=== PATIENT | female | born 1935 | race Caucasian/White ===

== ENCOUNTER → 2018-03-02 14:23 | Outpatient (CLI) | payer OTHER, MEDICARE, SELFPAY ==
--- NOTE | 2018-03-02 | DI.RAD.S_ITS ---
PROCEDURE: XR HIP W PEL IF DONE LT 2V INDICATIONS: LEFT HIP PAIBN TECHNIQUE: AP pelvis with lateral view(s) of the left hip(s). COMPARISON: None. FINDINGS: Bones: No fractures or dislocations. Pelvic ring appears intact. No suspicious bony lesions. There is mild, symmetrical hip joint space narrowing. Minimal marginal osteophyte formation on the left. Soft tissues: The visualized bowel gas pattern is normal. A 2.7 cm popcorn calcification is present in the mid pelvis, probable degenerative uterine fibroid. IMPRESSION: 1. No acute bony abnormality. 2. 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 3. Probable degenerative uterine fibroid. Dictated by: Efrain Ibarra M.D. on 03/02/2018 at 14:53 Approved by: Efrain Ibarra M.D. on 03/02/2018 at 14:55
== END ==
PROVIDERS: PCP Internal Medicine; Visit Provider Internal Medicine
DX: M16.0 Bilateral primary osteoarthritis of hip (principal)
CPT/HCPCS: 73502

== ENCOUNTER → 2018-08-13 11:22 | Outpatient (CLI) | payer MEDICARE, SELFPAY ==
[2018-08-13 12:12] LABS: Add Manual Diff / Slide Review NO; Basophils Percent Auto 1.2 % (0-2); Eosinophils Percent Auto 1.9 % (2-4); Hematocrit 39.2 % (36-46); Hemoglobin 13.4 g/dL (12.0-16.0); Lymphocytes Percent Auto 28.9 % (25-40); Mean Corpuscular HGB Conc 34.2 % (30-36); Mean Corpuscular Hemoglobin 30.3 PG (26-34); Mean Corpuscular Volume 88.7 fL (80-100); Monocytes Percent Auto 7.6 % (3-14); Neutrophils Absolute Auto 4300 /uL (3000-5900); Neutrophils Percent Auto 60.4 % (50-75); Platelet Count 256 X10^3/uL (150-400); Red Blood Cell Count 4.42 X10^6/uL (4.0-5.2); Red Cell Distribution Width 13.5 % (11.6-14.8); White Blood Cell Count 7.1 X10^3/uL (4.5-11.0)
[2018-08-13 13:40] LABS: Alanine Aminotransferase 23 IU/L (9-52); Albumin 4.6 g/dL (3.5-5.0); Albumin Globulin Ratio 1.6 (1.0-2.8); Alkaline Phosphatase 59 U/L (38-126); Aspartate Aminotransferase 21 IU/L (14-36); BUN Creatinine Ratio 18.6 (6-22); Bilirubin Total 0.5 mg/dL (0.2-1.3); Blood Urea Nitrogen 13 mg/dL (7-17); Calcium 9.8 mg/dL (8.4-10.2); Carbon Dioxide 26 mmol/L (22-32); Chloride 102 mmol/L (98-107); Estimated Glomerular Filt Rate > 60.0 mL/min (>60); Globulin 2.8 g/dL (1.7-4.1); Glucose 91 mg/dL (80-110); HEMOLYSIS < 15 (0-50); Potassium 4.5 mmol/L (3.4-5.1); Sodium 141 mmol/L (137-145); Total Protein 7.4 g/dL (6.3-8.2)
[2018-08-13 14:05] LABS: Thyroid Stimulating Hormone 5.14 uIU/mL (0.47-4.68)
== END ==
PROVIDERS: Family Provider Internal Medicine; PCP Internal Medicine; Visit Provider Psychiatry & Neurology Psychiatry
DX: F41.9 Anxiety disorder, unspecified (principal); Z51.81 Encounter for therapeutic drug level monitoring
CPT/HCPCS: 36415; 80053; 84443; 85025

== ENCOUNTER 2018-10-17 17:58 | Emergency (ER) | payer MEDICARE, SELFPAY ==
[2018-10-17] VITALS (9 sets, daily range): BP systolic 180–200; BP diastolic 60–124; PULSE 69–87; RESP 12–17; TEMP 36.4; O2SAT 100; BMI 26.9
--- NOTE | 2018-10-17 18:36 | DI.CT.S_ITS ---
PROCEDURE: CT HEAD/BRAIN WO CON INDICATIONS: headache very high BP TECHNIQUE: Noncontrast 4.5 mm thick angled axial sections acquired from the foramen magnum to the vertex, with coronal and sagittal reformats. For radiation dose reduction, the following was used: automated exposure control, adjustment of mA and/or kV according to patient size. COMPARISON: [facility], CT, HEAD WITHOUT CONTRAST, 05/26/2017, 16:21. FINDINGS: Image quality: Excellent. CSF spaces: Basal cisterns are patent. No extra-axial fluid collections. The ventricles are symmetric in size and shape. Brain: No intracranial bleeds or masses. There is cerebral volume loss for age, with resultant ventricular and sulcal prominence. There are periventricular and deep white matter chronic small vessel ischemic changes. There is intracranial internal carotid artery atherosclerosis. Skull and face: Calvarium and visualized facial bones appear intact, without suspicious lesions. Sinuses: Visualized sinuses and mastoids are clear. IMPRESSION: Normal for age. Source of headache is not seen. Dictated by: Bill Loya M.D. on 10/17/2018 at 19:24 Approved by: Bill Loya M.D. on 10/17/2018 at 19:25
--- NOTE | 2018-10-17 18:37 | DI.RAD.S_ITS ---
PROCEDURE: XR CHEST 1V INDICATIONS: chest pain TECHNIQUE: One view of the chest was acquired. COMPARISON: [facility], , CHEST 1 VIEW, 12/16/2017, 21:43. FINDINGS: Surgical changes and devices: None. Lungs and pleura: No pleural effusions or pneumothorax. Lungs are clear. Mediastinum: Mediastinal contours appear normal. Heart size is normal. Bones and chest wall: No suspicious bony lesions. Overlying soft tissues appear unremarkable. IMPRESSION: Mild interstitial prominence, mildly reduced inspiratory volume. No plant changer time, a source of chest pain is not found. Dictated by: Bill Loya M.D. on 10/17/2018 at 19:22 Approved by: Bill Loya M.D. on 10/17/2018 at 19:23
[2018-10-17 18:57] LABS: Add Manual Diff / Slide Review NO; Basophils Percent Auto 0.6 % (0-2); Hematocrit 39.7 % (36-46); Hemoglobin 13.3 g/dL (12.0-16.0); Lymphocytes Percent Auto 19.6 % (25-40); Mean Corpuscular HGB Conc 33.5 % (30-36); Mean Corpuscular Hemoglobin 30.3 PG (26-34); Mean Corpuscular Volume 90.5 fL (80-100); Monocytes Percent Auto 5.2 % (3-14); Neutrophils Absolute Auto 6300 /uL (1500-7000); Neutrophils Percent Auto 73.6 % (50-75); Platelet Count 251 X10^3/uL (150-400); Red Blood Cell Count 4.39 X10^6/uL (4.0-5.2); Red Cell Distribution Width 13.6 % (11.6-14.8); White Blood Cell Count 8.6 X10^3/uL (4.5-11.0)
[2018-10-17 18:58] LABS: Prothrombin Time 11.4 SECONDS (10.1-12.7)
[2018-10-17 19:01] LABS: PTT Partial Thromboplastin Tim 33 SECONDS (26.4-36.2)
[2018-10-17 19:03] LABS: Alanine Aminotransferase 25 IU/L (9-52); Albumin 4.5 g/dL (3.5-5.0); Albumin Globulin Ratio 1.3 (1.0-2.8); Alkaline Phosphatase 66 U/L (38-126); Aspartate Aminotransferase 25 IU/L (14-36); BUN Creatinine Ratio 22.9 (6-22); Bilirubin Total 0.4 mg/dL (0.2-1.3); Blood Urea Nitrogen 16 mg/dL (7-17); Calcium 9.6 mg/dL (8.4-10.2); Carbon Dioxide 28 mmol/L (22-32); Chloride 102 mmol/L (98-107); Creatine Kinase 39 U/L (30-135); Estimated Glomerular Filt Rate > 60.0 mL/min (>60); Globulin 3.4 g/dL (1.7-4.1); Glucose 130 mg/dL (80-110); Lipase 97 U/L (23-300); Sodium 138 mmol/L (137-145); Total Protein 7.9 g/dL (6.3-8.2)
--- NOTE | 2018-10-17 19:10 | ED.GENADULT ---
HPI - General Adult General Chief complaint: Hypertension Stated complaint: HIGH BLOOD PRESSURE, HEADACHE, JAW PAIN Time Seen by Provider: 10/17/18 18:26 Source: patient Mode of arrival: ambulatory Limitations: no limitations History of Present Illness HPI narrative: Patient is a 83-year-old female presents with left-sided jaw pain. She says it started at 3:15 a.m.. She does feel like her brain hurts as well she has no vision changes no numbness no tingling no chest pain a she does feel like her shoulder hurts. However she does say she has arthritis if she can't tell. She has no dental pain. She took her blood pressure at home and it was 240/132. She took it again was 202/100. Is remains elevated here in the ED. 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 She has no numbness or tingling in her extremities. Related Data Home Medications Medication Instructions Recorded Confirmed diltiazem HCl [Cartia XT] 360 mg PO #0 12/16/17 10/02/18 propranolol [Inderal LA] 60 mg PO QDAY #0 01/12/18 10/02/18 hydralazine 25 mg tablet 25 mg PO TID 07/17/18 10/02/18 Previous Rx's Medication Instructions Recorded Cane: Single Point ea #1 05/10/17 lisinopril 20 mg PO BID #60 tab 05/10/17 valacyclovir 500 mg PO BID #30 tab 05/10/17 hydroxyzine pamoate 25 mg PO TIDP PRN #90 cap 12/22/17 clonazepam 0.5 mg tablet 0.25 mg PO BID #30 tab 10/02/18 Allergies Allergy/AdvReac Type Severity Reaction Status Date / Time Anesthetics - Colleen Type- Allergy Unknown patient Verified 08/28/18 09:02 Parabens can't [Anesthetics - Colleen Type] remember procaine Allergy Unknown patient Verified 08/28/18 09:02 can't remember epinephrine [EPINEPHRINE] AdvReac Severe shakes Verified 08/28/18 09:02 hydrocodone AdvReac Severe patient Verified 08/28/18 09:02 can't remeber codeine AdvReac Intermediate vomiting Verified 08/28/18 09:02 aspirin AdvReac Mild GI UPSET Verified 08/28/18 09:02 Review of Systems Review of Systems All systems reviewed & are unremarkable except as noted in HPI and below Constitutional Denies chills, Denies fever(s), Reports headache(s), Denies lethargy and Denies weakness ENT Ears, Nose, Mouth, and Throat: Denies vertigo, Denies dizziness and Reports headache(s) Cardiovascular Denies lightheadedness, Denies palpitations, Denies dyspnea and Denies dyspnea on exertion Respiratory Denies dyspnea and Denies dyspnea on exertion Gastrointestinal Gastrointestinal: Denies abdominal pain, Denies change in bowel habits, Denies diarrhea, Denies nausea and Denies vomiting Genitourinary Denies hematuria, Denies flank pain, Denies urinary incontinence and Denies urinary urgency Musculoskeletal Denies back pain, Denies muscle weakness, Denies numbness and Denies tingling Integumentary/Breasts Denies pruritus, Denies erythema, Denies rash and Denies wounds Neurologic Denies vertigo, Denies dizziness, Reports headache(s), Denies focal weakness, Denies numbness, Denies tingling and Denies weakness Endocrine Denies palpitations PFSH Medical History Anxiety (Chronic) Hypertension (Chronic) Surgical History Status post delivery Status post cholecystectomy Social History Smoking Status: Never smoker Exam Initial Vital Signs Initial Vital Signs: Vital Signs Temperature 97.6 F 10/17/18 18:10 Pulse Rate 87 10/17/18 18:10 Respiratory Rate 16 10/17/18 18:10 Blood Pressure 181/124 H 10/17/18 18:10 Pulse Oximetry 100 10/17/18 18:10 GENERAL: Alert pleasant elderly female alert and oriented times 4 HEENT: Head atraumatic,EOMI, pupils reactive, face symmetric, neck is supple CARDIOVASCULAR: Regular rate and rhythm without murmurs, rubs or gallops. RESPIRATORY: Breath sounds equal bilaterally, no wheezes rales or rhonchi. ABDOMEN: Soft, nontender. Normoactive bowel sounds all 4 quadrants. No guarding or rebound. EXTREMITIES: Normal range of motion, no clubbing or edema. Neurovascularly intact NEUROLOGICAL: Alert and oriented x4.Normal gait and speech. Cranial nerves II through XII grossly intact. Hospital Plan Administrator strength equal bilaterally good [id number] good heel to lundy sensation intact to soft touch bilaterally SKIN: Warm, dry, no laceration, no petechiae, no rashes or lesions. Scores NIH Stroke Scale Level of Conciousness: Alert, keenly responsive Ask month/age: Answers both questions correctly. Open/close eyes, close hand: Performs both tasks correctly Best gaze horizontal: Normal Visual cai: No visual loss Facial palsy: Normal symetrical movement Left arm drift: No drift for full 10 sec Right arm drift: No drift for full 10 sec Left leg drift: No drift for full 10 sec Right leg drift: No drift for full 10 sec Limb ataxia: Absent Sensory on face/arms/legs: Normal, no sensory loss Best language: No aphasia, normal Dysarthria: Normal Extinction or inattention: No abnormality Total NIH Stroke scale score: 0 Course Orders Ordered: ED Orders 10/17/18 18:15 EKG-12 Lead Routine 10/17/18 18:32 Complete Blood Count AUTO DIFF Stat Comprehensive Metabolic Panel Stat Lipase Stat Partial Thromboplastin Time Stat Prothrombin Time INR Stat Troponin & CK Cardiac Panel Stat 10/17/18 18:36 CT head/brain wo con Stat 10/17/18 18:37 XR chest 1V Stat 10/17/18 20:31 Troponin I Stat Discontinued Medications Aspirin (Aspirin Chew) 324 mg PO NOW ONE Stop: 10/17/18 18:37 Last Admin: 10/17/18 19:15 Dose: 324 mg Clonazepam (Klonopin) 0.5 mg PO NOW ONE Stop: 10/17/18 19:38 Last Admin: 10/17/18 19:50 Dose: 0.5 mg Ketorolac Tromethamine (Toradol) 15 mg IV NOW ONE Stop: 10/17/18 19:41 Last Admin: 10/17/18 19:46 Dose: 15 mg Lisinopril (Zestril) 20 mg PO NOW ONE Stop: 10/17/18 19:38 Last Admin: 10/17/18 19:45 Dose: 20 mg Vital Signs - 8 hr 10/17/18 18:10 10/17/18 18:34 10/17/18 19:00 Temperature 97.6 F Pulse Rate 87 87 74 Respiratory Rate 16 16 15 Blood Pressure 181/124 H Blood Pressure [Left Arm] 200/71 H 187/68 H Pulse Oximetry 100 100 100 10/17/18 19:45 10/17/18 19:46 10/17/18 20:00 Temperature Pulse Rate 72 76 69 Respiratory Rate 14 12 Blood Pressure 190/69 H Blood Pressure [Left Arm] 190/69 H 188/76 H Pulse Oximetry 100 100 10/17/18 20:30 10/17/18 21:00 10/17/18 21:30 Temperature Pulse Rate 71 73 79 Respiratory Rate 13 17 16 Blood Pressure Blood Pressure [Left Arm] 180/60 H 181/75 H 187/72 H Pulse Oximetry 100 100 100 Medical Decision Making Differential Diagnosis Coronary artery disease, CVA, TIA, angina, atypical chest pain Lab Data Lab results reviewed: Yes I reviewed the patient's lab results. Result diagrams: 10/17/18 18:32 10/17/18 18:32 Lab Results 10/17/18 10/17/18 10/17/18 Range/Units 18:32 18:32 18:32 WBC 8.6 (4.5-11.0) X10^3/uL RBC 4.39 (4.0-5.2) X10^6/uL Hgb 13.3 (12.0-16.0) g/dL Hct 39.7 (36-46) % MCV 90.5 (80-100) fL MCH 30.3 (26-34) PG MCHC 33.5 (30-36) % RDW 13.6 (11.6-14.8) % Plt Count 251 (150-400) X10^3/uL Neut % (Auto) 73.6 (50-75) % Lymph % (Auto) 19.6 L (25-40) % [place] % (Auto) 5.2 (3-14) % Eos % (Auto) 1.0 L (2-4) % Baso % (Auto) 0.6 (0-2) % Neut # (Auto) 6300 (1580-5108) /uL PT 11.4 (10.1-12.7) SECONDS INR 1.0 (0.9-1.3) APTT 33 (26.4-36.2) SECONDS Sodium 138 (137-145) mmol/L Potassium 4.0 (3.4-5.1) mmol/L Chloride 102 (98-107) mmol/L Carbon Dioxide 28 (22-32) mmol/L BUN 16 (7-17) mg/dL Creatinine 0.70 (0.52-1.04) mg/dL Estimated GFR > 60.0 (>60) mL/min BUN/Creatinine Ratio 22.9 H (6-22) Glucose 130 H (80-110) mg/dL Calcium 9.6 (8.4-10.2) mg/dL Total Bilirubin 0.4 (0.2-1.3) mg/dL AST 25 (14-36) IU/L ALT 25 (9-52) IU/L Alkaline Phosphatase 66 (38-126) U/L Total Creatine Kinase 39 (30-135) U/L CK-MB (CK-2) TNP CK-MB (CK-2) Rel Index TNP Troponin I < 0.012 (0.01-0.034) ng/mL Total Protein 7.9 (6.3-8.2) g/dL Albumin 4.5 (3.5-5.0) g/dL Globulin 3.4 (1.7-4.1) g/dL Albumin/Globulin Ratio 1.3 (1.0-2.8) Lipase 97 (23-300) U/L 10/17/18 Range/Units 20:31 WBC (4.5-11.0) X10^3/uL RBC (4.0-5.2) X10^6/uL Hgb (12.0-16.0) g/dL Hct (36-46) % MCV (80-100) fL MCH (26-34) PG MCHC (30-36) % RDW (11.6-14.8) % Plt Count (150-400) X10^3/uL Neut % (Auto) (50-75) % Lymph % (Auto) (25-40) % [place] % (Auto) (3-14) % Eos % (Auto) (2-4) % Baso % (Auto) (0-2) % Neut # (Auto) (4508-2418) /uL PT (10.1-12.7) SECONDS INR (0.9-1.3) APTT (26.4-36.2) SECONDS Sodium (137-145) mmol/L Potassium (3.4-5.1) mmol/L Chloride (98-107) mmol/L Carbon Dioxide (22-32) mmol/L BUN (7-17) mg/dL Creatinine (0.52-1.04) mg/dL Estimated GFR (>60) mL/min BUN/Creatinine Ratio (6-22) Glucose (80-110) mg/dL Calcium (8.4-10.2) mg/dL Total Bilirubin (0.2-1.3) mg/dL AST (14-36) IU/L ALT (9-52) IU/L Alkaline Phosphatase (38-126) U/L Total Creatine Kinase (30-135) U/L CK-MB (CK-2) CK-MB (CK-2) Rel Index Troponin I < 0.012 (0.01-0.034) ng/mL Total Protein (6.3-8.2) g/dL Albumin (3.5-5.0) g/dL Globulin (1.7-4.1) g/dL Albumin/Globulin Ratio (1.0-2.8) Lipase (23-300) U/L Imaging Data Chest x-ray: Radiologist's impression: PROCEDURE: XR CHEST 1V INDICATIONS: chest pain TECHNIQUE: One view of the chest was acquired. COMPARISON: [facility], , CHEST 1 VIEW, 12/16/2017, 21:43. FINDINGS: Surgical changes and devices: None. Lungs and pleura: No pleural effusions or pneumothorax. Lungs are clear. Mediastinum: Mediastinal contours appear normal. Heart size is normal. Bones and chest wall: No suspicious bony lesions. Overlying soft tissues appear unremarkable. IMPRESSION: Mild interstitial prominence, mildly reduced inspiratory volume. No change consultant time, a source of chest pain is not found. Dictated by: Bill Loya M.D. on 10/17/2018 at 19:22 ECG Data Attestation: I personally reviewed and interpreted this ECG as follows: Prior ECG tracings: available for review Interpretation: Normal sinus rhythm rate [address] elevations persistent T-wave inversion in lead [address] depressions similar to previous EKGs MDM Narrative Medical decision making narrative: Patient's blood pressure has come down with her own blood pressure medication. His she seems to have jaw and neck pain that is reproducible with movement. His he has no chest pain she actually started complaining of some mild headache as well. Head CT was negative. No focal deficits. Recommend that she speak with her PCP in regards to pressure control. Son is at bedside I discussed test results with both patient and son. Of patient's pain has improved after Toradol but is not completely gone. At this time I think pain is on likely related to coronary artery disease and CVA. More likely musculoskeletal. She has 2-troponins no changes in her EKG. Discharge Plan Departure Patient Disposition: Home Clinical Impression: Hypertension Discharge Date/Time: 10/17/18 22:01 Interventions: ED Discharge Assessment Last Done: 10/17/18 22:01 Instructions: DI for High Blood Pressure Activity Restrictions/Additional Instructions: *You have been diagnosed with hypertension *What to do: Blood work chest x-ray and CT scan of had a reassuring. Please discuss blood pressure control with her primary care provider. *Continue to take medications as directed *Follow up with your primary care provider in 2-3 days *Return to ER if you should have worsening headache, shoulder pain, chest pain, shortness of breath or any new, worsening or concerning symptoms Prescriptions: No Action hydralazine 25 mg tablet 25 mg PO TID RF: 0 clonazepam 0.5 mg tablet 0.25 mg PO BID Qty: 30 RF: 5 valacyclovir 500 MG tablet 500 mg PO BID Qty: 30 RF: 1 lisinopril 20 MG tablet 20 mg PO BID Qty: 60 RF: 3 Cane: Single Point Qty: 1 RF: 0 diltiazem HCl [Cartia XT] 240 MG capsule,extended release 24hr 360 mg PO Qty: 0 RF: 0 hydroxyzine pamoate 25 MG capsule 25 mg PO TIDP PRNQty: 90 RF: 1 propranolol [Inderal LA] 60 MG capsule,extended release 24 hr 60 mg PO QDAY Qty: 0 RF: 0 Referrals: Mil Lopez MD [Primary Care Provider] -
[2018-10-17] MEDS: ASPIRIN 81 MG TAB 324 MG PO (19:15)
[2018-10-17 19:17] LABS: HEMOLYSIS < 15 (0-50)
[2018-10-17 19:32] LABS: Troponin I < 0.012 ng/mL (0.01-0.034)
[2018-10-17] MEDS: LISINOPRIL 20 MG TABLET PO (19:45)
[2018-10-17] MEDS: KETOROLAC 60 MG/2 ML VIAL 15 MG IV (19:46)
[2018-10-17] MEDS: clonazePAM 0.5 MG TABLET PO (19:50)
[2018-10-17 21:07] LABS: Troponin I < 0.012 ng/mL (0.01-0.034)
== END 2018-10-17 22:01 | disposition home or self-care (01) ==
PROVIDERS: Emergency Provider Emergency Medicine; Family Provider Internal Medicine; PCP Internal Medicine
DX: I10 Essential (primary) hypertension (principal)
CPT/HCPCS: 36415; 36591; 70450; 71045; 80053; 82550; 83690; 84484; 85025; 85610; 85730; 93005; 96374; 99283; 99285; J1885

== ENCOUNTER → 2019-02-06 13:26 | Outpatient (CLI) | payer MEDICARE, SELFPAY ==
--- NOTE | 2019-02-06 | DI.CT.S_ITS ---
PROCEDURE: CT HEAD/BRAIN WO CON INDICATIONS: Other cerebrovascular disease TECHNIQUE: Noncontrast 4.5 mm thick angled axial sections acquired from the foramen magnum to the vertex, with coronal and sagittal reformats. For radiation dose reduction, the following was used: automated exposure control, adjustment of mA and/or kV according to patient size. COMPARISON: [facility], CT, CT HEAD/BRAIN WO CON, 10/17/2018, 18:45. [facility], CT, HEAD WITHOUT CONTRAST, 05/26/2017, 16:21. FINDINGS: Image quality: Excellent. CSF spaces: Basal cisterns are patent. No extra-axial fluid collections. The ventricles are symmetric in size and shape. Brain: No intracranial bleeds or masses. There is cerebral volume loss for age, with resultant ventricular and sulcal prominence. There are periventricular and deep white matter chronic small vessel ischemic changes. There is intracranial internal carotid artery atherosclerosis. Skull and face: Calvarium and visualized facial bones appear intact, without suspicious lesions. Sinuses: Visualized sinuses and mastoids are clear. IMPRESSION: Mild microvascular atherosclerotic change in the deep white matter of each hemisphere, no acute disease. Dictated by: Bill Loya M.D. on 02/06/2019 at 14:51 Approved by: Bill Loya M.D. on 02/06/2019 at 14:51
== END ==
PROVIDERS: Family Provider Internal Medicine; PCP Internal Medicine; Visit Provider Internal Medicine
DX: I67.89 Other cerebrovascular disease (principal)
CPT/HCPCS: 70450

== ENCOUNTER → 2019-03-29 12:44 | Outpatient (CLI) | payer MEDICARE, SELFPAY ==
[2019-03-29 13:47] LABS: Erythrocyte Sedimentation Rate 29 MM/HR (0-20)
[2019-03-29 14:15] LABS: C-Reactive Protein Quant < 0.5 mg/dL (<1.0)
== END ==
PROVIDERS: PCP Internal Medicine; Visit Provider Internal Medicine
DX: M13.0 Polyarthritis, unspecified (principal)
CPT/HCPCS: 36415; 85651; 86140

== ENCOUNTER 2019-06-18 12:00 | Outpatient (RCR) | payer MEDICARE, SELFPAY ==
--- NOTE | 2019-04-16 15:34 | PT.OIE ---
Current Diagnoses Cervicalgia (04/16/19) Dorsalgia, unspecified (04/16/19) Past Medical History (Last Updated 10/17/18 @ 19:13 by Dayanara Rea DO) Anxiety (Chronic) Hypertension (Chronic) Past Surgical History Status post delivery Status post cholecystectomy Provider Visit Care Team Role Provider Type Mil Lopez MD Attending Provider Physician Primary Care Provider Specialty: Internal Medicine Address: [address] [place] [address], [facility] Email: Physical Therapy Initial Evaluation PT-OP-A Visit Information Start: 04/16/19 10:40 Freq: Status: Active Protocol: Document 04/16/19 10:41 EA (Rec: 04/16/19 10:52 EA [id number]) Out-Patient Physical Therapy Visit Information Visit Information Visit Type Initial Evaluation Visit Start Time 09:45 Visit Stop Time 10:30 Total Visit Minutes 40 Visit Number 1 Number of MANAGER CRITICAL CARE UNIT Visits 0 Evaluation Information Evaluation Date 04/16/19 Precautions Precautions Fall risk with head movements PT-OP-B Current Condition Start: 04/16/19 10:40 Freq: Status: Active Protocol: Document 04/16/19 10:41 EA (Rec: 04/16/19 10:52 EA [id number]) Current Condition History of Current Condition Onset Date Neck 2 years ago; midback 5 years ago Current Complaints Posterior neck and mid back pain History of Current Condition Patient reports neck and mid back pain started gradually after she was told not to do much to her neck and trunk mobility due to calcium deposits on her body 5 years ago. She reports able to maintain upright posture but very stiff body. She feels all of her back and neck are achy more in the morning and loosen up once started doing home typical activities. She reports living by herself on a no stairs house and uses cane only when walking outside. She reports no fall in the past six months but very careful about her balance. Prior Treatments and Tests None identified Future Testing and Treatments Planned None identified. Treatment Goals Patient/Caregiver Goals 1. I want to decrease my neck and back pain' 2. I want to strengthen my both legs 3. I want to walk on my treadmill machine safely > 10 mins Prior Functional Status Baseline Function- ADL's Independent Baseline Function- Mobility Independent Baseline Function- Gait Indep with AD with outdoor mobility Baseline Function- Work/School Retired Baseline Function- Recreation/Hobbies Patient denies any outdoor hobbies but cleaning the house is what she likes to do. Current Functional Impairments (Reported) Functional Limitations- ADL's Independent in all ADL; difficulty with activities that requires head turning and moving. Functional Limitations- Mobility/Gait Indep: Straight cane for outside amb. Able to walk but with difficulty with walking that requires head turning. Functional Limitations- Work/School Retired Functional Limitations- Recreation/ None Hobbies Personal Factors Other Personal Factors That May Effect Chronicity of the condition Therapy/Recovery PT-OP-C Subjective Start: 04/16/19 10:40 Freq: Status: Active Protocol: Document 04/16/19 10:53 EA (Rec: 04/16/19 11:15 EA [id number]) OP-PT Subjective Patient Comments Patient Comments I feel my ribs is pulled when I stretch my chest and I feel headache when I turn my head to each sides. Patient Reported Progress Same Patient Questionnaires Oswestry Low Back Index Oswestry Score 20 Oswestry Impairment 20 to 39% Impaired (Score 20- 39) PT-OP-D Balance Start: 04/16/19 10:40 Freq: Status: Active Protocol: Document 04/16/19 10:53 EA (Rec: 04/16/19 11:15 EA [id number]) OP-PT Balance Assessment Sitting Balance Static Sitting Balance Ability Good Dynamic Sitting Balance Ability Good Standing Balance Static Standing Balance Ability Good Dynamic Standing Balance Ability Fair Balance Tests Single Limb Standing Single Limb- Right < 2 Single Limb- Left < 1 Tandem Tandem Standing < 2 secs each leg Tinetti Balance Assessment Sitting Balance Sitting Balance Steady, safe Arising from Chair Ability to Arise Able, w/o using arms Attempts to Arise Arises on 1st attempt Standing Balance Immediate Standing Balance Steady w/o support Standing Balance Steady, wide stance Nudged Response Steady Standing with Eyes Closed Unsteady Turning Step Pattern Turning 360 Degrees Continuous steps Stability Turning 360 Degrees Steady Sitting Down Sitting Down Safe, steady Gait and Step Initiation of Gait No hesitancy Right Foot Step Length Does pass stance foot Right Foot Step Height Completely clears floor Left Foot Step Length Does pass stance foot Left Foot Step Height Completely clears floor Step Description Step Symmetry Step length appears equal Gait Description Path Description Straight Trunk Description No sway Walking Stance Heels together Scoring and Interpretation Tinetti Composite Score (points) 25 Interpretation of Scores Low risk for falls (>24) Tinetti Impairment Rating from Composite 1 to <20% Impaired (Score 23- Score 27) Simmons Fall Scale Copyright Permission PT-OP-F Manual Assessment Start: 04/16/19 10:40 Freq: Status: Active Protocol: Document 04/16/19 10:53 EA (Rec: 04/16/19 11:15 EA [id number]) Manual Assessments Soft Tissue Assessment Soft Tissue Mobility Assessment Tightness to bothPectorals, traps, scalenes, LS, paralumbars, parathoracis Other Manual Assessments Other Manual Assessments Trigger points to both parascapulars, right mid thoracis, upper traps, LS, PT-OP-J Posture/Palpation/Skin Start: 04/16/19 10:40 Freq: Status: Active Protocol: Document 04/16/19 10:53 EA (Rec: 04/16/19 11:15 EA [id number]) Posture Evaluation Comments Posture Comments Near to normal head to toe posture except with slight round shoulders, kyphotic postures. Palpation Assessment Location One Palpation Location Parathoracis. paracervicals, LS, both traps, rhomboids, scalenes. Palpation Findings Soft Tissue Tightness Tenderness Trigger Point PT-OP-K Range of Motion Start: 04/16/19 10:40 Freq: Status: Active Protocol: Document 04/16/19 10:53 EA (Rec: 04/16/19 11:15 EA [id number]) Cervical Spine Range of Motion Cervical Spine Active Percentage Testing Position Sitting Flexion 85 Extension 60 Rotation Left 60 Rotation Right 60 Lateral Flexion Left 55 Lateral Flexion Right 55 ROM Limitations Soft Tissue Tightness Pain Lumbar Spine Range of Motion Lumbar Spine Active Percentage Testing Position Standing Flexion 75 Extension 65 Rotation Left 60 Rotation Right 60 Lateral Flexion Left 50 Lateral Flexion Right 50 ROM Limitations Soft Tissue Tightness Pain PT-OP-L Special Tests Start: 04/16/19 10:40 Freq: Status: Active Protocol: Document 04/16/19 10:53 EA (Rec: 04/16/19 11:15 EA [id number]) Special Tests Cervical Spine Special Tests Foraminal Compression Test Results -juan Vertebral Artery Test Results -juan Lumbar Spine Special Tests Straight Leg Raise Test Results -ve PT-OP-M Strength Start: 04/16/19 10:40 Freq: Status: Active Protocol: Document 04/16/19 10:53 EA (Rec: 04/16/19 11:15 EA [id number]) Cervical Spine Strength Cervical Spine Manual Muscle Testing Testing Position Sitting Reason Not Measured WFL Trunk Strength Trunk Manual Muscle Testing Testing Position Sitting Reason Not Measured WFL Hip Strength Hip Manual Muscle Testing Right Flexion (L2) 4- Good- Extension (S1) 4- Good- Abduction 4- Good- Adduction 4- Good- External Rotation 4- Good- Internal Rotation 4- Good- Left Flexion (L2) 4- Good- Extension (S1) 4- Good- Abduction 4- Good- Adduction 4- Good- External Rotation 4- Good- Internal Rotation 4- Good- Knee Strength Knee Manual Muscle Testing Right Reason Not Measured WFL Left Reason Not Measured WFL PT-OP-Q Treatments Start: 04/16/19 10:40 Freq: Status: Active Protocol: Document 04/16/19 10:53 EA (Rec: 04/16/19 11:15 EA [id number]) Manual Therapy Treatment Soft Tissue Mobilization 1 Body Location Parathoracis, traps, LS, paracervicals Mobilization Type Myofascial Release Rolling Sustained Pressure Trigger Point Release Intensity/Depth Superficial Body Position Sitting Self-Care/Home Management Treatment Education Patient Education Home Exercise Program Joint Protection Pain Management Posture PT-OP-T Assessment and Plan Start: 04/16/19 10:40 Freq: Status: Active Protocol: Document 04/16/19 10:53 EA (Rec: 04/16/19 11:15 EA [id number]) Physical Therapy Assessment Rehab Potential Rehabilitation Potential Good Evaluation Complexity Number of Personal Factors/Comorbidities 1-2 Number of Body Systems Impaired 3 Clinical Presentation at Evaluation Evolving Impairments Impairments Activity Tolerance Balance Pain Posture ROM Soft Tissue Mobility Strength Goals Four Impairment Impaired neck ROM Inside Account Representative Goal (LTG) Patient will perform functional neck ROM with no discomfort to enhance functional activities without limitation from neck. LTG Duration 6 wks Three Impairment Oswetry 20/50 Inside Account Representative Goal (LTG) Oswetry functional scale results of < 15/50 LTG Duration 5 wks Two Impairment decrease ambulation tolerance Inside Account Representative Goal (LTG) Patient will amb on her TM machine > 10 mins safely. LTG Duration 5 wks One Impairment No HEP in place [facility] Goal (LTG) Patient will exhibit indep HEP LTG Duration 3 wks Assessment Summary Assessment Pleasant 83 y/o F patient with a referring diagnosis of neck and back pain. Today patient presents with decreased neck mobility and functional gait due to neck ROM limitation, pain, with impaired balance and minimal abnormal posture. Assessment reveals multiple mid back trigger points with soft tissues tightness to paracervical, parathoracis, parascapulars, traps, scalenes , and levator scapulae. Postural assessment reveals fair to good posture with slight fwd head and rounded posture. Standing dynamic balance shows fair grade with poor balance noted during with neck mobility. Patient would greatly benefit with skilled PT focusing of increase neck and mid back flexibility and improving dynamic balance. Patient shows good rehab potential and likely reach personal goals. Physical Therapy Plan Frequency and Duration Frequency of Treatment 2x/Week Duration of Treatment 8 wks Plan of Care Start Date 04/16/19 Plan of Care End Date 06/11/19 Therapeutic Interventions Therapeutic Interventions Balance Training Home Exercise Program Manual Therapy Patient/Caregiver Education Self-Care/Home Management Soft Tissue Mobilization Taping Therapeutic Exercises Modalities Cold Pack/Ice Massage Electric Stimulation Hot Packs Ultrasound Next Visit Focus/Plan Next Note Type Treatment Note Next Visit Plan STM and modalities to mid back and neck. Gentle ROM/ flexibility exercises to neck and lumba/thoracis, balance exercises with neck rotation/ EC/EO. Provide/Review HEP with images
--- NOTE | 2019-04-16 15:35 | PT.OPPOC ---
Current Diagnoses Cervicalgia (04/16/19) Dorsalgia, unspecified (04/16/19) Provider Visit Care Team Role Provider Type Mil Lopez MD Attending Provider Physician Primary Care Provider Specialty: Internal Medicine Address: [address] [place] [address], [id number] Email: Plan Of Care PT-OP-T Assessment and Plan Start: 04/16/19 10:40 Freq: Status: Active Protocol: Document 04/16/19 10:53 EA (Rec: 04/16/19 11:15 EA [id number]) Physical Therapy Assessment Rehab Potential Rehabilitation Potential Good Evaluation Complexity Number of Personal Factors/Comorbidities 1-2 Number of Body Systems Impaired 3 Clinical Presentation at Evaluation Evolving Impairments Impairments Activity Tolerance Balance Pain Posture ROM Soft Tissue Mobility Strength Goals Four Impairment Impaired neck ROM Mailroom Coordinator Goal (LTG) Patient will perform functional neck ROM with no discomfort to enhance functional activities without limitation from neck. LTG Duration 6 wks Three Impairment Oswetry 20/50 Group Home Goal (LTG) Oswetry functional scale results of < 15/50 LTG Duration 5 wks Two Impairment decrease ambulation tolerance Group Home Goal (LTG) Patient will amb on her TM machine > 10 mins safely. LTG Duration 5 wks One Impairment No HEP in place Group Home Goal (LTG) Patient will exhibit indep HEP LTG Duration 3 wks Assessment Summary Assessment Pleasant 83 y/o F patient with a referring diagnosis of neck and back pain. Today patient presents with decreased neck mobility and functional gait due to neck ROM limitation, pain, with impaired balance and minimal abnormal posture. Assessment reveals multiple mid back trigger points with soft tissues tightness to paracervical, parathoracis, parascapulars, traps, scalenes , and levator scapulae. Postural assessment reveals fair to good posture with slight fwd head and rounded posture. Standing dynamic balance shows fair grade with poor balance noted during with neck mobility. Patient would greatly benefit with skilled PT focusing of increase neck and mid back flexibility and improving dynamic balance. Patient shows good rehab potential and likely reach personal goals. Physical Therapy Plan Frequency and Duration Frequency of Treatment 2x/Week Duration of Treatment 8 wks Plan of Care Start Date 04/16/19 Plan of Care End Date 06/11/19 Therapeutic Interventions Therapeutic Interventions Balance Training Home Exercise Program Manual Therapy Patient/Caregiver Education Self-Care/Home Management Soft Tissue Mobilization Taping Therapeutic Exercises Modalities Cold Pack/Ice Massage Electric Stimulation Hot Packs Ultrasound Next Visit Focus/Plan Next Note Type Treatment Note Next Visit Plan STM and modalities to mid back and neck. Gentle ROM/ flexibility exercises to neck and lumba/thoracis, balance exercises with neck rotation/ EC/EO. Provide/Review HEP with images Plan of Care Dates Plan of Care Start Date 04/16/19 Plan of Care End Date 06/11/19 Please Sign and Return: I have reviewed this Plan of Care and certify that the skilled therapy services above are required to meet the patient?s needs. Physician Signature Date Printed Name and Credentials Clinical Instructor Signature Printed Name and Credentials
--- NOTE | 2019-04-19 15:25 | PT.OTN ---
Current Diagnoses Cervicalgia (04/19/19) Dorsalgia, unspecified (04/19/19) Physical Therapy Treatment Note PT-OP-A Visit Information Start: 04/16/19 10:40 Freq: Status: Active Protocol: Document 04/19/19 15:14 SA (Rec: 04/19/19 15:25 SA [email or web address]) Out-Patient Physical Therapy Visit Information Visit Information Visit Type Treatment Note Visit Start Time 12:15 Visit Stop Time 13:00 Total Visit Minutes 45 Visit Number 2 Number of ENTOMOLOGY TEACHER Visits 1 PT-OP-B Current Condition Start: 04/16/19 10:40 Freq: Status: Active Protocol: Document 04/16/19 10:41 EA (Rec: 04/16/19 10:52 EA [id number]) Current Condition History of Current Condition Onset Date Neck 2 years ago; midback 5 years ago Current Complaints Posterior neck and mid back pain History of Current Condition Patient reports neck and mid back pain started gradually after she was told not to do much to her neck and trunk mobility due to calcium deposits on her body 5 years ago. She reports able to maintain upright posture but very stiff body. She feels all of her back and neck are achy more in the morning and loosen up once started doing home typical activities. She reports living by herself on a no stairs house and uses cane only when walking outside. She reports no fall in the past six months but very careful about her balance. Prior Treatments and Tests None identified Future Testing and Treatments Planned None identified. Treatment Goals Patient/Caregiver Goals 1. I want to decrease my neck and back pain' 2. I want to strengthen my both legs 3. I want to walk on my treadmill machine safely > 10 mins Prior Functional Status Baseline Function- ADL's Independent Baseline Function- Mobility Independent Baseline Function- Gait Indep with AD with outdoor mobility Baseline Function- Work/School Retired Baseline Function- Recreation/Hobbies Patient denies any outdoor hobbies but cleaning the house is what she likes to do. Current Functional Impairments (Reported) Functional Limitations- ADL's Independent in all ADL; difficulty with activities that requires head turning and moving. Functional Limitations- Mobility/Gait Indep: Straight cane for outside amb. Able to walk but with difficulty with walking that requires head turning. Functional Limitations- Work/School Retired Functional Limitations- Recreation/ None Hobbies Personal Factors Other Personal Factors That May Effect Chronicity of the condition Therapy/Recovery PT-OP-C Subjective Start: 04/16/19 10:40 Freq: Status: Active Protocol: Document 04/19/19 15:14 SA (Rec: 04/19/19 15:25 SA [id number]) OP-PT Subjective Patient Comments Patient Comments Pt reports feeling sore after initial visit but understands she needs to work on her neck and mid-back. PT-OP-D Balance Start: 04/16/19 10:40 Freq: Status: Active Protocol: Document 04/16/19 10:53 EA (Rec: 04/16/19 11:15 EA [id number]) OP-PT Balance Assessment Sitting Balance Static Sitting Balance Ability Good Dynamic Sitting Balance Ability Good Standing Balance Static Standing Balance Ability Good Dynamic Standing Balance Ability Fair Balance Tests Single Limb Standing Single Limb- Right < 2 Single Limb- Left < 1 Tandem Tandem Standing < 2 secs each leg Tinetti Balance Assessment Sitting Balance Sitting Balance Steady, safe Arising from Chair Ability to Arise Able, w/o using arms Attempts to Arise Arises on 1st attempt Standing Balance Immediate Standing Balance Steady w/o support Standing Balance Steady, wide stance Nudged Response Steady Standing with Eyes Closed Unsteady Turning Step Pattern Turning 360 Degrees Continuous steps Stability Turning 360 Degrees Steady Sitting Down Sitting Down Safe, steady Gait and Step Initiation of Gait No hesitancy Right Foot Step Length Does pass stance foot Right Foot Step Height Completely clears floor Left Foot Step Length Does pass stance foot Left Foot Step Height Completely clears floor Step Description Step Symmetry Step length appears equal Gait Description Path Description Straight Trunk Description No sway Walking Stance Heels together Scoring and Interpretation Tinetti Composite Score (points) 25 Interpretation of Scores Low risk for falls (>24) Tinetti Impairment Rating from Composite 1 to <20% Impaired (Score 23- Score 27) Simmons Fall Scale Copyright Permission PT-OP-F Manual Assessment Start: 04/16/19 10:40 Freq: Status: Active Protocol: Document 04/16/19 10:53 EA (Rec: 04/16/19 11:15 EA [id number]) Manual Assessments Soft Tissue Assessment Soft Tissue Mobility Assessment Tightness to bothPectorals, traps, scalenes, LS, paralumbars, parathoracis Other Manual Assessments Other Manual Assessments Trigger points to both parascapulars, right mid thoracis, upper traps, LS, PT-OP-J Posture/Palpation/Skin Start: 04/16/19 10:40 Freq: Status: Active Protocol: Document 04/16/19 10:53 EA (Rec: 04/16/19 11:15 EA [id number]) Posture Evaluation Comments Posture Comments Near to normal head to toe posture except with slight round shoulders, kyphotic postures. Palpation Assessment Location One Palpation Location Parathoracis. paracervicals, LS, both traps, rhomboids, scalenes. Palpation Findings Soft Tissue Tightness Tenderness Trigger Point PT-OP-K Range of Motion Start: 04/16/19 10:40 Freq: Status: Active Protocol: Document 04/16/19 10:53 EA (Rec: 04/16/19 11:15 EA [id number]) Cervical Spine Range of Motion Cervical Spine Active Percentage Testing Position Sitting Flexion 85 Extension 60 Rotation Left 60 Rotation Right 60 Lateral Flexion Left 55 Lateral Flexion Right 55 ROM Limitations Soft Tissue Tightness Pain Lumbar Spine Range of Motion Lumbar Spine Active Percentage Testing Position Standing Flexion 75 Extension 65 Rotation Left 60 Rotation Right 60 Lateral Flexion Left 50 Lateral Flexion Right 50 ROM Limitations Soft Tissue Tightness Pain PT-OP-L Special Tests Start: 04/16/19 10:40 Freq: Status: Active Protocol: Document 04/16/19 10:53 EA (Rec: 04/16/19 11:15 EA [id number]) Special Tests Cervical Spine Special Tests Foraminal Compression Test Results -juan Vertebral Artery Test Results -ujan Lumbar Spine Special Tests Straight Leg Raise Test Results -ve PT-OP-M Strength Start: 04/16/19 10:40 Freq: Status: Active Protocol: Document 04/16/19 10:53 EA (Rec: 04/16/19 11:15 EA [id number]) Cervical Spine Strength Cervical Spine Manual Muscle Testing Testing Position Sitting Reason Not Measured WFL Trunk Strength Trunk Manual Muscle Testing Testing Position Sitting Reason Not Measured WFL Hip Strength Hip Manual Muscle Testing Right Flexion (L2) 4- Good- Extension (S1) 4- Good- Abduction 4- Good- Adduction 4- Good- External Rotation 4- Good- Internal Rotation 4- Good- Left Flexion (L2) 4- Good- Extension (S1) 4- Good- Abduction 4- Good- Adduction 4- Good- External Rotation 4- Good- Internal Rotation 4- Good- Knee Strength Knee Manual Muscle Testing Right Reason Not Measured WFL Left Reason Not Measured WFL PT-OP-Q Treatments Start: 04/16/19 10:40 Freq: Status: Active Protocol: Document 04/19/19 15:14 SA (Rec: 04/19/19 15:25 SA [email or web address]) Cardio Equipment Recumbent Elliptical (Biodex) Duration (Minutes) 5 Resistance 2 Therapeutic Exercises Sitting Exercises Cervical rotation Side bilateral Reps/Minutes 15 x each UT/Levator stretching Side bilateral Reps/Minutes 30 x 2 each Chin tucks Reps/Minutes 15x Comments cues for form Manual Therapy Treatment Soft Tissue Mobilization 1 Body Location Parathoracis, traps, LS, paracervicals Mobilization Type Myofascial Release Rolling Sustained Pressure Trigger Point Release Intensity/Depth Superficial Body Position Sitting PT-OP-R Modalities Start: 04/16/19 10:40 Freq: Status: Active Protocol: Document 04/19/19 15:14 SA (Rec: 04/19/19 15:25 SA [email or web address]) Electric Stimulation Electric Stimulation IFC Body Location B UTs/Interscap Duration (Minutes) 15 Intensity 10 Patient Position Sitting Combined With Heat/Cold Hot Pack PT-OP-T Assessment and Plan Start: 04/16/19 10:40 Freq: Status: Active Protocol: Document 04/19/19 15:14 SA (Rec: 04/19/19 15:25 SA [email or web address]) Physical Therapy Assessment Assessment Summary Assessment Pt tolerated exercise and manual therapy well, given chin tucks, UT stretch for HEP , Education for posture. Physical Therapy Plan Next Visit Focus/Plan Next Note Type Treatment Note Next Visit Plan STM and modalities to mid back and neck. Gentle ROM/ flexibility exercises to neck and lumba/thoracis, balance exercises with neck rotation/ EC/EO. Provide/Review HEP with images
--- NOTE | 2019-04-24 12:23 | PT.OTN ---
Current Diagnoses Cervicalgia (04/24/19) Dorsalgia, unspecified (04/24/19) Physical Therapy Treatment Note PT-OP-A Visit Information Start: 04/16/19 10:40 Freq: Status: Active Protocol: Document 04/24/19 12:17 SA (Rec: 04/24/19 12:23 SA [email or web address]) Out-Patient Physical Therapy Visit Information Visit Information Visit Type Treatment Note Visit Start Time 10:30 Visit Stop Time 11:15 Total Visit Minutes 45 Visit Number 3 Number of [employer] Visits 2 PT-OP-B Current Condition Start: 04/16/19 10:40 Freq: Status: Active Protocol: Document 04/16/19 10:41 EA (Rec: 04/16/19 10:52 EA [id number]) Current Condition History of Current Condition Onset Date Neck 2 years ago; midback 5 years ago Current Complaints Posterior neck and mid back pain History of Current Condition Patient reports neck and mid back pain started gradually after she was told not to do much to her neck and trunk mobility due to calcium deposits on her body 5 years ago. She reports able to maintain upright posture but very stiff body. She feels all of her back and neck are achy more in the morning and loosen up once started doing home typical activities. She reports living by herself on a no stairs house and uses cane only when walking outside. She reports no fall in the past six months but very careful about her balance. Prior Treatments and Tests None identified Future Testing and Treatments Planned None identified. Treatment Goals Patient/Caregiver Goals 1. I want to decrease my neck and back pain' 2. I want to strengthen my both legs 3. I want to walk on my treadmill machine safely > 10 mins Prior Functional Status Baseline Function- ADL's Independent Baseline Function- Mobility Independent Baseline Function- Gait Indep with AD with outdoor mobility Baseline Function- Work/School Retired Baseline Function- Recreation/Hobbies Patient denies any outdoor hobbies but cleaning the house is what she likes to do. Current Functional Impairments (Reported) Functional Limitations- ADL's Independent in all ADL; difficulty with activities that requires head turning and moving. Functional Limitations- Mobility/Gait Indep: Straight cane for outside amb. Able to walk but with difficulty with walking that requires head turning. Functional Limitations- Work/School Retired Functional Limitations- Recreation/ None Hobbies Personal Factors Other Personal Factors That May Effect Chronicity of the condition Therapy/Recovery PT-OP-C Subjective Start: 04/16/19 10:40 Freq: Status: Active Protocol: Document 04/24/19 12:17 SA (Rec: 04/24/19 12:23 SA [email or web address]) OP-PT Subjective Patient Comments Patient Comments Pt reports feeling some relief after last visit, doing stretches at home and believes they are helping. PT-OP-D Balance Start: 04/16/19 10:40 Freq: Status: Active Protocol: Document 04/16/19 10:53 EA (Rec: 04/16/19 11:15 EA [id number]) OP-PT Balance Assessment Sitting Balance Static Sitting Balance Ability Good Dynamic Sitting Balance Ability Good Standing Balance Static Standing Balance Ability Good Dynamic Standing Balance Ability Fair Balance Tests Single Limb Standing Single Limb- Right < 2 Single Limb- Left < 1 Tandem Tandem Standing < 2 secs each leg Tinetti Balance Assessment Sitting Balance Sitting Balance Steady, safe Arising from Chair Ability to Arise Able, w/o using arms Attempts to Arise Arises on 1st attempt Standing Balance Immediate Standing Balance Steady w/o support Standing Balance Steady, wide stance Nudged Response Steady Standing with Eyes Closed Unsteady Turning Step Pattern Turning 360 Degrees Continuous steps Stability Turning 360 Degrees Steady Sitting Down Sitting Down Safe, steady Gait and Step Initiation of Gait No hesitancy Right Foot Step Length Does pass stance foot Right Foot Step Height Completely clears floor Left Foot Step Length Does pass stance foot Left Foot Step Height Completely clears floor Step Description Step Symmetry Step length appears equal Gait Description Path Description Straight Trunk Description No sway Walking Stance Heels together Scoring and Interpretation Tinetti Composite Score (points) 25 Interpretation of Scores Low risk for falls (>24) Tinetti Impairment Rating from Composite 1 to <20% Impaired (Score 23- Score 27) Simmons Fall Scale Copyright Permission PT-OP-F Manual Assessment Start: 04/16/19 10:40 Freq: Status: Active Protocol: Document 04/16/19 10:53 EA (Rec: 04/16/19 11:15 EA [id number]) Manual Assessments Soft Tissue Assessment Soft Tissue Mobility Assessment Tightness to bothPectorals, traps, scalenes, LS, paralumbars, parathoracis Other Manual Assessments Other Manual Assessments Trigger points to both parascapulars, right mid thoracis, upper traps, LS, PT-OP-J Posture/Palpation/Skin Start: 04/16/19 10:40 Freq: Status: Active Protocol: Document 04/16/19 10:53 EA (Rec: 04/16/19 11:15 EA [id number]) Posture Evaluation Comments Posture Comments Near to normal head to toe posture except with slight round shoulders, kyphotic postures. Palpation Assessment Location One Palpation Location Parathoracis. paracervicals, LS, both traps, rhomboids, scalenes. Palpation Findings Soft Tissue Tightness Tenderness Trigger Point PT-OP-K Range of Motion Start: 04/16/19 10:40 Freq: Status: Active Protocol: Document 04/16/19 10:53 EA (Rec: 04/16/19 11:15 EA [id number]) Cervical Spine Range of Motion Cervical Spine Active Percentage Testing Position Sitting Flexion 85 Extension 60 Rotation Left 60 Rotation Right 60 Lateral Flexion Left 55 Lateral Flexion Right 55 ROM Limitations Soft Tissue Tightness Pain Lumbar Spine Range of Motion Lumbar Spine Active Percentage Testing Position Standing Flexion 75 Extension 65 Rotation Left 60 Rotation Right 60 Lateral Flexion Left 50 Lateral Flexion Right 50 ROM Limitations Soft Tissue Tightness Pain PT-OP-L Special Tests Start: 04/16/19 10:40 Freq: Status: Active Protocol: Document 04/16/19 10:53 EA (Rec: 04/16/19 11:15 EA [id number]) Special Tests Cervical Spine Special Tests Foraminal Compression Test Results -juan Vertebral Artery Test Results -juan Lumbar Spine Special Tests Straight Leg Raise Test Results -ve PT-OP-M Strength Start: 04/16/19 10:40 Freq: Status: Active Protocol: Document 04/16/19 10:53 EA (Rec: 04/16/19 11:15 EA [id number]) Cervical Spine Strength Cervical Spine Manual Muscle Testing Testing Position Sitting Reason Not Measured WFL Trunk Strength Trunk Manual Muscle Testing Testing Position Sitting Reason Not Measured WFL Hip Strength Hip Manual Muscle Testing Right Flexion (L2) 4- Good- Extension (S1) 4- Good- Abduction 4- Good- Adduction 4- Good- External Rotation 4- Good- Internal Rotation 4- Good- Left Flexion (L2) 4- Good- Extension (S1) 4- Good- Abduction 4- Good- Adduction 4- Good- External Rotation 4- Good- Internal Rotation 4- Good- Knee Strength Knee Manual Muscle Testing Right Reason Not Measured WFL Left Reason Not Measured WFL PT-OP-Q Treatments Start: 04/16/19 10:40 Freq: Status: Active Protocol: Document 04/24/19 12:17 SA (Rec: 04/24/19 12:23 SA [email or web address]) Cardio Equipment Recumbent Elliptical (Biodex) Duration (Minutes) 6 Resistance 2 Therapeutic Exercises Sitting Exercises Postural correction w/scap squeeze Side bilateral Reps/Minutes 2 min Shoulder rolls Side bilateral Resistance posterior only Reps/Minutes 20x Cervical rotation Side bilateral Reps/Minutes 15 x each UT/Levator stretching Side bilateral Reps/Minutes 30 x 2 each Chin tucks Reps/Minutes 15x Comments cues for form Standing Exercises Scapular rows Side bilateral Resistance #2 TB Reps/Minutes 15x Manual Therapy Treatment Soft Tissue Mobilization Sub-Occipital release Body Location Sub-occipitals Intensity/Depth Superficial Body Position Hooklying 1 Body Location Parathoracis, traps, LS, paracervicals Mobilization Type Myofascial Release Rolling Sustained Pressure Trigger Point Release Intensity/Depth Superficial Body Position Sitting Manual Traction Cervical traction Body Position Hooklying Reps/Duration 5 min PT-OP-R Modalities Start: 04/16/19 10:40 Freq: Status: Active Protocol: Document 04/19/19 15:14 SA (Rec: 04/19/19 15:25 SA [email or web address]) Electric Stimulation Electric Stimulation IFC Body Location B UTs/Interscap Duration (Minutes) 15 Intensity 10 Patient Position Sitting Combined With Heat/Cold Hot Pack PT-OP-T Assessment and Plan Start: 04/16/19 10:40 Freq: Status: Active Protocol: Document 04/24/19 12:17 (Rec: 04/24/19 12:23 [email or web address]) Physical Therapy Assessment Assessment Summary Assessment Pt tolerating manual therapy and exercise well, education for postural correction and pt to work on when outside of clinic. Physical Therapy Plan Next Visit Focus/Plan Next Note Type Treatment Note Next Visit Plan STM and modalities to mid back and neck. Gentle ROM/ flexibility exercises to neck and lumba/thoracis, balance exercises with neck rotation/ EC/EO. Provide/Review HEP with images
--- NOTE | 2019-05-08 12:30 | PT.OTN ---
Current Diagnoses Cervicalgia (05/08/19) Dorsalgia, unspecified (05/08/19) Physical Therapy Treatment Note PT-OP-A Visit Information Start: 04/16/19 10:40 Freq: Status: Active Protocol: Document 05/08/19 12:22 SA (Rec: 05/08/19 12:30 SA [email or web address]) Out-Patient Physical Therapy Visit Information Visit Information Visit Type Treatment Note Visit Start Time 09:45 Visit Stop Time 10:30 Total Visit Minutes 45 Visit Number 4 Number of [employer] Visits 3 PT-OP-B Current Condition Start: 04/16/19 10:40 Freq: Status: Active Protocol: Document 04/16/19 10:41 EA (Rec: 04/16/19 10:52 EA [id number]) Current Condition History of Current Condition Onset Date Neck 2 years ago; midback 5 years ago Current Complaints Posterior neck and mid back pain History of Current Condition Patient reports neck and mid back pain started gradually after she was told not to do much to her neck and trunk mobility due to calcium deposits on her body 5 years ago. She reports able to maintain upright posture but very stiff body. She feels all of her back and neck are achy more in the morning and loosen up once started doing home typical activities. She reports living by herself on a no stairs house and uses cane only when walking outside. She reports no fall in the past six months but very careful about her balance. Prior Treatments and Tests None identified Future Testing and Treatments Planned None identified. Treatment Goals Patient/Caregiver Goals 1. I want to decrease my neck and back pain' 2. I want to strengthen my both legs 3. I want to walk on my treadmill machine safely > 10 mins Prior Functional Status Baseline Function- ADL's Independent Baseline Function- Mobility Independent Baseline Function- Gait Indep with AD with outdoor mobility Baseline Function- Work/School Retired Baseline Function- Recreation/Hobbies Patient denies any outdoor hobbies but cleaning the house is what she likes to do. Current Functional Impairments (Reported) Functional Limitations- ADL's Independent in all ADL; difficulty with activities that requires head turning and moving. Functional Limitations- Mobility/Gait Indep: Straight cane for outside amb. Able to walk but with difficulty with walking that requires head turning. Functional Limitations- Work/School Retired Functional Limitations- Recreation/ None Hobbies Personal Factors Other Personal Factors That May Effect Chronicity of the condition Therapy/Recovery PT-OP-C Subjective Start: 04/16/19 10:40 Freq: Status: Active Protocol: Document 05/08/19 12:22 SA (Rec: 05/08/19 12:30 SA [email or web address]) OP-PT Subjective Patient Comments Patient Comments Pt thinks exercise is helping and would like to do more. PT-OP-D Balance Start: 04/16/19 10:40 Freq: Status: Active Protocol: Document 04/16/19 10:53 EA (Rec: 04/16/19 11:15 EA [id number]) OP-PT Balance Assessment Sitting Balance Static Sitting Balance Ability Good Dynamic Sitting Balance Ability Good Standing Balance Static Standing Balance Ability Good Dynamic Standing Balance Ability Fair Balance Tests Single Limb Standing Single Limb- Right < 2 Single Limb- Left < 1 Tandem Tandem Standing < 2 secs each leg Tinetti Balance Assessment Sitting Balance Sitting Balance Steady, safe Arising from Chair Ability to Arise Able, w/o using arms Attempts to Arise Arises on 1st attempt Standing Balance Immediate Standing Balance Steady w/o support Standing Balance Steady, wide stance Nudged Response Steady Standing with Eyes Closed Unsteady Turning Step Pattern Turning 360 Degrees Continuous steps Stability Turning 360 Degrees Steady Sitting Down Sitting Down Safe, steady Gait and Step Initiation of Gait No hesitancy Right Foot Step Length Does pass stance foot Right Foot Step Height Completely clears floor Left Foot Step Length Does pass stance foot Left Foot Step Height Completely clears floor Step Description Step Symmetry Step length appears equal Gait Description Path Description Straight Trunk Description No sway Walking Stance Heels together Scoring and Interpretation Tinetti Composite Score (points) 25 Interpretation of Scores Low risk for falls (>24) Tinetti Impairment Rating from Composite 1 to <20% Impaired (Score 23- Score 27) Simmons Fall Scale Copyright Permission PT-OP-F Manual Assessment Start: 04/16/19 10:40 Freq: Status: Active Protocol: Document 04/16/19 10:53 EA (Rec: 04/16/19 11:15 EA [id number]) Manual Assessments Soft Tissue Assessment Soft Tissue Mobility Assessment Tightness to bothPectorals, traps, scalenes, LS, paralumbars, parathoracis Other Manual Assessments Other Manual Assessments Trigger points to both parascapulars, right mid thoracis, upper traps, LS, PT-OP-J Posture/Palpation/Skin Start: 04/16/19 10:40 Freq: Status: Active Protocol: Document 04/16/19 10:53 EA (Rec: 04/16/19 11:15 EA [id number]) Posture Evaluation Comments Posture Comments Near to normal head to toe posture except with slight round shoulders, kyphotic postures. Palpation Assessment Location One Palpation Location Parathoracis. paracervicals, LS, both traps, rhomboids, scalenes. Palpation Findings Soft Tissue Tightness Tenderness Trigger Point PT-OP-K Range of Motion Start: 04/16/19 10:40 Freq: Status: Active Protocol: Document 04/16/19 10:53 EA (Rec: 04/16/19 11:15 EA [id number]) Cervical Spine Range of Motion Cervical Spine Active Percentage Testing Position Sitting Flexion 85 Extension 60 Rotation Left 60 Rotation Right 60 Lateral Flexion Left 55 Lateral Flexion Right 55 ROM Limitations Soft Tissue Tightness Pain Lumbar Spine Range of Motion Lumbar Spine Active Percentage Testing Position Standing Flexion 75 Extension 65 Rotation Left 60 Rotation Right 60 Lateral Flexion Left 50 Lateral Flexion Right 50 ROM Limitations Soft Tissue Tightness Pain PT-OP-L Special Tests Start: 04/16/19 10:40 Freq: Status: Active Protocol: Document 04/16/19 10:53 EA (Rec: 04/16/19 11:15 EA [id number]) Special Tests Cervical Spine Special Tests Foraminal Compression Test Results -juan Vertebral Artery Test Results -juan Lumbar Spine Special Tests Straight Leg Raise Test Results -ve PT-OP-M Strength Start: 04/16/19 10:40 Freq: Status: Active Protocol: Document 04/16/19 10:53 EA (Rec: 04/16/19 11:15 EA [id number]) Cervical Spine Strength Cervical Spine Manual Muscle Testing Testing Position Sitting Reason Not Measured WFL Trunk Strength Trunk Manual Muscle Testing Testing Position Sitting Reason Not Measured WFL Hip Strength Hip Manual Muscle Testing Right Flexion (L2) 4- Good- Extension (S1) 4- Good- Abduction 4- Good- Adduction 4- Good- External Rotation 4- Good- Internal Rotation 4- Good- Left Flexion (L2) 4- Good- Extension (S1) 4- Good- Abduction 4- Good- Adduction 4- Good- External Rotation 4- Good- Internal Rotation 4- Good- Knee Strength Knee Manual Muscle Testing Right Reason Not Measured WFL Left Reason Not Measured WFL PT-OP-Q Treatments Start: 04/16/19 10:40 Freq: Status: Active Protocol: Document 05/08/19 12:22 SA (Rec: 05/08/19 12:30 SA [email or web address]) Cardio Equipment Recumbent Elliptical (Biodex) Duration (Minutes) 7 Resistance 4 Therapeutic Exercises Sitting Exercises Postural correction w/scap squeeze Side bilateral Reps/Minutes 2 min Shoulder rolls Side bilateral Resistance posterior only Reps/Minutes 20x Cervical rotation Side bilateral Reps/Minutes 15 x each UT/Levator stretching Side bilateral Reps/Minutes 30 x 2 each Chin tucks Reps/Minutes 20x Comments cues for form Standing Exercises Shldr EXT w/dowel Side bilateral Reps/Minutes 20x Shldr Flexion w/dowel Side bilateral Resistance at wall Reps/Minutes 20x Comments postural cues. Scapular rows Side bilateral Resistance #2 TB Reps/Minutes 20x Neuro Re-Education Treatment Balance Activities PT ball seated exercise Details at TM rail for support Equipment 55cm ball Reps/Duration 8 min Comments PPT, pelvic clocks, postural correction PT-OP-R Modalities Start: 04/16/19 10:40 Freq: Status: Active Protocol: Document 04/19/19 15:14 SA (Rec: 04/19/19 15:25 SA [email or web address]) Electric Stimulation Electric Stimulation IFC Body Location B UTs/Interscap Duration (Minutes) 15 Intensity 10 Patient Position Sitting Combined With Heat/Cold Hot Pack PT-OP-T Assessment and Plan Start: 04/16/19 10:40 Freq: Status: Active Protocol: Document 05/08/19 12:22 SA (Rec: 05/08/19 12:30 SA [email or web address]) Physical Therapy Assessment Assessment Summary Assessment Pt progressing well with improved exercise tolerance and decreasing cervical and mid-back pain. Declined manual treatment or E-stim today and focused on strengthening and postural correction. Physical Therapy Plan Next Visit Focus/Plan Next Note Type Treatment Note Next Visit Plan Assess response to new exercise, progress ROM and strengthening as tolerated.
--- NOTE | 2019-05-10 11:30 | PT.OTN ---
Current Diagnoses Cervicalgia (05/10/19) Dorsalgia, unspecified (05/10/19) Physical Therapy Treatment Note PT-OP-A Visit Information Start: 04/16/19 10:40 Freq: Status: Active Protocol: Document 05/10/19 11:25 SA (Rec: 05/10/19 11:30 SA [email or web address]) Out-Patient Physical Therapy Visit Information Visit Information Visit Type Treatment Note Visit Start Time 09:00 Visit Stop Time 09:45 Total Visit Minutes 45 Visit Number 5 Number of HEART SPECIALIST Visits 4 PT-OP-B Current Condition Start: 04/16/19 10:40 Freq: Status: Active Protocol: Document 04/16/19 10:41 EA (Rec: 04/16/19 10:52 EA [id number]) Current Condition History of Current Condition Onset Date Neck 2 years ago; midback 5 years ago Current Complaints Posterior neck and mid back pain History of Current Condition Patient reports neck and mid back pain started gradually after she was told not to do much to her neck and trunk mobility due to calcium deposits on her body 5 years ago. She reports able to maintain upright posture but very stiff body. She feels all of her back and neck are achy more in the morning and loosen up once started doing home typical activities. She reports living by herself on a no stairs house and uses cane only when walking outside. She reports no fall in the past six months but very careful about her balance. Prior Treatments and Tests None identified Future Testing and Treatments Planned None identified. Treatment Goals Patient/Caregiver Goals 1. I want to decrease my neck and back pain' 2. I want to strengthen my both legs 3. I want to walk on my treadmill machine safely > 10 mins Prior Functional Status Baseline Function- ADL's Independent Baseline Function- Mobility Independent Baseline Function- Gait Indep with AD with outdoor mobility Baseline Function- Work/School Retired Baseline Function- Recreation/Hobbies Patient denies any outdoor hobbies but cleaning the house is what she likes to do. Current Functional Impairments (Reported) Functional Limitations- ADL's Independent in all ADL; difficulty with activities that requires head turning and moving. Functional Limitations- Mobility/Gait Indep: Straight cane for outside amb. Able to walk but with difficulty with walking that requires head turning. Functional Limitations- Work/School Retired Functional Limitations- Recreation/ None Hobbies Personal Factors Other Personal Factors That May Effect Chronicity of the condition Therapy/Recovery PT-OP-C Subjective Start: 04/16/19 10:40 Freq: Status: Active Protocol: Document 05/10/19 11:25 SA (Rec: 05/10/19 11:30 SA [email or web address]) OP-PT Subjective Patient Comments Patient Comments Pt reports slight soreness after last visit but did not last long, feels strengthening exercises are helping. PT-OP-D Balance Start: 04/16/19 10:40 Freq: Status: Active Protocol: Document 04/16/19 10:53 EA (Rec: 04/16/19 11:15 EA [id number]) OP-PT Balance Assessment Sitting Balance Static Sitting Balance Ability Good Dynamic Sitting Balance Ability Good Standing Balance Static Standing Balance Ability Good Dynamic Standing Balance Ability Fair Balance Tests Single Limb Standing Single Limb- Right < 2 Single Limb- Left < 1 Tandem Tandem Standing < 2 secs each leg Tinetti Balance Assessment Sitting Balance Sitting Balance Steady, safe Arising from Chair Ability to Arise Able, w/o using arms Attempts to Arise Arises on 1st attempt Standing Balance Immediate Standing Balance Steady w/o support Standing Balance Steady, wide stance Nudged Response Steady Standing with Eyes Closed Unsteady Turning Step Pattern Turning 360 Degrees Continuous steps Stability Turning 360 Degrees Steady Sitting Down Sitting Down Safe, steady Gait and Step Initiation of Gait No hesitancy Right Foot Step Length Does pass stance foot Right Foot Step Height Completely clears floor Left Foot Step Length Does pass stance foot Left Foot Step Height Completely clears floor Step Description Step Symmetry Step length appears equal Gait Description Path Description Straight Trunk Description No sway Walking Stance Heels together Scoring and Interpretation Tinetti Composite Score (points) 25 Interpretation of Scores Low risk for falls (>24) Tinetti Impairment Rating from Composite 1 to <20% Impaired (Score 23- Score 27) Simmons Fall Scale Copyright Permission PT-OP-F Manual Assessment Start: 04/16/19 10:40 Freq: Status: Active Protocol: Document 04/16/19 10:53 EA (Rec: 04/16/19 11:15 EA [id number]) Manual Assessments Soft Tissue Assessment Soft Tissue Mobility Assessment Tightness to bothPectorals, traps, scalenes, LS, paralumbars, parathoracis Other Manual Assessments Other Manual Assessments Trigger points to both parascapulars, right mid thoracis, upper traps, LS, PT-OP-J Posture/Palpation/Skin Start: 04/16/19 10:40 Freq: Status: Active Protocol: Document 04/16/19 10:53 EA (Rec: 04/16/19 11:15 EA [id number]) Posture Evaluation Comments Posture Comments Near to normal head to toe posture except with slight round shoulders, kyphotic postures. Palpation Assessment Location One Palpation Location Parathoracis. paracervicals, LS, both traps, rhomboids, scalenes. Palpation Findings Soft Tissue Tightness Tenderness Trigger Point PT-OP-K Range of Motion Start: 04/16/19 10:40 Freq: Status: Active Protocol: Document 04/16/19 10:53 EA (Rec: 04/16/19 11:15 EA [id number]) Cervical Spine Range of Motion Cervical Spine Active Percentage Testing Position Sitting Flexion 85 Extension 60 Rotation Left 60 Rotation Right 60 Lateral Flexion Left 55 Lateral Flexion Right 55 ROM Limitations Soft Tissue Tightness Pain Lumbar Spine Range of Motion Lumbar Spine Active Percentage Testing Position Standing Flexion 75 Extension 65 Rotation Left 60 Rotation Right 60 Lateral Flexion Left 50 Lateral Flexion Right 50 ROM Limitations Soft Tissue Tightness Pain PT-OP-L Special Tests Start: 04/16/19 10:40 Freq: Status: Active Protocol: Document 04/16/19 10:53 EA (Rec: 04/16/19 11:15 EA [id number]) Special Tests Cervical Spine Special Tests Foraminal Compression Test Results -juan Vertebral Artery Test Results -juan Lumbar Spine Special Tests Straight Leg Raise Test Results -ve PT-OP-M Strength Start: 04/16/19 10:40 Freq: Status: Active Protocol: Document 04/16/19 10:53 EA (Rec: 04/16/19 11:15 EA [id number]) Cervical Spine Strength Cervical Spine Manual Muscle Testing Testing Position Sitting Reason Not Measured WFL Trunk Strength Trunk Manual Muscle Testing Testing Position Sitting Reason Not Measured WFL Hip Strength Hip Manual Muscle Testing Right Flexion (L2) 4- Good- Extension (S1) 4- Good- Abduction 4- Good- Adduction 4- Good- External Rotation 4- Good- Internal Rotation 4- Good- Left Flexion (L2) 4- Good- Extension (S1) 4- Good- Abduction 4- Good- Adduction 4- Good- External Rotation 4- Good- Internal Rotation 4- Good- Knee Strength Knee Manual Muscle Testing Right Reason Not Measured WFL Left Reason Not Measured WFL PT-OP-Q Treatments Start: 04/16/19 10:40 Freq: Status: Active Protocol: Document 05/10/19 11:25 SA (Rec: 05/10/19 11:30 SA [email or web address]) Cardio Equipment Recumbent Stepper (Sci-Fit) Duration (Minutes) 7 Resistance 3 Therapeutic Exercises Sitting Exercises Postural correction w/scap squeeze Side bilateral Equipment Used #2TB w/B shldr ER Reps/Minutes 2 min Shoulder rolls Side bilateral Resistance posterior only Reps/Minutes 20x Cervical rotation Side bilateral Reps/Minutes 15 x each UT/Levator stretching Side bilateral Reps/Minutes 30 x 2 each Chin tucks Reps/Minutes 20x Comments cues for form Standing Exercises Shldr EXT w/dowel Side bilateral Reps/Minutes 20x Shldr Flexion w/dowel Side bilateral Resistance at wall Reps/Minutes 20x Comments postural cues. Scapular rows Side bilateral Resistance #3 TB Reps/Minutes 20x Neuro Re-Education Treatment Balance Activities PT ball marching Equipment 55cm ball Reps/Duration 15 each Comments focus on core engagement PT ball seated exercise Details at TM rail for support Equipment 55cm ball Reps/Duration 8 min Comments PPT, pelvic clocks, postural correction PT-OP-R Modalities Start: 04/16/19 10:40 Freq: Status: Active Protocol: Document 04/19/19 15:14 SA (Rec: 04/19/19 15:25 SA [email or web address]) Electric Stimulation Electric Stimulation IFC Body Location B UTs/Interscap Duration (Minutes) 15 Intensity 10 Patient Position Sitting Combined With Heat/Cold Hot Pack PT-OP-T Assessment and Plan Start: 04/16/19 10:40 Freq: Status: Active Protocol: Document 05/10/19 11:25 SA (Rec: 05/10/19 11:30 SA [email or web address]) Physical Therapy Assessment Assessment Summary Assessment Pt doing well with exercise progressions, focused on posture/form with ther ex and fine tuning HEP Physical Therapy Plan Next Visit Focus/Plan Next Note Type Treatment Note Next Visit Plan Assess response to new exercise, progress ROM and strengthening as tolerated.
--- NOTE | 2019-05-14 12:18 | PT.OTN ---
Current Diagnoses Cervicalgia (05/14/19) Dorsalgia, unspecified (05/14/19) Physical Therapy Treatment Note PT-OP-A Visit Information Start: 04/16/19 10:40 Freq: Status: Active Protocol: Document 05/14/19 11:22 LRN (Rec: 05/14/19 12:18 LRN [id number]) Out-Patient Physical Therapy Visit Information Visit Information Visit Type Treatment Note Visit Start Time 11:23 Visit Stop Time 12:08 Total Visit Minutes 45 Visit Number 6 Evaluation Information Evaluation Date 04/16/19 Precautions Precautions Fall risk with head movements PT-OP-B Current Condition Start: 04/16/19 10:40 Freq: Status: Active Protocol: Document 04/16/19 10:41 EA (Rec: 04/16/19 10:52 EA [id number]) Current Condition History of Current Condition Onset Date Neck 2 years ago; midback 5 years ago Current Complaints Posterior neck and mid back pain History of Current Condition Patient reports neck and mid back pain started gradually after she was told not to do much to her neck and trunk mobility due to calcium deposits on her body 5 years ago. She reports able to maintain upright posture but very stiff body. She feels all of her back and neck are achy more in the morning and loosen up once started doing home typical activities. She reports living by herself on a no stairs house and uses cane only when walking outside. She reports no fall in the past six months but very careful about her balance. Prior Treatments and Tests None identified Future Testing and Treatments Planned None identified. Treatment Goals Patient/Caregiver Goals 1. I want to decrease my neck and back pain' 2. I want to strengthen my both legs 3. I want to walk on my treadmill machine safely > 10 mins Prior Functional Status Baseline Function- ADL's Independent Baseline Function- Mobility Independent Baseline Function- Gait Indep with AD with outdoor mobility Baseline Function- Work/School Retired Baseline Function- Recreation/Hobbies Patient denies any outdoor hobbies but cleaning the house is what she likes to do. Current Functional Impairments (Reported) Functional Limitations- ADL's Independent in all ADL; difficulty with activities that requires head turning and moving. Functional Limitations- Mobility/Gait Indep: Straight cane for outside amb. Able to walk but with difficulty with walking that requires head turning. Functional Limitations- Work/School Retired Functional Limitations- Recreation/ None Hobbies Personal Factors Other Personal Factors That May Effect Chronicity of the condition Therapy/Recovery PT-OP-C Subjective Start: 04/16/19 10:40 Freq: Status: Active Protocol: Document 05/14/19 11:22 LRN (Rec: 05/14/19 12:18 LRN [id number]) OP-PT Subjective Patient Comments Patient Comments L arm and neck has been hurting for the past 3 days because of no cushion in neck and because of arthritis. States at end of therapy she is more relaxed. PT-OP-D Balance Start: 04/16/19 10:40 Freq: Status: Active Protocol: Document 04/16/19 10:53 EA (Rec: 04/16/19 11:15 EA [id number]) OP-PT Balance Assessment Sitting Balance Static Sitting Balance Ability Good Dynamic Sitting Balance Ability Good Standing Balance Static Standing Balance Ability Good Dynamic Standing Balance Ability Fair Balance Tests Single Limb Standing Single Limb- Right < 2 Single Limb- Left < 1 Tandem Tandem Standing < 2 secs each leg Tinetti Balance Assessment Sitting Balance Sitting Balance Steady, safe Arising from Chair Ability to Arise Able, w/o using arms Attempts to Arise Arises on 1st attempt Standing Balance Immediate Standing Balance Steady w/o support Standing Balance Steady, wide stance Nudged Response Steady Standing with Eyes Closed Unsteady Turning Step Pattern Turning 360 Degrees Continuous steps Stability Turning 360 Degrees Steady Sitting Down Sitting Down Safe, steady Gait and Step Initiation of Gait No hesitancy Right Foot Step Length Does pass stance foot Right Foot Step Height Completely clears floor Left Foot Step Length Does pass stance foot Left Foot Step Height Completely clears floor Step Description Step Symmetry Step length appears equal Gait Description Path Description Straight Trunk Description No sway Walking Stance Heels together Scoring and Interpretation Tinetti Composite Score (points) 25 Interpretation of Scores Low risk for falls (>24) Tinetti Impairment Rating from Composite 1 to <20% Impaired (Score 23- Score 27) Simmons Fall Scale Copyright Permission PT-OP-F Manual Assessment Start: 04/16/19 10:40 Freq: Status: Active Protocol: Document 04/16/19 10:53 EA (Rec: 04/16/19 11:15 EA [id number]) Manual Assessments Soft Tissue Assessment Soft Tissue Mobility Assessment Tightness to bothPectorals, traps, scalenes, LS, paralumbars, parathoracis Other Manual Assessments Other Manual Assessments Trigger points to both parascapulars, right mid thoracis, upper traps, LS, PT-OP-J Posture/Palpation/Skin Start: 04/16/19 10:40 Freq: Status: Active Protocol: Document 04/16/19 10:53 EA (Rec: 04/16/19 11:15 EA [id number]) Posture Evaluation Comments Posture Comments Near to normal head to toe posture except with slight round shoulders, kyphotic postures. Palpation Assessment Location One Palpation Location Parathoracis. paracervicals, LS, both traps, rhomboids, scalenes. Palpation Findings Soft Tissue Tightness Tenderness Trigger Point PT-OP-K Range of Motion Start: 04/16/19 10:40 Freq: Status: Active Protocol: Document 04/16/19 10:53 EA (Rec: 04/16/19 11:15 EA [id number]) Cervical Spine Range of Motion Cervical Spine Active Percentage Testing Position Sitting Flexion 85 Extension 60 Rotation Left 60 Rotation Right 60 Lateral Flexion Left 55 Lateral Flexion Right 55 ROM Limitations Soft Tissue Tightness Pain Lumbar Spine Range of Motion Lumbar Spine Active Percentage Testing Position Standing Flexion 75 Extension 65 Rotation Left 60 Rotation Right 60 Lateral Flexion Left 50 Lateral Flexion Right 50 ROM Limitations Soft Tissue Tightness Pain PT-OP-L Special Tests Start: 04/16/19 10:40 Freq: Status: Active Protocol: Document 04/16/19 10:53 EA (Rec: 04/16/19 11:15 EA [id number]) Special Tests Cervical Spine Special Tests Foraminal Compression Test Results -juan Vertebral Artery Test Results -juan Lumbar Spine Special Tests Straight Leg Raise Test Results -ve PT-OP-M Strength Start: 04/16/19 10:40 Freq: Status: Active Protocol: Document 04/16/19 10:53 EA (Rec: 04/16/19 11:15 EA [id number]) Cervical Spine Strength Cervical Spine Manual Muscle Testing Testing Position Sitting Reason Not Measured WFL Trunk Strength Trunk Manual Muscle Testing Testing Position Sitting Reason Not Measured WFL Hip Strength Hip Manual Muscle Testing Right Flexion (L2) 4- Good- Extension (S1) 4- Good- Abduction 4- Good- Adduction 4- Good- External Rotation 4- Good- Internal Rotation 4- Good- Left Flexion (L2) 4- Good- Extension (S1) 4- Good- Abduction 4- Good- Adduction 4- Good- External Rotation 4- Good- Internal Rotation 4- Good- Knee Strength Knee Manual Muscle Testing Right Reason Not Measured WFL Left Reason Not Measured WFL PT-OP-Q Treatments Start: 04/16/19 10:40 Freq: Status: Active Protocol: Document 05/14/19 11:22 LRN (Rec: 05/14/19 12:18 LRN [id number]) Gym Equipment Cable Column (Body Solid) Triceps Details 4 holes showing Resistance 20# Reps/Time 10 x Hip Abduction Details 4 holes showing Resistance 10# Reps/Time 10x Leg Extension Details Seat 5 holes showing Resistance 10# Reps/Time 10x Leg Curl Details Seat 5 holes showing Resistance 20# Reps/Time 10 x Therapeutic Exercises Sitting Exercises Ankle IV Sitting Exercise Name Ankle IV Side bilateral Resistance Lev 2 TBand Reps/Minutes 10x2 Comments Extra time for training Standing Exercises Scapular rows Side bilateral Resistance #3 TB Reps/Minutes 20x Manual Therapy Treatment Soft Tissue Mobilization 1 Body Location Parathoracis, traps, LS, paracervicals Mobilization Type Rolling Sustained Pressure Trigger Point Release Intensity/Depth Moderate Body Position Sitting Comments Used Trigger point tool Manual Traction Cervical traction Details Gentle at Occiput Body Position Sitting Reps/Duration 2 min Self-Care/Home Management Treatment Education Patient Education Home Exercise Program Activities Self-Care/Home Management Activities Issued HEP for ankle IV/EV, reviewed only IV due to fear of pt confusion with 2 ex's. Issued Lev 2 T-Band. PT-OP-R Modalities Start: 04/16/19 10:40 Freq: Status: Active Protocol: Document 04/19/19 15:14 SA (Rec: 04/19/19 15:25 SA [email or web address]) Electric Stimulation Electric Stimulation IFC Body Location B UTs/Interscap Duration (Minutes) 15 Intensity 10 Patient Position Sitting Combined With Heat/Cold Hot Pack PT-OP-T Assessment and Plan Start: 04/16/19 10:40 Freq: Status: Active Protocol: Document 05/14/19 11:22 LRN (Rec: 05/14/19 12:18 LRN [id number]) Physical Therapy Assessment Assessment Summary Assessment Poor tolerance to UE strengthening with T-Band, Fair understanding of ankle HEP (IV). Pt needs to be taught ankle EV ex for HEP. Pt tolerated LE strengthening very well, needs assessment of response to ex before progressiong. Dec L UT ms tone after STM. Physical Therapy Plan Frequency and Duration Frequency of Treatment 2x/Week Duration of Treatment 8 wks Plan of Care Start Date 04/16/19 Plan of Care End Date 06/11/19 Next Visit Focus/Plan Next Note Type Treatment Note Next Visit Plan T-Band strengthening due to onset of L UT pain and tingling in hands with ex. Hold UE Assess response to new exercise, progress ROM and strengthening as tolerated. Caution with manual cervical traction due to varing response during traction.
--- NOTE | 2019-05-16 17:09 | PT.OTN ---
Current Diagnoses Cervicalgia (05/16/19) Dorsalgia, unspecified (05/16/19) Physical Therapy Treatment Note PT-OP-A Visit Information Start: 04/16/19 10:40 Freq: Status: Active Protocol: Document 05/16/19 15:30 AR (Rec: 05/16/19 15:56 AR [email or web address]) Out-Patient Physical Therapy Visit Information Visit Information Visit Type Treatment Note Visit Start Time 13:00 Visit Stop Time 13:45 Total Visit Minutes 45 Visit Number 7 Number of CLINICAL RN MANAGER Visits 0 PT-OP-B Current Condition Start: 04/16/19 10:40 Freq: Status: Active Protocol: Document 04/16/19 10:41 EA (Rec: 04/16/19 10:52 EA [id number]) Current Condition History of Current Condition Onset Date Neck 2 years ago; midback 5 years ago Current Complaints Posterior neck and mid back pain History of Current Condition Patient reports neck and mid back pain started gradually after she was told not to do much to her neck and trunk mobility due to calcium deposits on her body 5 years ago. She reports able to maintain upright posture but very stiff body. She feels all of her back and neck are achy more in the morning and loosen up once started doing home typical activities. She reports living by herself on a no stairs house and uses cane only when walking outside. She reports no fall in the past six months but very careful about her balance. Prior Treatments and Tests None identified Future Testing and Treatments Planned None identified. Treatment Goals Patient/Caregiver Goals 1. I want to decrease my neck and back pain' 2. I want to strengthen my both legs 3. I want to walk on my treadmill machine safely > 10 mins Prior Functional Status Baseline Function- ADL's Independent Baseline Function- Mobility Independent Baseline Function- Gait Indep with AD with outdoor mobility Baseline Function- Work/School Retired Baseline Function- Recreation/Hobbies Patient denies any outdoor hobbies but cleaning the house is what she likes to do. Current Functional Impairments (Reported) Functional Limitations- ADL's Independent in all ADL; difficulty with activities that requires head turning and moving. Functional Limitations- Mobility/Gait Indep: Straight cane for outside amb. Able to walk but with difficulty with walking that requires head turning. Functional Limitations- Work/School Retired Functional Limitations- Recreation/ None Hobbies Personal Factors Other Personal Factors That May Effect Chronicity of the condition Therapy/Recovery PT-OP-C Subjective Start: 04/16/19 10:40 Freq: Status: Active Protocol: Document 05/16/19 15:30 AR (Rec: 05/16/19 15:56 AR [email or web address]) OP-PT Subjective Patient Comments Patient Comments Pt reports she was very sore after last therapy session. She had asked the therapist last visit to work more deeply during manual therapy and she thinks she was very sore from the use of a tool. She stated that she has a migraine today and is seeing prisms. She only took one of her BP medications prior to therapy today and her BP normally runs in the 200s. She was also concerned about her new blood thinner medication and the fatigue it is causing. PT-OP-D Balance Start: 04/16/19 10:40 Freq: Status: Active Protocol: Document 04/16/19 10:53 EA (Rec: 04/16/19 11:15 EA [id number]) OP-PT Balance Assessment Sitting Balance Static Sitting Balance Ability Good Dynamic Sitting Balance Ability Good Standing Balance Static Standing Balance Ability Good Dynamic Standing Balance Ability Fair Balance Tests Single Limb Standing Single Limb- Right < 2 Single Limb- Left < 1 Tandem Tandem Standing < 2 secs each leg Tinetti Balance Assessment Sitting Balance Sitting Balance Steady, safe Arising from Chair Ability to Arise Able, w/o using arms Attempts to Arise Arises on 1st attempt Standing Balance Immediate Standing Balance Steady w/o support Standing Balance Steady, wide stance Nudged Response Steady Standing with Eyes Closed Unsteady Turning Step Pattern Turning 360 Degrees Continuous steps Stability Turning 360 Degrees Steady Sitting Down Sitting Down Safe, steady Gait and Step Initiation of Gait No hesitancy Right Foot Step Length Does pass stance foot Right Foot Step Height Completely clears floor Left Foot Step Length Does pass stance foot Left Foot Step Height Completely clears floor Step Description Step Symmetry Step length appears equal Gait Description Path Description Straight Trunk Description No sway Walking Stance Heels together Scoring and Interpretation Tinetti Composite Score (points) 25 Interpretation of Scores Low risk for falls (>24) Tinetti Impairment Rating from Composite 1 to <20% Impaired (Score 23- Score 27) Simmons Fall Scale Copyright Permission PT-OP-F Manual Assessment Start: 04/16/19 10:40 Freq: Status: Active Protocol: Document 04/16/19 10:53 EA (Rec: 04/16/19 11:15 EA [id number]) Manual Assessments Soft Tissue Assessment Soft Tissue Mobility Assessment Tightness to bothPectorals, traps, scalenes, LS, paralumbars, parathoracis Other Manual Assessments Other Manual Assessments Trigger points to both parascapulars, right mid thoracis, upper traps, LS, PT-OP-J Posture/Palpation/Skin Start: 04/16/19 10:40 Freq: Status: Active Protocol: Document 04/16/19 10:53 EA (Rec: 04/16/19 11:15 EA [id number]) Posture Evaluation Comments Posture Comments Near to normal head to toe posture except with slight round shoulders, kyphotic postures. Palpation Assessment Location One Palpation Location Parathoracis. paracervicals, LS, both traps, rhomboids, scalenes. Palpation Findings Soft Tissue Tightness Tenderness Trigger Point PT-OP-K Range of Motion Start: 04/16/19 10:40 Freq: Status: Active Protocol: Document 04/16/19 10:53 EA (Rec: 04/16/19 11:15 EA [id number]) Cervical Spine Range of Motion Cervical Spine Active Percentage Testing Position Sitting Flexion 85 Extension 60 Rotation Left 60 Rotation Right 60 Lateral Flexion Left 55 Lateral Flexion Right 55 ROM Limitations Soft Tissue Tightness Pain Lumbar Spine Range of Motion Lumbar Spine Active Percentage Testing Position Standing Flexion 75 Extension 65 Rotation Left 60 Rotation Right 60 Lateral Flexion Left 50 Lateral Flexion Right 50 ROM Limitations Soft Tissue Tightness Pain PT-OP-L Special Tests Start: 04/16/19 10:40 Freq: Status: Active Protocol: Document 04/16/19 10:53 EA (Rec: 04/16/19 11:15 EA [id number]) Special Tests Cervical Spine Special Tests Foraminal Compression Test Results -juan Vertebral Artery Test Results -juan Lumbar Spine Special Tests Straight Leg Raise Test Results -ve PT-OP-M Strength Start: 04/16/19 10:40 Freq: Status: Active Protocol: Document 04/16/19 10:53 EA (Rec: 04/16/19 11:15 EA [id number]) Cervical Spine Strength Cervical Spine Manual Muscle Testing Testing Position Sitting Reason Not Measured WFL Trunk Strength Trunk Manual Muscle Testing Testing Position Sitting Reason Not Measured WFL Hip Strength Hip Manual Muscle Testing Right Flexion (L2) 4- Good- Extension (S1) 4- Good- Abduction 4- Good- Adduction 4- Good- External Rotation 4- Good- Internal Rotation 4- Good- Left Flexion (L2) 4- Good- Extension (S1) 4- Good- Abduction 4- Good- Adduction 4- Good- External Rotation 4- Good- Internal Rotation 4- Good- Knee Strength Knee Manual Muscle Testing Right Reason Not Measured WFL Left Reason Not Measured WFL PT-OP-Q Treatments Start: 04/16/19 10:40 Freq: Status: Active Protocol: Document 05/16/19 15:30 AR (Rec: 05/16/19 15:56 AR [email or web address]) Therapeutic Exercises Sitting Exercises Ankle EV Sitting Exercise Name ankle EV Side bilateral Resistance level 2 Reps/Minutes 2x10 reps Comments extra time taken for training Ankle IV Sitting Exercise Name Ankle IV Side bilateral Resistance Lev 2 TBand Reps/Minutes 10x2 Comments Extra time for training Manual Therapy Treatment Soft Tissue Mobilization 1 Body Location Upper Traps Mobilization Type Myofascial Release Strumming Sustained Pressure Intensity/Depth Superficial Body Position Sitting Comments superficial-moderate. Self-Care/Home Management Treatment Education Patient Education Safety Other Education pt educated on BP and other medications. She was encouraged to speak with MD and pharmasist regarding side effects and timing of medication use. PT-OP-R Modalities Start: 04/16/19 10:40 Freq: Status: Active Protocol: Document 04/19/19 15:14 SA (Rec: 04/19/19 15:25 SA [email or web address]) Electric Stimulation Electric Stimulation IFC Body Location B UTs/Interscap Duration (Minutes) 15 Intensity 10 Patient Position Sitting Combined With Heat/Cold Hot Pack PT-OP-T Assessment and Plan Start: 04/16/19 10:40 Freq: Status: Active Protocol: Document 05/16/19 15:30 AR (Rec: 05/16/19 15:56 AR [email or web address]) Physical Therapy Assessment Assessment Summary Assessment Pt presented today with a migraine and BP was 196/78. After deep breathing, BP dec to 180/76. Exercise that would inc BP was avoided and HEP was reviewed. Pt was educated heavily on discussing medications with MD and pharmasist. Pt noted she will contact her doctor's office to get in sooner than her scheduled appt in August. Pt responded well to manual therapy and telecommunications facility examiner pressure was used to avoid inc soreness . Physical Therapy Plan Frequency and Duration Frequency of Treatment 2x/Week Duration of Treatment 8 wks Plan of Care Start Date 04/16/19 Plan of Care End Date 06/11/19 Next Visit Focus/Plan Next Note Type Treatment Note Next Visit Plan monitor BP throughout session. Inc tband strengthening and LE exercise as appriopriate
--- NOTE | 2019-05-23 16:41 | PT.OTN ---
Current Diagnoses Cervicalgia (05/23/19) Dorsalgia, unspecified (05/23/19) Physical Therapy Treatment Note PT-OP-A Visit Information Start: 04/16/19 10:40 Freq: Status: Active Protocol: Document 05/23/19 10:34 LRN (Rec: 05/23/19 11:13 LRN [id number]) Out-Patient Physical Therapy Visit Information Visit Information Visit Type Treatment Note Visit Start Time 10:34 Visit Stop Time 11:13 Total Visit Minutes 39 Visit Number 8 Number of RIVETING MACHINE OPERATOR TAPE CONTROL Visits 0 Evaluation Information Evaluation Date 04/16/19 Precautions Precautions Fall risk with head movements PT-OP-B Current Condition Start: 04/16/19 10:40 Freq: Status: Active Protocol: Document 04/16/19 10:41 EA (Rec: 04/16/19 10:52 EA [id number]) Current Condition History of Current Condition Onset Date Neck 2 years ago; midback 5 years ago Current Complaints Posterior neck and mid back pain History of Current Condition Patient reports neck and mid back pain started gradually after she was told not to do much to her neck and trunk mobility due to calcium deposits on her body 5 years ago. She reports able to maintain upright posture but very stiff body. She feels all of her back and neck are achy more in the morning and loosen up once started doing home typical activities. She reports living by herself on a no stairs house and uses cane only when walking outside. She reports no fall in the past six months but very careful about her balance. Prior Treatments and Tests None identified Future Testing and Treatments Planned None identified. Treatment Goals Patient/Caregiver Goals 1. I want to decrease my neck and back pain' 2. I want to strengthen my both legs 3. I want to walk on my treadmill machine safely > 10 mins Prior Functional Status Baseline Function- ADL's Independent Baseline Function- Mobility Independent Baseline Function- Gait Indep with AD with outdoor mobility Baseline Function- Work/School Retired Baseline Function- Recreation/Hobbies Patient denies any outdoor hobbies but cleaning the house is what she likes to do. Current Functional Impairments (Reported) Functional Limitations- ADL's Independent in all ADL; difficulty with activities that requires head turning and moving. Functional Limitations- Mobility/Gait Indep: Straight cane for outside amb. Able to walk but with difficulty with walking that requires head turning. Functional Limitations- Work/School Retired Functional Limitations- Recreation/ None Hobbies Personal Factors Other Personal Factors That May Effect Chronicity of the condition Therapy/Recovery PT-OP-C Subjective Start: 04/16/19 10:40 Freq: Status: Active Protocol: Document 05/23/19 10:34 LRN (Rec: 05/23/19 11:13 LRN [id number]) OP-PT Subjective Patient Comments Patient Comments Requests no work on neck because the neck was very sore after last session she had trouble sleeping. Requests no shoulder strengthening. States her blood pressure was high last session. PT-OP-D Balance Start: 04/16/19 10:40 Freq: Status: Active Protocol: Document 04/16/19 10:53 EA (Rec: 04/16/19 11:15 EA [id number]) OP-PT Balance Assessment Sitting Balance Static Sitting Balance Ability Good Dynamic Sitting Balance Ability Good Standing Balance Static Standing Balance Ability Good Dynamic Standing Balance Ability Fair Balance Tests Single Limb Standing Single Limb- Right < 2 Single Limb- Left < 1 Tandem Tandem Standing < 2 secs each leg Tinetti Balance Assessment Sitting Balance Sitting Balance Steady, safe Arising from Chair Ability to Arise Able, w/o using arms Attempts to Arise Arises on 1st attempt Standing Balance Immediate Standing Balance Steady w/o support Standing Balance Steady, wide stance Nudged Response Steady Standing with Eyes Closed Unsteady Turning Step Pattern Turning 360 Degrees Continuous steps Stability Turning 360 Degrees Steady Sitting Down Sitting Down Safe, steady Gait and Step Initiation of Gait No hesitancy Right Foot Step Length Does pass stance foot Right Foot Step Height Completely clears floor Left Foot Step Length Does pass stance foot Left Foot Step Height Completely clears floor Step Description Step Symmetry Step length appears equal Gait Description Path Description Straight Trunk Description No sway Walking Stance Heels together Scoring and Interpretation Tinetti Composite Score (points) 25 Interpretation of Scores Low risk for falls (>24) Tinetti Impairment Rating from Composite 1 to <20% Impaired (Score 23- Score 27) Simmons Fall Scale Copyright Permission PT-OP-F Manual Assessment Start: 04/16/19 10:40 Freq: Status: Active Protocol: Document 04/16/19 10:53 EA (Rec: 04/16/19 11:15 EA [id number]) Manual Assessments Soft Tissue Assessment Soft Tissue Mobility Assessment Tightness to bothPectorals, traps, scalenes, LS, paralumbars, parathoracis Other Manual Assessments Other Manual Assessments Trigger points to both parascapulars, right mid thoracis, upper traps, LS, PT-OP-J Posture/Palpation/Skin Start: 04/16/19 10:40 Freq: Status: Active Protocol: Document 04/16/19 10:53 EA (Rec: 04/16/19 11:15 EA [id number]) Posture Evaluation Comments Posture Comments Near to normal head to toe posture except with slight round shoulders, kyphotic postures. Palpation Assessment Location One Palpation Location Parathoracis. paracervicals, LS, both traps, rhomboids, scalenes. Palpation Findings Soft Tissue Tightness Tenderness Trigger Point PT-OP-K Range of Motion Start: 04/16/19 10:40 Freq: Status: Active Protocol: Document 04/16/19 10:53 EA (Rec: 04/16/19 11:15 EA [id number]) Cervical Spine Range of Motion Cervical Spine Active Percentage Testing Position Sitting Flexion 85 Extension 60 Rotation Left 60 Rotation Right 60 Lateral Flexion Left 55 Lateral Flexion Right 55 ROM Limitations Soft Tissue Tightness Pain Lumbar Spine Range of Motion Lumbar Spine Active Percentage Testing Position Standing Flexion 75 Extension 65 Rotation Left 60 Rotation Right 60 Lateral Flexion Left 50 Lateral Flexion Right 50 ROM Limitations Soft Tissue Tightness Pain PT-OP-L Special Tests Start: 04/16/19 10:40 Freq: Status: Active Protocol: Document 04/16/19 10:53 EA (Rec: 04/16/19 11:15 EA [id number]) Special Tests Cervical Spine Special Tests Foraminal Compression Test Results -juan Vertebral Artery Test Results -juan Lumbar Spine Special Tests Straight Leg Raise Test Results -ve PT-OP-M Strength Start: 04/16/19 10:40 Freq: Status: Active Protocol: Document 04/16/19 10:53 EA (Rec: 04/16/19 11:15 EA [id number]) Cervical Spine Strength Cervical Spine Manual Muscle Testing Testing Position Sitting Reason Not Measured WFL Trunk Strength Trunk Manual Muscle Testing Testing Position Sitting Reason Not Measured WFL Hip Strength Hip Manual Muscle Testing Right Flexion (L2) 4- Good- Extension (S1) 4- Good- Abduction 4- Good- Adduction 4- Good- External Rotation 4- Good- Internal Rotation 4- Good- Left Flexion (L2) 4- Good- Extension (S1) 4- Good- Abduction 4- Good- Adduction 4- Good- External Rotation 4- Good- Internal Rotation 4- Good- Knee Strength Knee Manual Muscle Testing Right Reason Not Measured WFL Left Reason Not Measured WFL PT-OP-Q Treatments Start: 04/16/19 10:40 Freq: Status: Active Protocol: Document 05/23/19 10:34 LRN (Rec: 05/23/19 11:13 LRN [id number]) Cardio Equipment Recumbent Elliptical (Biodex) Duration (Minutes) 7 Resistance 3 Seat Position 4 Gym Equipment Cable Column (Body Solid) Hip Abduction Details 4 holes showing Resistance 10# Reps/Time 10x 2 Leg Extension Details Seat 5 holes showing Resistance 10# Reps/Time 10x 2 Leg Curl Details Seat 5 holes showing Resistance 20# Reps/Time 10 x 2 Therapeutic Exercises Sitting Exercises Deep Breathing Sitting Exercise Name Deep breathing throughout therapy and btn ex's. Ankle EV Sitting Exercise Name ankle EV Side bilateral Resistance level 2 Reps/Minutes 2x10 reps Ankle IV Sitting Exercise Name Ankle IV Side bilateral Resistance Lev 2 TBand Reps/Minutes 10x1 Self-Care/Home Management Treatment Education Patient Education Safety Other Education pt educated on BP and other medications. She was encouraged to speak with MD and pharmasist regarding side effects and timing of medication use. PT-OP-R Modalities Start: 04/16/19 10:40 Freq: Status: Active Protocol: Document 04/19/19 15:14 SA (Rec: 04/19/19 15:25 SA [email or web address]) Electric Stimulation Electric Stimulation IFC Body Location B UTs/Interscap Duration (Minutes) 15 Intensity 10 Patient Position Sitting Combined With Heat/Cold Hot Pack PT-OP-T Assessment and Plan Start: 04/16/19 10:40 Freq: Status: Active Protocol: Document 05/23/19 10:34 LRN (Rec: 05/23/19 11:13 LRN [id number]) Physical Therapy Assessment Assessment Summary Assessment BP after Biodex and a 3' rest: 162/70, and after Dual Chris ex: 162/80. Deep breathing btn sets and btn exs may have helped to keep BP down. Physical Therapy Plan Frequency and Duration Frequency of Treatment 2x/Week Duration of Treatment 8 wks Plan of Care Start Date 04/16/19 Plan of Care End Date 06/11/19 Next Visit Focus/Plan Next Note Type Treatment Note Next Visit Plan Check BP to start & monitor BP throughout session. Inc tband strengthening and LE exercise as appriopriate. Follow up with pt/doctor regarding blood pressure exercise range.
--- NOTE | 2019-05-29 16:58 | PT.OTN ---
Current Diagnoses Cervicalgia (05/29/19) Dorsalgia, unspecified (05/29/19) Physical Therapy Treatment Note PT-OP-A Visit Information Start: 04/16/19 10:40 Freq: Status: Active Protocol: Document 05/29/19 15:04 EA (Rec: 05/29/19 15:13 EA [id number]) Out-Patient Physical Therapy Visit Information Visit Information Visit Type Treatment Note Visit Start Time 13:00 Visit Stop Time 13:45 Total Visit Minutes 45 Visit Number 9 Number of DINING ROOM BUSSER Visits 0 PT-OP-B Current Condition Start: 04/16/19 10:40 Freq: Status: Active Protocol: Document 04/16/19 10:41 EA (Rec: 04/16/19 10:52 EA [id number]) Current Condition History of Current Condition Onset Date Neck 2 years ago; midback 5 years ago Current Complaints Posterior neck and mid back pain History of Current Condition Patient reports neck and mid back pain started gradually after she was told not to do much to her neck and trunk mobility due to calcium deposits on her body 5 years ago. She reports able to maintain upright posture but very stiff body. She feels all of her back and neck are achy more in the morning and loosen up once started doing home typical activities. She reports living by herself on a no stairs house and uses cane only when walking outside. She reports no fall in the past six months but very careful about her balance. Prior Treatments and Tests None identified Future Testing and Treatments Planned None identified. Treatment Goals Patient/Caregiver Goals 1. I want to decrease my neck and back pain' 2. I want to strengthen my both legs 3. I want to walk on my treadmill machine safely > 10 mins Prior Functional Status Baseline Function- ADL's Independent Baseline Function- Mobility Independent Baseline Function- Gait Indep with AD with outdoor mobility Baseline Function- Work/School Retired Baseline Function- Recreation/Hobbies Patient denies any outdoor hobbies but cleaning the house is what she likes to do. Current Functional Impairments (Reported) Functional Limitations- ADL's Independent in all ADL; difficulty with activities that requires head turning and moving. Functional Limitations- Mobility/Gait Indep: Straight cane for outside amb. Able to walk but with difficulty with walking that requires head turning. Functional Limitations- Work/School Retired Functional Limitations- Recreation/ None Hobbies Personal Factors Other Personal Factors That May Effect Chronicity of the condition Therapy/Recovery PT-OP-C Subjective Start: 04/16/19 10:40 Freq: Status: Active Protocol: Document 05/29/19 15:04 EA (Rec: 05/29/19 15:13 EA [id number]) OP-PT Subjective Patient Comments Patient Comments Pt reports balance and leg strength is the main issue at this time; reports neck and back is getting much better. She mentioned that she is busy at home standing activities for more than an hour most of the days,. She reports will be seeing her doctor to request for leg strengthening referral . PT-OP-D Balance Start: 04/16/19 10:40 Freq: Status: Active Protocol: Document 04/16/19 10:53 EA (Rec: 04/16/19 11:15 EA [id number]) OP-PT Balance Assessment Sitting Balance Static Sitting Balance Ability Good Dynamic Sitting Balance Ability Good Standing Balance Static Standing Balance Ability Good Dynamic Standing Balance Ability Fair Balance Tests Single Limb Standing Single Limb- Right < 2 Single Limb- Left < 1 Tandem Tandem Standing < 2 secs each leg Tinetti Balance Assessment Sitting Balance Sitting Balance Steady, safe Arising from Chair Ability to Arise Able, w/o using arms Attempts to Arise Arises on 1st attempt Standing Balance Immediate Standing Balance Steady w/o support Standing Balance Steady, wide stance Nudged Response Steady Standing with Eyes Closed Unsteady Turning Step Pattern Turning 360 Degrees Continuous steps Stability Turning 360 Degrees Steady Sitting Down Sitting Down Safe, steady Gait and Step Initiation of Gait No hesitancy Right Foot Step Length Does pass stance foot Right Foot Step Height Completely clears floor Left Foot Step Length Does pass stance foot Left Foot Step Height Completely clears floor Step Description Step Symmetry Step length appears equal Gait Description Path Description Straight Trunk Description No sway Walking Stance Heels together Scoring and Interpretation Tinetti Composite Score (points) 25 Interpretation of Scores Low risk for falls (>24) Tinetti Impairment Rating from Composite 1 to <20% Impaired (Score 23- Score 27) Simmons Fall Scale Copyright Permission PT-OP-F Manual Assessment Start: 04/16/19 10:40 Freq: Status: Active Protocol: Document 04/16/19 10:53 EA (Rec: 04/16/19 11:15 EA [id number]) Manual Assessments Soft Tissue Assessment Soft Tissue Mobility Assessment Tightness to bothPectorals, traps, scalenes, LS, paralumbars, parathoracis Other Manual Assessments Other Manual Assessments Trigger points to both parascapulars, right mid thoracis, upper traps, LS, PT-OP-J Posture/Palpation/Skin Start: 04/16/19 10:40 Freq: Status: Active Protocol: Document 04/16/19 10:53 EA (Rec: 04/16/19 11:15 EA [id number]) Posture Evaluation Comments Posture Comments Near to normal head to toe posture except with slight round shoulders, kyphotic postures. Palpation Assessment Location One Palpation Location Parathoracis. paracervicals, LS, both traps, rhomboids, scalenes. Palpation Findings Soft Tissue Tightness Tenderness Trigger Point PT-OP-K Range of Motion Start: 04/16/19 10:40 Freq: Status: Active Protocol: Document 04/16/19 10:53 EA (Rec: 04/16/19 11:15 EA [id number]) Cervical Spine Range of Motion Cervical Spine Active Percentage Testing Position Sitting Flexion 85 Extension 60 Rotation Left 60 Rotation Right 60 Lateral Flexion Left 55 Lateral Flexion Right 55 ROM Limitations Soft Tissue Tightness Pain Lumbar Spine Range of Motion Lumbar Spine Active Percentage Testing Position Standing Flexion 75 Extension 65 Rotation Left 60 Rotation Right 60 Lateral Flexion Left 50 Lateral Flexion Right 50 ROM Limitations Soft Tissue Tightness Pain PT-OP-L Special Tests Start: 04/16/19 10:40 Freq: Status: Active Protocol: Document 04/16/19 10:53 EA (Rec: 04/16/19 11:15 EA [id number]) Special Tests Cervical Spine Special Tests Foraminal Compression Test Results -juan Vertebral Artery Test Results -juan Lumbar Spine Special Tests Straight Leg Raise Test Results -ve PT-OP-M Strength Start: 04/16/19 10:40 Freq: Status: Active Protocol: Document 04/16/19 10:53 EA (Rec: 04/16/19 11:15 EA [id number]) Cervical Spine Strength Cervical Spine Manual Muscle Testing Testing Position Sitting Reason Not Measured WFL Trunk Strength Trunk Manual Muscle Testing Testing Position Sitting Reason Not Measured WFL Hip Strength Hip Manual Muscle Testing Right Flexion (L2) 4- Good- Extension (S1) 4- Good- Abduction 4- Good- Adduction 4- Good- External Rotation 4- Good- Internal Rotation 4- Good- Left Flexion (L2) 4- Good- Extension (S1) 4- Good- Abduction 4- Good- Adduction 4- Good- External Rotation 4- Good- Internal Rotation 4- Good- Knee Strength Knee Manual Muscle Testing Right Reason Not Measured WFL Left Reason Not Measured WFL PT-OP-Q Treatments Start: 04/16/19 10:40 Freq: Status: Active Protocol: Document 05/29/19 15:04 EA (Rec: 05/29/19 15:13 EA [id number]) Cardio Equipment Recumbent Elliptical (Biodex) Duration (Minutes) 7 Resistance 3 Seat Position 4 Gym Equipment Shuttle Rebound 1 Exercise Details NBOS/tandem stance Reps/Duration x 10 mins Comments blue clips: arm raises, trunkrotation, Neck ROM rotation, flexion extension Sport Cord 1 Exercise Details FWD/BWD Reps/Duration x 5 laps each Therapeutic Exercises Sitting Exercises Postural correction w/scap squeeze Side bilateral Equipment Used #2TB w/B shldr ER Reps/Minutes 2 min Shoulder rolls Side bilateral Resistance posterior only Reps/Minutes 20x Cervical rotation Side bilateral Reps/Minutes 15 x each UT/Levator stretching Side bilateral Reps/Minutes 30 x 2 each Chin tucks Reps/Minutes 20x Comments cues for form Standing Exercises Shldr EXT w/dowel Side bilateral Reps/Minutes 20x Other Exercises 1 Other Exercise Name side steps squats Reps/Minutes x 2 laps at 12 ft with rails support Neuro Re-Education Treatment Balance Activities PT ball marching Equipment 55cm ball Reps/Duration 15 each Comments focus on core engagement PT-OP-R Modalities Start: 04/16/19 10:40 Freq: Status: Active Protocol: Document 04/19/19 15:14 SA (Rec: 04/19/19 15:25 SA [id number]) Electric Stimulation Electric Stimulation IFC Body Location B UTs/Interscap Duration (Minutes) 15 Intensity 10 Patient Position Sitting Combined With Heat/Cold Hot Pack PT-OP-T Assessment and Plan Start: 04/16/19 10:40 Freq: Status: Active Protocol: Document 05/29/19 15:04 EA (Rec: 05/29/19 15:13 EA [id number]) Physical Therapy Assessment Assessment Summary Assessment Stable BP at 165/80 before and after. Tolerated therex well. Physical Therapy Plan Next Visit Focus/Plan Next Note Type Treatment Note Next Visit Plan Check BP to start & monitor BP throughout session. Inc tband strengthening and LE exercise as appriopriate. Follow up with pt/doctor regarding blood pressure exercise range.
--- NOTE | 2019-05-31 14:56 | PT-OP ANOTE ---
cancelled due to ill
--- NOTE | 2019-06-04 12:27 | PT-OP ANOTE ---
Cancelled appointment due to high BP, 180/86
--- NOTE | 2019-06-06 16:32 | PT.OTN ---
Current Diagnoses Cervicalgia (06/06/19) Dorsalgia, unspecified (06/06/19) Physical Therapy Treatment Note PT-OP-A Visit Information Start: 04/16/19 10:40 Freq: Status: Active Protocol: Document 06/06/19 08:15 AMB (Rec: 06/06/19 16:31 AMB [email or web address]) Out-Patient Physical Therapy Visit Information Visit Information Visit Type Progress Note Visit Start Time 08:15 Visit Stop Time 09:00 Total Visit Minutes 45 Visit Number 10 PT-OP-B Current Condition Start: 04/16/19 10:40 Freq: Status: Active Protocol: Document 04/16/19 10:41 EA (Rec: 04/16/19 10:52 EA [id number]) Current Condition History of Current Condition Onset Date Neck 2 years ago; midback 5 years ago Current Complaints Posterior neck and mid back pain History of Current Condition Patient reports neck and mid back pain started gradually after she was told not to do much to her neck and trunk mobility due to calcium deposits on her body 5 years ago. She reports able to maintain upright posture but very stiff body. She feels all of her back and neck are achy more in the morning and loosen up once started doing home typical activities. She reports living by herself on a no stairs house and uses cane only when walking outside. She reports no fall in the past six months but very careful about her balance. Prior Treatments and Tests None identified Future Testing and Treatments Planned None identified. Treatment Goals Patient/Caregiver Goals 1. I want to decrease my neck and back pain' 2. I want to strengthen my both legs 3. I want to walk on my treadmill machine safely > 10 mins Prior Functional Status Baseline Function- ADL's Independent Baseline Function- Mobility Independent Baseline Function- Gait Indep with AD with outdoor mobility Baseline Function- Work/School Retired Baseline Function- Recreation/Hobbies Patient denies any outdoor hobbies but cleaning the house is what she likes to do. Current Functional Impairments (Reported) Functional Limitations- ADL's Independent in all ADL; difficulty with activities that requires head turning and moving. Functional Limitations- Mobility/Gait Indep: Straight cane for outside amb. Able to walk but with difficulty with walking that requires head turning. Functional Limitations- Work/School Retired Functional Limitations- Recreation/ None Hobbies Personal Factors Other Personal Factors That May Effect Chronicity of the condition Therapy/Recovery PT-OP-C Subjective Start: 04/16/19 10:40 Freq: Status: Active Protocol: Document 06/06/19 08:15 AMB (Rec: 06/06/19 16:31 AMB [email or web address]) OP-PT Subjective Patient Comments Patient Comments Pt feels she is having internal tremors this morning . PT-OP-D Balance Start: 04/16/19 10:40 Freq: Status: Active Protocol: Document 04/16/19 10:53 EA (Rec: 04/16/19 11:15 EA [id number]) OP-PT Balance Assessment Sitting Balance Static Sitting Balance Ability Good Dynamic Sitting Balance Ability Good Standing Balance Static Standing Balance Ability Good Dynamic Standing Balance Ability Fair Balance Tests Single Limb Standing Single Limb- Right < 2 Single Limb- Left < 1 Tandem Tandem Standing < 2 secs each leg Tinetti Balance Assessment Sitting Balance Sitting Balance Steady, safe Arising from Chair Ability to Arise Able, w/o using arms Attempts to Arise Arises on 1st attempt Standing Balance Immediate Standing Balance Steady w/o support Standing Balance Steady, wide stance Nudged Response Steady Standing with Eyes Closed Unsteady Turning Step Pattern Turning 360 Degrees Continuous steps Stability Turning 360 Degrees Steady Sitting Down Sitting Down Safe, steady Gait and Step Initiation of Gait No hesitancy Right Foot Step Length Does pass stance foot Right Foot Step Height Completely clears floor Left Foot Step Length Does pass stance foot Left Foot Step Height Completely clears floor Step Description Step Symmetry Step length appears equal Gait Description Path Description Straight Trunk Description No sway Walking Stance Heels together Scoring and Interpretation Tinetti Composite Score (points) 25 Interpretation of Scores Low risk for falls (>24) Tinetti Impairment Rating from Composite 1 to <20% Impaired (Score 23- Score 27) Simmons Fall Scale Copyright Permission PT-OP-F Manual Assessment Start: 04/16/19 10:40 Freq: Status: Active Protocol: Document 04/16/19 10:53 EA (Rec: 04/16/19 11:15 EA [id number]) Manual Assessments Soft Tissue Assessment Soft Tissue Mobility Assessment Tightness to bothPectorals, traps, scalenes, LS, paralumbars, parathoracis Other Manual Assessments Other Manual Assessments Trigger points to both parascapulars, right mid thoracis, upper traps, LS, PT-OP-J Posture/Palpation/Skin Start: 04/16/19 10:40 Freq: Status: Active Protocol: Document 04/16/19 10:53 EA (Rec: 04/16/19 11:15 EA [id number]) Posture Evaluation Comments Posture Comments Near to normal head to toe posture except with slight round shoulders, kyphotic postures. Palpation Assessment Location One Palpation Location Parathoracis. paracervicals, LS, both traps, rhomboids, scalenes. Palpation Findings Soft Tissue Tightness Tenderness Trigger Point PT-OP-K Range of Motion Start: 04/16/19 10:40 Freq: Status: Active Protocol: Document 04/16/19 10:53 EA (Rec: 04/16/19 11:15 EA [id number]) Cervical Spine Range of Motion Cervical Spine Active Percentage Testing Position Sitting Flexion 85 Extension 60 Rotation Left 60 Rotation Right 60 Lateral Flexion Left 55 Lateral Flexion Right 55 ROM Limitations Soft Tissue Tightness Pain Lumbar Spine Range of Motion Lumbar Spine Active Percentage Testing Position Standing Flexion 75 Extension 65 Rotation Left 60 Rotation Right 60 Lateral Flexion Left 50 Lateral Flexion Right 50 ROM Limitations Soft Tissue Tightness Pain PT-OP-L Special Tests Start: 04/16/19 10:40 Freq: Status: Active Protocol: Document 04/16/19 10:53 EA (Rec: 04/16/19 11:15 EA [id number]) Special Tests Cervical Spine Special Tests Foraminal Compression Test Results -juan Vertebral Artery Test Results -juan Lumbar Spine Special Tests Straight Leg Raise Test Results -ve PT-OP-M Strength Start: 04/16/19 10:40 Freq: Status: Active Protocol: Document 04/16/19 10:53 EA (Rec: 04/16/19 11:15 EA [id number]) Cervical Spine Strength Cervical Spine Manual Muscle Testing Testing Position Sitting Reason Not Measured WFL Trunk Strength Trunk Manual Muscle Testing Testing Position Sitting Reason Not Measured WFL Hip Strength Hip Manual Muscle Testing Right Flexion (L2) 4- Good- Extension (S1) 4- Good- Abduction 4- Good- Adduction 4- Good- External Rotation 4- Good- Internal Rotation 4- Good- Left Flexion (L2) 4- Good- Extension (S1) 4- Good- Abduction 4- Good- Adduction 4- Good- External Rotation 4- Good- Internal Rotation 4- Good- Knee Strength Knee Manual Muscle Testing Right Reason Not Measured WFL Left Reason Not Measured WFL PT-OP-Q Treatments Start: 04/16/19 10:40 Freq: Status: Active Protocol: Document 06/06/19 08:15 AMB (Rec: 06/06/19 16:31 AMB [email or web address]) Therapeutic Exercises Sitting Exercises Postural correction w/scap squeeze Side bilateral Equipment Used #2TB w/B shldr ER Reps/Minutes 2 min Shoulder rolls Side bilateral Resistance posterior only Reps/Minutes 20x Cervical rotation Side bilateral Reps/Minutes 15 x each UT/Levator stretching Side bilateral Reps/Minutes 30 x 2 each Chin tucks Reps/Minutes 20x Comments cues for form Standing Exercises Shldr EXT w/dowel Side bilateral Reps/Minutes 20x PT-OP-R Modalities Start: 04/16/19 10:40 Freq: Status: Active Protocol: Document 04/19/19 15:14 SA (Rec: 04/19/19 15:25 SA [email or web address]) Electric Stimulation Electric Stimulation IFC Body Location B UTs/Interscap Duration (Minutes) 15 Intensity 10 Patient Position Sitting Combined With Heat/Cold Hot Pack PT-OP-T Assessment and Plan Start: 04/16/19 10:40 Freq: Status: Active Protocol: Document 06/06/19 08:15 AMB (Rec: 06/06/19 16:31 AMB [email or web address]) Physical Therapy Assessment Goals Four Impairment Impaired neck ROM Fdc Goal (LTG) Patient will perform functional neck ROM with no discomfort to enhance functional activities without limitation from neck. LTG Duration MET Three Impairment Oswetry 20/50 Fdc Goal (LTG) Oswetry functional scale results of < 15/50 LTG Duration 5 wks Two Impairment decrease ambulation tolerance Healthcare Sales Representative Goal (LTG) Patient will amb on her TM machine > 10 mins safely. : has not tried due to high blood pressure LTG Duration 5 wks One Impairment No HEP in place Fdc Goal (LTG) Patient will exhibit indep HEP LTG Duration 3 wks Assessment Summary Assessment BP: 160/78 at beginning and then 168/80 at end of session. Pt stated that she felt better after moving. Physical Therapy Plan Next Visit Focus/Plan Next Note Type Treatment Note Next Visit Plan Check BP to start & monitor BP throughout session. Inc tband strengthening and LE exercise as appriopriate. Follow up with pt/doctor regarding blood pressure exercise range. If blood pressure acceptable could try treadmill here to assess for safety.
--- NOTE | 2019-06-11 15:58 | PT.OPPOC ---
Current Diagnoses Cervicalgia (06/11/19) Dorsalgia, unspecified (06/11/19) Provider Visit Care Team Role Provider Type Mil Lopez MD Attending Provider Physician Primary Care Provider Specialty: Internal Medicine Address: [address] [place] [address], [id number] Email: [email or web address] Plan Of Care PT-OP-T Assessment and Plan Start: 04/16/19 10:40 Freq: Status: Active Protocol: Document 06/11/19 14:30 AMB (Rec: 06/11/19 15:56 AMB [email or web address]) Physical Therapy Assessment Goals Four Impairment Impaired neck ROM Riveter Helper Goal (LTG) Patient will perform functional neck ROM with no discomfort to enhance functional activities without limitation from neck. LTG Duration MET Three Impairment Oswetry 20/50 Riveter Helper Goal (LTG) Oswetry functional scale results of < 15/50 LTG Duration 5 wks Two Impairment decrease ambulation tolerance Riveter Helper Goal (LTG) Patient will amb on her TM machine > 10 mins safely. : tried for 5 minutes in clinic, would not recommend more than that due to blood pressure at this time LTG Duration 5 wks One Impairment No HEP in place Fdc Goal (LTG) Patient will exhibit indep HEP 06/11: progress made pt still needs cues LTG Duration 3 weeks Assessment Summary Assessment BP: 162/78. 182/80 after 5 minutes on the treadmill. Emma has attended 11 visits of PT and her blood pressure has been a limiting factor. She was sent home once because it was high, and we have limited her cardio due to high blood pressure. She continues to have neck and back pain and be concerned regarding her leg weakness. She needed extensive education on her HEP today, but demonstrated improved form with written handout and verbal cues. Physical Therapy Plan Frequency and Duration Frequency of Treatment 2x/Week Duration of Treatment 6 wks Plan of Care Start Date 06/11/19 Plan of Care End Date 07/23/19 Therapeutic Interventions Therapeutic Interventions Balance Training Home Exercise Program Manual Therapy Neuromuscular Re-education Patient/Caregiver Education Self-Care/Home Management Soft Tissue Mobilization Taping Therapeutic Activities Therapeutic Exercises Modalities Cold Pack/Ice Massage Electric Stimulation Hot Packs Ultrasound Next Visit Focus/Plan Next Note Type Treatment Note Next Visit Plan Check BP to start & monitor BP throughout session. Inc tband strengthening and LE exercise as appriopriate. Follow up with pt/doctor regarding blood pressure exercise range. If blood pressure acceptable could try treadmill here to assess for safety. Plan of Care Dates Plan of Care Start Date 06/11/19 Plan of Care End Date 07/23/19 Please Sign and Return: I have reviewed this Plan of Care and certify that the skilled therapy services above are required to meet the patient?s needs. Physician Signature Date Printed Name and Credentials Clinical Instructor Signature Printed Name and Credentials
--- NOTE | 2019-06-11 15:58 | PT.OTN ---
Current Diagnoses Cervicalgia (06/11/19) Dorsalgia, unspecified (06/11/19) Physical Therapy Treatment Note PT-OP-A Visit Information Start: 04/16/19 10:40 Freq: Status: Active Protocol: Document 06/11/19 14:30 AMB (Rec: 06/11/19 15:56 AMB [email or web address]) Out-Patient Physical Therapy Visit Information Visit Information Visit Type Progress Note Visit Start Time 14:30 Visit Stop Time 15:14 Total Visit Minutes 44 Visit Number 11 PT-OP-B Current Condition Start: 04/16/19 10:40 Freq: Status: Active Protocol: Document 04/16/19 10:41 EA (Rec: 04/16/19 10:52 EA [id number]) Current Condition History of Current Condition Onset Date Neck 2 years ago; midback 5 years ago Current Complaints Posterior neck and mid back pain History of Current Condition Patient reports neck and mid back pain started gradually after she was told not to do much to her neck and trunk mobility due to calcium deposits on her body 5 years ago. She reports able to maintain upright posture but very stiff body. She feels all of her back and neck are achy more in the morning and loosen up once started doing home typical activities. She reports living by herself on a no stairs house and uses cane only when walking outside. She reports no fall in the past six months but very careful about her balance. Prior Treatments and Tests None identified Future Testing and Treatments Planned None identified. Treatment Goals Patient/Caregiver Goals 1. I want to decrease my neck and back pain' 2. I want to strengthen my both legs 3. I want to walk on my treadmill machine safely > 10 mins Prior Functional Status Baseline Function- ADL's Independent Baseline Function- Mobility Independent Baseline Function- Gait Indep with AD with outdoor mobility Baseline Function- Work/School Retired Baseline Function- Recreation/Hobbies Patient denies any outdoor hobbies but cleaning the house is what she likes to do. Current Functional Impairments (Reported) Functional Limitations- ADL's Independent in all ADL; difficulty with activities that requires head turning and moving. Functional Limitations- Mobility/Gait Indep: Straight cane for outside amb. Able to walk but with difficulty with walking that requires head turning. Functional Limitations- Work/School Retired Functional Limitations- Recreation/ None Hobbies Personal Factors Other Personal Factors That May Effect Chronicity of the condition Therapy/Recovery PT-OP-C Subjective Start: 04/16/19 10:40 Freq: Status: Active Protocol: Document 06/11/19 14:30 AMB (Rec: 06/11/19 15:56 AMB [email or web address]) OP-PT Subjective Patient Comments Patient Comments Pt is doing well today. PT-OP-D Balance Start: 04/16/19 10:40 Freq: Status: Active Protocol: Document 04/16/19 10:53 EA (Rec: 04/16/19 11:15 EA [id number]) OP-PT Balance Assessment Sitting Balance Static Sitting Balance Ability Good Dynamic Sitting Balance Ability Good Standing Balance Static Standing Balance Ability Good Dynamic Standing Balance Ability Fair Balance Tests Single Limb Standing Single Limb- Right < 2 Single Limb- Left < 1 Tandem Tandem Standing < 2 secs each leg Tinetti Balance Assessment Sitting Balance Sitting Balance Steady, safe Arising from Chair Ability to Arise Able, w/o using arms Attempts to Arise Arises on 1st attempt Standing Balance Immediate Standing Balance Steady w/o support Standing Balance Steady, wide stance Nudged Response Steady Standing with Eyes Closed Unsteady Turning Step Pattern Turning 360 Degrees Continuous steps Stability Turning 360 Degrees Steady Sitting Down Sitting Down Safe, steady Gait and Step Initiation of Gait No hesitancy Right Foot Step Length Does pass stance foot Right Foot Step Height Completely clears floor Left Foot Step Length Does pass stance foot Left Foot Step Height Completely clears floor Step Description Step Symmetry Step length appears equal Gait Description Path Description Straight Trunk Description No sway Walking Stance Heels together Scoring and Interpretation Tinetti Composite Score (points) 25 Interpretation of Scores Low risk for falls (>24) Tinetti Impairment Rating from Composite 1 to <20% Impaired (Score 23- Score 27) Simmons Fall Scale Copyright Permission PT-OP-F Manual Assessment Start: 04/16/19 10:40 Freq: Status: Active Protocol: Document 04/16/19 10:53 EA (Rec: 04/16/19 11:15 EA [id number]) Manual Assessments Soft Tissue Assessment Soft Tissue Mobility Assessment Tightness to bothPectorals, traps, scalenes, LS, paralumbars, parathoracis Other Manual Assessments Other Manual Assessments Trigger points to both parascapulars, right mid thoracis, upper traps, LS, PT-OP-J Posture/Palpation/Skin Start: 04/16/19 10:40 Freq: Status: Active Protocol: Document 04/16/19 10:53 EA (Rec: 04/16/19 11:15 EA [id number]) Posture Evaluation Comments Posture Comments Near to normal head to toe posture except with slight round shoulders, kyphotic postures. Palpation Assessment Location One Palpation Location Parathoracis. paracervicals, LS, both traps, rhomboids, scalenes. Palpation Findings Soft Tissue Tightness Tenderness Trigger Point PT-OP-K Range of Motion Start: 04/16/19 10:40 Freq: Status: Active Protocol: Document 04/16/19 10:53 EA (Rec: 04/16/19 11:15 EA [id number]) Cervical Spine Range of Motion Cervical Spine Active Percentage Testing Position Sitting Flexion 85 Extension 60 Rotation Left 60 Rotation Right 60 Lateral Flexion Left 55 Lateral Flexion Right 55 ROM Limitations Soft Tissue Tightness Pain Lumbar Spine Range of Motion Lumbar Spine Active Percentage Testing Position Standing Flexion 75 Extension 65 Rotation Left 60 Rotation Right 60 Lateral Flexion Left 50 Lateral Flexion Right 50 ROM Limitations Soft Tissue Tightness Pain PT-OP-L Special Tests Start: 04/16/19 10:40 Freq: Status: Active Protocol: Document 04/16/19 10:53 EA (Rec: 04/16/19 11:15 EA [id number]) Special Tests Cervical Spine Special Tests Foraminal Compression Test Results -juan Vertebral Artery Test Results -juan Lumbar Spine Special Tests Straight Leg Raise Test Results -ve PT-OP-M Strength Start: 04/16/19 10:40 Freq: Status: Active Protocol: Document 04/16/19 10:53 EA (Rec: 04/16/19 11:15 EA [id number]) Cervical Spine Strength Cervical Spine Manual Muscle Testing Testing Position Sitting Reason Not Measured WFL Trunk Strength Trunk Manual Muscle Testing Testing Position Sitting Reason Not Measured WFL Hip Strength Hip Manual Muscle Testing Right Flexion (L2) 4- Good- Extension (S1) 4- Good- Abduction 4- Good- Adduction 4- Good- External Rotation 4- Good- Internal Rotation 4- Good- Left Flexion (L2) 4- Good- Extension (S1) 4- Good- Abduction 4- Good- Adduction 4- Good- External Rotation 4- Good- Internal Rotation 4- Good- Knee Strength Knee Manual Muscle Testing Right Reason Not Measured WFL Left Reason Not Measured WFL PT-OP-Q Treatments Start: 04/16/19 10:40 Freq: Status: Active Protocol: Document 06/11/19 14:30 AMB (Rec: 06/11/19 15:56 AMB [email or web address]) Cardio Equipment Treadmill Duration (Minutes) 5 Speed 1.3 Incline 0 Therapeutic Exercises Sitting Exercises 1 Sitting Exercise Name TrA stabilization in seated Comments pt reports hip pain Shoulder rolls Side bilateral Resistance posterior only Reps/Minutes 20x UT/Levator stretching Side bilateral Reps/Minutes 30 x 2 each Chin tucks Reps/Minutes 20x Comments cues for form PT-OP-R Modalities Start: 04/16/19 10:40 Freq: Status: Active Protocol: Document 04/19/19 15:14 SA (Rec: 04/19/19 15:25 SA [email or web address]) Electric Stimulation Electric Stimulation IFC Body Location B UTs/Interscap Duration (Minutes) 15 Intensity 10 Patient Position Sitting Combined With Heat/Cold Hot Pack PT-OP-T Assessment and Plan Start: 04/16/19 10:40 Freq: Status: Active Protocol: Document 06/11/19 14:30 AMB (Rec: 06/11/19 15:56 AMB [email or web address]) Physical Therapy Assessment Goals Four Impairment Impaired neck ROM Group Home Goal (LTG) Patient will perform functional neck ROM with no discomfort to enhance functional activities without limitation from neck. LTG Duration MET Three Impairment Oswetry 20/50 Group Home Goal (LTG) Oswetry functional scale results of < 15/50 LTG Duration 5 wks Two Impairment decrease ambulation tolerance Governor Assembler Goal (LTG) Patient will amb on her TM machine > 10 mins safely. : tried for 5 minutes in clinic, would not recommend more than that due to blood pressure at this time LTG Duration 5 wks One Impairment No HEP in place Governor Assembler Goal (LTG) Patient will exhibit indep HEP 06/11: progress made pt still needs cues LTG Duration 3 weeks Assessment Summary Assessment BP: 162/78. 182/80 after 5 minutes on the treadmill. Emma has attended 11 visits of PT and her blood pressure has been a limiting factor. She was sent home once because it was high, and we have limited her cardio due to high blood pressure. She continues to have neck and back pain and be concerned regarding her leg weakness. She needed extensive education on her HEP today, but demonstrated improved form with written handout and verbal cues. Physical Therapy Plan Frequency and Duration Frequency of Treatment 2x/Week Duration of Treatment 6 wks Plan of Care Start Date 06/11/19 Plan of Care End Date 07/23/19 Therapeutic Interventions Therapeutic Interventions Balance Training Home Exercise Program Manual Therapy Neuromuscular Re-education Patient/Caregiver Education Self-Care/Home Management Soft Tissue Mobilization Taping Therapeutic Activities Therapeutic Exercises Modalities Cold Pack/Ice Massage Electric Stimulation Hot Packs Ultrasound Next Visit Focus/Plan Next Note Type Treatment Note Next Visit Plan Check BP to start & monitor BP throughout session. Inc tband strengthening and LE exercise as appriopriate. Follow up with pt/doctor regarding blood pressure exercise range. If blood pressure acceptable could try treadmill here to assess for safety.
--- NOTE | 2019-06-12 12:37 | PT-OP ANOTE ---
Received voicemail from Monika at Dr. Lopez's office in regards to my message from yesterday asking for a guideline for the patient's blood pressure. She said that the blood pressure readings from yesterday's appointment were ok for Emma. To clarify those readings were 162/78 at rest and 182/80 after exercise.
--- NOTE | 2019-06-13 13:43 | PT.OTN ---
Current Diagnoses Cervicalgia (06/13/19) Dorsalgia, unspecified (06/13/19) Physical Therapy Treatment Note PT-OP-A Visit Information Start: 04/16/19 10:40 Freq: Status: Active Protocol: Document 06/13/19 11:38 [facility] (Rec: 06/13/19 13:43 [facility] [id number]) Out-Patient Physical Therapy Visit Information Visit Information Visit Type Treatment Note Visit Start Time 11:15 Visit Stop Time 12:00 Total Visit Minutes 45 Visit Number 12 PT-OP-B Current Condition Start: 04/16/19 10:40 Freq: Status: Active Protocol: Document 04/16/19 10:41 EA (Rec: 04/16/19 10:52 EA [id number]) Current Condition History of Current Condition Onset Date Neck 2 years ago; midback 5 years ago Current Complaints Posterior neck and mid back pain History of Current Condition Patient reports neck and mid back pain started gradually after she was told not to do much to her neck and trunk mobility due to calcium deposits on her body 5 years ago. She reports able to maintain upright posture but very stiff body. She feels all of her back and neck are achy more in the morning and loosen up once started doing home typical activities. She reports living by herself on a no stairs house and uses cane only when walking outside. She reports no fall in the past six months but very careful about her balance. Prior Treatments and Tests None identified Future Testing and Treatments Planned None identified. Treatment Goals Patient/Caregiver Goals 1. I want to decrease my neck and back pain' 2. I want to strengthen my both legs 3. I want to walk on my treadmill machine safely > 10 mins Prior Functional Status Baseline Function- ADL's Independent Baseline Function- Mobility Independent Baseline Function- Gait Indep with AD with outdoor mobility Baseline Function- Work/School Retired Baseline Function- Recreation/Hobbies Patient denies any outdoor hobbies but cleaning the house is what she likes to do. Current Functional Impairments (Reported) Functional Limitations- ADL's Independent in all ADL; difficulty with activities that requires head turning and moving. Functional Limitations- Mobility/Gait Indep: Straight cane for outside amb. Able to walk but with difficulty with walking that requires head turning. Functional Limitations- Work/School Retired Functional Limitations- Recreation/ None Hobbies Personal Factors Other Personal Factors That May Effect Chronicity of the condition Therapy/Recovery PT-OP-C Subjective Start: 04/16/19 10:40 Freq: Status: Active Protocol: Document 06/13/19 11:38 LR (Rec: 06/13/19 13:43 [facility] [id number]) OP-PT Subjective Patient Comments Patient Comments Pt reports she noticed leg soreness yesterday and today after the treadmill. Reports she has been checking her BP and its been pretty normal. She is seeing a psychiatrist who is helping her with her stress management d/t history of traumatic experiences and feels like that helps her BP. Reports compliance with HEP. Pt notes her BP has been in her norm range (~150-160/80) when checking at home. Pt reports the manual treatment in the past does not help. PT-OP-D Balance Start: 04/16/19 10:40 Freq: Status: Active Protocol: Document 04/16/19 10:53 EA (Rec: 04/16/19 11:15 EA [id number]) OP-PT Balance Assessment Sitting Balance Static Sitting Balance Ability Good Dynamic Sitting Balance Ability Good Standing Balance Static Standing Balance Ability Good Dynamic Standing Balance Ability Fair Balance Tests Single Limb Standing Single Limb- Right < 2 Single Limb- Left < 1 Tandem Tandem Standing < 2 secs each leg Tinetti Balance Assessment Sitting Balance Sitting Balance Steady, safe Arising from Chair Ability to Arise Able, w/o using arms Attempts to Arise Arises on 1st attempt Standing Balance Immediate Standing Balance Steady w/o support Standing Balance Steady, wide stance Nudged Response Steady Standing with Eyes Closed Unsteady Turning Step Pattern Turning 360 Degrees Continuous steps Stability Turning 360 Degrees Steady Sitting Down Sitting Down Safe, steady Gait and Step Initiation of Gait No hesitancy Right Foot Step Length Does pass stance foot Right Foot Step Height Completely clears floor Left Foot Step Length Does pass stance foot Left Foot Step Height Completely clears floor Step Description Step Symmetry Step length appears equal Gait Description Path Description Straight Trunk Description No sway Walking Stance Heels together Scoring and Interpretation Tinetti Composite Score (points) 25 Interpretation of Scores Low risk for falls (>24) Tinetti Impairment Rating from Composite 1 to <20% Impaired (Score 23- Score 27) Simmons Fall Scale Copyright Permission PT-OP-F Manual Assessment Start: 04/16/19 10:40 Freq: Status: Active Protocol: Document 04/16/19 10:53 EA (Rec: 04/16/19 11:15 EA [id number]) Manual Assessments Soft Tissue Assessment Soft Tissue Mobility Assessment Tightness to bothPectorals, traps, scalenes, LS, paralumbars, parathoracis Other Manual Assessments Other Manual Assessments Trigger points to both parascapulars, right mid thoracis, upper traps, LS, PT-OP-J Posture/Palpation/Skin Start: 04/16/19 10:40 Freq: Status: Active Protocol: Document 04/16/19 10:53 EA (Rec: 04/16/19 11:15 EA [id number]) Posture Evaluation Comments Posture Comments Near to normal head to toe posture except with slight round shoulders, kyphotic postures. Palpation Assessment Location One Palpation Location Parathoracis. paracervicals, LS, both traps, rhomboids, scalenes. Palpation Findings Soft Tissue Tightness, Tenderness,Trigger Point PT-OP-K Range of Motion Start: 04/16/19 10:40 Freq: Status: Active Protocol: Document 04/16/19 10:53 EA (Rec: 04/16/19 11:15 EA [id number]) Cervical Spine Range of Motion Cervical Spine Active Percentage Testing Position Sitting Flexion 85 Extension 60 Rotation Left 60 Rotation Right 60 Lateral Flexion Left 55 Lateral Flexion Right 55 ROM Limitations Soft Tissue Tightness,Pain Lumbar Spine Range of Motion Lumbar Spine Active Percentage Testing Position Standing Flexion 75 Extension 65 Rotation Left 60 Rotation Right 60 Lateral Flexion Left 50 Lateral Flexion Right 50 ROM Limitations Soft Tissue Tightness,Pain PT-OP-L Special Tests Start: 04/16/19 10:40 Freq: Status: Active Protocol: Document 04/16/19 10:53 EA (Rec: 04/16/19 11:15 EA [id number]) Special Tests Cervical Spine Special Tests Foraminal Compression Test Results -juan Vertebral Artery Test Results -juan Lumbar Spine Special Tests Straight Leg Raise Test Results -ve PT-OP-M Strength Start: 04/16/19 10:40 Freq: Status: Active Protocol: Document 04/16/19 10:53 EA (Rec: 04/16/19 11:15 EA [id number]) Cervical Spine Strength Cervical Spine Manual Muscle Testing Testing Position Sitting Reason Not Measured WFL Trunk Strength Trunk Manual Muscle Testing Testing Position Sitting Reason Not Measured WFL Hip Strength Hip Manual Muscle Testing Right Flexion (L2) 4- Good- Extension (S1) 4- Good- Abduction 4- Good- Adduction 4- Good- External Rotation 4- Good- Internal Rotation 4- Good- Left Flexion (L2) 4- Good- Extension (S1) 4- Good- Abduction 4- Good- Adduction 4- Good- External Rotation 4- Good- Internal Rotation 4- Good- Knee Strength Knee Manual Muscle Testing Right Reason Not Measured WFL Left Reason Not Measured WFL PT-OP-Q Treatments Start: 04/16/19 10:40 Freq: Status: Active Protocol: Document 06/13/19 11:38 [facility] (Rec: 06/13/19 13:43 [facility] [id number]) Therapeutic Exercises Sitting Exercises lumbar flexion Sitting Exercise Name gentle stretch to forearms onto thighs Side bilateral Reps/Minutes 10 sec x2 sitting Sitting Exercise Name Tabd with marches then knee ext Side bilateral Reps/Minutes 20x ea B 1 Sitting Exercise Name TrA stabilization in seated Reps/Minutes 10 Deep Breathing Sitting Exercise Name diaphragmatic breathing Reps/Minutes 15 Comments 1 hand on chest and one on abdomen Shoulder rolls Side bilateral Resistance posterior only Reps/Minutes 8 UT/Levator stretching Side bilateral Reps/Minutes 30 B ea Chin tucks Reps/Minutes 10x Comments cues for form Self-Care/Home Management Treatment Education Other Education edu on importance of diaphragmatic breathing, edu of use of breathing to dec BP and dec mm tension at home, Review of HEP exercises & discussed checking BP after exercises in order to monitor BP during activity PT-OP-R Modalities Start: 04/16/19 10:40 Freq: Status: Active Protocol: Document 04/19/19 15:14 SA (Rec: 04/19/19 15:25 SA [email or web address]) Electric Stimulation Electric Stimulation IFC Body Location B UTs/Interscap Duration (Minutes) 15 Intensity 10 Patient Position Sitting Combined With Heat/Cold Hot Pack PT-OP-T Assessment and Plan Start: 04/16/19 10:40 Freq: Status: Active Protocol: Document 06/13/19 11:38 [facility] (Rec: 06/13/19 13:43 [facility] [id number]) Physical Therapy Assessment Goals Four Impairment Impaired neck ROM [facility] Goal (LTG) Patient will perform functional neck ROM with no discomfort to enhance functional activities without limitation from neck. LTG Duration MET Three Impairment Oswetry 20/50 [facility] Goal (LTG) Oswetry functional scale results of < 15/50 LTG Duration 5 wks Two Impairment decrease ambulation tolerance Reservationist Goal (LTG) Patient will amb on her TM machine > 10 mins safely. : tried for 5 minutes in clinic, would not recommend more than that due to blood pressure at this time LTG Duration 5 wks One Impairment No HEP in place Reservationist Goal (LTG) Patient will exhibit indep HEP 06/11: progress made pt still needs cues LTG Duration 3 weeks Assessment Summary Assessment BP upon arrival was 184/80 and after doing some stretching and breathing exercises BP was 168/78. After doing core exercises and discussing self care, BP was 158/74. Pt was able to do exercises she was already introduced to with min cueing and required cueing with maintaining core stability with seated march & knee ext. Significant cueing required for diaphragmatic breathing. Physical Therapy Plan Frequency and Duration Frequency of Treatment 2x/Week Duration of Treatment 6 wks Plan of Care Start Date 06/11/19 Plan of Care End Date 07/23/19 Next Visit Focus/Plan Next Note Type Treatment Note Next Visit Plan Monitor MD LUCIANO to be called again to have maximums for working with pt, but had approved BP last session, Tband UE strength and cont to progress LE & core strength
--- NOTE | 2019-06-18 15:22 | PT.OTN ---
Current Diagnoses Cervicalgia (06/18/19) Dorsalgia, unspecified (06/18/19) Physical Therapy Treatment Note PT-OP-A Visit Information Start: 04/16/19 10:40 Freq: Status: Active Protocol: Document 06/18/19 15:12 GGD (Rec: 06/18/19 15:22 GGD [email or web address]) Out-Patient Physical Therapy Visit Information Visit Information Visit Type Treatment Note Visit Start Time 12:00 Visit Stop Time 12:40 Total Visit Minutes 40 Visit Number 13 Number of BILLBOARD ERECTOR Visits 1 Evaluation Information Evaluation Date 04/16/19 PT-OP-B Current Condition Start: 04/16/19 10:40 Freq: Status: Active Protocol: Document 04/16/19 10:41 EA (Rec: 04/16/19 10:52 EA [id number]) Current Condition History of Current Condition Onset Date Neck 2 years ago; midback 5 years ago Current Complaints Posterior neck and mid back pain History of Current Condition Patient reports neck and mid back pain started gradually after she was told not to do much to her neck and trunk mobility due to calcium deposits on her body 5 years ago. She reports able to maintain upright posture but very stiff body. She feels all of her back and neck are achy more in the morning and loosen up once started doing home typical activities. She reports living by herself on a no stairs house and uses cane only when walking outside. She reports no fall in the past six months but very careful about her balance. Prior Treatments and Tests None identified Future Testing and Treatments Planned None identified. Treatment Goals Patient/Caregiver Goals 1. I want to decrease my neck and back pain' 2. I want to strengthen my both legs 3. I want to walk on my treadmill machine safely > 10 mins Prior Functional Status Baseline Function- ADL's Independent Baseline Function- Mobility Independent Baseline Function- Gait Indep with AD with outdoor mobility Baseline Function- Work/School Retired Baseline Function- Recreation/Hobbies Patient denies any outdoor hobbies but cleaning the house is what she likes to do. Current Functional Impairments (Reported) Functional Limitations- ADL's Independent in all ADL; difficulty with activities that requires head turning and moving. Functional Limitations- Mobility/Gait Indep: Straight cane for outside amb. Able to walk but with difficulty with walking that requires head turning. Functional Limitations- Work/School Retired Functional Limitations- Recreation/ None Hobbies Personal Factors Other Personal Factors That May Effect Chronicity of the condition Therapy/Recovery PT-OP-C Subjective Start: 04/16/19 10:40 Freq: Status: Active Protocol: Document 06/18/19 15:12 GGD (Rec: 06/18/19 15:22 GGD [email or web address]) OP-PT Subjective Patient Comments Patient Comments Pt states she been busy and rushing today. PT-OP-D Balance Start: 04/16/19 10:40 Freq: Status: Active Protocol: Document 04/16/19 10:53 EA (Rec: 04/16/19 11:15 EA [id number]) OP-PT Balance Assessment Sitting Balance Static Sitting Balance Ability Good Dynamic Sitting Balance Ability Good Standing Balance Static Standing Balance Ability Good Dynamic Standing Balance Ability Fair Balance Tests Single Limb Standing Single Limb- Right < 2 Single Limb- Left < 1 Tandem Tandem Standing < 2 secs each leg Tinetti Balance Assessment Sitting Balance Sitting Balance Steady, safe Arising from Chair Ability to Arise Able, w/o using arms Attempts to Arise Arises on 1st attempt Standing Balance Immediate Standing Balance Steady w/o support Standing Balance Steady, wide stance Nudged Response Steady Standing with Eyes Closed Unsteady Turning Step Pattern Turning 360 Degrees Continuous steps Stability Turning 360 Degrees Steady Sitting Down Sitting Down Safe, steady Gait and Step Initiation of Gait No hesitancy Right Foot Step Length Does pass stance foot Right Foot Step Height Completely clears floor Left Foot Step Length Does pass stance foot Left Foot Step Height Completely clears floor Step Description Step Symmetry Step length appears equal Gait Description Path Description Straight Trunk Description No sway Walking Stance Heels together Scoring and Interpretation Tinetti Composite Score (points) 25 Interpretation of Scores Low risk for falls (>24) Tinetti Impairment Rating from Composite 1 to <20% Impaired (Score 23- Score 27) Simmons Fall Scale Copyright Permission PT-OP-F Manual Assessment Start: 04/16/19 10:40 Freq: Status: Active Protocol: Document 04/16/19 10:53 EA (Rec: 04/16/19 11:15 EA [id number]) Manual Assessments Soft Tissue Assessment Soft Tissue Mobility Assessment Tightness to bothPectorals, traps, scalenes, LS, paralumbars, parathoracis Other Manual Assessments Other Manual Assessments Trigger points to both parascapulars, right mid thoracis, upper traps, LS, PT-OP-J Posture/Palpation/Skin Start: 04/16/19 10:40 Freq: Status: Active Protocol: Document 04/16/19 10:53 EA (Rec: 04/16/19 11:15 EA [id number]) Posture Evaluation Comments Posture Comments Near to normal head to toe posture except with slight round shoulders, kyphotic postures. Palpation Assessment Location One Palpation Location Parathoracis. paracervicals, LS, both traps, rhomboids, scalenes. Palpation Findings Soft Tissue Tightness, Tenderness,Trigger Point PT-OP-K Range of Motion Start: 04/16/19 10:40 Freq: Status: Active Protocol: Document 04/16/19 10:53 EA (Rec: 04/16/19 11:15 EA [id number]) Cervical Spine Range of Motion Cervical Spine Active Percentage Testing Position Sitting Flexion 85 Extension 60 Rotation Left 60 Rotation Right 60 Lateral Flexion Left 55 Lateral Flexion Right 55 ROM Limitations Soft Tissue Tightness,Pain Lumbar Spine Range of Motion Lumbar Spine Active Percentage Testing Position Standing Flexion 75 Extension 65 Rotation Left 60 Rotation Right 60 Lateral Flexion Left 50 Lateral Flexion Right 50 ROM Limitations Soft Tissue Tightness,Pain PT-OP-L Special Tests Start: 04/16/19 10:40 Freq: Status: Active Protocol: Document 04/16/19 10:53 EA (Rec: 04/16/19 11:15 EA [id number]) Special Tests Cervical Spine Special Tests Foraminal Compression Test Results -juan Vertebral Artery Test Results -juan Lumbar Spine Special Tests Straight Leg Raise Test Results -ve PT-OP-M Strength Start: 04/16/19 10:40 Freq: Status: Active Protocol: Document 04/16/19 10:53 EA (Rec: 04/16/19 11:15 EA [id number]) Cervical Spine Strength Cervical Spine Manual Muscle Testing Testing Position Sitting Reason Not Measured WFL Trunk Strength Trunk Manual Muscle Testing Testing Position Sitting Reason Not Measured WFL Hip Strength Hip Manual Muscle Testing Right Flexion (L2) 4- Good- Extension (S1) 4- Good- Abduction 4- Good- Adduction 4- Good- External Rotation 4- Good- Internal Rotation 4- Good- Left Flexion (L2) 4- Good- Extension (S1) 4- Good- Abduction 4- Good- Adduction 4- Good- External Rotation 4- Good- Internal Rotation 4- Good- Knee Strength Knee Manual Muscle Testing Right Reason Not Measured WFL Left Reason Not Measured WFL PT-OP-Q Treatments Start: 04/16/19 10:40 Freq: Status: Active Protocol: Document 06/18/19 15:12 GGD (Rec: 06/18/19 15:22 GGD [email or web address]) Therapeutic Exercises Sitting Exercises lumbar flexion Sitting Exercise Name gentle stretch to forearms onto thighs Side bilateral Reps/Minutes 10 sec x2 sitting Sitting Exercise Name Tabd with marches then knee ext Side bilateral Reps/Minutes 20x ea B 1 Sitting Exercise Name TrA stabilization in seated Reps/Minutes 10 Deep Breathing Sitting Exercise Name diaphragmatic breathing Reps/Minutes 15 Comments 1 hand on chest and one on abdomen Ankle EV Sitting Exercise Name ankle EV Side bilateral Resistance level 2 Reps/Minutes 2x10 reps Ankle IV Sitting Exercise Name Ankle IV Side bilateral Resistance Lev 2 TBand Reps/Minutes 10x1 Postural correction w/scap squeeze Side bilateral Equipment Used #2TB w/B shldr ER Reps/Minutes 2 min Shoulder rolls Side bilateral Resistance posterior only Reps/Minutes 8 Cervical rotation Side bilateral Reps/Minutes 15 x each UT/Levator stretching Side bilateral Reps/Minutes 30 B ea Chin tucks Reps/Minutes 10x Comments cues for form PT-OP-R Modalities Start: 04/16/19 10:40 Freq: Status: Active Protocol: Document 04/19/19 15:14 SA (Rec: 04/19/19 15:25 SA [email or web address]) Electric Stimulation Electric Stimulation IFC Body Location B UTs/Interscap Duration (Minutes) 15 Intensity 10 Patient Position Sitting Combined With Heat/Cold Hot Pack PT-OP-T Assessment and Plan Start: 04/16/19 10:40 Freq: Status: Active Protocol: Document 06/18/19 15:12 GGD (Rec: 06/18/19 15:22 GGD [email or web address]) Physical Therapy Assessment Assessment Summary Assessment BP upon arrival 192/90 after exercises 184/82. Pt had good tolerance to seated exercise and needed min cues. Physical Therapy Plan Frequency and Duration Frequency of Treatment 2x/Week Duration of Treatment 6 wks Plan of Care Start Date 06/11/19 Plan of Care End Date 07/23/19 Next Visit Focus/Plan Next Note Type Treatment Note Next Visit Plan Check BP to start & monitor BP throughout session. Inc tband strengthening and LE exercise as appropriate. Follow up with pt/doctor regarding blood pressure exercise range. If blood pressure acceptable could try treadmill here to assess for safety.
--- NOTE | 2019-06-26 09:43 | PT.OPDS ---
Current Diagnoses Cervicalgia (06/18/19) Dorsalgia, unspecified (06/18/19) Visit Care Team Role Provider Type Mil Lopez MD Attending Provider Physician Primary Care Provider Specialty: Internal Medicine Address: [address] [place] [address], [address] Email: [email or web address] Visit Number Visit Number 13 Discharge Summary PT-OP-B Current Condition Start: 04/16/19 10:40 Freq: Status: Active Protocol: Document 04/16/19 10:41 EA (Rec: 04/16/19 10:52 EA [id number]) Current Condition History of Current Condition Onset Date Neck 2 years ago; midback 5 years ago Current Complaints Posterior neck and mid back pain History of Current Condition Patient reports neck and mid back pain started gradually after she was told not to do much to her neck and trunk mobility due to calcium deposits on her body 5 years ago. She reports able to maintain upright posture but very stiff body. She feels all of her back and neck are achy more in the morning and loosen up once started doing home typical activities. She reports living by herself on a no stairs house and uses cane only when walking outside. She reports no fall in the past six months but very careful about her balance. Prior Treatments and Tests None identified Future Testing and Treatments Planned None identified. Treatment Goals Patient/Caregiver Goals 1. I want to decrease my neck and back pain' 2. I want to strengthen my both legs 3. I want to walk on my treadmill machine safely > 10 mins Prior Functional Status Baseline Function- ADL's Independent Baseline Function- Mobility Independent Baseline Function- Gait Indep with AD with outdoor mobility Baseline Function- Work/School Retired Baseline Function- Recreation/Hobbies Patient denies any outdoor hobbies but cleaning the house is what she likes to do. Current Functional Impairments (Reported) Functional Limitations- ADL's Independent in all ADL; difficulty with activities that requires head turning and moving. Functional Limitations- Mobility/Gait Indep: Straight cane for outside amb. Able to walk but with difficulty with walking that requires head turning. Functional Limitations- Work/School Retired Functional Limitations- Recreation/ None Hobbies Personal Factors Other Personal Factors That May Effect Chronicity of the condition Therapy/Recovery PT-OP-C Subjective Start: 04/16/19 10:40 Freq: Status: Active Protocol: Document 06/18/19 15:12 GGD (Rec: 06/18/19 15:22 GGD [email or web address]) OP-PT Subjective Patient Comments Patient Comments Pt states she been busy and rushing today. PT-OP-D Balance Start: 04/16/19 10:40 Freq: Status: Active Protocol: Document 04/16/19 10:53 EA (Rec: 04/16/19 11:15 EA [id number]) OP-PT Balance Assessment Sitting Balance Static Sitting Balance Ability Good Dynamic Sitting Balance Ability Good Standing Balance Static Standing Balance Ability Good Dynamic Standing Balance Ability Fair Balance Tests Single Limb Standing Single Limb- Right < 2 Single Limb- Left < 1 Tandem Tandem Standing < 2 secs each leg Tinetti Balance Assessment Sitting Balance Sitting Balance Steady, safe Arising from Chair Ability to Arise Able, w/o using arms Attempts to Arise Arises on 1st attempt Standing Balance Immediate Standing Balance Steady w/o support Standing Balance Steady, wide stance Nudged Response Steady Standing with Eyes Closed Unsteady Turning Step Pattern Turning 360 Degrees Continuous steps Stability Turning 360 Degrees Steady Sitting Down Sitting Down Safe, steady Gait and Step Initiation of Gait No hesitancy Right Foot Step Length Does pass stance foot Right Foot Step Height Completely clears floor Left Foot Step Length Does pass stance foot Left Foot Step Height Completely clears floor Step Description Step Symmetry Step length appears equal Gait Description Path Description Straight Trunk Description No sway Walking Stance Heels together Scoring and Interpretation Tinetti Composite Score (points) 25 Interpretation of Scores Low risk for falls (>24) Tinetti Impairment Rating from Composite 1 to <20% Impaired (Score 23- Score 27) Simmons Fall Scale Copyright Permission PT-OP-F Manual Assessment Start: 04/16/19 10:40 Freq: Status: Active Protocol: Document 04/16/19 10:53 EA (Rec: 04/16/19 11:15 EA [id number]) Manual Assessments Soft Tissue Assessment Soft Tissue Mobility Assessment Tightness to bothPectorals, traps, scalenes, LS, paralumbars, parathoracis Other Manual Assessments Other Manual Assessments Trigger points to both parascapulars, right mid thoracis, upper traps, LS, PT-OP-J Posture/Palpation/Skin Start: 04/16/19 10:40 Freq: Status: Active Protocol: Document 04/16/19 10:53 EA (Rec: 04/16/19 11:15 EA [id number]) Posture Evaluation Comments Posture Comments Near to normal head to toe posture except with slight round shoulders, kyphotic postures. Palpation Assessment Location One Palpation Location Parathoracis. paracervicals, LS, both traps, rhomboids, scalenes. Palpation Findings Soft Tissue Tightness, Tenderness,Trigger Point PT-OP-K Range of Motion Start: 04/16/19 10:40 Freq: Status: Active Protocol: Document 04/16/19 10:53 EA (Rec: 04/16/19 11:15 EA [id number]) Cervical Spine Range of Motion Cervical Spine Active Percentage Testing Position Sitting Flexion 85 Extension 60 Rotation Left 60 Rotation Right 60 Lateral Flexion Left 55 Lateral Flexion Right 55 ROM Limitations Soft Tissue Tightness,Pain Lumbar Spine Range of Motion Lumbar Spine Active Percentage Testing Position Standing Flexion 75 Extension 65 Rotation Left 60 Rotation Right 60 Lateral Flexion Left 50 Lateral Flexion Right 50 ROM Limitations Soft Tissue Tightness,Pain PT-OP-L Special Tests Start: 04/16/19 10:40 Freq: Status: Active Protocol: Document 04/16/19 10:53 EA (Rec: 04/16/19 11:15 EA [id number]) Special Tests Cervical Spine Special Tests Foraminal Compression Test Results -juan Vertebral Artery Test Results -juan Lumbar Spine Special Tests Straight Leg Raise Test Results -ve PT-OP-M Strength Start: 04/16/19 10:40 Freq: Status: Active Protocol: Document 04/16/19 10:53 EA (Rec: 04/16/19 11:15 EA [id number]) Cervical Spine Strength Cervical Spine Manual Muscle Testing Testing Position Sitting Reason Not Measured WFL Trunk Strength Trunk Manual Muscle Testing Testing Position Sitting Reason Not Measured WFL Hip Strength Hip Manual Muscle Testing Right Flexion (L2) 4- Good- Extension (S1) 4- Good- Abduction 4- Good- Adduction 4- Good- External Rotation 4- Good- Internal Rotation 4- Good- Left Flexion (L2) 4- Good- Extension (S1) 4- Good- Abduction 4- Good- Adduction 4- Good- External Rotation 4- Good- Internal Rotation 4- Good- Knee Strength Knee Manual Muscle Testing Right Reason Not Measured WFL Left Reason Not Measured WFL PT-OP-T Assessment and Plan Start: 04/16/19 10:40 Freq: Status: Active Protocol: Document 06/26/19 09:39 AMB (Rec: 06/26/19 09:43 AMB [email or web address]) Physical Therapy Assessment Goals Four Impairment Impaired neck ROM Rn Call Center Goal (LTG) Patient will perform functional neck ROM with no discomfort to enhance functional activities without limitation from neck. LTG Duration MET Three Impairment Oswetry 20/50 Rn Call Center Goal (LTG) Oswetry functional scale results of < 15/50 LTG Duration 5 wks Two Impairment decrease ambulation tolerance Alf Goal (LTG) Patient will amb on her TM machine > 10 mins safely. : tried for 5 minutes in clinic, would not recommend more than that due to blood pressure at this time LTG Duration 5 wks One Impairment No HEP in place Alf Goal (LTG) Patient will exhibit indep HEP 06/11: progress made pt still needs cues LTG Duration 3 weeks Assessment Summary Assessment Emma called into the clinic to cancel her last appointment , stating that she was ready to be discharged. She had met some of her goals, but was very fatigued after walking 5 minutes in the clinic and would not be safe to walk 10 minutes on the treadmill right now at home. Her blood pressure and her pain continued to be a limiting factor for her. Physical Therapy Plan Discharge Physical Therapy Discharge Reasons Patient Request
== END 2019-06-27 17:17 | disposition home or self-care (01) ==
LOC: PHYS 12:00
PROVIDERS: PCP Internal Medicine; Visit Provider Internal Medicine
DX: M54.9 Dorsalgia, unspecified (principal); M54.2 Cervicalgia
CPT/HCPCS: 97014; 97110; 97112; 97140; 97162; 97535; G0283

== ENCOUNTER 2021-08-10 10:21 | Observation (INO) | payer MEDICARE, SELFPAY ==
[2021-08-10] VITALS (20 sets, daily range): BP systolic 157–234; BP diastolic 66–103; PULSE 68–105; RESP 12–29; TEMP 36.2–36.8; O2SAT 96–98; BMI 26.2
--- NOTE | 2021-08-10 10:29 | DI.CT.S_ITS ---
PROCEDURE: CT STROKE INDICATIONS: left side numbness TECHNIQUE: Noncontrast 4.5 mm thick angled axial sections acquired from the foramen magnum to the vertex, with coronal reformats. For radiation dose reduction, the following was used: automated exposure control, adjustment of mA and/or kV according to patient size. COMPARISON: [facility], CT, CT HEAD/BRAIN WO CON, 02/06/2019, 13:45. FINDINGS: Image quality: Excellent. CSF spaces: Basal cisterns are patent. No extra-axial fluid collections. The ventricles are symmetric in size and shape. Brain: No intracranial bleeds or masses. There is cerebral volume loss for age, with resultant ventricular and sulcal prominence. There are periventricular and deep white matter chronic small vessel ischemic changes. There is intracranial internal carotid artery and vertebral artery atherosclerosis. Skull and face: Calvarium and visualized facial bones appear intact, without suspicious lesions. Sinuses: Visualized sinuses and mastoids are clear. IMPRESSION: No acute intracranial disease process. Findings telephoned to Dr. Rea on August 10, 2021 at 10:39 a.m. This study fulfills neurological imaging criteria for inclusion or exclusion of acute stroke therapies based on available published neurological guidelines. Dictated by: Alison Wong MD, PhD on 08/10/2021 at 10:37 Approved by: Alison Wong MD, PhD on 08/10/2021 at 10:40
--- NOTE | 2021-08-10 10:29 | DI.CT.S_ITS ---
PROCEDURE: CT ANGIO HEAD AND NECK INDICATIONS: left side numbness TECHNIQUE: Noncontrast images were performed earlier in the day and not repeated. After the administration of intravenous contrast, 1 mm thick sections acquired from the aortic arch through the [place]. Post-contrast 4.5 mm thick sections then re-acquired from the foramen magnum to the vertex. 3-dimensional qkeckfg-qmtwefisv-sapdmruaps (MIP) and/or volume rendering reformats were acquired of the central intracranial vasculature and neck separately. COMPARISON: [facility], CT, CT HEAD/BRAIN WO CON, 10/17/2018, 18:45. [facility], CT, CT HEAD/BRAIN WO CON, 02/06/2019, 13:45. [facility], CT, CT STROKE, 08/10/2021, 10:35. FINDINGS: Image quality: Excellent. BRAIN: CSF spaces: Ventricles are normal in size and shape. Basal cisterns are patent. No extra-axial fluid collections. Brain: No midline shift. No intracranial bleeds or masses. Espinoza-white matter interface appears intact. Skull and face: Calvarium and facial bones appear intact, without suspicious lesions. Orbits appear normal. Sinuses: Sinuses and mastoids are clear. HEAD CT ANGIOGRAPHY: Anterior circulation: Intracranial internal carotid arteries demonstrate atherosclerotic calcification, with at least 50% narrowing seen on each side. There is focal narrowing seen involving the left proximal A2 segment, with approximately 80% narrowing. This is best seen on sagittal images, as on series 3, image 84. The flow within the paired anterior cerebral arteries is otherwise normal and symmetric. The flow within the middle cerebral arteries is normal and symmetric. The anterior communicating artery is seen. No aneurysms are seen. Posterior circulation: Areas of focal atherosclerotic calcification can be seen involving the V4 segments. There is approximately 40% narrowing seen involving the right V4 segment. There is at least 90% narrowing seen involving the left V4 segment. The basilar artery demonstrates no significant abnormality. Flow within the posterior cerebral arteries is normal and symmetric. No aneurysms are seen. NECK CT ANGIOGRAPHY: Carotid system: The great vessels demonstrate a conventional anatomy as they arise from the aortic arch. The origins of the common carotid arteries appear patent. The common carotid arteries demonstrate normal caliber and courses. The bifurcation regions demonstrate atherosclerotic calcification and irregularity. There is at least 80% narrowing seen involving the right proximal internal carotid artery. There is 60-70% narrowing seen involving the left proximal internal carotid artery. The more distal internal carotid arteries demonstrate normal course and caliber. Posterior circulation: There is at least 50% narrowing seen involving the origin of the left vertebral artery. The right vertebral artery is unremarkable. The right vertebral artery is dominant to the left. The extracranial portions of the vertebral arteries demonstrate normal course and caliber. Soft tissues: Visualized neck soft tissues demonstrate no suspicious abnormalities. Mild patchy ground-glass opacities can be seen at the lung apices. Bones: No suspicious bony lesions. Visualized cervical spine appears normally aligned. IMPRESSION: Focal calcification and irregularity seen involving the carotid bifurcations, with at least 80% narrowing on the right and 60-70% narrowing on the left. Approximately 80% narrowing seen involving the left proximal A2 segment. At least 90% narrowing seen involving the left V4 segment. There is at least 50% narrowing involving the origin of the left vertebral artery. Mild patchy ground-glass opacities can be seen involving the lung apices. Mild pulmonary edema is suspected. Any quantitative measurements of stenosis were performed using NASCET criteria. Dictated by: Lorenzo Akhtar M.D. on 08/10/2021 at 9:59 Approved by: Lorenzo Akhtar M.D. on 08/10/2021 at 10:06
[2021-08-10 10:40] LABS: Add Manual Diff / Slide Review NO; Basophils Absolute Auto 100 /uL (0-100); Eosinophils Absolute Auto 100 /uL (0-450); Eosinophils Percent Auto 0.8 % (2-4); Hematocrit 39.1 % (36-46); Hemoglobin 13.5 g/dL (12.0-16.0); Lymphocytes Absolute Auto 2400 /uL (1100-4500); Lymphocytes Percent Auto 32.8 % (25-40); Mean Corpuscular HGB Conc 34.4 % (30-36); Mean Corpuscular Hemoglobin 30.5 PG (26-34); Mean Corpuscular Volume 88.6 fL (80-100); Monocytes Absolute Auto 400 /uL (0-900); Monocytes Percent Auto 6.1 % (3-14); Neutrophils Absolute Auto 4300 /uL (1500-7000); Neutrophils Percent Auto 59.3 % (50-75); Platelet Count 258 X10^3/uL (150-400); Red Blood Cell Count 4.42 X10^6/uL (4.0-5.2); Red Cell Distribution Width 13.2 % (11.6-14.8); White Blood Cell Count 7.3 X10^3/uL (4.5-11.0)
--- NOTE | 2021-08-10 10:42 | ED_ITS ---
HPI - Neuro Symptoms/Deficit General Chief Complaint: Altered Mental Status Stated Complaint: BP is very high/numbness on left side Time Seen by Provider: 08/10/21 10:29 Source: patient and family Mode of arrival: Wheelchair Limitations: no limitations History of Present Illness HPI Narrative: Patient is an 86-year-old female with history of hypertension is presenting today as a code stroke with left-sided numbness. It is difficult to say but it sounds as though her last known well was last evening. She says that she wakes up every morning with some left-sided numbness because of the way she sleeps however typically when she gets up to walk to the kitchen and back it resolves on its own. She woke up this morning at 6:00 a.m. she has some numbness and tingling she went back to sleep and slept until around 748 at which point she got up and walked to the kitchen and her symptoms not resolved. She has continue to have some numbness on her left leg and her left arm. She has no weakness she has no difficulty ambulating or holding things. No facial droop or difficulty speaking no visual changes. She says she does have a bad shoulder which she contributes to some of her numbness as well as her hip. She is noted to be quite hypertensive with initial blood pressure a systolic and 234. On Anticoagulants: No Related Data Home Medications Medication Instructions Recorded Confirmed diltiazem HCl 180 mg 180 mg PO BID cap 09/21/20 08/10/21 capsule,extended release 24 hr hydroxyzine pamoate 25 mg capsule 25 mg PO BID PRN 09/21/20 08/10/21 Previous Rx's Medication Instructions Recorded lisinopril 20 mg tablet 20 mg PO BID #60 tab 05/10/17 Allergies Allergy/AdvReac Type Severity Reaction Status Date / Time Anesthetics - Colleen Type- Allergy Unknown patient Verified 08/10/21 10:31 Parabens can't [Anesthetics - Colleen Type] remember procaine Allergy Unknown patient Verified 08/10/21 10:31 can't remember epinephrine [EPINEPHRINE] AdvReac Severe shakes Verified 08/10/21 10:31 hydrocodone AdvReac Severe patient Verified 08/10/21 10:31 can't remeber codeine AdvReac Intermediate vomiting Verified 08/10/21 10:31 aspirin AdvReac Mild GI UPSET Verified 08/10/21 10:31 Review of Systems Review of Systems Narrative: GENERAL: Denies chills, fatigue, malaise, fever, sweats, travel HEENT: Denies sinus pain, ear pain, sore throat, difficulty swallowing, neck pain RESPIRATORY: Denies dyspnea, cough, wheezing, hemoptysis, sputum. CARDIOVASCULAR: Denies chest pain, palpitations, orthopnea, edema GASTROINTESTINAL: Denies nausea, vomiting, abdominal pain, diarrhea, constipation, melena. : Denies dysuria, frequency, incontinence, hematuria, urinary retention, flank pain. MUSCULOSKELETAL: Denies weakness, joint pain, or bony pain SKIN: No rash, no erythema, no pruritus NEUROLOGIC: See HPI PSYCHIATRIC: No concerning psychosocial issues. 12 point review of systems is negative except for those stated above and HPI Hematologic/Lymphatic On Anticoagulants: No Patient History Medical History Anxiety Hypertension Surgical History Status post delivery Status post cholecystectomy Social History household members: none Smoking Status: Never smoker alcohol intake: never Smoking Status: Never smoker alcohol intake frequency: 0-2 drinks per day Substance Use Type: does not use Exam Initial Vital Signs Initial Vital Signs: Vital Signs Temperature 97.9 F 08/10/21 10:31 Pulse Rate 105 H 08/10/21 10:31 Respiratory Rate 20 08/10/21 10:31 Blood Pressure 234/103 H 08/10/21 10:31 Pulse Oximetry 97 08/10/21 10:31 GENERAL: Alert well-appearing 86-year-old female in no acute distress. HEENT: Head atraumatic,EOMI, pupils reactive, face symmetric, moist mucous membranes CARDIOVASCULAR: Regular rate and rhythm without murmurs, rubs or gallops. RESPIRATORY: Breath sounds equal bilaterally, no wheezes rales or rhonchi. ABDOMEN: Soft, nontender. Normoactive bowel sounds all 4 quadrants. No guarding or rebound. EXTREMITIES: Normal range of motion, no clubbing or edema. Neurovascularly intact NEUROLOGICAL: Alert and oriented x4.Normal gait and speech. Cranial nerves II t hrough XII grossly intact. Good [id number]-gsga, good yfvs-hq-lwya, strength equal bilaterally, no dysarthria or aphasia, sensation to soft touch is decreased on the left no visual changes, no facial droop SKIN: Warm, dry, no laceration, no petechiae, no rashes or lesions. Scores NIH Stroke Scale Level of Conciousness: Alert, keenly responsive Ask month/age: Answers both questions correctly. Open/close eyes, close hand: Performs both tasks correctly Best gaze horizontal: Normal Visual cai: No visual loss Facial palsy: Normal symetrical movement Left arm drift: No drift for full 10 sec Right arm drift: No drift for full 10 sec Left leg drift: No drift for full 5 sec Right leg drift: No drift for full 5 sec Limb ataxia: Absent Sensory on face/arms/legs: Mild to moderate sensory loss, can tell touch Best language: No aphasia, normal Dysarthria: Normal Extinction or inattention: No abnormality Total NIH Stroke scale score: 1 Course Orders Ordered: ED Orders 08/10/21 10:[address] angio head and neck Stat Urine Drug Screen, Rapid Stat EKG-12 Lead Stat 08/10/21 10:31 Complete Blood Count AUTO DIFF Stat Comprehensive Metabolic Panel Stat Prothrombin Time INR Stat Troponin & CK Cardiac Panel Stat Clopidogrel Bisulfate (Clopidogrel 75 Mg Tablet) 75 mg PO DAILY [facility] Diltiazem HCl (Diltiazem Cd 180 Mg Cap) 180 mg PO BID [facility] Last Admin: 08/10/21 18:39 Dose: 180 mg Documented by: TREV Enoxaparin Sodium (Enoxaparin 40 Mg/0.4 Ml Syringe) 40 mg SUBCUT DAILY [facility] Labetalol HCl (Labetalol 20 Mg/4 Ml Syringe) 5 mg IV Q4HR PRN PRN Reason: Hypertensive Emergency Lisinopril (Lisinopril 20 Mg Tablet) 20 mg PO BID [facility] Last Admin: 08/10/21 17:32 Dose: 20 mg Documented by: RACHEL Naloxone HCl (Naloxone 0.4 Mg/Ml Vial) 0.2 mg IV Q2MIN PRN PRN Reason: Opiate Reversal Discontinued Medications Acetaminophen (Acetaminophen 325 Mg Tablet) 975 mg PO NOW ONE Stop: 08/10/21 11:12 Last Admin: 08/10/21 11:18 Dose: 975 mg Documented by: CEDRIC Aspirin (Aspirin Ec 81 Mg Tablet) 81 mg PO NOW ONE Stop: 08/10/21 16:50 Last Admin: 08/10/21 18:53 Dose: 81 mg Documented by: TREV Clopidogrel Bisulfate (Clopidogrel 75 Mg Tablet) 300 mg PO NOW ONE Stop: 08/10/21 11:12 Last Admin: 08/10/21 11:18 Dose: 300 mg Documented by: CEDRIC Diazepam (Diazepam 5 Mg Tablet) 2.5 mg PO NOW ONE Stop: 08/10/21 18:59 Last Admin: 08/10/21 19:02 Dose: 2.5 mg Documented by: TREV Labetalol HCl (Labetalol 20 Mg/4 Ml Syringe) 10 mg IV NOW ONE Stop: 08/10/21 12:15 Last Admin: 08/10/21 13:52 Dose: Not Given Documented by: CEDRIC Vital Signs Vital signs: Vital Signs - 8 hr 08/10/21 11:25 08/10/21 11:30 08/10/21 12:00 Pulse Rate 78 78 73 Respiratory Rate 20 12 Blood Pressure 200/86 H 186/66 H Pulse Oximetry 98 98 08/10/21 12:01 08/10/21 12:30 08/10/21 12:31 Pulse Rate 72 73 73 Respiratory Rate 19 16 Blood Pressure 206/81 H 184/83 H Pulse Oximetry 97 96 08/10/21 12:33 Pulse Rate 73 Respiratory Rate 24 Blood Pressure 164/82 H Pulse Oximetry 97 MDM - Neuro Symptoms/Deficit Lab Data Result diagrams: 08/10/21 10:31 08/10/21 10:31 Labs: Lab Results 08/10/21 08/10/21 08/10/21 Range/Units 10:31 10:31 10:31 WBC 7.3 (4.5-11.0) X10^3/uL RBC 4.42 (4.0-5.2) X10^6/uL Hgb 13.5 (12.0-16.0) g/dL Hct 39.1 (36-46) % MCV 88.6 (80-100) fL MCH 30.5 (26-34) PG MCHC 34.4 (30-36) % RDW 13.2 (11.6-14.8) % Plt Count 258 (150-400) X10^3/uL Neut % (Auto) 59.3 (50-75) % Lymph % (Auto) 32.8 (25-40) % [place] % (Auto) 6.1 (3-14) % Eos % (Auto) 0.8 L (2-4) % Baso % (Auto) 1.0 (0-2) % Neut # (Auto) 4300 (2117-7624) /uL Lymph # (Auto) 2400 (8614-9225) /uL [place] # (Auto) 400 (0-900) /uL Eos # (Auto) 100 (0-450) /uL Baso # (Auto) 100 (0-100) /uL PT 11.7 (10.1-12.7) SECONDS INR 1.1 (0.9-1.3) Sodium 140 (137-145) mmol/L Potassium 3.9 (3.4-5.1) mmol/L Chloride 104 (98-107) mmol/L Carbon Dioxide 25 (22-32) mmol/L BUN 12 (7-17) mg/dL Creatinine 0.71 (0.52-1.04) mg/dL Estimated GFR > 60.0 (>60) mL/min BUN/Creatinine Ratio 16.9 (6-22) Glucose 117 H (80-110) mg/dL Calcium 10.0 (8.4-10.2) mg/dL Total Bilirubin 0.6 (0.2-1.3) mg/dL AST 25 (14-36) IU/L ALT 13 (<35) IU/L Alkaline Phosphatase 73 (38-126) U/L Total Creatine Kinase 60 (30-135) U/L CK-MB (CK-2) TNP CK-MB (CK-2) Rel Index TNP Troponin I < 0.012 (0.01-0.034) ng/mL Total Protein 8.1 (6.3-8.2) g/dL Albumin 4.7 (3.5-5.0) g/dL Globulin 3.4 (1.7-4.1) g/dL Albumin/Globulin Ratio 1.4 (1.0-2.8) Imaging Data CT scan - head: Radiologist's Impression: PROCEDURE:? CT STROKE ? INDICATIONS:? left side numbness ? TECHNIQUE:? Noncontrast 4.5 mm thick angled axial sections acquired from the foramen magnum to the vertex, with coronal reformats.? For radiation dose reduction, the following was used:? automated exposure control, adjustment of mA and/or kV according to patient size.? ? COMPARISON:? [facility], CT, CT HEAD/BRAIN WO CON, 02/06/2019, 13:45. ? FINDINGS:? Image quality:? Excellent.? ? CSF spaces:? Basal cisterns are patent.? No extra-axial fluid collections.? The ventricles are symmetric in size and shape.? ? Brain:? No intracranial bleeds or masses.? There is cerebral volume loss for age, with resultant ventricular and sulcal prominence.? There are periventricular and deep white matter chronic small vessel ischemic changes.? There is intracranial internal carotid artery and vertebral artery atherosclerosis.? ? Skull and face:? Calvarium and visualized facial bones appear intact, without suspicious lesions.? ? Sinuses:? Visualized sinuses and mastoids are clear.? ? IMPRESSION:? No acute intracranial disease process. ? Findings telephoned to Dr. Rea on August 10, 2021 at 10:39 a.m. ? This study fulfills neurological imaging criteria for inclusion or exclusion of acute stroke therapies based on available published neurological guidelines.? ? ? Dictated by: Alison Wong MD, PhD on 08/10/2021 at 10:37 ? ? CTA - brain/neck: Radiologist's Impression: PROCEDURE:? CT ANGIO HEAD AND NECK ? INDICATIONS:? left side numbness ? TECHNIQUE:? Noncontrast images were performed earlier in the day and not repeated.? ? After the administration of intravenous contrast, 1 mm thick sections acquired from the aortic arch through the [place] of [place]el.? Post-contrast 4.5 mm thick sections then re- acquired from the foramen magnum to the vertex.? 3-dimensional wkxihpo-vhysfyonm-gixjbjnhmv (MIP) and/or volume rendering reformats were acquired of the central intracranial v asculature and neck separately. ? COMPARISON:? [facility], CT, CT HEAD/BRAIN WO CON, 10/17/2018, 18:45.? [facility], CT, CT HEAD/BRAIN WO CON, 02/06/2019, 13:45.? [facility], CT, CT STROKE, 08/10/2021, 10:35. ? FINDINGS:? Image quality:? Excellent.? ? BRAIN:? CSF spaces:? Ventricles are normal in size and shape.? Basal cisterns are patent.? No extra-axial fluid collections.? ? Brain:? No midline shift.? No intracranial bleeds or masses.? Espinoza-white matter interface appears intact.? ? Skull and face:? Calvarium and facial bones appear intact, without suspicious lesions.? Orbits appear normal.? ? Sinuses:? Sinuses and mastoids are clear.? ? HEAD CT ANGIOGRAPHY:? Anterior circulation:? Intracranial internal carotid arteries demonstrate atherosclerotic calcification, with at least 50% narrowing seen on each side.? There is focal narrowing seen involving the left proximal A2 segment, with approximately 80% narrowing.? This is best seen on sagittal images, as on series 3, image 84. The flow within the paired anterior cerebral arteries is otherwise normal and symmetric.? The flow within the middle cerebral arteries is normal and symmetric.? The anterior communicating artery is seen.? No aneurysms are seen.? ? Posterior circulation:? Areas of focal atherosclerotic calcification can be seen involving the V4 segments.? There is approximately 40% narrowing seen involving the right V4 segment.? There is at least 90% narrowing seen involving the left V4 segment.? The basilar artery demonstrates no significant abnormality.? ? Flow within the posterior cerebral arteries is normal and symmetric.? No aneurysms are seen.? ? NECK CT ANGIOGRAPHY:? Carotid system:? The great vessels demonstrate a conventional anatomy as they arise from the aortic arch.? The origins of the common carotid arteries appear patent.? The common carotid arteries demonstrate normal caliber and courses.? The bifurcation regions demonstrate atherosclerotic calcification and irregularity.? There is at least 80% narrowing seen involving the right proximal internal carotid artery.? There is 60-70% narrowing seen involving the left proximal internal carotid artery. The more distal internal carotid arteries demonstrate normal course and caliber.? ? Posterior circulation:? There is at least 50% narrowing seen involving the origin of the left vertebral artery.? The right vertebral artery is unremarkable.? The right vertebral artery is dominant to the left.? The extracranial portions of the vertebral arteries demonstrate normal course and caliber. ? Soft tissues:? Visualized neck soft tissues demonstrate no suspicious abnormalities.? Mild patchy ground-glass opacities can be seen at the lung apices. ? Bones:? No suspicious bony lesions.? Visualized cervical spine appears normally aligned.? IMPRESSION:? Focal calcification and irregularity seen involving the carotid bifurcations, with at least 80% narrowing on the right and 60-70% narrowing on the left. ? Approximately 80% narrowing seen involving the left proximal A2 segment. ? At least 90% narrowing seen involving the left V4 segment. ? There is at least 50% narrowing involving the origin of the left vertebral artery. ? Mild patchy ground-glass opacities can be seen involving the lung apices.? Mild pulmonary edema is suspected. ? Any quantitative measurements of stenosis were performed using NASCET criteria.? ? ? Dictated by: Lorenzo Akhtar M.D. on 08/10/2021 at 9:59 ? ? ECG Data Interpretation: Sinus rhythm rate 91 DE interval 150 QRS [address] changes Q-wave noted in lead 3 with T-wave inversions similar to previous EKG in 2019. MDM Narrative Medical decision making narrative: Patient is noted to be extremely hypertensive mild symptoms with NIH of 1 with decreased sensation on the left. She has no weakness even upon re-evaluation. Difficult to determine last known well however it is likely out last evening and she woke up with symptoms this morning. Possible hypertensive emergency versus CVA. She does not have signs of large vessel occlusion. And CT angio is negative. At this time blood pressure improved slightly will not treat any further InCase of CVA. 1100am Dr. Beckman, neurology has been updated patient's symptoms test results at this time agrees with no tPA but does recommend Plavix based on patient's allergy to aspirin an MRI and admit. Dr. hardwick of him patient's symptoms test results have placed accepts patient. Discharge Plan Departure Patient Disposition: Admitted as Observation Clinical Impression: Brain TIA, Hypertension Admit Date/Time: 08/10/21 12:45 Admit Provider: Arianne Hardwick
[2021-08-10 10:46] LABS: INR 1.1 (0.9-1.3); Prothrombin Time 11.7 SECONDS (10.1-12.7)
[2021-08-10 10:50] LABS: Alanine Aminotransferase 13 IU/L (<35); Albumin 4.7 g/dL (3.5-5.0); Albumin Globulin Ratio 1.4 (1.0-2.8); Alkaline Phosphatase 73 U/L (38-126); Aspartate Aminotransferase 25 IU/L (14-36); BUN Creatinine Ratio 16.9 (6-22); Bilirubin Total 0.6 mg/dL (0.2-1.3); Blood Urea Nitrogen 12 mg/dL (7-17); Carbon Dioxide 25 mmol/L (22-32); Chloride 104 mmol/L (98-107); Creatine Kinase 60 U/L (30-135); Estimated Glomerular Filt Rate > 60.0 mL/min (>60); Globulin 3.4 g/dL (1.7-4.1); Glucose 117 mg/dL (80-110); HEMOLYSIS < 15 (0-50); Potassium 3.9 mmol/L (3.4-5.1); Sodium 140 mmol/L (137-145); Total Protein 8.1 g/dL (6.3-8.2)
[2021-08-10 11:01] LABS: Troponin I < 0.012 ng/mL (0.01-0.034)
[2021-08-10] MEDS: ACETAMINOPHEN 325 MG TABLET 975 MG PO (11:18)
[2021-08-10] MEDS: CLOPIDOGREL 75 MG TABLET 300 MG PO (11:18)
--- NOTE | 2021-08-10 13:34 | DI.MRI.S_ITS ---
PROCEDURE: MR HEAD/BRAIN WO CON INDICATIONS: Numbnessd left side, not resolving TECHNIQUE: Noncontrast axial T1 spin echo, axial T2 fast spin echo, sagittal and axial FLAIR, coronal T2 fast spin echo, axial gradient echo, axial diffusion and ADC through the brain. COMPARISON: None. FINDINGS: Cerebrum, Cerebellum and Brainstem: Moderate cerebral and cerebellar volume loss as well as moderate multifocal hyperintensities in the deep and subcortical white matter present. The diffusion sequence is normal without evidence of acute infarct. No intracranial hemorrhage, mass lesion or midline shift. Basal cisterns and foramen magnum contain appropriate anatomy and vascular flow voids. No evidence of dural or leptomeningeal thickening. Ventricles: Appropriate in size and position. No hydrocephalus. Skull Base: The bony sella, pituitary gland and infundibulum unremarkable. Clivus and craniovertebral relationships are appropriate. Visualized portions of the seventh and eighth cranial nerve complexes and internal auditory canals are within normal limits. Scalp and Calvarium: The scalp is unremarkable. Underlying calvarium has an appropriate marrow signal. Paranasal Sinuses: Visualized portions of the paranasal sinuses are clear. Mastoids: Unremarkable as visualized. No mastoid effusion present. Orbits: The orbits, globes and ocular muscles are unremarkable. IMPRESSION: Moderate atrophy and multifocal white matter chronic ischemic change without acute infarct, hemorrhage or mass lesion. Approved by: Jesus Bell M.D. on 08/10/2021 at 14:50
[2021-08-10 15:41] LABS: COVID19 - ADMIT (NP swab/PCR) Negative (Negative)
--- NOTE | 2021-08-10 16:47 | DI.ECHO.S_ITS ---
[facility]---------+ [facility] +---------+ : : [address] : : : : [id number] : : : : Phone: [phone]+ Echocardiogram Report + + :Name: MOI REYNOLDS Study Date: 08/11/2021 Height: 59 in : :[facility] ReadingLocation: Weight: 130 lb : : Gender: Female BSA: 1.5 m2 : :: 1935 Age: 86 yrs BP: 146/63 mmHg: :Reason For Study: TIA : :Ordering Physician: Glenna MENJIVARformed By: Christine Yarbrough : :Referring: CARMEN MENJIVAR : + + Interpretation Summary Left ventricular systolic function remains normal with an estimated ejection fraction of 65 to 70% without any focal wall motion abnormality. Left ventricular size and wall thickness appears normal although with mild proximal septal thickening noted but without any evidence for outflow tract obstruction. There is a probable diastolic relaxation abnormality but normal filling pressures. There has been no significant change since the previous exam. The right ventricle appears normal and unchanged. Right ventricular systolic pressure and CVP cannot be estimated. Both atria are normal in size and measure significantly smaller compared to the previous study. The interatrial septum appears intact and Doppler interrogation and injection of saline echo contrast shows no evidence for any interatrial shunt. There is no significant valvular abnormality. There is trivial tricuspid regurgitation that appears less prominent compared to the previous exam. Procedure: A two-dimensional transthoracic echocardiogram with color flow and Doppler was performed. The study quality was technically adequate. Comparison is made with the echocardiogram of 08/14/2017. A saline contrast injection was performed to assess for cardiac shunting. The patient was in sinus rhythm with heart rates between 62-80 bpm during the exam. Left Ventricle: The left ventricle appears normal in size, wall thickness, and systolic function without any focal wall motion abnormalities. There is mild proximal septal thickening noted. There is no echo evidence for significant left ventricular outflow tract obstruction. The ejection fraction is estimated to be 65-70%. Diastolic parameters suggest a relaxation abnormality of the left ventricle, consistent with probable normal filling pressures. There has been no significant change since the previous study. Right Ventricle: The right ventricle is normal in size and function. This is unchanged compared to the previous study. Atria: Both atria are normal in size. Both atria have significantly decreased in size since the prior echo exam. The interatrial septum grossly appears intact with no obvious evidence for an atrial septal defect. Doppler interrogation and injection of saline echo contrast shows no evidence for an interatrial shunt. Mitral Valve: There is mild mitral annular calcification. The mitral valve is grossly normal. There is trace mitral regurgitation. Aortic Valve: The aortic valve is trileaflet. The aortic valve opens well. There is no aortic valve stenosis. No aortic regurgitation is present. Tricuspid Valve: The tricuspid valve is normal in structure and function. There is trace tricuspid regurgitation. This is less prominent compared to the previous study. Pulmonary artery pressures cannot be estimated because of the lack of a measurable TR jet velocity. Pulmonic Valve: The pulmonic valve leaflets are thin and pliable; valve motion is normal. There is no pulmonic valvular regurgitation. There is no significant valvular heart disease. Great Vessels: The aortic root is normal size. The dimensions of the ascending aorta are normal. The inferior vena cava was not well visualized. Pericardium/ Pleura There is no pericardial effusion. There is no pleural effusion. MMode/2D Measurements & Calculations LVIDd: 4.2 cm LVOT diam: 1.8 cm LVIDs: 2.7 cm Ao root diam: 3.2 cm FS: 35.1 % asc Aorta Diam: 2.8 cm IVSd: 0.73 cm Ao Arch Diam (Prox Trans): 2.1 cm LVPWd: 0.62 cm LV chandler. diameter/BSA (cm/m^2): 2.7 LV sys. diameter/BSA (cm/m^2): 1.8 LA A2 area: 17.0 cm2 RA long axis: 4.3 cm LA A4 area: 13.8 cm2 RA area: 12.8 cm2 LA length (vol): 4.4 cm RA vol: 32.0 ml LA vol: 45.4 ml RA : 20.8 ml/m2 LA vol index: 29.6 ml/m2 RVD1 (basal): 3.0 cm TAPSE: 2.3 cm Doppler Measurements & Calculations Ao V2 max: 116.0 cm/sec LVOT Max Alok: 87.0 cm/sec Ao V2 mean: 75.1 cm/sec LV V1 max P.0 mmHg Ao max P.4 mmHg LV V1 VTI: 20.0 cm Ao mean P.6 mmHg HEIDI(I,D): 2.0 cm2 Ao V2 VTI: 26.3 cm HEIDI(V,D): 2.0 cm2 sev ratio: 0.76 HEIDI indexed to BSA (cm^2/m^2): 1.3 MV E max alok: 72.8 cm/sec PA V2 max: 81.2 cm/sec MV A max alok: 110.8 cm/sec PA V2 mean: 58.3 cm/sec MV E/A: 0.66 PA mean P.5 mmHg Med Peak E' Alok: 5.3 cm/sec PA pr(Accel): 36.2 mmHg E/E' med: 13.8 Lat Peak E' Alok: 7.1 cm/sec E/E' lat: 10.3 E/e' average: 12.0 MV dec time: 0.32 sec SV(LVOT): 53.5 ml Reading Physician:09:55 AM
--- NOTE | 2021-08-10 17:01 | P.HP_ITS ---
History of Present Illness History of Present Illness Date Patient Seen: 08/10/21 Time Patient Seen: 16:00 Chief complaint: BP is very high/numbness on left side Narrative: Emma Baez is an 86-year-old female with a history of hypertension and ongoing chronic neck and shoulder pain who presented to the emergency department today with unresolving numbing and tingling of her left upper extremity and shoulder. She states that the numbing and tingling has been chronic but usually resolves after she gets up. Did not resolve this morning and she called EMS she also stated that she had weakness on her left side. She states she is very strong and normally is able to do everything around the house and she lives home alone. She saw Dr. Parra who diagnosed her with cervical disc disease and osteoarthritis and informed her he was not able to do anything for her. This morning in addition to the numbing and pain on her left upper extremity and shoulder she had a sense of ?whole body, I do not like you?. She also states that she has been having problems walking and that her leg starts to have a prickly sensation and starts to give out on her. She also mentions that she keeps hearing cracking and the back of her neck. She denies headaches, difficu lty breathing, chest pain, nausea or vomiting, dysuria, diarrhea constipation. In the ED they did a CT of the head as well as a CTA of the head neck. 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 Focal calcification and irregularity seen involving the carotid bifurcations, with at least 80% narrowing on the right and 60-70% narrowing on the left. Approximately 80% narrowing seen involving the left proximal A2 segment. At least 90% narrowing seen involving the left V4 segment. There is at least 50% narrowing involving the origin of the left vertebral artery. She was administered a loading dose of plavix and referred to the floor for further workup of a TIA versus CVA. ED NIH scale was 1. Patient is afebrile are blood pressure is 179/75 heart rate 70 respiratory rate 19 oxygen saturation of 100% on room air she weighs 58.9 kg with a BMI of 26.2. WBC is unremarkable she mildly elevated glucose at 1:17 a.m. the rest of her chemistries are unremarkable troponin is negative COVID 19 PCR is negative. ? Patient History Medical History Anxiety Hypertension Surgical History Status post delivery Status post cholecystectomy Family & Social History Social History: household members none Prior Living Arrangements House Safety & Behavioral: Feels Safe in Current Yes Environment Suicidal Ideation Description None Suicide Plan Description No Plan Tobacco & Substance use: Smoking Status Never smoker alcohol intake never alcohol intake frequency 0-2 drinks per day Substance Use Type does not use Meds Home Medications and Allergies Home Medications Medication Instructions Recorded Confirmed Type lisinopril 20 mg tablet 20 mg PO BID #60 tab 05/10/17 08/10/21 Rx diltiazem HCl 180 mg 180 mg PO BID cap 09/21/20 08/10/21 History capsule,extended release 24 hr hydroxyzine pamoate 25 mg capsule 25 mg PO BID PRN 09/21/20 08/10/21 History Allergies Allergy/AdvReac Type Severity Reaction Status Date / Time Anesthetics - Colleen Type- Allergy Unknown patient Verified 08/10/21 10:31 Parabens can't [Anesthetics - Oclleen Type] remember procaine Allergy Unknown patient Verified 08/10/21 10:31 can't remember epinephrine [EPINEPHRINE] AdvReac Severe shakes Verified 08/10/21 10:31 hydrocodone AdvReac Severe patient Verified 08/10/21 10:31 can't remeber codeine AdvReac Intermediate vomiting Verified 08/10/21 10:31 aspirin AdvReac Mild GI UPSET Verified 08/10/21 10:31 Review of Systems Review of Systems ROS: Yes All systems reviewed with the patient and are negative except as otherwise documented Exam Vital Signs (past 8 hours): - 08/10/21 10:31 08/10/21 10:41 08/10/21 10:44 Temperature 97.9 F Pulse Rate 105 H 93 H 89 Respiratory Rate 20 16 Blood Pressure 234/103 H 200/81 H Pulse Oximetry 97 97 97 08/10/21 11:00 08/10/21 11:25 08/10/21 11:30 Temperature Pulse Rate 86 78 78 Respiratory Rate 29 H 20 12 Blood Pressure 200/86 H 186/66 H Pulse Oximetry 98 98 98 08/10/21 12:00 08/10/21 12:01 08/10/21 12:30 Temperature Pulse Rate 73 72 73 Respiratory Rate 19 Blood Pressure 206/81 H Pulse Oximetry 97 08/10/21 12:31 08/10/21 12:33 08/10/21 13:00 Temperature Pulse Rate 73 73 70 Respiratory Rate 16 24 16 Blood Pressure 184/83 H 164/82 H 182/84 H Pulse Oximetry 96 97 97 08/10/21 13:30 08/10/21 13:50 08/10/21 16:54 Temperature 97.2 F L Pulse Rate 71 73 Respiratory Rate 17 16 Blood Pressure 189/85 H 157/87 H Pulse Oximetry 97 97 Oxygen Delivery Method Room Air Narrative Exam Narrative: Gen: Alert, oriented, well-developed 86 y.o. female, anxious HEENT: normocephalic, atraumatic, conjunctiva clear, sclera non-icteric, oral mucosa pink and moist, purple base of her tongue, she states has had lifelong Neck: supple, full ROM, no JVD, trachea is midline Resp: Lungs CTA, non-labored breathing CV: RRR, no murmur or rubs, no carotid bruits detected Abd: soft, non-tender, normoactive BTs Skin: no lesions or rashes, dry and intact Neuro: Alert and oriented X 4 w/no focal deficits. Tremulous, otherwise normal neuro exam, Speech clear and coherent. Extremities: moves all 4 extremities, is ambulatory, negative Nichelle?s sign Psyche: normal mood and affect. Objective Labs Result Diagrams: 08/10/21 10:31 08/10/21 10:31 Labs: Laboratory Results - last 24 hr 08/10/21 08/10/21 08/10/21 10:31 10:31 10:31 WBC 7.3 RBC 4.42 Hgb 13.5 Hct 39.1 MCV 88.6 MCH 30.5 MCHC 34.4 RDW 13.2 Plt Count 258 Neut % (Auto) 59.3 Lymph % (Auto) 32.8 [place] % (Auto) 6.1 Eos % (Auto) 0.8 L Baso % (Auto) 1.0 Neut # (Auto) 4300 Lymph # (Auto) 2400 [place] # (Auto) 400 Eos # (Auto) 100 Baso # (Auto) 100 PT 11.7 INR 1.1 Sodium 140 Potassium 3.9 Chloride 104 Carbon Dioxide 25 BUN 12 Creatinine 0.71 Estimated GFR > 60.0 BUN/Creatinine Ratio 16.9 Glucose 117 H Calcium 10.0 Total Bilirubin 0.6 AST 25 ALT 13 Alkaline Phosphatase 73 Total Creatine Kinase 60 CK-MB (CK-2) TNP CK-MB (CK-2) Rel Index TNP Troponin I < 0.012 Total Protein 8.1 Albumin 4.7 Globulin 3.4 Albumin/Globulin Ratio 1.4 SARS-CoV-2 (PCR) 08/10/21 13:29 WBC RBC Hgb Hct MCV MCH MCHC RDW Plt Count Neut % (Auto) Lymph % (Auto) [place] % (Auto) Eos % (Auto) Baso % (Auto) Neut # (Auto) Lymph # (Auto) [place] # (Auto) Eos # (Auto) Baso # (Auto) PT INR Sodium Potassium Chloride Carbon Dioxide BUN Creatinine Estimated GFR BUN/Creatinine Ratio Glucose Calcium Total Bilirubin AST ALT Alkaline Phosphatase Total Creatine Kinase CK-MB (CK-2) CK-MB (CK-2) Rel Index Troponin I Total Protein Albumin Globulin Albumin/Globulin Ratio SARS-CoV-2 (PCR) Negative Assessment & Plan Assessment & Plan narrative: Emma Callahan is admitted for further evaluation for a CVA which has been ruled out and management of hypertensive emergency. 1. Hypertensive emergency, acute, present on admission with a blood pressure 234/103 * Cardiac telemetry * NIH score greater than no, NIH scoring and neuro checks q 4 hours * Dual antiplatelet therapy: Yes, initiate dual antiplatelet therapy with clopidogrel 75 mg p.o. daily and aspirin 81 mg p.o. daily * MR stroke completed today, see above * Complete Echo with bubble study for 08/11 * PT/OT/ST evaluation, she has been cleared for swallowing * Hypertension, acute with an admission bp of 234/108, present on admission * Allow for permissive hypertension of 220/110 HR 60 to allow for brain perfusion * IV labetolol if his systolic exceeds 220 or diastolic greater than 105. * Fasting lipid panel, pending for 0500 labs * Atorvastatin 40 mg po at bedtime 2. 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 3. Tremors, chronic and likely longstanding with a family history * Patient should be referred for outpatient followup to neurology for the tremors and cervalgia 4. Risk stratification * Fasting lipid panel pending for the morning VTE Prophylaxis: Wells risk score [0] [X]Enoxaparin 40 mg subQ once daily Patient is admitted to the inpatient service due to the severity of disease, risks of further disease progression and this stay is expected to exceed 2 midnights. FEN: IV fluids: saline lock, diet: heart healty, labs: CBC, C/BMP, liver enzymes, Mag, PT/INR Consultants [X] None Dispo: home Code status: Full Code as discussed with the patient who identifies her son her surrogate and POA. [X] I have utilized all available immediate resources to obtain, update, or review of the patient's current medications COVID-19 COVID-19 status: Negative Time Spent With Patient Critical Care time: I spent a total of [] minutes of critical care time on this patient's care today; this time is exclusive of procedural time. Scores Wells' Criteria for PE Clinical signs and symptoms of DVT: No PE is #1 Dx or equally likely: No Heart rate > 100: No Immobilization at least 3 days or surg in previous 4 weeks: No History of PE or DVT: No Hemoptysis: No Malignancy w/Treatment within 6 months or palliative: No Wells' PE Score total: 0 Quality VTE Deep Vein Thrombosis/Pulmonary Embolism Present on Admission: No MIPS - Admit I confirm the patient?s Advance Care Plan is present, Code status is documented, Surrogate decision maker is in patient?s record [If Yes, STOP here]: Yes MIPS - DC The patient has current or prior documentation of left ventricular ejection fraction (LVEF) less than 40%, or moderate or severely depressed left ventricular systolic function.: No
[2021-08-10] MEDS: lisinopriL 20 MG TABLET PO (17:32)
[2021-08-10] MEDS: dilTIAZem CD 180 MG CAP PO (18:39)
[2021-08-10] MEDS: ASPIRIN EC 81 MG TABLET PO (18:53)
[2021-08-10] MEDS: diazePAM 5 MG TABLET 2.5 MG PO (19:02)
[2021-08-11 00:18] VITALS: BP 146/63; PULSE 74; RESP 18; TEMP 36.7; O2SAT 96
[2021-08-11 05:29] VITALS: BP 155/65; PULSE 83; RESP 18; TEMP 37.4; O2SAT 95
[2021-08-11 05:58] LABS: Add Manual Diff / Slide Review NO; Basophils Absolute Auto 100 /uL (0-100); Basophils Percent Auto 0.9 % (0-2); Eosinophils Absolute Auto 100 /uL (0-450); Eosinophils Percent Auto 1.7 % (2-4); Hematocrit 37.8 % (36-46); Hemoglobin 12.8 g/dL (12.0-16.0); Lymphocytes Absolute Auto 2400 /uL (1100-4500); Lymphocytes Percent Auto 35.4 % (25-40); Mean Corpuscular Hemoglobin 29.9 PG (26-34); Monocytes Absolute Auto 500 /uL (0-900); Monocytes Percent Auto 7.4 % (3-14); Neutrophils Absolute Auto 3600 /uL (1500-7000); Neutrophils Percent Auto 54.6 % (50-75); Platelet Count 239 X10^3/uL (150-400); Red Blood Cell Count 4.29 X10^6/uL (4.0-5.2); Red Cell Distribution Width 13.3 % (11.6-14.8); White Blood Cell Count 6.6 X10^3/uL (4.5-11.0)
[2021-08-11 06:08] LABS: Alanine Aminotransferase 10 IU/L (<35); Albumin 4.1 g/dL (3.5-5.0); Albumin Globulin Ratio 1.4 (1.0-2.8); Alkaline Phosphatase 56 U/L (38-126); Aspartate Aminotransferase 22 IU/L (14-36); BUN Creatinine Ratio 15.7 (6-22); Bilirubin Total 0.6 mg/dL (0.2-1.3); Bilirubin Unconjugated 0.6 mg/dL (0.0-1.1); Blood Urea Nitrogen 11 mg/dL (7-17); Calcium 9.5 mg/dL (8.4-10.2); Carbon Dioxide 27 mmol/L (22-32); Chloride 105 mmol/L (98-107); Cholesterol 234 mg/dL (140-199); Estimated Glomerular Filt Rate > 60.0 mL/min (>60); Glucose 87 mg/dL (80-110); HDL Cholesterol 66 mg/dL (40-60); HEMOLYSIS < 15 (0-50); LDL Cholesterol Calculated 148 mg/dL (<100); Magnesium 2.1 mg/dL (1.6-2.3); Potassium 3.8 mmol/L (3.4-5.1); Sodium 139 mmol/L (137-145); Total Protein 7.1 g/dL (6.3-8.2); Triglycerides 102 mg/dL (35-150)
[2021-08-11 06:23] LABS: Hemoglobin A1C% w Est Avg Glu 5.5 % (4.0-6.0)
[2021-08-11 06:57] LABS: Thyroid Stimulating Hormone 4.57 uIU/mL (0.47-4.68)
[2021-08-11 07:59] VITALS: TEMP 36.9
[2021-08-11 09:30] VITALS: BP 187/78; PULSE 94; RESP 16; O2SAT 97
--- NOTE | 2021-08-11 09:50 | PT.IIE ---
Surgical History (Last Reviewed 08/10/21 @ 17:52 by KAMERON Gibson) Status post delivery Status post cholecystectomy Medical History (Last Reviewed 08/10/21 @ 17:52 by KAMERON Gibson) Anxiety Hypertension Physical Therapy Inpatient Evaluation/Re-Eval M1 PT/OT-IP Prior Functional Status Start: 08/11/21 10:49 Freq: NEEDED Status: Active Protocol: Document 08/11/21 09:50 OF (Rec: 08/11/21 11:03 OF [id number]) Medical Review Prior Functional Status Medical History Reviewed Yes Mobility and Gait Pt used straight cane, MOD I within community Activities of Daily Living and IADL's Pt drove, completed I ADL MOD I, if needed her son and dtr in law live 2 houses away Prior Functional Level (Other details) Pt is a retired real estate office supervisor Social History Household Members none Living Arrangements House Number of Floors (Floors) One Floor Number of Stairs To Enter/Railing? 2 steps to enter without rails Home Environment High Toilet,Tub/Shower Home Equipment Straight Cane Employment Status Retired M2 PT-IP Current Condition Start: 08/11/21 10:49 Freq: NEEDED Status: Active Protocol: Document 08/11/21 09:50 OF (Rec: 08/11/21 11:03 OF [id number]) Physical Therapy Current Condition Current Condition Evaluation Date 08/11/21 Treatment Diagnosis Difficulty walking Onset Date 08/11/21 M3 PT-IP Subjective Start: 08/11/21 10:49 Freq: NEEDED Status: Active Protocol: Document 08/11/21 09:50 OF (Rec: 08/11/21 11:03 OF [id number]) Subjective Physical Therapy Visit Type Type Initial Evaluation Visit Start Time 09:15 Visit Stop Time 09:50 Total Visit Minutes 35 Physical Therapy Visit Comments Patient Comments I want to get home Patient Goals get back home Therapy Pain Assessment Pain Present Pain Present Denied Pain M4 PT-IP Mobility and Gait Start: 08/11/21 10:49 Freq: NEEDED Status: Active Protocol: Document 08/11/21 09:50 OF (Rec: 08/11/21 11:03 OF [id number]) PT-Bed Mobility Assessment Rolling Type of Rolling Roll to Right Level of Assist Independent Supine to Sit Supine to Sit Independent Sit to Supine Sit to Supine Independent Scooting Scooting to Edge of Bed Independent Scooting Up and Down in Bed Independent PT-Transfer Assessment Sit to and From Stand Sit to and from Stand Standby Assistance Equipment Transfer Assistive Device Gait Belt Transfers Transfer Destination Bed,Chair Transfer Technique Stand Step Pivot Transfer Ability Level of Assist Standby Assistance Gait Assessment Gait Gait Assistance Required: Minimum Assistance Distance (Feet) 25 Able to Maintain Weight Bearing Status Yes During Gait Assistive Devices Assistive Device None Factors Limiting Gait Function Factors Limiting Gait Function Decreased Activity Tolerance Comments Gait Comments Pt AMB with hand held assist, cues for widening TIKI. She uses a shuffling gait pattern, refuses FWW. PT-Balance Assessment Sitting Balance and Reactions Static Sitting Balance Ability Good Dynamic Sitting Balance Ability Good Standing Balance and Reactions Static Standing Balance Ability Good Dynamic Standing Balance Ability Good M5 PT-IP Objective Assessments Start: 08/11/21 10:49 Freq: NEEDED Status: Active Protocol: Document 08/11/21 09:50 OF (Rec: 08/11/21 11:03 OF [id number]) Orientation Orientation/Cognition Level of Alertness Alert Memory Description Short Term Impaired Comments Pt repeats herself regarding PLOF Gross Range of Motion Lower Extremity ROM Assessment Within Functional Limits Strength Lower Extremity Strength Assessment Within Functional Limits Hip 4/5 Knee 4/5 Ankle 4/5 Comments Strength Comments Pt completes sit to stand without UE assist from elevated surface Coordination Assessment Gross Coordination Gross Coordination WNL Assessment Foot Tapping Test Normal Performance Heel on [place]varado Test Normal Performance Sensation Assessment Sensation Gross Sensation WNL Light Touch Intact Proprioception (Position) Intact Sensation Description Tingling Comments Sensation Comments pt reprots tingling has reduced in L LE Muscle Tone Muscle Tone WNL Yes M6 PT-IP Treatment Start: 08/11/21 10:49 Freq: NEEDED Status: Active Protocol: Document 08/11/21 09:50 OF (Rec: 08/11/21 11:03 OF [id number]) Physical Therapy Treatment Exercises Exercises Ankle Pumps M7 PT-IP Assessment and Plan Start: 08/11/21 10:49 Freq: NEEDED Status: Active Protocol: Document 08/11/21 09:50 OF (Rec: 08/11/21 11:03 OF [id number]) PT Summary Assessment and Plan Potential Rehabilitation Potential Excellent Status of Condition at Evaluation Stable Summary Impairments Gait Assessment Summary Emma is a pleasant 86 YO female who has difficulty walking after being hospitalized for numbness/ tingling on L side of body. She demonstrates no neurological deficits upon evaluation and AMB without assistive device. She has poor foot clearance while walking and uses a straight cane at home. Goals Gait Goal Independent Gait Distance 150ft Other Goals Pt will ascend/descend 2 stairs with SBA to safely return home with family assist Days to Meet Goals 5 Frequency of Treatment Frequency Of Treatment Once a Day Treatment Plan Physical Therapy Treatment Plan Gait Training,Neuromuscular Re -ed Other Recommendations and Next Treatment stairs to return home Focus Weight Bearing Status Weight Bearing Status Weight Bear as Tolerated Recommendations To Nursing Amount of Assist Needed 1 Person Assist Discharge Recommendations PT Discharge Recommendations Home with Assistance Transportation Needs at Discharge Private Vehicle
[2021-08-11] MEDS: ENOXAPARIN 40 MG/0.4 ML SYRINGE SUBCUT (10:10)
[2021-08-11] MEDS: CLOPIDOGREL 75 MG TABLET PO (10:10)
[2021-08-11] MEDS: dilTIAZem CD 180 MG CAP PO (10:10)
[2021-08-11] MEDS: lisinopriL 20 MG TABLET PO (10:10)
--- NOTE | 2021-08-11 10:47 | OT.IP.EVAL ---
Past Medical History (Last Reviewed 08/10/21 @ 17:52 by KAMERON Gibson) Anxiety Hypertension Surgical History (Last Reviewed 08/10/21 @ 17:52 by KAMERON Gibson) Status post delivery Status post cholecystectomy Occupational Therapy Inpatient Evaluation/Re-Eval M1 PT/OT-IP Prior Functional Status Start: 08/11/21 10:49 Freq: NEEDED Status: Active Protocol: Document 08/11/21 09:50 OF (Rec: 08/11/21 11:03 OF [id number]) Medical Review Prior Functional Status Medical History Reviewed Yes Mobility and Gait Pt used straight cane, MOD I within community Activities of Daily Living and IADL's Pt drove, completed I ADL MOD I, if needed her son and dtr in law live 2 houses away Prior Functional Level (Other details) Pt is a retired real estate valuer Social History Household Members none Living Arrangements House Number of Floors (Floors) One Floor Number of Stairs To Enter/Railing? 2 steps to enter without rails Home Environment High Toilet,Tub/Shower Home Equipment Straight Cane Employment Status Retired M2 OT-IP Current Condition Start: 08/11/21 12:31 Freq: Status: Active Protocol: Document 08/11/21 09:11 [facility] (Rec: 08/11/21 12:51 [facility] [id number]) Occupational Therapy Current Condition Current Condition Evaluation Date 08/11/21 Treatment Diagnosis TIA Diagnosis Onset Date 08/10/21 M3 OT- IP Subjective and Pain Start: 08/11/21 12:31 Freq: Status: Active Protocol: Document 08/11/21 09:11 [facility] (Rec: 08/11/21 12:51 [facility] [id number]) OT- Subjective Occupational Therapy Visit Type Type Initial Evaluation Visit Start Time 09:11 Visit Stop Time 11:18 Total Visit Minutes 65 Notes Pt seen for split treatment [id number] and [id number]. Hospitalist present for part of the session. Occupational Therapy Visit Comments Patient Comments Pt agreed to do OT eval. Patient/Caregiver Goals TO go home. OT Pain Assessment Pain When Pain Assessed At Rest Pain Present Pain Present Denied Pain M4 OT- IP ADL's Start: 08/11/21 12:31 Freq: Status: Active Protocol: Document 08/11/21 09:11 [facility] (Rec: 08/11/21 12:51 [facility] [id number]) OT [id number] General Evaluation Self-Feeding Ability Independent OT ADL-Grooming Comments OT Grooming Comments Pt states will do grooming later. OT ADL-Oral Care Comments Oral Care Comments Not performed. OT ADL-Dressing General Eval Lower Body Dressing Ability Independent Comments OT Dressing Comments Pt able to independently yonny/ doff her socks while seated. OT ADL-Toileting Comments OT Toileting Comments Pt not having to go. OT ADL-Bathing Comments OT Bathing Comments Pt states to shower at home. Suggested that pt use a shower chair and someone with her when she first showers. M5 OT- IP IADL's Start: 08/11/21 12:31 Freq: Status: Active Protocol: Document 08/11/21 09:11 [facility] (Rec: 08/11/21 12:51 [facility] [id number]) OT-Instrumental Activities of Daily Living Home Safety Awareness Awareness of Need for Assistance at Home Decreased Awareness Home Safety Comments Pt insists that she is fine and and does not want anyone to stay with her and that her DIL is just a few houses away and a phone call away if she needs any assistance. Driving Driving Concerns Identified Regarding Safety M6 OT- IP Functional Cognition Start: 08/11/21 12:31 Freq: Status: Active Protocol: Document 08/11/21 09:11 [facility] (Rec: 08/11/21 12:51 [facility] [id number]) Cognitive Factors Limiting Selfcare Function Cognitive Ability Level of Alertness Alert Patient Orientation Name,Age,Birthday,Month,Date, Year,Day of Week,Place, Situation Attention Span Ability Capable of Focused Attention, Capable of Sustained Attention Ability to Follow Commands Able to Follow One Step Commands Memory Description Short Term Impaired Safety Awareness Underestimates Need for Assistance Problem Solving Ability Needs Assist to Identify Solutions Executive Function Ability Unable to Switch Focus,Unable to Remember Details Cognitive Tests SLUMS Pt refuses to do SLUMS and states that Dr. Lopez has already done cognitive tests on her before. Cognitive Comments Cognitive Assessment Comments Pt did not complete [place] Making Part B due to not able to recall to switch from numbers to letters and needing MAX vc to assist with the task. Pt getting too frustrated and waiting to stop . Pt performance at this time implies severe impairments for visual attention, speed of processing, task switching, mental flexibility, and executive functioning. Pt was strongly suggested that pt not drive at this time. Pt insists, I drive really slow , but I will not drive for now and that Jailene can drive me. OT- Vision and Hearing OT- Hearing Assessment OT- Hearing Assessment WFL OT- Vision Assessment Visual Acuity Glasses All The Time Visual Attentiveness WFL Occular Pursuits WFL Visual Convergence WFL Visual Bowers WFL Diplopia Absent M7 OT- IP Mobility and Balance Start: 08/11/21 12:31 Freq: Status: Active Protocol: Document 08/11/21 09:11 [facility] (Rec: 08/11/21 12:51 [facility] [id number]) OT- Bed Mobility Assessment Rolling Type of Rolling Roll to Right Level of Assistance Independent Supine to Sit Supine to Sit Assist Independent Scooting Scooting to Edge of Bed Independent OT-Transfer Assessment Sit to and From Stand Sit to and from Stand Contact Guard Assistance Transfers Transfer Ability Standby Assistance,Contact Guard Assistance Technique Transfer Destination Bed,Chair Transfer Technique Stand Step Pivot Devices Transfer Assistive Devices None,Gait Belt Comments Mobility Comments Pt insisting of not using the FWW and needing initially CGA for balance while walking in the room. As she was on her feet more close SBA. Pt would benefit from use of FWW /SPC but pt refuses to try or use at this time. OT- Balance Assessment Sitting Balance and Reactions Static Sitting Balance Ability Good Dynamic Sitting Balance Ability Good Standing Balance and Reactions Static Standing Balance Ability Fair Dynamic Standing Balance Ability Poor M8 OT- IP Objective Assessments Start: 08/11/21 12:31 Freq: Status: Active Protocol: Document 08/11/21 09:11 [facility] (Rec: 08/11/21 12:51 [facility] [id number]) OT Strength Upper Extremity Strength Assessment Within Functional Limits OT- Coordination Assessment Upper Extremity Finger to Nose Test Within Functional Limits OT-Muscle Tone Assessment Muscle Tone WNL Yes OT Sensation Assessment Comments Summary Comments Intact for light touch, slight delay for kinesthesia for RUE . M9 OT- IP Assessment and Plan Start: 08/11/21 12:31 Freq: Status: Active Protocol: Document 08/11/21 09:11 [facility] (Rec: 08/11/21 12:51 [facility] [id number]) OT Summary Assessment and Plan Potential Rehabilitation Potential Good Analytic Complexity at Evaluation Low Summary OT Impairments Balance,Functional Cognition, Functional Mobility,Toileting, Bathing,Toilet Transfers, Shower Transfers,Activity Tolerance Progress Towards Goals Slow Progress due to Activity Tolerance,Slow Progress due to Cognition Assessment Summary Pt low complexity and here due to probably TIA. Pt states did not sleep well and just had something to eat this morning and feels at 40% of her baseline at this time. Pt would benefit from 24/7 assist if going home as this time. Goals Grooming Goal Independent Dressing Goal Independent Toileting Goal Independent Bathing Goal Independent Toilet Transfer Goal Independent Shower Transfer Goal Independent Days to Meet Goals 3 Frequency of Treatment Frequency Of Treatment Once a Day Treatment Plan OT Treatment Plan ADL Training,Functional Cognition Training,Functional Mobility,Patient/Family Education,Discharge Planning Other Treatment Recommendations and Next shower if still here Treatment Focus Discharge Recommendations OT Discharge Recommendations Home with 24/7 Assist Available Home Equipment Needs showr chair Transportation Needs at Discharge Private Vehicle
--- NOTE | 2021-08-11 11:27 | PM.DS.1 ---
History of Present Illness History of Present Illness Date Patient Seen: 08/11/21 Time Patient Seen: 11:27 Chief complaint: BP is very high/numbness on left side Narrative: Emma Baez is an 86-year-old female with a history of hypertension and ongoing chronic neck and shoulder pain who presented to the emergency department today with unresolving numbing and tingling of her left upper extremity and shoulder.? She states that the numbing and tingling has been chronic but usually resolves after she gets up.? Did not resolve this morning and she called EMS she also stated that she had weakness on her left side.? She states she is very strong and normally is able to do everything around the house and she lives home alone.? She saw Dr. Parra who diagnosed her with cervical disc disease and osteoarthritis and informed her he was not able to do anything for her.? This morning in addition to the numbing and pain on her left upper extremity and shoulder she had a sense of ?whole body, I do not like you?. She also states that she has been having problems walking and that her leg starts to have a prickly sensation and starts to give out on her.? She also mentions that she keeps hearing cracking and the back of her neck.? She denies headaches, difficulty breathing, chest pain, nausea or vomiting, dysuria, diarrhea constipation. In the ED they did a CT of the head as well as a CTA of the head neck.? 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 Focal calcification and irregularity seen involving the carotid bifurcations, with at least 80% narrowing on the right and 60-70% narrowing on the left. Approximately 80% narrowing seen involving the left proximal A2 segment. At least 90% narrowing seen involving the left V4 segment. There is at least 50% narrowing involving the origin of the left vertebral artery. She was administered a loading dose of plavix and referred to the floor for further workup of a TIA versus CVA. ED NIH scale was 1. Patient is afebrile are blood pressure is 179/75 heart rate 70 respiratory rate 19 oxygen saturation of 100% on room air she weighs 58.9 kg with a BMI of 26.2.? WBC is unremarkable she mildly elevated glucose at 1:17 a.m. the rest of her chemistries are unremarkable troponin is negative COVID 19 PCR is negative. ? Discharge Providers Provider Date of admission: 08/10/21 12:45 Discharge Date: 08/11/21 Primary care physician: iMl Lopez MD Consults: 08/10/21 14:42 Consult to Pastoral Services Routine Comment: pt states she'd like a visit. She is not distress 08/10/21 17:50 Consult to Occupational Therapy Evaluate & Treat Comment: TIA? Physician Instructions: Evaluate and treat Consult to Physical Therapy Evaluate & Treat Comment: TIA? Physician Instructions: Evaluate and Treat Discharge provider: Arianne Hardwick MD Summary Hospital Course Discharge Diagnosis: 1. Hypertensive urgency 2. Chronic neck and shoulder pain, secondary to cervical disc disease 3. No evidence of TIA 4. Right internal carotid stenosis, 80%, 60-70% occlusion of the left internal carotid and vertebral artery. Hospital Course: Patient was admitted to the hospital for presumed TIA or stroke. She reports daily numbness and tingling involving her left arm and neck. This occurred again. However the patient also felt dizzy like she was going to pass out. She was found to be markedly hypertensive upon admission. Systolic blood pressure was 234/103. She was treated for malignant hypertension. The patient had as CT a of her head neck with findings dictated above. A MRI of her brain showed no evidence of an acute stroke. Following day the patient was seen by PT. She was deemed appropriate for discharge home. Patient's blood pressure improved with treatment. I offered the patient home health nursing which she declined. She will follow-up with Dr. Lopez as an outpatient for review and evaluation of her blood pressure. Patient is discharged home accordingly. Status at Discharge Cognitive/behavioral status at discharge: oriented Functional status at discharge: uses cane/walker Overall status at discharge: patient is progressing back to baseline Exam Vital Signs (past 8 hours): - 08/11/21 05:29 08/11/21 07:59 08/11/21 09:30 Temperature 99.3 F 98.5 F Pulse Rate 83 94 H Respiratory Rate 18 16 Blood Pressure 155/65 H 187/78 H Pulse Oximetry 95 97 Oxygen Delivery Method Room Air Oxygen Flow Rate 0 Narrative Exam Narrative: Pleasant female in no acute distress Resp Other: Lungs clear to auscultation Cardio Other: Cardiac exam: Regular rate and rhythm normal S1-S2 GI Other: Abdomen soft nontender nondistended Extrem Other: Extremity no edema Objective Labs Result Diagrams: 08/11/21 05:28 08/11/21 05:28 Labs: Laboratory Results - last 24 hr 08/10/21 08/11/21 08/11/21 13:29 05:28 05:28 WBC 6.6 RBC 4.29 Hgb 12.8 Hct 37.8 MCV 88.0 MCH 29.9 MCHC 34.0 RDW 13.3 Plt Count 239 Neut % (Auto) 54.6 Lymph % (Auto) 35.4 [place] % (Auto) 7.4 Eos % (Auto) 1.7 L Baso % (Auto) 0.9 Neut # (Auto) 3600 Lymph # (Auto) 2400 [place] # (Auto) 500 Eos # (Auto) 100 Baso # (Auto) 100 Sodium 139 Potassium 3.8 Chloride 105 Carbon Dioxide 27 BUN 11 Creatinine 0.70 Estimated GFR > 60.0 BUN/Creatinine Ratio 15.7 Glucose 87 Hemoglobin A1c Calcium 9.5 Magnesium 2.1 Total Bilirubin 0.6 Conjugated Bilirubin 0.0 Unconjugated Bilirubin 0.6 AST 22 ALT 10 Alkaline Phosphatase 56 Total Protein 7.1 Albumin 4.1 Globulin 3.0 Albumin/Globulin Ratio 1.4 Triglycerides 102 Cholesterol 234 H LDL Cholesterol, Calc 148 H HDL Cholesterol 66 H TSH SARS-CoV-2 (PCR) Negative 08/11/21 08/11/21 05:28 05:28 WBC RBC Hgb Hct MCV MCH MCHC RDW Plt Count Neut % (Auto) Lymph % (Auto) [place] % (Auto) Eos % (Auto) Baso % (Auto) Neut # (Auto) Lymph # (Auto) [place] # (Auto) Eos # (Auto) Baso # (Auto) Sodium Potassium Chloride Carbon Dioxide BUN Creatinine Estimated GFR BUN/Creatinine Ratio Glucose Hemoglobin A1c 5.5 Calcium Magnesium Total Bilirubin Conjugated Bilirubin Unconjugated Bilirubin AST ALT Alkaline Phosphatase Total Protein Albumin Globulin Albumin/Globulin Ratio Triglycerides Cholesterol LDL Cholesterol, Calc HDL Cholesterol TSH 4.57 SARS-CoV-2 (PCR) [facility] Medical History Anxiety Hypertension Surgical History Status post delivery Status post cholecystectomy Social History household members: none Smoking Status: Never smoker alcohol intake: never Discharge Assessment & Plan Assessment and Plan Assessment: 1. Hypertensive urgency, resolved 2. Hyperlipidemia, will defer to Dr. Lopez to address 3. Cervical disc disease, chronic 4. Internal carotid stenosis, outpatient follow-up Plan of Treatment: Patient will be discharged home, she is to follow-up with Dr. Lopez in 1 week. Discharge Plan Discharge Plan Patient Disposition: Home Discharge orders & Medications Prescriptions: New diltiazem HCl [Cardizem CD] 240 mg capsule,extended release 24hr 240 mg PO DAILY Qty: 30 RF: 0 famotidine [Pepcid] 20 mg tablet 20 mg PO BID Qty: 60 RF: 0 Continued hydroxyzine pamoate 25 mg capsule 25 mg PO BID PRN (Reason: anxiety or severe tremor) RF: 0 lisinopril 20 MG tablet 20 mg PO BID Qty: 60 RF: 3 Discontinued diltiazem HCl 180 mg capsule,extended release 24hr 180 mg PO BID RF: 0 Follow up/Referrals: Mil Lopez MD [Primary Care Provider] - Diet/Activity/Treatments Diet: Low-fat and Low-sodium Discharge Data Primary Care Provider: Mil Lopez Attending Provider: Arianne Hardwick Quality VTE Deep Vein Thrombosis/Pulmonary Embolism Present on Admission: No
--- NOTE | 2021-08-11 11:31 | PC.NURSE ---
Addendum entered by Shawna Hensley R.N. 08/11/21 14:32: PIV removed, intact and tolerated well. Tele removed. pt all packed up, personal clothing on, and transferred to personal vehicle in wheel chair. DC instructions provided, no questions remained. Original Note: AM shift note. pt AO and receptive to care. pt express anxious behaviors with her current unknown condition origins. HTN, first BP 187/78 then 168/67, denying lightheadedness or dizziness. Ambulating SBA and declining FWW. Tele: NSR. Right FA PIV flushing. Denying numbness and tingling and reporting tremors with activity, no tremors witnessed during ambulation or when pt got up to the BR. Worked with OT this AM and echo performed this AM. Denying pain but states she has chronic issues with neck and back.
[2021-08-11 11:49] VITALS: BP 168/67; PULSE 71; RESP 18; TEMP 37; O2SAT 95
== END 2021-08-11 14:00 | disposition home or self-care (01) ==
LOC: ED 12:20 → AC 12:46
PROVIDERS: Nurse Practitioner Family; Admitting Provider Internal Medicine; Emergency Provider Emergency Medicine; PCP Internal Medicine; Referring Provider Emergency Medicine; Visit Provider Internal Medicine
DX: I16.0 Hypertensive urgency (principal); R20.0 Anesthesia of skin; R42 Dizziness and giddiness; R29.701 NIHSS score 1; R25.1 Tremor, unspecified; I10 Essential (primary) hypertension; G89.29 Other chronic pain; M50.90 Cervical disc disorder, unspecified, unspecified cervical region; I65.23 Occlusion and stenosis of bilateral carotid arteries; I65.02 Occlusion and stenosis of left vertebral artery; Z20.822 Contact with and (suspected) exposure to COVID-19
CPT/HCPCS: 36415; 70450; 70496; 70498; 70551; 80048; 80053; 80061; 80076; 82550; 83036; 83735; 84443; 84484; 85025; 85610; 87635; 93005; 93306; 94762; 96372; 97161; 97165; 97530; 99285; C9803; G0378; J1650

== ENCOUNTER 2022-02-04 16:40 | Emergency (ER) | payer MEDICARE, SELFPAY ==
[2021-08-10 14:27] VITALS: BMI 26.2
[2022-02-04] VITALS (26 sets, daily range): BP systolic 130–210; BP diastolic 57–127; PULSE 64–78; RESP 6–31; TEMP 36.7; O2SAT 94–98; BMI 25.6
--- NOTE | 2022-02-04 17:12 | DI.RAD.S_ITS ---
PROCEDURE: XR CHEST 1V INDICATIONS: chest pain TECHNIQUE: One view of the chest was acquired. COMPARISON: [facility], , CHEST 1 VIEW, 05/26/2017, 15:08. [facility], , CHEST 1 VIEW, 12/16/2017, 21:43. [facility], , XR CHEST 1V, 10/17/2018, 19:00. FINDINGS: Surgical changes and devices: None. Lungs and pleura: On this semiupright portable chest examination, no large pneumothorax or large pleural effusions are seen. No focal infiltrates are seen. Mediastinum: The cardiac contours are within normal limits. The aorta demonstrates calcification and tortuosity. Bones and chest wall: Age-appropriate bony degenerative changes are seen. No suspicious bony lesions. Overlying soft tissues appear unremarkable. IMPRESSION: Portable chest within normal limits. Dictated by: Lorenzo Akhtar M.D. on 02/04/2022 at 16:40 Approved by: Lorenzo Akhtar M.D. on 02/04/2022 at 16:40
[2022-02-04] MEDS: ASPIRIN 81 MG CHEW TAB 324 MG PO (18:14)
[2022-02-04] MEDS: NITROGLYCERIN 0.4 MG SL TAB SL ×2 (18:14→18:34)
--- NOTE | 2022-02-04 18:25 | PC.NURSE ---
pt reports that she feels dizzy all the time
[2022-02-04 18:45] LABS: Alanine Aminotransferase 14 IU/L (<35); Albumin 4.8 g/dL (3.5-5.0); Albumin Globulin Ratio 1.3 (1.0-2.8); Alkaline Phosphatase 66 U/L (38-126); Aspartate Aminotransferase 25 IU/L (14-36); BUN Creatinine Ratio 23.9 (6-22); Bilirubin Total 0.6 mg/dL (0.2-1.3); Blood Urea Nitrogen 17 mg/dL (7-17); Calcium 9.8 mg/dL (8.4-10.2); Carbon Dioxide 28 mmol/L (22-32); Chloride 103 mmol/L (98-107); Creatine Kinase 76 U/L (30-135); Estimated Glomerular Filt Rate > 60 mL/min (>60); Globulin 3.6 g/dL (1.7-4.1); Glucose 113 mg/dL (80-110); HEMOLYSIS < 15 (0-50); Lipase 84 U/L (23-300); Potassium 3.7 mmol/L (3.4-5.1); Sodium 139 mmol/L (137-145); Total Protein 8.4 g/dL (6.3-8.2)
[2022-02-04 18:48] LABS: Add Manual Diff / Slide Review NO; Basophils Absolute Auto 100 /uL (0-100); Basophils Percent Auto 0.9 % (0-2); Eosinophils Absolute Auto 100 /uL (0-450); Eosinophils Percent Auto 1.8 % (2-4); Hematocrit 37.6 % (36-46); Hemoglobin 12.9 g/dL (12.0-16.0); Lymphocytes Absolute Auto 1700 /uL (1100-4500); Mean Corpuscular HGB Conc 34.3 % (30-36); Mean Corpuscular Volume 87.6 fL (80-100); Monocytes Absolute Auto 400 /uL (0-900); Monocytes Percent Auto 5.2 % (3-14); Neutrophils Absolute Auto 4900 /uL (1500-7000); Neutrophils Percent Auto 68.1 % (50-75); Platelet Count 210 X10^3/uL (150-400); Red Blood Cell Count 4.29 X10^6/uL (4.0-5.2); Red Cell Distribution Width 13.5 % (11.6-14.8); White Blood Cell Count 7.2 X10^3/uL (4.5-11.0)
[2022-02-04] MEDS: AMLODIPINE 5 MG TABLET PO (18:49)
[2022-02-04 18:57] LABS: Troponin I < 0.012 ng/mL (0.01-0.034)
--- NOTE | 2022-02-04 18:57 | ED_ITS ---
HPI - Chest Pain General Chief Complaint: Chest Pain Stated Complaint: High BP/Chest Pain 179/83 Time Seen by Provider: 02/04/22 17:50 Source: patient and other Mode of arrival: Wheelchair Limitations: no limitations History of Present Illness HPI narrative: 86-year-old female who was sent from outside clinic to the emergency department for evaluation of high blood pressure and chest discomfort. Patient states she is also having pain in her neck and also tingling in her left arm. She also has pain in her right upper chest over her right clavicle. She states that the pain in her neck is not new. She has known issues with her neck which sound like degenerative disc disease although she did not specifically state this. She states this causes her to have tingling in her left arm occasionally. She also is having discomfort in the left side of her chest. She states that it is on the side of her breast and also in the front of her chest. It is somewhat reproducible with movement of her left arm and also palpation of the area. Patient also has a history of high blood pressure. She is on medication for this. She is taking it as directed. She was at the outside clinic today and was noticed that her blood pressure was 179/83 and when she mentioned that she was having chest discomfort she was sent to the emergency department for evaluation. Related Data Home Medications Medication Instructions Recorded Confirmed hydroxyzine pamoate 25 mg capsule 25 mg PO BID PRN 09/21/20 02/04/22 amlodipine 5 mg tablet 5 mg PO DAILY tab 02/04/22 02/04/22 carvedilol 12.5 mg tablet 12.5 mg PO TID tab 02/04/22 02/04/22 Previous Rx's Medication Instructions Recorded lisinopril 20 mg tablet 20 mg PO BID #60 tab 05/10/17 diltiazem HCl 240 mg 240 mg PO DAILY #30 cap 08/11/21 capsule,extended release 24 hr (Cardizem CD) famotidine 20 mg tablet (Pepcid) 20 mg PO BEDTIME #30 tab 08/11/21 Allergies Allergy/AdvReac Type Severity Reaction Status Date / Time Anesthetics - Colleen Type- Allergy Unknown patient Verified 02/04/22 15:49 Parabens can't [Anesthetics - Colleen Type] remember procaine Allergy Unknown patient Verified 02/04/22 15:49 can't remember epinephrine [EPINEPHRINE] AdvReac Severe shakes Verified 02/04/22 15:49 hydrocodone AdvReac Severe patient Verified 02/04/22 15:49 can't remeber codeine AdvReac Intermediate vomiting Verified 02/04/22 15:49 aspirin AdvReac Mild GI UPSET Verified 02/04/22 15:49 Review of Systems Constitutional Constitutional: Denies fever(s) and Denies headache(s) Eyes Eyes: Reports system reviewed and no additional complaints, except as documented ENT Ears, Nose, Mouth, and Throat: Denies headache(s), Reports neck pain and Denies sore throat Cardiovascular Cardiovascular: Reports as per HPI, Reports system reviewed and no additional complaints, except as documented and Denies dyspnea Respiratory Respiratory: Denies cough and Denies dyspnea Gastrointestinal Gastrointestinal: Denies abdominal pain, Denies nausea and Denies vomiting Musculoskeletal Musculoskeletal: Denies back pain and Reports neck pain Integumentary/Breasts Skin/Breast: Reports system reviewed and no additional complaints, except as documented and Denies rash Neurologic Neurologic: Denies headache(s) Hematologic/Lymphatic On Anticoagulants: No Allergic/Immunologic Allergic/Immunologic: Reports system reviewed and no additional complaints, except as documented Patient History Medical History Anxiety Hypertension Surgical History Status post delivery Status post cholecystectomy Social History household members: none Smoking Status: Never smoker alcohol intake: never Smoking Status: Never smoker alcohol intake frequency: 0-2 drinks per day Substance Use Type: does not use Exam Initial Vital Signs Initial Vital Signs: Vital Signs Temperature 98.0 F 02/04/22 17:00 Pulse Rate 64 02/04/22 17:00 Respiratory Rate 20 02/04/22 17:00 Blood Pressure 193/87 H 02/04/22 17:00 Pulse Oximetry 97 02/04/22 17:00 Const General: cooperative, comfortable and well developed [facility] Head: normal to inspection and normocephalic Chest Other: Mild discomfort to palpation left-sided chest Resp Effort & Inspection: normal respiratory effort Auscultation: clear to auscultation bilaterally Cardio Rate: regular rate Rhythm: regular rhythm GI Inspection: normal to inspection Back/Spine/Pelvis Other: Discomfort left upper shoulder and left paraspinal cervical region Skin General: no rashes or lesions noted Neuro General: patient alert and patient awake Extrem General: normal to inspection Psych Appearance: grossly normal and well kempt Course Orders Ordered: ED Orders 02/04/22 21:00 Trop I [Troponin I] Stat Discontinued Medications Amlodipine Besylate (Amlodipine 5 Mg Tablet) 5 mg PO NOW ONE Stop: 02/04/22 18:43 Last Admin: 02/04/22 18:49 Dose: 5 mg Documented by: JAYXTDon Aspirin (Aspirin 81 Mg Chew Tab) 324 mg PO NOW ONE Stop: 02/04/22 17:51 Last Admin: 02/04/22 18:14 Dose: 324 mg Documented by: LENI Nitroglycerin (Nitroglycerin 0.4 Mg Sl Tab) 0.4 mg SL [id number] PRN PRN Reason: Chest Pain Last Admin: 02/04/22 18:34 Dose: 0.4 mg Documented by: Admin: 02/04/22 18:14 Dose: 0.4 mg Documented by: LENI Vital Signs Vital signs: Vital Signs - 8 hr 02/04/22 21:30 02/04/22 22:00 02/04/22 22:26 Pulse Rate 65 73 78 Respiratory Rate 10 L 22 31 H Blood Pressure 186/90 H Pulse Oximetry 96 97 97 MDM - Chest Pain Lab Data Attestation: I reviewed the patient's lab results. Result diagrams: 02/04/22 18:05 02/04/22 18:05 Labs: Lab Results 02/04/22 02/04/22 02/04/22 Range/Units 18:05 18:05 21:00 WBC 7.2 (4.5-11.0) X10^3/uL RBC 4.29 (4.0-5.2) X10^6/uL Hgb 12.9 (12.0-16.0) g/dL Hct 37.6 (36-46) % MCV 87.6 (80-100) fL MCH 30.0 (26-34) PG MCHC 34.3 (30-36) % RDW 13.5 (11.6-14.8) % Plt Count 210 (150-400) X10^3/uL Neut % (Auto) 68.1 (50-75) % Lymph % (Auto) 24.0 L (25-40) % [place] % (Auto) 5.2 (3-14) % Eos % (Auto) 1.8 L (2-4) % Baso % (Auto) 0.9 (0-2) % Neut # (Auto) 4900 (1388-9484) /uL Lymph # (Auto) 1700 (1257-3504) /uL [place] # (Auto) 400 (0-900) /uL Eos # (Auto) 100 (0-450) /uL Baso # (Auto) 100 (0-100) /uL Sodium 139 (137-145) mmol/L Potassium 3.7 (3.4-5.1) mmol/L Chloride 103 (98-107) mmol/L Carbon Dioxide 28 (22-32) mmol/L BUN 17 (7-17) mg/dL Creatinine 0.71 (0.52-1.04) mg/dL Estimated GFR > 60 (>60) mL/min BUN/Creatinine Ratio 23.9 H (6-22) Glucose 113 H (80-110) mg/dL Calcium 9.8 (8.4-10.2) mg/dL Magnesium 2.0 (1.6-2.3) mg/dL Total Bilirubin 0.6 (0.2-1.3) mg/dL AST 25 (14-36) IU/L ALT 14 (<35) IU/L Alkaline Phosphatase 66 (38-126) U/L Total Creatine Kinase 76 (30-135) U/L CK-MB (CK-2) TNP CK-MB (CK-2) Rel Index TNP Troponin I < 0.012 < 0.012 (0.01-0.034) ng/mL Total Protein 8.4 H (6.3-8.2) g/dL Albumin 4.8 (3.5-5.0) g/dL Globulin 3.6 (1.7-4.1) g/dL Albumin/Globulin Ratio 1.3 (1.0-2.8) Lipase 84 (23-300) U/L Imaging Data Chest x-ray: Radiologist's Impression: [address] [address] XRay Report Signed Patient: Emma Callahan MR#: [id number] : 1935 Acct:[id number] Age/Sex: 86 / F Date of Service: 02/04/22 Loc: ED Accession Number: [id number] ?? Procedure: XR chest 1V Ordering Provider: Yudelka Jackson D.O. PROCEDURE:? XR CHEST 1V ? INDICATIONS:? chest pain ? TECHNIQUE:? One view of the chest was acquired.? ? COMPARISON:? [facility], , CHEST 1 VIEW, 05/26/2017, 15:08.? [facility], CR, CHEST 1 VIEW, 12/16/2017, 21:43.? [facility], , XR CHEST 1V, 10/17/2018, 19 :00. ? FINDINGS:? ? Surgical changes and devices:? None.? ? Lungs and pleura:? On this semiupright portable chest examination, no large pneumothorax or large pleural effusions are seen.? No focal infiltrates are seen.? ? Mediastinum:? The cardiac contours are within normal limits. The aorta demonstr ates calcification and tortuosity. ? Bones and chest wall:? Age-appropriate bony degenerative changes are seen.? No suspicious bony lesions.? Overlying soft tissues appear unremarkable.? ? ? IMPRESSION:? ? Portable chest within normal limits. ? ? ? Dictated by: Lorenzo Akhtar M.D. on 02/04/2022 at 16:40 ? ? Approved by: Lorenzo Akhtar M.D. on 02/04/2022 at 16:40? ECG Data Attestation: I personally reviewed and interpreted this ECG as follows: Interpretation: Sinus rhythm Ventricular rate is 67 Normal axis Normal QRS Normal QTC No ST T wave changes Repeat EKG Sinus rhythm Ventricular rate is 66 Normal QRS Normal QTC Unchanged from prior EKG MDM Narrative Medical decision making narrative: Patient hypertensive upon arrival however EKG is unremarkable, troponin negative x2, chest x-ray is unremarkable, no respiratory distress, patient states that the discomfort that she is having the left side of her chest is because of the left-sided neck discomfort. The left-sided neck discomfort is not new same with the tingling in her left arm. I did discuss the concern about ACS given her age and medical history. We discussed the possibility being admitted to the hospital for further risk stratification however patient states she does not want to be admitted. Given her presentation, 2- troponins, the chronic nature of her symptoms I suspect that this is musculoskeletal in origin. Despite that she was given strict return precautions. She expressed understanding and agreement. Discharge Plan Departure Patient Disposition: Home Clinical Impression: Hypertension, Atypical chest pain, Neck pain Instructions: DI for Atypical Chest Pain Activity Restrictions/Additional Instructions: It is important that she continue to take all of your medications as directed. It is also important that you follow-up on the x-ray/CT scans that your primary doctor has ordered for further evaluation of your neck pain. Contact your primary doctor for a follow-up. Return to the emergency department for any new or worsening symptoms. Prescriptions: No Action carvedilol 12.5 mg tablet 12.5 mg PO TID 0RF amlodipine 5 mg tablet 5 mg PO DAILY 0RF hydroxyzine pamoate 25 mg capsule 25 mg PO BID PRN (Reason: anxiety or severe tremor) 0RF lisinopril 20 MG tablet 20 mg PO BID Qty: 60 3RF diltiazem HCl [Cardizem CD] 240 mg capsule,extended release 24hr 240 mg PO DAILY Qty: 30 0RF famotidine [Pepcid] 20 mg tablet 20 mg PO BEDTIME Qty: 30 0RF Referrals: Miscellaneous,Doctor, MD [Primary Care Provider] -
[2022-02-04 21:33] LABS: Troponin I < 0.012 ng/mL (0.01-0.034)
== END 2022-02-04 22:43 | disposition home or self-care (01) ==
PROVIDERS: Emergency Medicine; Emergency Provider Emergency Medicine
DX: R07.89 Other chest pain (principal); I10 Essential (primary) hypertension; M54.2 Cervicalgia
CPT/HCPCS: 36415; 71045; 80053; 82550; 83690; 83735; 84484; 85025; 93005; 99284

== ENCOUNTER → 2022-02-21 14:35 | Outpatient (CLI) | payer MEDICARE, SELFPAY ==
[2021-08-10 14:27] VITALS: BMI 26.2
--- NOTE | 2022-02-21 | DI.RAD.S_ITS ---
PROCEDURE: XR CERVICAL SPINE 2V OR 3V INDICATIONS: PAIN IN SHOULDER AND NECK TECHNIQUE: 3 view(s) of the cervical spine were acquired. COMPARISON: [facility], , C-SPINE WITHOUT CONTRAST, 08/28/2017, 19:49. FINDINGS: Bones: No fractures or dislocations to the C7 level. The odontoid is not well seen. Diffuse osteopenia. Multilevel degenerative change with disc space height loss and uncovertebral/facet arthrosis. Soft tissues: No prevertebral soft tissue swelling. IMPRESSION: Multifocal degenerative change. If the patient pain persists, consider magnetic resonance imaging for further evaluation. Dictated by: Edgardo Holley M.D. on 02/21/2022 at 16:01 Approved by: Edgardo Holley M.D. on 02/21/2022 at 16:03
--- NOTE | 2022-02-21 | DI.RAD.S_ITS ---
PROCEDURE: XR LUMBAR SPINE 2-3V INDICATIONS: PAIN IN SHOULDER AND NECK TECHNIQUE: 3 views of the lumbar spine were acquired. COMPARISON: None. FINDINGS: Bones: 5 [id number] vertebrae are present. Diffuse osteopenia. Grade 1 anterolisthesis at L4-5, measuring 3 mm. Moderate disc height loss at L5-S1 with facet arthrosis. Levocurvature of the thoracolumbar junction. No vertebral body compression fractures. No suspicious bony lesions. Soft tissues: Overlying bowel gas pattern is normal. Pelvic calcification, which may reflect a fibroid. IMPRESSION: Multifocal degenerative change as detailed above. Dictated by: Edgardo Holley M.D. on 02/21/2022 at 15:59 Approved by: Edgardo Holley M.D. on 02/21/2022 at 16:01
--- NOTE | 2022-02-21 | DI.RAD.S_ITS ---
PROCEDURE: XR THORACIC SPINE 3V INDICATIONS: PAIN IN SHOULDER AND NECK TECHNIQUE: 3 views of the thoracic spine were acquired. COMPARISON: None. FINDINGS: Bones: Minimal compression deformity of T11 and 12. No appreciate retropulsion. The remaining vertebral body heights appear maintained. Diffuse osteopenia. Soft tissues: No paravertebral stripe thickening. IMPRESSION: Minimal compression deformity of T11 and 12. Consider CT or MR imaging for further evaluation as clinically warranted. Dictated by: Edgardo Holley M.D. on 02/21/2022 at 16:03 Approved by: Edgardo Holley M.D. on 02/21/2022 at 16:05
== END ==
PROVIDERS: PCP Physician Assistant; Referring Provider Physician Assistant; Visit Provider Physician Assistant
DX: M47.812 Spondylosis without myelopathy or radiculopathy, cervical region (principal); M47.817 Spondylosis without myelopathy or radiculopathy, lumbosacral region; M85.88 Other specified disorders of bone density and structure, other site; M54.50 Low back pain, unspecified
CPT/HCPCS: 72040; 72072; 72100

== ENCOUNTER → 2022-04-27 14:05 | Outpatient (CLI) | payer MEDICARE, SELFPAY ==
[2021-08-10 14:27] VITALS: BMI 26.2
== END ==
PROVIDERS: PCP Physician Assistant; Referring Provider Physician Assistant; Visit Provider Physician Assistant
DX: M81.0 Age-related osteoporosis without current pathological fracture (principal)
CPT/HCPCS: 77080

== ENCOUNTER 2024-04-15 15:50 | Observation (INO) | payer MEDICARE, SELFPAY ==
[2021-08-10 14:27] VITALS: BMI 26.2
[2024-04-15] VITALS (14 sets, daily range): BP systolic 162–217; BP diastolic 72–88; PULSE 69–82; RESP 16–18; TEMP 36.1–36.8; O2SAT 95–98; BMI 24.2; BMI 26.4
--- NOTE | 2024-04-15 16:13 | DI.RAD.S_ITS ---
PROCEDURE: XR CHEST 1V INDICATIONS: chest pain TECHNIQUE: One view of the chest was acquired. COMPARISON: [facility], CR, XR CHEST 1V, 02/04/2022, 17:14. FINDINGS: Surgical changes and devices: None. Lungs and pleura: Lungs are clear. No pleural effusions or pneumothorax. Mediastinum: Mediastinal contours appear normal. Heart size is normal. Aortic arch is calcified indicating atherosclerosis. Bones and chest wall: No suspicious bony lesions. Overlying soft tissues appear unremarkable. IMPRESSION: No acute cardiopulmonary abnormality is seen. Approved by: Tiffany Bartlett M.D.,Ph.D. on 04/15/2024 at 17:23
--- NOTE | 2024-04-15 16:13 | EKG_ITS ---
[address] [address] Test Date: 2024-04-15 Pat Name: Emma Callahan Department: [facility] Room: Gender: Female Watch Supervisor: AMBER : 1935 Requested By: Order Number: [id number] Reading MD: Bhupendra Duron Measurements Intervals Peggs Rate: 75 P: 72 VT: 132 QRS: 5 QRSD: 78 T: 35 QT: 426 QTc: 475 Interpretive Statements Normal sinus rhythm Nonspecific T wave abnormality Electronically Signed On 04-16-2024 18:26:07 PDT by Bhupendra Duron
[2024-04-15 16:31] LABS: Add Manual Diff / Slide Review NO; Basophils Absolute Auto 0 /uL (0-100); Basophils Percent Auto 0.5 % (0-2); Eosinophils Absolute Auto 0 /uL (0-450); Eosinophils Percent Auto 0.5 % (2-4); Hematocrit 37.1 % (36-46); Lymphocytes Absolute Auto 1100 /uL (1100-4500); Lymphocytes Percent Auto 13.5 % (25-40); Mean Corpuscular Hemoglobin 31.2 PG (26-34); Mean Corpuscular Volume 89.1 fL (80-100); Monocytes Absolute Auto 700 /uL (0-900); Monocytes Percent Auto 7.9 % (3-14); Neutrophils Absolute Auto 6500 /uL (1500-7000); Neutrophils Percent Auto 77.6 % (50-75); Platelet Count 281 X10^3/uL (150-400); Red Blood Cell Count 4.17 X10^6/uL (4.0-5.2); White Blood Cell Count 8.4 X10^3/uL (4.5-11.0)
[2024-04-15 16:32] LABS: Prothrombin Time 11.6 SECONDS (9.4-12.5)
[2024-04-15 16:34] LABS: PTT Partial Thromboplastin Tim 41 SECONDS (25.1-36.5)
[2024-04-15 16:36] LABS: Alanine Aminotransferase 23 IU/L (<35); Albumin 4.6 g/dL (3.5-5.0); Albumin Globulin Ratio 1.5 (1.0-2.8); Alkaline Phosphatase 69 U/L (38-126); Aspartate Aminotransferase 25 IU/L (14-36); BUN Creatinine Ratio 12.9 (6-22); Bilirubin Total 0.8 mg/dL (0.2-1.3); Blood Urea Nitrogen 9 mg/dL (7-17); Calcium 8.9 mg/dL (8.4-10.2); Carbon Dioxide 24 mmol/L (22-32); Chloride 89 mmol/L (98-107); Creatine Kinase 61 U/L (30-135); Estimated Glomerular Filt Rate > 60 mL/min (>60); Globulin 3.1 g/dL (1.7-4.1); Glucose 118 mg/dL (80-110); HEMOLYSIS < 15 (0-50); Lipase 87 U/L (23-300); Magnesium 1.9 mg/dL (1.6-2.3); Potassium 3.6 mmol/L (3.4-5.1); Sodium 121 mmol/L (137-145); Total Protein 7.7 g/dL (6.3-8.2)
[2024-04-15 16:48] LABS: NT-proBNP (BNP-Adult 18+) 239 pg/mL (<450); Troponin I < 0.012 ng/mL (0.01-0.034)
--- NOTE | 2024-04-15 19:13 | ED_ITS ---
HPI - Abdominal Pain General Chief Complaint: Abdominal Pain Stated Complaint: heart burn, HBP Time Seen by Provider: 04/15/24 17:44 History of Present Illness HPI narrative: Patient is a 88-year-old female history of hypertension also on amiodarone but denies history of atrial fibrillation, currently in sinus rhythm presents today with variety of symptoms. She initially was seen evaluated at walk-in clinic he has had acid reflux for several months she went to the dentist she reports that she had her teeth cleaned she continues to have some left upper quadrant discomfort. She has significant decreased appetite and early satiety. Daughter at bedside reports that she only took a couple bites of some they then stops. It is possible she is lost weight she still having bowel movements which daughter reports a soft and loose. She feels nauseous no vomiting. No fever. No real chest pain or shortness of breath she definitely feels burning into her male. She is having some weakness but no falls. Related Data Home Medications Medication Instructions Recorded Confirmed amiodarone 100 mg tablet 100 mg PO DAILY 04/15/24 04/15/24 hydroxyzine pamoate 25 mg capsule 25 mg PO 3XD PRN Anxiety 04/15/24 04/15/24 levothyroxine 50 mcg tablet 50 mcg PO DAILY 04/15/24 04/15/24 losartan 100 1 tab PO DAILY 04/15/24 04/15/24 mg-hydrochlorothiazide 25 mg tablet omeprazole 40 mg capsule,delayed 40 mg PO DAILY 04/15/24 04/15/24 release rosuvastatin 10 mg tablet 10 mg PO ONCE PM 04/15/24 04/15/24 Allergies Allergy/AdvReac Type Severity Reaction Status Date / Time Anesthetics - Colleen Type- Allergy Unknown patient Verified 02/04/22 15:49 Parabens can't [Anesthetics - Colleen Type] remember procaine Allergy Unknown patient Verified 02/04/22 15:49 can't remember epinephrine [EPINEPHRINE] AdvReac Severe shakes Verified 02/04/22 15:49 hydrocodone AdvReac Severe patient Verified 02/04/22 15:49 can't remeber codeine AdvReac Intermediate vomiting Verified 02/04/22 15:49 aspirin AdvReac Mild GI UPSET Verified 02/04/22 15:49 Patient History Medical History (Updated 04/16/24 @ 05:17 by Dayanara Rea DO) Anxiety Hypertension Surgical History Status post cholecystectomy Status post delivery Social History household members: none Smoking Status: Never smoker alcohol intake: never Smoking Status: Never smoker alcohol intake frequency: other Substance Use Type: does not use Exam Initial Vital Signs Initial Vital Signs: Vital Signs Temperature 98.3 F 04/15/24 16:04 Pulse Rate 77 04/15/24 16:04 Respiratory Rate 18 04/15/24 16:04 Blood Pressure 217/88 H 04/15/24 16:04 Pulse Oximetry 97 04/15/24 16:04 Oxygen Delivery Method Room Air 04/15/24 16:04 GENERAL: Alert pleasant 88-year-old female and in no acute distress. HEENT: Head atraumatic,EOMI, pupils reactive, face symmetric, moist mucous membranes CARDIOVASCULAR: Regular rate and rhythm without murmurs, rubs or gallops. RESPIRATORY: Breath sounds equal bilaterally, no wheezes rales or rhonchi. ABDOMEN: Soft, nondistended no guarding or rebound minimal pain in left upper quadrant EXTREMITIES: Normal range of motion, no clubbing or edema. Neurovascularly intact NEUROLOGICAL: Alert and oriented x4.Normal gait and speech. Cranial nerves II through XII grossly intact. Logistics Support strength equal bilaterally able to lift both legs up off the gurney but weak no facial droop no aphasia or dysarthria SKIN: Warm, dry, no laceration, no petechiae, no rashes or lesions. Course Orders Ordered: ED Orders 04/15/24 21:36 Consult to General Surgery Stat Amiodarone HCl (Amiodarone 200 Mg Tablet) 100 mg PO DAILY BIA Hydroxyzine HCl (Hydroxyzine Hcl 25 Mg Tablet) 25 mg PO TID PRN PRN Reason: anxiety Sodium Chloride (Normal Saline 0.9%) 1,000 mls @ 100 mls/hr IV CONT BIA Last Admin: 04/15/24 19:34 Dose: 100 mls/hr Documented By: Levothyroxine Sodium (Levothyroxine 50 Mcg Tablet) 50 mcg PO 0600 BIA Naloxone HCl (Naloxone 0.4 Mg/Ml Vial) 0.2 mg IV Q2MIN PRN PRN Reason: Opiate Reversal Ondansetron HCl (Ondansetron 4 Mg/2 Ml Inj) 4 mg IV Q4HR PRN PRN Reason: nausea Last Admin: 04/15/24 23:14 Dose: 4 mg Documented By: CHRISTOPHER Pantoprazole Sodium (Pantoprazole 40 Mg Vial) 40 mg IV BID [facility] Last Admin: 04/15/24 22:53 Dose: 40 mg Documented By: CHRISTOPHER Discontinued Medications Aspirin (Aspirin 81 Mg Chew Tab) 324 mg PO NOW ONE Stop: 04/15/24 16:14 Last Admin: 04/15/24 16:57 Dose: Not Given Documented By: Carvedilol (Carvedilol 12.5 Mg Tablet) 12.5 mg PO TID [facility] Last Admin: 04/15/24 23:28 Dose: Not Given Documented By: CHRISTOPHER Hydroxyzine HCl (Hydroxyzine Hcl 25 Mg Tablet) 25 mg PO BID PRN PRN Reason: anxiety or severe tremor Lisinopril (Lisinopril 20 Mg Tablet) 20 mg PO BID [facility] Last Admin: 04/15/24 23:28 Dose: Not Given Documented By: CHRISTOPHER Non-Formulary Medication (Amiodarone) 100 mg PO DAILY [facility] Vital Signs Vital signs: Vital Signs - 8 hr 04/15/24 16:04 04/15/24 16:56 04/15/24 17:00 Temperature 98.3 F Pulse Rate 77 82 75 Respiratory Rate 18 Blood Pressure 217/88 H Pulse Oximetry 97 97 97 Oxygen Delivery Method Room Air 04/15/24 17:09 04/15/24 17:09 04/15/24 17:30 Temperature Pulse Rate 72 70 Respiratory Rate Blood Pressure 162/72 H Pulse Oximetry 97 97 Oxygen Delivery Method 04/15/24 18:00 04/15/24 18:00 Temperature Pulse Rate 69 Respiratory Rate Blood Pressure 175/77 H Pulse Oximetry 95 Oxygen Delivery Method MDM - Abdominal Pain Lab Data 04/15/24 16:15 04/16/24 01:57 Labs: Lab Results 04/15/24 Range/Units 16:15 WBC 8.4 (4.5-11.0) X10^3/uL RBC 4.17 (4.0-5.2) X10^6/uL Hgb 13.0 (12.0-16.0) g/dL Hct 37.1 (36-46) % MCV 89.1 (80-100) fL MCH 31.2 (26-34) PG MCHC 35.0 (30-36) % RDW 13.0 (11.6-14.8) % Plt Count 281 (150-400) X10^3/uL Neut % (Auto) 77.6 H (50-75) % Lymph % (Auto) 13.5 L (25-40) % [place] % (Auto) 7.9 (3-14) % Eos % (Auto) 0.5 L (2-4) % Baso % (Auto) 0.5 (0-2) % Neut # (Auto) 6500 (1531-1617) /uL Lymph # (Auto) 1100 (6686-1817) /uL [place] # (Auto) 700 (0-900) /uL Eos # (Auto) 0 (0-450) /uL Baso # (Auto) 0 (0-100) /uL PT 11.6 (9.4-12.5) SECONDS INR 1.0 (0.9-1.3) APTT 41 H (25.1-36.5) SECONDS Sodium 121 L (137-145) mmol/L Potassium 3.6 (3.4-5.1) mmol/L Chloride 89 L (98-107) mmol/L Carbon Dioxide 24 (22-32) mmol/L BUN 9 (7-17) mg/dL Creatinine 0.70 (0.52-1.04) mg/dL Estimated GFR > 60 (>60) mL/min BUN/Creatinine Ratio 12.9 (6-22) Glucose 118 H (80-110) mg/dL Calcium 8.9 (8.4-10.2) mg/dL Magnesium 1.9 (1.6-2.3) mg/dL Total Bilirubin 0.8 (0.2-1.3) mg/dL AST 25 (14-36) IU/L ALT 23 (<35) IU/L Alkaline Phosphatase 69 (38-126) U/L Total Creatine Kinase 61 (30-135) U/L Troponin I < 0.012 (0.01-0.034) ng/mL NT-Pro-B Natriuret Pep 239 (<450) pg/mL Total Protein 7.7 (6.3-8.2) g/dL Albumin 4.6 (3.5-5.0) g/dL Globulin 3.1 (1.7-4.1) g/dL Albumin/Globulin Ratio 1.5 (1.0-2.8) Lipase 87 (23-300) U/L Point of care testing: Urine Dip Bedside Urine Glucose Negative Bedside Urine Bilirubin - Negative Bedside Urine Ketone ++ 40 Urine Specific [place] 1.010 Bedside Urine Occult Blood - Negative Bedside Urine pH 7.0 Bedside Urine Protein - Negative Bedside Urine Urobilinogen - Negative Bedside Urine Nitrite - Negative Bedside Urine Leukocytes - Negative Esterase Imaging Data Chest x-ray: Radiologist's Impression: PROCEDURE: XR CHEST 1V INDICATIONS: chest pain TECHNIQUE: One view of the chest was acquired. COMPARISON: [facility], , XR CHEST 1V, 02/04/2022, 17:14. FINDINGS: Surgical changes and devices: None. Lungs and pleura: Lungs are clear. No pleural effusions or pneumothorax. Mediastinum: Mediastinal contours appear normal. Heart size is normal. Aortic arch is calcified indicating atherosclerosis. Bones and chest wall: No suspicious bony lesions. Overlying soft tissues appear unremarkable. IMPRESSION: No acute cardiopulmonary abnormality is seen. Approved by: Tiffany Bartlett M.D.,Ph.D. on 04/15/2024 at 17:23 ECG Data Attestation: I personally reviewed and interpreted this ECG as follows: Interpretation: Sinus rhythm rate 75 KS interval 132 QRS 78 QTC 475 T-wave inversion noted in lead 3 along with Q-wave similar to previous EKGs artifact noted no acute ST elevation or depression similar to previous EKGs in 2021 MDM Narrative Medical decision making narrative: Patient 88 -year-old female history of hypothyroidism, hypertension hyperlipidemia presenting today with loss of appetite left upper quadrant pain significant acid reflux. Blood work has been reviewed she is found to be hyponatremic with a sodium of 121, previous blood work is from 2021. No leukocytosis, troponin negative CT imaging reviewed thickening of distal esophagus EKG reviewed no ischemia Patient is found to have decreased appetite hyponatremia with increasing weakness. I suspect hyponatremia is from decreased p.o. intake. It does she overall appears euvolemic. Concern on CT for distal esophagus thickening which may be causing decreased appetite as well. Possible mass. [id number] Dr. Calhoun will scope either tomorrow or next day Dr. Valencia accepts patient. Patient has been given IV fluids here of normal saline Discharge Plan Departure Patient Disposition: Admitted as Observation Clinical Impression: Acute hyponatremia, Weakness Admit Date/Time: 04/15/24 21:39 Admit Provider: Anam Berg
--- NOTE | 2024-04-15 19:24 | DI.CT.S_ITS ---
PROCEDURE: CT ABDOMEN PELVIS W CON INDICATIONS: nausea weight loss TECHNIQUE: After the administration of intravenous contrast, axial sections acquired from the lung bases to the pubic symphysis. Coronal and sagittal reformats were performed. For radiation dose reduction, the following was used: automated exposure control, adjustment of mA and/or kV according to patient size. COMPARISON: None. FINDINGS: Image quality: Diagnostic Lower chest: 7 mm left lower lung nodule is seen. Mildly patulous distal esophagus, nonspecific. Coronary calcifications and cardiomegaly. Liver: Unremarkable Gallbladder and biliary system: Cholecystectomy clips. Ectatic biliary system, possibly related to post cholecystectomy state, correlate with LFTs. Pancreas: No ductal dilation Spleen: Nonenlarged Adrenals: Bilateral thickening Kidneys: No solid mass. Subcentimeter lesions are too small to characterize, usually cysts. No hydronephrosis. Vessels and lymph nodes: The main portal vein is patent. No abdominal aortic aneurysm. No pathologic lymph nodes by size criteria. Bowel and peritoneum: There is mild gastric wall thickening. No evidence of small bowel obstruction. The stomach is not well evaluated due to under distension. Overall moderate fecal loading. Diffuse colonic diverticula. Wall thickening also seen in the sigmoid colon, suspected to be due to chronic diverticular disease, consider correlation with age-appropriate colonoscopy results. Body wall: Unremarkable Pelvis: Bladder is under distended. Possible calcified fibroids. Adnexal structures not well evaluated on this study, overall unremarkable in CT Bones: There are degenerative changes. Old rib fractures are seen. L4 pars defects. IMPRESSION: No acute small bowel obstruction. Mildly patulous distal esophagus, with mild wall thickening of the stomach and distal esophagus, not well evaluated due to under distension, possibly esophagitis and gastritis. Suspected chronic diverticular disease, with mild wall thickening of the distal colon, correlate with age-appropriate colonoscopy results. Moderate fecal loading. 7 mm left lower lobe lung nodule, consider follow-up in 6 months (or sooner if there is malignancy concern). Other findings above. Dictated by: Stephen Hendricks M.D. on 04/15/2024 at 20:24 Approved by: Stephen Hendricks M.D. on 04/15/2024 at 20:31
[2024-04-15] MEDS: SODIUM CHLORIDE 0.9% 1,000 ML 100 ML IV (19:34)
[2024-04-15] MEDS: PANTOPRAZOLE 40 MG VIAL IV (22:53)
[2024-04-15] MEDS: ONDANSETRON 4 MG/2 ML INJ IV (23:14)
[2024-04-16] VITALS (9 sets, daily range): BP systolic 92–164; BP diastolic 35–75; PULSE 68–78; RESP 13–22; TEMP 35.9–36.7; O2SAT 94–97
--- NOTE | 2024-04-16 01:06 | PC.ADMIT ---
[id number] Admission Note: The patient,Emma Callahan,88 y/o, was given written information regarding hospital policies, unit procedures and contact persons. Patient's smoking status: Never smoker. Vital Signs - 8 hr 04/15/24 17:09 04/15/24 17:09 04/15/24 17:30 Temperature Pulse Rate 72 70 Respiratory Rate Blood Pressure 162/72 H Pulse Oximetry 97 97 Oxygen Delivery Method Oxygen Flow Rate 04/15/24 18:00 04/15/24 18:00 04/15/24 18:30 Temperature Pulse Rate 69 72 Respiratory Rate Blood Pressure 175/77 H Pulse Oximetry 95 96 Oxygen Delivery Method Oxygen Flow Rate 04/15/24 19:00 04/15/24 19:10 04/15/24 19:10 Temperature Pulse Rate 74 77 Respiratory Rate Blood Pressure 195/81 H Pulse Oximetry 97 98 Oxygen Delivery Method Oxygen Flow Rate 04/15/24 19:30 04/15/24 20:00 04/15/24 20:30 Temperature Pulse Rate 72 71 69 Respiratory Rate Blood Pressure Pulse Oximetry 98 97 96 Oxygen Delivery Method Oxygen Flow Rate 04/15/24 21:00 04/15/24 22:12 04/15/24 22:30 Temperature 97 F L Pulse Rate 72 78 Respiratory Rate 16 Blood Pressure 171/82 H Pulse Oximetry 95 98 Oxygen Delivery Method Room Air Oxygen Flow Rate 0 Patient admitted to room 207 from ER per stretcher and transferred into bed with assistance due to unsteadiness; normally uses a cane at home. Is alert and oriented although anxious and looks to daughter to respond to questions when asked. Is [place]. States she is able to see but has difficulty with small print. Breath sounds CTA with RA sat of 98%. HRR but BP elevated at 171/82. Does describe a burning pain from epigastric region up into throat and complained of nausea without emesis; medicated with IV Protonix and Zofran. Up to BS with 1 assist + gait belt to BS and voided 500cc of clear, light yellow urine. Attempted to place bilateral SCD's but patient refused stating last time she was here she had them on and hated them. Educated on DVT prevention. No skin issues noted. Dr. Khoury visited with patient via tele communications. Fall risk score is high and bed alarm is activated. Oriented to use of call light and bed controls. Educated on NPO status for possible EGD in the morning; verbalized understanding.
--- NOTE | 2024-04-16 01:15 | P.HP_ITS ---
History of Present Illness History of Present Illness Date Patient Seen: 04/15/24 Time Patient Seen: 23:00 Chief complaint: heartburn, generalized weakness, nausea Narrative: 88 y/o with PMH of GERD, on sporadic omeprazole when she has more symptoms according to her accompanying daughter, presented to ED with epigastric pain, nausea, severe heartburn, unable to eat and drink more then few bites of food in the last few days. Denies dark or bloody stools. Denies constipation. Did not vomit despite being nauseasted most of the time. Not a best historian, her daughter volunteered most of the information. She didn't know if she ever had EGD. She never had colonoscopy. In addition, hyponatremic. Likely hypovolemic. [facility] Medical History (Updated 04/16/24 @ 01:29 by Anam Khoury MD) Anxiety Hypertension Surgical History Status post cholecystectomy Status post delivery Social History household members: none Smoking Status: Never smoker alcohol intake: never Meds Home Medications and Allergies Home Medications Medication Instructions Recorded Confirmed Type amiodarone 100 mg tablet 100 mg PO DAILY 04/15/24 04/15/24 History hydroxyzine pamoate 25 mg capsule 25 mg PO 3XD PRN Anxiety 04/15/24 04/15/24 History levothyroxine 50 mcg tablet 50 mcg PO DAILY 04/15/24 04/15/24 History losartan 100 1 tab PO DAILY 04/15/24 04/15/24 History mg-hydrochlorothiazide 25 mg tablet omeprazole 40 mg capsule,delayed 40 mg PO DAILY 04/15/24 04/15/24 History release rosuvastatin 10 mg tablet 10 mg PO ONCE PM 04/15/24 04/15/24 History Allergies Allergy/AdvReac Type Severity Reaction Status Date / Time Anesthetics - Colleen Type- Allergy Unknown patient Verified 02/04/22 15:49 Parabens can't [Anesthetics - Colleen Type] remember procaine Allergy Unknown patient Verified 02/04/22 15:49 can't remember epinephrine [EPINEPHRINE] AdvReac Severe shakes Verified 02/04/22 15:49 hydrocodone AdvReac Severe patient Verified 02/04/22 15:49 can't remeber codeine AdvReac Intermediate vomiting Verified 02/04/22 15:49 aspirin AdvReac Mild GI UPSET Verified 02/04/22 15:49 Review of Systems Constitutional Comments: generalized weakness Cardiovascular Comments: w/o chest pain Denies Hx of A-fib while on amiodarone Respiratory Comments: w/o complaints Gastrointestinal Comments: see HPI Exam Vital Signs (past 8 hours): - 04/15/24 17:30 04/15/24 18:00 04/15/24 18:00 Temperature Pulse Rate 70 69 Respiratory Rate Blood Pressure 175/77 H Pulse Oximetry 97 95 Oxygen Delivery Method Oxygen Flow Rate 04/15/24 18:30 04/15/24 19:00 04/15/24 19:10 Temperature Pulse Rate 72 74 77 Respiratory Rate Blood Pressure Pulse Oximetry 96 97 98 Oxygen Delivery Method Oxygen Flow Rate 04/15/24 19:10 04/15/24 19:30 04/15/24 20:00 Temperature Pulse Rate 72 71 Respiratory Rate Blood Pressure 195/81 H Pulse Oximetry 98 97 Oxygen Delivery Method Oxygen Flow Rate 04/15/24 20:30 04/15/24 21:00 04/15/24 22:12 Temperature 97 F L Pulse Rate 69 72 78 Respiratory Rate 16 Blood Pressure 171/82 H Pulse Oximetry 96 95 98 Oxygen Delivery Method Oxygen Flow Rate 0 04/15/24 22:30 Temperature Pulse Rate Respiratory Rate Blood Pressure Pulse Oximetry Oxygen Delivery Method Room Air Oxygen Flow Rate Oxygen Delivery Method Room Air Oxygen Flow Rate 0 Const Other: In no distress, daughter at bedside, appears stated age Neck Other: supple Resp Other: normal respiratory effort Cardio Other: RRR Skin Other: w/o jaundice or rashes Extrem Other: 1 + b/l lower leg edema Psych Other: Appropriate mood and affect Mild cognitive deficits Objective Labs 04/15/24 16:15 04/15/24 16:15 Labs: Laboratory Results - last 24 hr 04/15/24 16:15 WBC 8.4 RBC 4.17 Hgb 13.0 Hct 37.1 MCV 89.1 MCH 31.2 MCHC 35.0 RDW 13.0 Plt Count 281 Neut % (Auto) 77.6 H Lymph % (Auto) 13.5 L [place] % (Auto) 7.9 Eos % (Auto) 0.5 L Baso % (Auto) 0.5 Neut # (Auto) 6500 Lymph # (Auto) 1100 [place] # (Auto) 700 Eos # (Auto) 0 Baso # (Auto) 0 PT 11.6 INR 1.0 APTT 41 H Sodium 121 L Potassium 3.6 Chloride 89 L Carbon Dioxide 24 BUN 9 Creatinine 0.70 Estimated GFR > 60 BUN/Creatinine Ratio 12.9 Glucose 118 H Calcium 8.9 Magnesium 1.9 Total Bilirubin 0.8 AST 25 ALT 23 Alkaline Phosphatase 69 Total Creatine Kinase 61 Troponin I < 0.012 NT-Pro-B Natriuret Pep 239 Total Protein 7.7 Albumin 4.6 Globulin 3.1 Albumin/Globulin Ratio 1.5 Lipase 87 Assessment & Plan Assessment and plan (1) Gastroesophageal reflux disease: Status: None (2) Hyponatremia: Status: Acute (3) Essential hypertension: Status: None (4) Hyperlipidemia: Status: None (5) Anxiety: Status: Acute Assessment & Plan narrative: GERD - longstanding, now quite worsened symptoms. Due to nausea and pain, able to have few bites of food only. - NPO after midnight for EGD in AM by Dr Calhoun - PPI IV BID - likely gastritis, esophagitis, suspected PUD Hyponatremia - 121, likely hypovolemic - NS - BMP at 2 am and at 5 HTN - holding Losartan/HCTZ PAF - amiodarone 100 mg daily DVT prophylaxis - SCDs
[2024-04-16 02:15] LABS: BUN Creatinine Ratio 9.8 (6-22); Blood Urea Nitrogen 6 mg/dL (7-17); Calcium 8.5 mg/dL (8.4-10.2); Carbon Dioxide 27 mmol/L (22-32); Chloride 95 mmol/L (98-107); Estimated Glomerular Filt Rate > 60 mL/min (>60); Glucose 95 mg/dL (80-110); HEMOLYSIS < 15 (0-50); Potassium 3.6 mmol/L (3.4-5.1); Sodium 125 mmol/L (137-145)
[2024-04-16] MEDS: LEVOTHYROXINE 50 MCG TABLET PO (05:50)
[2024-04-16] MEDS: SODIUM CHLORIDE 0.9% 1,000 ML 100 ML IV ×2 (06:26→18:38)
[2024-04-16 08:39] LABS: Add Manual Diff / Slide Review NO; Basophils Absolute Auto 0 /uL (0-100); Basophils Percent Auto 0.5 % (0-2); Eosinophils Absolute Auto 100 /uL (0-450); Eosinophils Percent Auto 1.2 % (2-4); Hematocrit 34.9 % (36-46); Hemoglobin 12.1 g/dL (12.0-16.0); Lymphocytes Absolute Auto 1200 /uL (1100-4500); Lymphocytes Percent Auto 19.1 % (25-40); Mean Corpuscular HGB Conc 34.8 % (30-36); Mean Corpuscular Hemoglobin 31.3 PG (26-34); Monocytes Absolute Auto 600 /uL (0-900); Monocytes Percent Auto 9.6 % (3-14); Neutrophils Absolute Auto 4500 /uL (1500-7000); Neutrophils Percent Auto 69.6 % (50-75); Platelet Count 256 X10^3/uL (150-400); Red Blood Cell Count 3.88 X10^6/uL (4.0-5.2); Red Cell Distribution Width 13.2 % (11.6-14.8); White Blood Cell Count 6.5 X10^3/uL (4.5-11.0)
[2024-04-16 08:52] LABS: BUN Creatinine Ratio 7.9 (6-22); Blood Urea Nitrogen 5 mg/dL (7-17); Calcium 8.6 mg/dL (8.4-10.2); Carbon Dioxide 28 mmol/L (22-32); Chloride 98 mmol/L (98-107); Estimated Glomerular Filt Rate > 60 mL/min (>60); Glucose 84 mg/dL (80-110); HEMOLYSIS < 15 (0-50); Potassium 4.2 mmol/L (3.4-5.1); Sodium 128 mmol/L (137-145)
[2024-04-16] MEDS: AMIODARONE 200 MG TABLET 100 MG PO (09:43)
[2024-04-16] MEDS: PANTOPRAZOLE 40 MG VIAL IV (09:44)
[2024-04-16] MEDS: LACTATED RINGERS 1,000 ML 42 ML IV (11:37)
--- NOTE | 2024-04-16 12:03 | PM.CN ---
History of Present Illness Consult details Date Patient Seen: 04/16/24 Time Patient Seen: 12:03 Chief complaint: heartburn, generalized weakness, nausea Reason for consult: heartburn and esophageal dysphagia Requesting provider: Bhupendra Duron Narrative: Recent difficulty with swallowing and a burning sensation in the chest as well as the tongue. Has lost weight and is unable to keep food down even if she feels the knawing pain of hunger. Meds Home Medications and Allergies Home Medications Medication Instructions Recorded Confirmed Type amiodarone 100 mg tablet 100 mg PO DAILY 04/15/24 04/15/24 History hydroxyzine pamoate 25 mg capsule 25 mg PO 3XD PRN Anxiety 04/15/24 04/15/24 History levothyroxine 50 mcg tablet 50 mcg PO DAILY 04/15/24 04/15/24 History losartan 100 1 tab PO DAILY 04/15/24 04/15/24 History mg-hydrochlorothiazide 25 mg tablet omeprazole 40 mg capsule,delayed 40 mg PO DAILY 04/15/24 04/15/24 History release rosuvastatin 10 mg tablet 10 mg PO ONCE PM 04/15/24 04/15/24 History Allergies Allergy/AdvReac Type Severity Reaction Status Date / Time Anesthetics - Colleen Type- Allergy Unknown patient Verified 04/16/24 11:21 Parabens can't [Anesthetics - Colleen Type] remember procaine Allergy Unknown patient Verified 04/16/24 11:21 can't remember epinephrine [EPINEPHRINE] AdvReac Severe shakes Verified 04/16/24 11:21 hydrocodone AdvReac Severe patient Verified 04/16/24 11:21 can't remeber codeine AdvReac Intermediate vomiting Verified 04/16/24 11:21 aspirin AdvReac Mild GI UPSET Verified 04/16/24 11:21 Review of Systems Review of Systems ROS: Yes All systems reviewed with the patient and are negative except as otherwise documented Constitutional Constitutional: Reports daytime sleepiness, Reports fatigue and Reports weight loss Endocrine Endocrine: Reports fatigue Exam Vital Signs (past 8 hours): - 04/16/24 05:33 04/16/24 05:41 04/16/24 08:00 Temperature 96.7 F L 96.7 F L 97.5 F L Pulse Rate 70 75 78 Respiratory Rate 22 17 18 Blood Pressure 123/61 153/64 H 159/60 H Pulse Oximetry 95 97 97 Oxygen Flow Rate 0 0 0 04/16/24 11:27 Temperature 98.1 F Pulse Rate 78 Respiratory Rate 16 Blood Pressure 164/75 H Pulse Oximetry 96 Oxygen Flow Rate Oxygen Delivery Method Room Air Oxygen Flow Rate 0 Const General: cooperative, comfortable and No acute distress Nutritional Appearance: thin HENMT Head: normocephalic and atraumatic Ears: hearing grossly normal bilaterally Eyes Periorbital: periorbital findings normal Sclera: sclerae normal Neck Neck: no meningeal signs and trachea midline Other: tongue is purplish w/o lesions. Resp Effort & Inspection: normal respiratory effort and able to speak in complete sentences Cardio Rate: regular rate Rhythm: regular rhythm GI Palpation: soft and No tender Skin General: atrophy and dry skin Hair: brittle Neuro General: patient alert, patient awake and patient oriented x3 Psych Mental Status: mental status grossly normal Affect: normal affect Judgment: judgment good Objective Labs 04/16/24 08:30 04/16/24 08:30 Labs: Laboratory Results - last 24 hr 04/15/24 04/16/24 04/16/24 16:15 01:57 08:30 WBC 8.4 6.5 RBC 4.17 3.88 L Hgb 13.0 12.1 Hct 37.1 34.9 L MCV 89.1 90.0 MCH 31.2 31.3 MCHC 35.0 34.8 RDW 13.0 13.2 Plt Count 281 256 Neut % (Auto) 77.6 H 69.6 Lymph % (Auto) 13.5 L 19.1 L [place] % (Auto) 7.9 9.6 Eos % (Auto) 0.5 L 1.2 L Baso % (Auto) 0.5 0.5 Neut # (Auto) 6500 4500 Lymph # (Auto) 1100 1200 [place] # (Auto) 700 600 Eos # (Auto) 0 100 Baso # (Auto) 0 0 PT 11.6 INR 1.0 APTT 41 H Sodium 121 L 125 L 128 L Potassium 3.6 3.6 4.2 Chloride 89 L 95 L 98 Carbon Dioxide 24 27 28 BUN 9 6 L 5 L Creatinine 0.70 0.61 0.63 Estimated GFR > 60 > 60 > 60 BUN/Creatinine Ratio 12.9 9.8 7.9 Glucose 118 H 95 84 Calcium 8.9 8.5 8.6 Magnesium 1.9 Total Bilirubin 0.8 AST 25 ALT 23 Alkaline Phosphatase 69 Total Creatine Kinase 61 Troponin I < 0.012 NT-Pro-B Natriuret Pep 239 Total Protein 7.7 Albumin 4.6 Globulin 3.1 Albumin/Globulin Ratio 1.5 Lipase 87 PFSH Medical History Anxiety Hypertension Surgical History Status post cholecystectomy Status post delivery Social History household members: none Tobacco & Substance Use Smoking Status: Never smoker alcohol intake: never Assessment & Plan Assessment & Plan narrative: Esophageal dysphagia, weight loss, heart burn Plan: diagnostic EGD Time Spent With Patient Time with patient: less than 30 minutes
--- NOTE | 2024-04-16 12:25 | P.OP_ITS ---
Operative Date/Time/Diagnoses Date of procedure: 04/16/24 Time of procedure: 12:25 Pre-op diagnosis: Esophageal dysphagia, dyspepsia Post-op diagnosis: same Procedure & Clinicians Procedure: EGD with anesthesia Same procedure as scheduled: Yes Indications: Esophageal dysphagia and dyspepsia Surgeon: Glenys Calhoun Click Yes if Unassisted: Yes Anesthesia Type: MAC +/- Operative Notes Findings: Mild duodenitis, mild gastritis limited to the pre-pyloric area. Normal- appearing esophagus Closure Type: not applicable Specimen(s): none sent Blood products transfused: none Procedure in detail: Preop diagnosis: Esophageal dysphagia, dyspepsia Postop diagnosis: Same Operative procedure: EGD with MAC Surgeon: Caroline Calhoun MD Findings: Mild duodenitis and gastritis limited to the pre-pyloric area Procedure: Patient placed in a supine position. Jaw thrust was done to assist intubation of the esophagus with the scope. I then advanced into the stomach and with insufflation identified the pylorus intubated into the duodenal. First 2nd and 3rd portion duodenal were without ulcerations. There was however mild duodenitis. In the pre-pyloric area showed mild gastritis, again no erosions or ulcers. Insufflation extraction of the scope including retroflex had the above findings, particularly normal-appearing esophagus no yeast overgrowth. Impression: Mild duodenitis and gastritis. No abnormalities of the esophagus Plan: Continue on PPI 6-8 weeks b.i.d.; would recommend barium swallow to determine if there is esophageal dysmotility Complications: none Post-operative Condition: stable Disposition: PACU
--- NOTE | 2024-04-16 12:38 | SUR.PHASEI ---
Report called to Lana Liao.
--- NOTE | 2024-04-16 12:43 | SUR.PHASEI ---
Patient transferred to the floor by RUSSEL Arredondo.
--- NOTE | 2024-04-16 14:15 | CM.DANOTE ---
Initial DCP Assessment Visit Note Reviewed EMR and team rounds for pt's medical status and updates. Met with pt at bedside to introduce self and role, pt was found to be alert/somewhat oriented, some confusion still based on hyponatremic. Pt resides modified independently in her own home here in [place]. Both her dtr and her son are very involved in her care coordination and support needs, one of them will also plan to transport her back home once she's medically cleared for home d/c. No d/c needs have been identified for assistance at this time. Payor: [facility] PCP: Niru Maria Pt is a 88 year-old F who presented to the ED last evening with c/o acid reflux for several months, decreased appetite/intake, weakness, nauseaus, and was also found to be hyponatremic. CT imaging showed possible mass and distal thickening of th eesophogus. Dr. Calhoun will scope today. She was started on IV fluids and brought to the floor for Observation, anticipated home d/c tomorrow (Mon). DCP will continue to follow and assist with any further evolving needs prior to her departure. Discharge Planning/Care Management Advanced directive, confirm from FAMILY Start: 04/15/24 22:45 Freq: Q24H Status: Active Protocol: Document 04/15/24 22:57 AMH (Rec: 04/15/24 22:58 AMH [id number]) Advance Directive, confirm on record Time 22:57 Person contacted Sravanthi Grajeda Copy received No Document 04/16/24 07:00 CM (Rec: 04/16/24 13:26 CM [id number]) Advance Directive, confirm on record Time 22:57 Person contacted Sravanthi Grajeda Copy received No Copy received No Advanced directive available on record No CM Discharge Assessment Start: 04/16/24 14:12 Freq: Status: Active Protocol: Document 04/16/24 14:13 DPL (Rec: 04/16/24 14:15 DPL [id number]) Discharge Planning Assessment Assigned Engine Watchman ANDREW Gonzales Advance Directives? Yes Advance Directives on File No History Provided By Patient,Medical Record Has Patient been admitted in last 30 No days? Prior Living Arrangements House Household Members none Type of transporation used prior to Relies on Others admit Independent with ADL's No: modified independent with a walker and a cane Is patient alert and oriented? Yes Needs Assistance With Managing Medications,Home Chores / Shopping Caregiver for Another No DME Already Rented / Owned Elevated Toilet Seat,FWW / Walker,Cane Clinicals Faxed No Comment No identified home d/c needs at this time. Barriers to Discharge No Discharge Plan Home Transportation Arrangement Daughter or son. Referrals Initiated None needed Whiteboard Updated in Patient Room with Yes name and ext. # of Engine Watchman Review Status In Process Please Provide Date Initial DC 04/16/24 Assessment Was Performed
--- NOTE | 2024-04-16 14:16 | P.PN_ITS ---
Subjective Subjective Interval history: 88 F admitted with hyponatremia and decreased oral intake. She has a hard time relaying accurate history today, and it is somewhat difficult to parse out symptoms. From what I can tell she has a substernal burning pain after eating that has gotten so severe the last few days that she has had persistent nausea and decreased oral intake. She reports needing to take lots of water, sometimes it feels like pills and sometimes food gets stuck both in her throat and gets intense lower esophageal pain as well. EGD showed gastritis and esophagitis today, discussed with surgeon. Discussed with speech and will perform both modified barium swallow and barium swallow to assess both proximal and distal swallowing phase for further evaluation. Exam Vital Signs (past 8 hours): - 04/16/24 08:00 04/16/24 11:27 04/16/24 12:25 Temperature 97.5 F L 98.1 F 97.1 F L Pulse Rate 78 78 69 Respiratory Rate 18 16 20 Blood Pressure 159/60 H 164/75 H 102/46 L Pulse Oximetry 97 96 94 Oxygen Delivery Method Room Air Oxygen Flow Rate 0 04/16/24 12:30 04/16/24 12:32 04/16/24 12:37 Temperature 97.2 F L Pulse Rate 76 74 72 Respiratory Rate 13 20 19 Blood Pressure 98/35 L 92/50 L 118/49 L Pulse Oximetry 95 95 94 Oxygen Delivery Method Room Air Room Air Room Air Oxygen Flow Rate Oxygen Delivery Method Room Air Oxygen Flow Rate 0 Const Other: In no distress, daughter at bedside, appears stated age Neck Other: supple Resp Other: normal respiratory effort Cardio Other: RRR Skin Other: w/o jaundice or rashes Extrem Other: No edema Psych Other: Appropriate mood and affect Mild cognitive deficits Objective Labs 04/16/24 08:30 04/16/24 08:30 Labs: Laboratory Results - last 24 hr 04/15/24 04/16/24 04/16/24 16:15 01:57 08:30 WBC 8.4 6.5 RBC 4.17 3.88 L Hgb 13.0 12.1 Hct 37.1 34.9 L MCV 89.1 90.0 MCH 31.2 31.3 MCHC 35.0 34.8 RDW 13.0 13.2 Plt Count 281 256 Neut % (Auto) 77.6 H 69.6 Lymph % (Auto) 13.5 L 19.1 L [place] % (Auto) 7.9 9.6 Eos % (Auto) 0.5 L 1.2 L Baso % (Auto) 0.5 0.5 Neut # (Auto) 6500 4500 Lymph # (Auto) 1100 1200 [place] # (Auto) 700 600 Eos # (Auto) 0 100 Baso # (Auto) 0 0 PT 11.6 INR 1.0 APTT 41 H Sodium 121 L 125 L 128 L Potassium 3.6 3.6 4.2 Chloride 89 L 95 L 98 Carbon Dioxide 24 27 28 BUN 9 6 L 5 L Creatinine 0.70 0.61 0.63 Estimated GFR > 60 > 60 > 60 BUN/Creatinine Ratio 12.9 9.8 7.9 Glucose 118 H 95 84 Calcium 8.9 8.5 8.6 Magnesium 1.9 Total Bilirubin 0.8 AST 25 ALT 23 Alkaline Phosphatase 69 Total Creatine Kinase 61 Troponin I < 0.012 NT-Pro-B Natriuret Pep 239 Total Protein 7.7 Albumin 4.6 Globulin 3.1 Albumin/Globulin Ratio 1.5 Lipase 87 PFSH Medical History Anxiety Hypertension Surgical History Status post cholecystectomy Status post delivery Social History household members: none Smoking Status: Never smoker alcohol intake: never Assessment & Plan Assessment & Plan narrative: GERD with esophagitis, possible dysphagia - EGD today with esophagitis and gastritis, continue oral PPI. No evidence of thrush. - DATABASES COMPUTER CONSULTANT evaluation ordered with modified barium swallow and barium swallow to assess both proximal and distal phases or her swallowing given reports of both areas being problematic for her swallow. - will change to oral PPI - a possibility may be irritation due to vomiting / possible enteritis as well, but will formally assess as noted above Hyponatremia - 121, likely hypovolemic and with HCTZ use. Improving today with fluids - continue NS HTN - will continue to hold Losartan/HCTZ Paroxysmal atrial fibrillation - amiodarone 100 mg daily DVT prophylaxis - SCDs Code: Full, surrogate is patient's daughter.
[2024-04-17 01:44] VITALS: BP 153/56; PULSE 74; RESP 16; TEMP 36.4; O2SAT 98
[2024-04-17 06:00] VITALS: BP 152/58; PULSE 70; RESP 16; TEMP 36.3; O2SAT 98
[2024-04-17 06:41] LABS: BUN Creatinine Ratio 8.3 (6-22); Blood Urea Nitrogen 5 mg/dL (7-17); Calcium 7.9 mg/dL (8.4-10.2); Carbon Dioxide 27 mmol/L (22-32); Chloride 102 mmol/L (98-107); Estimated Glomerular Filt Rate > 60 mL/min (>60); Glucose 79 mg/dL (80-110); HEMOLYSIS < 15 (0-50); Potassium 3.6 mmol/L (3.4-5.1); Sodium 131 mmol/L (137-145)
--- NOTE | 2024-04-17 07:23 | P.PN_ITS ---
Subjective Subjective Interval history: Interval history: 88 F admitted with hyponatremia and decreased oral intake. She has a hard time relaying accurate history today, and it is somewhat difficult to parse out symptoms. From what I can tell she has a substernal burning pain after eating that has gotten so severe the last few days that she has had persistent nausea and decreased oral intake. She reports needing to take lots of water, sometimes it feels like pills and sometimes food gets stuck both in her throat and gets intense lower esophageal pain as well. EGD showed gastritis and esophagitis today, discussed with surgeon. Discussed with speech and will perform both modified barium swallow and barium swallow to assess both proximal and distal swallowing phase for further evaluation. Exam Vital Signs (past 8 hours): - 04/17/24 01:44 04/17/24 06:00 Temperature 97.5 F L 97.4 F L Pulse Rate 74 70 Respiratory Rate 16 16 Blood Pressure 153/56 H 152/58 H Pulse Oximetry 98 98 Oxygen Delivery Method Room Air Oxygen Flow Rate 0 Narrative Exam Narrative: Objective Labs 04/16/24 08:30 04/17/24 05:58 Labs: Laboratory Results - last 24 hr 04/16/24 04/17/24 08:30 05:58 WBC 6.5 RBC 3.88 L Hgb 12.1 Hct 34.9 L MCV 90.0 MCH 31.3 MCHC 34.8 RDW 13.2 Plt Count 256 Neut % (Auto) 69.6 Lymph % (Auto) 19.1 L [place] % (Auto) 9.6 Eos % (Auto) 1.2 L Baso % (Auto) 0.5 Neut # (Auto) 4500 Lymph # (Auto) 1200 [place] # (Auto) 600 Eos # (Auto) 100 Baso # (Auto) 0 Sodium 128 L 131 L Potassium 4.2 3.6 Chloride 98 102 Carbon Dioxide 28 27 BUN 5 L 5 L Creatinine 0.63 0.60 Estimated GFR > 60 > 60 BUN/Creatinine Ratio 7.9 8.3 Glucose 84 79 L Calcium 8.6 7.9 L PFSH Medical History Anxiety Hypertension Surgical History Status post cholecystectomy Status post delivery Social History household members: none Smoking Status: Never smoker alcohol intake: never Assessment & Plan Assessment & Plan narrative: 1. GERD with esophagitis, possible dysphagia - EGD today with esophagitis and gastritis, continue oral PPI. No evidence of thrush. - SECOND BAKER evaluation ordered with modified barium swallow and barium swallow to assess both proximal and distal phases or her swallowing given reports of both areas being problematic for her swallow. - will change to oral PPI - a possibility may be irritation due to vomiting / possible enteritis as well, but will formally assess as noted above 2. Hyponatremia - 121, likely hypovolemic and with HCTZ use. Improving today with fluids - continue NS 3. HTN - will continue to hold Losartan/HCTZ 4. Paroxysmal atrial fibrillation - amiodarone 100 mg daily PLAN: DVT prophylaxis - SCDs Code: Full, surrogate is patient's daughter.
[2024-04-17 09:00] VITALS: BP 145/59; PULSE 70; RESP 16; TEMP 36.3; O2SAT 94
[2024-04-17] MEDS: AMIODARONE 200 MG TABLET 100 MG PO (09:21)
[2024-04-17] MEDS: PANTOPRAZOLE DR 40 MG TABLET PO (09:22)
[2024-04-17] MEDS: LEVOTHYROXINE 50 MCG TABLET PO (09:23)
--- NOTE | 2024-04-17 12:00 | DI.RAD.S_ITS ---
PROCEDURE: FL BARIUM SWALLOW W SPEECH INDICATIONS: dysphagia COMPARISON: None. TECHNIQUE: Examination was conducted in conjunction with speech pathology per standard protocol. In the lateral projection, filming was performed of the patient swallowing. AP projection filming may also be performed with patient swallowing. COMPARISON: FINDINGS: Function: The oral preparatory phase appears normal, with proper containment. The subsequent oral propulsive phase, pharyngeal phase, and esophageal phase of swallowing also appear normal with all proffered substances. No laryngotracheal penetration or aspiration. No pathologic vallecular pooling. Morphology: No cricopharyngeal bar is identified. No cervical esophageal webs. No Zenker's diverticulum. No strictures. Mild reflux to the distal 3rd of the esophagus. IMPRESSION: Mild gastroesophageal reflux. Dictated by: Inés Velazco M.D. on 04/17/2024 at 15:15 Approved by: Inés Velazco M.D. on 04/17/2024 at 15:15
--- NOTE | 2024-04-17 12:58 | CM.DPC ---
DCP Cont. Reviewed EMR and team rounds for status updates. Pt is having a barium swallow today, after which she will d/c home. Her dtr's will be present to transport her. No further DCP needs at this time.
--- NOTE | 2024-04-17 13:45 | P.DS_ITS ---
History of Present Illness History of Present Illness Chief complaint: heartburn, generalized weakness, nausea Narrative: From H&P: 88 y/o with PMH of GERD, on sporadic omeprazole when she has more symptoms according to her accompanying daughter, presented to ED with epigastric pain, nausea, severe heartburn, unable to eat and drink more then few bites of food in the last few days. Denies dark or bloody stools. Denies constipation. Did not vomit despite being nauseasted most of the time. Not a best historian, her daughter volunteered most of the information. She didn't know if she ever had EGD. She never had colonoscopy. In addition, hyponatremic. Likely hypovolemic. Discharge Providers Provider Date of admission: 04/15/24 21:39 Discharge Date: 04/17/24 Primary care physician: Niru Maria PA-C Consults: 04/15/24 21:36 Consult to General Surgery Stat Comment: Consulting Provider: Glenys Calhoun Reason for consultation: need EGD Has provider been notified: Yes 04/16/24 13:06 Consult to Speech Therapy Evaluate & Treat Comment: Physician Instructions: Evaluate and treat Discharge provider: Cristhian Goldstein MD Summary Hospital Course Discharge Diagnosis: GERD with esophagitis, present on admission and active. - EGD today with esophagitis and gastritis, continue oral PPI. No evidence of thrush. - TAG AND LABEL CUTTER evaluation ordered with modified barium swallow and barium swallow to assess both proximal and distal phases or her swallowing given reports of both areas being problematic for her swallow. - will change to oral PPI Hyponatremia, present on admission and improved. - 121, likely hypovolemic and with HCTZ use. Improving today with fluids - continue NS HTN, present on admission and active. - will continue to hold Losartan/HCTZ Paroxysmal atrial fibrillation, present on admission and active. - amiodarone 100 mg daily Hospital Course: The patient is an 88-year-old female with a history of strong GERD who presented with epigastric pain, nausea, heartburn and difficulty eating and drinking. She was placed on a PPI and underwent EGD on April 16 which revealed duodenitis and gastritis. She improved clinically on a PPI and had a modified barium swallow which also was consistent with reflux. She describes nocturnal symptoms of coughing which also likely relates to her reflux symptoms. Her initial sodium is 121 and improved to 131 with IV fluids, consistent with tea and toast syndrome. The plan will be to continue an oral PPI and a scheduled basis at the time of discharge. Also she was returning home after a long absence from the area. She was visiting her daughter in [place] for 1-1/2 years. Status at Discharge Cognitive/behavioral status at discharge: at baseline, oriented Functional status at discharge: uses cane/walker Overall status at discharge: patient is back to baseline Time Spent with Patient Time spent: Greater than 30 minutes Exam Vital Signs (past 8 hours): - 04/17/24 06:00 04/17/24 09:00 Temperature 97.4 F L 97.3 F L Pulse Rate 70 70 Respiratory Rate 16 16 Blood Pressure 152/58 H 145/59 H Pulse Oximetry 98 94 Oxygen Flow Rate 0 Oxygen Delivery Method Room Air Oxygen Flow Rate 0 Narrative Exam Narrative: NAD, alert and oriented. Fluent speech. Lungs are clear, normal rate and effort. Heart is regular, no murmur gallop or rub. Abdomen is soft, non distended. Extremities are free of edema. Objective Imaging Chest x-ray: Radiologist's impression: No acute cardiopulmonary abnormality is seen. CT scan - abdomen: Radiologist's impression: IMPRESSION: No acute small bowel obstruction. Mildly patulous distal esophagus, with mild wall thickening of the stomach and distal esophagus, not well evaluated due to under distension, possibly esophagitis and gastritis. Suspected chronic diverticular disease, with mild wall thickening of the distal colon, correlate with age-appropriate colonoscopy results. Moderate fecal loading. 7 mm left lower lobe lung nodule, consider follow-up in 6 months (or sooner if there is malignancy concern). MBS:: Radiologist's impression: Reflux. Labs 04/16/24 08:30 04/17/24 05:58 Labs: Laboratory Results - last 24 hr 04/17/24 05:58 Sodium 131 L Potassium 3.6 Chloride 102 Carbon Dioxide 27 BUN 5 L Creatinine 0.60 Estimated GFR > 60 BUN/Creatinine Ratio 8.3 Glucose 79 L Calcium 7.9 L [facility] Medical History Anxiety Hypertension Surgical History Status post cholecystectomy Status post delivery Social History household members: none Smoking Status: Never smoker alcohol intake: never Discharge Assessment & Plan Assessment and Plan Assessment: GERD with esophagitis, present on admission and active. - EGD today with esophagitis and gastritis, continue oral PPI. No evidence of thrush. - TAG AND LABEL CUTTER evaluation ordered with modified barium swallow and barium swallow to assess both proximal and distal phases or her swallowing given reports of both areas being problematic for her swallow. - will change to oral PPI Hyponatremia, present on admission and improved. - 121, likely hypovolemic and with HCTZ use. Improving today with fluids - continue NS Plan of Treatment: Stable for discharge with Protonix 40 mg p.o. b.i.d. for 1-2 months. We have also set her up with [facility] as a new PCP. Discharge Plan Discharge Plan Patient Disposition: Home Provider Discharge Comment: Stable for discharge home on Protonix. Discharge orders & Medications Prescriptions: New pantoprazole [Protonix] 40 mg tablet,delayed release (DR/EC) 40 mg PO BID Qty: 60 1RF Continued losartan-hydrochlorothiazide 100-25 mg tablet 1 tab PO DAILY levothyroxine 50 mcg tablet 50 mcg PO DAILY hydroxyzine pamoate 25 mg capsule 25 mg PO 3XD PRN (Reason: Anxiety) rosuvastatin 10 mg tablet 10 mg PO ONCE PM amiodarone 100 mg tablet 100 mg PO DAILY Discontinued omeprazole 40 mg capsule,delayed release(DR/EC) 40 mg PO DAILY Follow up/Referrals: Jacinta Moon DO [Physician] - 04/26/24 10:15 am (Appt:04/26 @ 10:15 (arrive @ 10:00) with Dr Moon ) Discharge Health Status Multidrug resistant organism: No MDRO Diet/Activity/Treatments Diet: Regular Visit Report/Discharge Packet Instructions: DI for Gastroesophageal Reflux Disease (GERD), DI for Gastritis Stand Alone Forms: Congestive Heart Failure, Patient Portal/API, Stroke Signs & Symptoms, EGD Result: [facility], EGD Result: [facility] Discharge Data Primary Care Provider: Niru Maria Attending Provider: Anam Berg Admit Date/Time: 04/15/24 21:39
--- NOTE | 2024-04-17 14:04 | ST.SWALLOW ---
Visit Care Team Role Provider Type Niru Maria PA-C Primary Care Provider Non-Staff Specialty: Medical Address: [address] [place] [address], [facility] Email: [email or web address] Glenys Calhoun MD Other Providers Physician Specialty: General Surgery Address: [address] [place] [address] Email: Dayanara Rea DO Emergency Provider Physician Referring Provider Specialty: Emergency Medicine Address: [address] [place] [address], [facility] Email: [email or web address] Anam Khoury MD Admit Provider Physician Attending Provider Specialty: Internal Medicine Address: [address] [place] [address] Email: [email or web address] Modified Barium Swallow Study BLOW MOLDER Modified Barium Swallow Study Start: 04/17/24 13:46 Freq: Status: Active Protocol: Document 04/17/24 13:47 CG (Rec: 04/17/24 14:04 CG [id number]) Modified Barium Swallow Study Total Time Visit Start Time 13:00 Visit Stop Time 13:20 Total Visit Minutes 20 Visit Information Visit Number [address] Duron (hospitalist) Reason for Referral dysphagia Setting Setting Acute Care Patient Information Identification Type Name Patient History Per progress note: 88 F admitted with hyponatremia and decreased oral intake. She has a hard time relaying accurate history today, and it is somewhat difficult to parse out symptoms. From what I can tell she has a substernal burning pain after eating that has gotten so severe the last few days that she has had persistent nausea and decreased oral intake. She reports needing to take lots of water, sometimes it feels like pills and sometimes food gets stuck both in her throat and gets intense lower esophageal pain as well. EGD showed gastritis and esophagitis today, discussed with surgeon. Discussed with speech and will perform both modified barium swallow and barium swallow to assess both proximal and distal swallowing phase for further evaluation. Subjective Observations Pt was awake, alert and agreeable to evaluation. OME was unremarkable. Pt complained of difficulty swallowing pills and burning feeling across her chest when eating/drinking. She also reported that drinks and food have a tendency to come back up. Patient Positioning Position View Lat-A/P Imaging Lateral View Textures Administered Trials Presented Thin Liquid via Spoon (IDDSI 0 ),Thin Liquid via Cup (IDDSI 0 ),Mildly Thick Liquid via Spoon (IDDSI 2),Mildly Thick Liquid via Cup (IDDSI 2), Extremely Thick Liquid via Spoon (IDDSI 4),Regular (IDDSI 7) The IDDSI Framework Protocol: IDDSI.1 Oral Impairment Source: The Modified Barium Swallow Impairment Profile (MBSImP??) Lip Closure No labial escape Tongue Control During Bolus Hold Posterior escape of less than half of bolus Bolus Preparation/Mastication Timely & efficient chewing & mashing Bolus Transport/Lingual Motion Brisk tongue motion Oral Residue Residue collection on oral structures Location Palate Initiation of Pharyngeal Swallow Bolus head at posterior laryngeal surface of epiglottis Additional Oral Impairment Observations Mild oral residue, but oral phase grossly WFL for age. Pharyngeal Impairment Source: The Modified Barium Swallow Impairment Profile (MBSImP??) Soft Palate Elevation No bolus between soft palate & pharyngeal wall Laryngeal Elevation Part.sup.move.thyroid cart/ part.approx.arytenoids to epiglot.petiole Anterior Hyoid Excursion Partial anterior movement Epiglottic Movement Partial inversion Laryngeal Vestibular Closure Complete; no air/contrast in laryngeal vestibule Pharyngeal Stripping Wave Present - complete Pharyngoesophageal Segment Opening Complete distention & complete duration; no obstruction of flow Tongue Base Retraction Narrow column of contrast/air betwn tongue base & post. pharyngeal wall Pharyngeal Residue Collection of residue within/ on pharyngeal structures Location Valleculae Additional Pharyngeal Impairment Pharyngeal phase grossly WFL Observations for age. Mild vallecular residue after one swallow which was cleared with a secondary swallow. Flash penetration was present for thin liquids, which is WFL for age. No aspiration observed. A/P View Textures Administered Trials Presented Thin Liquid via Cup (IDDSI 0) The IDDSI Framework Protocol: IDDSI.1 A/P View Observations Esophageal Clearance Upright Position Esophageal retention w/ regtrograde flow below pharyngoesoph segment Esophageal Function Reverse Peristalsis Additional A-P Observations Backflow of thin liquids upwards through the esophagus was observed. Retrograde flow did not pass above PES during this study. Clinical Impressions Dysphagia Type Esophageal Findings Oral and pharyngeal phase WFL. Pt presents with retrograde flow in the esophagus consistent with preexisting dx of GERD. Rehabilitation Potential Excellent Patient Appropriate for Therapy No Recommendations Diet Liquids Order Thin (IDDSI 0) Diet Order Regular (IDDSI 7) Medication Recommendation As Tolerated Aspiration Precautions Recommended Precautions Upright at 90 Degrees Additional Precautions Reflux precautions Treatment Plan Recommended Referrals GI Consult Therapy Strategy Recommendations Sitting Upright (90 deg)
--- NOTE | 2024-04-17 15:47 | PC.NURSE ---
Provided discharge education to pt and pt's daughter Sravanthi on medications, GERD management, stroke education, & home safety. Discussed d/c meds and time of last dose. Encouraged pt to drink plenty of fluids to prevent constipation. Pt and pt's daughter stated all questions answered. PIV d/c'ed. All belongings with pt. Pt escorted to exit via wheelchair by PCT Gabriela, daughter driving pt home via POV.
== END 2024-04-17 15:51 | disposition home or self-care (01) ==
LOC: ED 18:00 → AC 21:40
PROVIDERS: Emergency Medicine; Internal Medicine; Surgery; Admitting Provider Internal Medicine; Emergency Provider Emergency Medicine; PCP Physician Assistant; Referring Provider Emergency Medicine; Visit Provider Internal Medicine
PROC: 0DJ08ZZ Inspection of Upper Intestinal Tract, Via Natural or Artificial Opening Endoscopic (ICD-10-PCS; CPT 43235; principal; 2024-04-16 11:45)
DX: K29.80 Duodenitis without bleeding (principal); K29.70 Gastritis, unspecified, without bleeding; E87.1 Hypo-osmolality and hyponatremia; K21.9 Gastro-esophageal reflux disease without esophagitis; I10 Essential (primary) hypertension; I48.0 Paroxysmal atrial fibrillation
CPT/HCPCS: 43235; 36415; 71045; 74177; 74230; 80048; 80053; 81003; 82550; 83690; 83735; 83880; 84484; 85025; 85610; 85730; 92611; 93005; 96361; 96374; 96375; 96376; 99284; G0378; C9113; J2405; J2704; Q9967

== ENCOUNTER 2024-05-01 02:01 | Observation (INO) | payer MEDICARE, SELFPAY ==
[2024-04-15 21:48] VITALS: BMI 26.4
[2024-05-01] VITALS (8 sets, daily range): BP systolic 149–192; BP diastolic 58–79; PULSE 68–74; RESP 16–22; TEMP 35.9–36.6; O2SAT 93–98; BMI 24.2
--- NOTE | 2024-05-01 02:12 | ED.GENADULT ---
HPI - General Adult General Chief complaint: Abdominal Pain Stated complaint: severe abd pain Time Seen by Provider: 05/01/24 02:03 History of Present Illness HPI narrative: 88-year-old woman with a history of esophagitis and gastritis admitted to the hospital for same with discharge on April 17, paroxysmal atrial fibrillation on amiodarone, hypertension with hydrochlorothiazide discontinued with recent hospitalization secondary to hyponatremia. Daughter presents with her and notes that her esophageal pain seems to be back to where it was led to initial hospitalization. She reportedly has been taking her pantoprazole, has stopped her hydrochlorothiazide and is becoming more confused. Patient complains that she is burning all over inside and out but then points mostly to her central chest/esophageal area. She is slightly confused majority of history is from the daughter. There has been no vomiting or diarrhea. No fevers, palpitations, cough, headaches. Related Data Home Medications Medication Instructions Recorded Confirmed amiodarone 100 mg tablet 100 mg PO DAILY 04/15/24 04/15/24 hydroxyzine pamoate 25 mg capsule 25 mg PO 3XD PRN Anxiety 04/15/24 04/15/24 levothyroxine 50 mcg tablet 50 mcg PO DAILY 04/15/24 04/15/24 losartan 100 1 tab PO DAILY 04/15/24 04/15/24 mg-hydrochlorothiazide 25 mg tablet rosuvastatin 10 mg tablet 10 mg PO ONCE PM 04/15/24 04/15/24 Previous Rx's Medication Instructions Recorded pantoprazole 40 mg tablet,delayed 40 mg PO BID #60 tabs 04/17/24 release (Protonix) Allergies Allergy/AdvReac Type Severity Reaction Status Date / Time Anesthetics - Collene Type- Allergy Unknown patient Verified 04/16/24 11:21 Parabens can't [Anesthetics - Colleen Type] remember procaine Allergy Unknown patient Verified 04/16/24 11:21 can't remember epinephrine [EPINEPHRINE] AdvReac Severe shakes Verified 04/16/24 11:21 hydrocodone AdvReac Severe patient Verified 04/16/24 11:21 can't remeber codeine AdvReac Intermediate vomiting Verified 04/16/24 11:21 aspirin AdvReac Mild GI UPSET Verified 04/16/24 11:21 Review of Systems Review of Systems Narrative: Pertinent positive and negative findings as per HPI Patient History Medical History (Updated 05/01/24 @ 03:21 by Radha Montoya MD) Anxiety Hypertension Surgical History Status post cholecystectomy Status post delivery Social History household members: none Smoking Status: Never smoker alcohol intake: never Smoking Status: Never smoker alcohol intake frequency: other Substance Use Type: does not use Exam Initial Vital Signs Initial Vital Signs: Vital Signs Pulse Rate 72 05/01/24 02:32 Respiratory Rate 16 05/01/24 02:32 Blood Pressure 192/79 H 05/01/24 02:32 Pulse Oximetry 97 05/01/24 02:32 Oxygen Delivery Method Room Air 05/01/24 02:32 General: Frail, hard of hearing, in obvious pain and moderate distress HEENT: Moist mucous membranes, normal sclera with reactive pupils, Respiratory: Lungs are clear to auscultation, no wheezing no rales no rhonchi. Full and symmetrical air movement Cardiac: Regular rate and rhythm no murmurs no bruits Abdomen: Soft, tender in the epigastrium without rebound or guarding Skin: Warm and dry, no rashes Neurologic: Globally weak, moving all extremities, nonfocal exam otherwise Extremities: No trauma, Psych: Slightly slowed, confused, cooperative Course Orders Ordered: ED Orders 05/01/24 02:23 Complete Blood Count AUTO DIFF Stat Comprehensive Metabolic Panel Stat Lipase Stat Magnesium Stat Troponin I Stat Urinalysis and Microscopic Stat EKG-12 Lead Stat 05/01/24 03:32 CT head/brain wo con Stat Hydromorphone HCl (Hydromorphone 0.5 Mg Inj) 0.5 mg IV Q15MIN PRN PRN Reason: Pain, Last Admin: 05/01/24 02:33 Dose: 0.5 mg Discontinued Medications Al Hydrox/Mg Hydrox/Simethicone 20 ml/ Lidocaine HCl 15 ml 0 ml PO NOW ONE Stop: 05/01/24 02:23 Last Admin: 05/01/24 02:30 Dose: 35 ml Sodium Chloride (Normal Saline 0.9%) 1,000 mls @ 1,000 mls/hr IV BOLUS ONE Stop: 05/01/24 03:21 Last Infusion: 05/01/24 03:52 Dose: Infused Ondansetron HCl (Ondansetron 4 Mg/2 Ml Inj) 4 mg IV NOW ONE Stop: 05/01/24 02:23 Last Admin: 05/01/24 02:29 Dose: 4 mg Pantoprazole Sodium (Pantoprazole 40 Mg Vial) 40 mg IV NOW ONE Stop: 05/01/24 03:33 Last Admin: 05/01/24 03:52 Dose: 40 mg Vital Signs Vital signs: Vital Signs - 8 hr 05/01/24 02:32 Pulse Rate 72 Respiratory Rate 16 Blood Pressure 192/79 H Pulse Oximetry 97 Oxygen Delivery Method Room Air Medical Decision Making Lab Data 05/01/24 02:23 05/01/24 02:23 Labs: Lab Results 05/01/24 Range/Units 02:23 WBC 9.2 (4.5-11.0) X10^3/uL RBC 4.16 (4.0-5.2) X10^6/uL Hgb 12.9 (12.0-16.0) g/dL Hct 36.6 (36-46) % MCV 88.1 (80-100) fL MCH 30.9 (26-34) PG MCHC 35.1 (30-36) % RDW 13.2 (11.6-14.8) % Plt Count 309 (150-400) X10^3/uL Neut % (Auto) 68.7 (50-75) % Lymph % (Auto) 22.1 L (25-40) % Randall % (Auto) 7.5 (3-14) % Eos % (Auto) 1.1 L (2-4) % Baso % (Auto) 0.6 (0-2) % Neut # (Auto) 6300 (1154-7925) /uL Lymph # (Auto) 2000 (7605-4672) /uL Randall # (Auto) 700 (0-900) /uL Eos # (Auto) 100 (0-450) /uL Baso # (Auto) 100 (0-100) /uL Sodium 120 L (137-145) mmol/L Potassium 3.4 (3.4-5.1) mmol/L Chloride 87 L (98-107) mmol/L Carbon Dioxide 24 (22-32) mmol/L BUN 10 (7-17) mg/dL Creatinine 0.68 (0.52-1.04) mg/dL Estimated GFR > 60 (>60) mL/min BUN/Creatinine Ratio 14.7 (6-22) Glucose 131 H (80-110) mg/dL Calcium 9.2 (8.4-10.2) mg/dL Magnesium 1.7 (1.6-2.3) mg/dL Total Bilirubin 0.8 (0.2-1.3) mg/dL AST 25 (14-36) IU/L ALT 23 (<35) IU/L Alkaline Phosphatase 62 (38-126) U/L Troponin I < 0.012 (0.01-0.034) ng/mL Total Protein 7.2 (6.3-8.2) g/dL Albumin 4.3 (3.5-5.0) g/dL Globulin 2.9 (1.7-4.1) g/dL Albumin/Globulin Ratio 1.5 (1.0-2.8) Lipase 126 (23-300) U/L MDM Narrative Medical decision making narrative: CC: Increasing confusion, recurrent burning esophageal pain Complicating co-morbidities: Discharge from the hospital April 16 for similar findings Data collected from: patient, daughter with whom she lives and her [id number] Medical records reviewed: Hospital discharge summary from April 16 reviewed -GERD with a esophagitis, hyponatremia to 121 thought to be secondary to hydrochlorothiazide, hypertension and paroxysmal atrial fibrillation. At time of discharge her sodium has been back up to 131. This is her only documented episode of abnormal sodium levels Patient did undergo EGD on April 16 which showed mild duodenitis and gastritis Differential considered: Recurrent hyponatremia, recurrent/continued gastritis with GERD, acute coronary syndrome Exam documented above, pertinent findings include: Patient appears to be in significant distress secondary to burning central chest pain but able to speak in full sentences, abdomen is soft she is mildly hypertensive. No significant lower extremity edema Lab Test results independently reviewed as above. Pertinent findings: CBC is unremarkable Chemistries show a sodium of 120, potassium is 3.4, chloride is low at 87. Renal function shows a creatinine at 0.68. Liver studies were unremarkable Troponin is undetectable Lipase is normal at 126 Independently reviewed EKG: Sinus rhythm at a rate of 73. Poor baseline. No obvious ischemic changes Imaging studies independently reviewed: CT scan of the abdomen and pelvis was done on April 15 for similar complaints. Noted mildly patulous distal esophagus, chronic diverticular disease, moderate fecal loading, 7 mm left lower lung nodule. Barium swallow done on April 17 is reviewed. Swallowing is appropriate noted mild reflux to the distal 3rd of the esophagus CT scan of the head shows no acute intracranial abnormalities Treatments: Fluids, half a mg of Dilaudid, Zofran, Maalox, IV pantoprazole Re-evaluations: Patient continues to complain of severe horrible burning pain all over her body far out of proportion to what her clinical exam suggests. Continues to complain of 10/10 often pain but can not localize this. I am wondering if her low-sodium is causing enough confusion that it is exacerbating her other findings. Discussion: 88-year-old woman who presents with rather dramatic epigastric pain, burning sensation all over her body, confusion and unable to fully articulate the rest of her symptoms. She stopped her hydrochlorothiazide with her most recent visit and sodium is again down to 120. There was no reports of excessive water consumption. Blood pressure is elevated and she looks increasingly uncomfortable despite pain medication, antiemetics and fluids. 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 She may have taken a dose this morning. CT scan of the head was not done with her prior visit, will do this today to make sure that there is not mass lesion or abnormality that might also explain the recurrent episodes of hyponatremia. Will review with the hospitalist service and anticipate hospitalization again for her sodium at 120 Discharge Plan Departure Patient Disposition: Admitted As Inpatient Clinical Impression: Acute hyponatremia, Acute epigastric pain, Acute confusion Admit Date/Time: 05/01/24 04:04 Admit Provider: Anam Berg
--- NOTE | 2024-05-01 02:23 | EKG_ITS ---
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
[2024-05-01] MEDS: ONDANSETRON 4 MG/2 ML INJ IV (02:29)
[2024-05-01] MEDS: MAG HYDROX/ALUMINUM/SIMETH SUS 20 ML, LIDOCAINE VISCOUS 2% 15 ML PO (02:30)
[2024-05-01] MEDS: HYDROMORPHONE 0.5 MG INJ IV (02:33)
[2024-05-01] MEDS: SODIUM CHLORIDE 0.9% 1,000 ML 1000 ML IV (02:33)
[2024-05-01 02:34] LABS: Add Manual Diff / Slide Review NO; Basophils Absolute Auto 100 /uL (0-100); Basophils Percent Auto 0.6 % (0-2); Eosinophils Absolute Auto 100 /uL (0-450); Eosinophils Percent Auto 1.1 % (2-4); Hematocrit 36.6 % (36-46); Hemoglobin 12.9 g/dL (12.0-16.0); Lymphocytes Absolute Auto 2000 /uL (1100-4500); Lymphocytes Percent Auto 22.1 % (25-40); Mean Corpuscular HGB Conc 35.1 % (30-36); Mean Corpuscular Hemoglobin 30.9 PG (26-34); Mean Corpuscular Volume 88.1 fL (80-100); Monocytes Absolute Auto 700 /uL (0-900); Monocytes Percent Auto 7.5 % (3-14); Neutrophils Absolute Auto 6300 /uL (1500-7000); Neutrophils Percent Auto 68.7 % (50-75); Platelet Count 309 X10^3/uL (150-400); Red Blood Cell Count 4.16 X10^6/uL (4.0-5.2); Red Cell Distribution Width 13.2 % (11.6-14.8); White Blood Cell Count 9.2 X10^3/uL (4.5-11.0)
[2024-05-01 02:49] LABS: Alanine Aminotransferase 23 IU/L (<35); Albumin 4.3 g/dL (3.5-5.0); Albumin Globulin Ratio 1.5 (1.0-2.8); Alkaline Phosphatase 62 U/L (38-126); Aspartate Aminotransferase 25 IU/L (14-36); BUN Creatinine Ratio 14.7 (6-22); Bilirubin Total 0.8 mg/dL (0.2-1.3); Blood Urea Nitrogen 10 mg/dL (7-17); Calcium 9.2 mg/dL (8.4-10.2); Carbon Dioxide 24 mmol/L (22-32); Chloride 87 mmol/L (98-107); Estimated Glomerular Filt Rate > 60 mL/min (>60); Globulin 2.9 g/dL (1.7-4.1); Glucose 131 mg/dL (80-110); HEMOLYSIS < 15 (0-50); Lipase 126 U/L (23-300); Magnesium 1.7 mg/dL (1.6-2.3); Potassium 3.4 mmol/L (3.4-5.1); Sodium 120 mmol/L (137-145); Total Protein 7.2 g/dL (6.3-8.2)
[2024-05-01 03:00] LABS: Troponin I < 0.012 ng/mL (0.01-0.034)
--- NOTE | 2024-05-01 03:32 | DI.CT.S_ITS ---
PROCEDURE: CT HEAD/BRAIN WO CON INDICATIONS: recurrent hyponatremia with altered mental status TECHNIQUE: Noncontrast 4.5 mm thick angled axial sections acquired from the foramen magnum to the vertex, with coronal and sagittal reformats. For radiation dose reduction, the following was used: automated exposure control, adjustment of mA and/or kV according to patient size. COMPARISON: [facility], CT, CT HEAD/BRAIN WO CON, 02/06/2019, 13:45. FINDINGS: Image quality: Diagnostic. CSF spaces: Basal cisterns are patent. No extra-axial fluid collections. The ventricles are symmetric in size and shape. Brain: No intracranial bleeds or masses. There is cerebral volume loss for age, with resultant ventricular and sulcal prominence. There are periventricular and deep white matter chronic small vessel ischemic changes. There is intracranial internal carotid artery atherosclerosis. Skull and face: Calvarium and visualized facial bones appear intact, without suspicious lesions. Sinuses: Visualized sinuses and mastoids are clear. IMPRESSION: No acute intracranial pathology. Dictated by: Rolf Elizalde M.D. on 05/01/2024 at 7:25 Approved by: Rolf Elizalde M.D. on 05/01/2024 at 7:26
[2024-05-01] MEDS: PANTOPRAZOLE 40 MG VIAL IV (03:52)
[2024-05-01 06:21] LABS: Add Manual Diff / Slide Review NO; Basophils Absolute Auto 0 /uL (0-100); Basophils Percent Auto 0.5 % (0-2); Eosinophils Absolute Auto 0 /uL (0-450); Eosinophils Percent Auto 0.4 % (2-4); Hematocrit 35.8 % (36-46); Hemoglobin 12.5 g/dL (12.0-16.0); Lymphocytes Absolute Auto 900 /uL (1100-4500); Lymphocytes Percent Auto 9.4 % (25-40); Mean Corpuscular HGB Conc 34.8 % (30-36); Mean Corpuscular Hemoglobin 31.1 PG (26-34); Mean Corpuscular Volume 89.2 fL (80-100); Monocytes Absolute Auto 500 /uL (0-900); Neutrophils Absolute Auto 7800 /uL (1500-7000); Neutrophils Percent Auto 84.7 % (50-75); Platelet Count 280 X10^3/uL (150-400); Red Blood Cell Count 4.01 X10^6/uL (4.0-5.2); Red Cell Distribution Width 13.4 % (11.6-14.8); White Blood Cell Count 9.2 X10^3/uL (4.5-11.0)
[2024-05-01 06:48] LABS: BUN Creatinine Ratio 13.6 (6-22); Blood Urea Nitrogen 8 mg/dL (7-17); Calcium 8.6 mg/dL (8.4-10.2); Carbon Dioxide 25 mmol/L (22-32); Chloride 90 mmol/L (98-107); Estimated Glomerular Filt Rate > 60 mL/min (>60); Glucose 137 mg/dL (80-110); HEMOLYSIS < 15 (0-50); Potassium 3.3 mmol/L (3.4-5.1); Sodium 121 mmol/L (137-145)
--- NOTE | 2024-05-01 07:20 | P.HP_ITS ---
History of Present Illness History of Present Illness Date Patient Seen: 05/01/24 Time Patient Seen: 06:45 Chief complaint: severe abd pain Narrative: 88 y/o brought by daughter for abdominal pain. In the ED then complained on nausea. Similar presentation few weeks ago when she was hospitalized with GERD and hyponatremia. As previously, she is hyponatremic but this time appears to be confused and encephalopathic. Placed in observation for hyponatremia. [facility] Medical History Anxiety Hypertension Surgical History Status post cholecystectomy Status post delivery Social History household members: none Smoking Status: Never smoker alcohol intake: never Meds Home Medications and Allergies Home Medications Medication Instructions Recorded Confirmed Type amiodarone 100 mg tablet 100 mg PO DAILY 04/15/24 05/01/24 History hydroxyzine pamoate 25 mg capsule 25 mg PO 3XD PRN Anxiety 04/15/24 05/01/24 History levothyroxine 50 mcg tablet 50 mcg PO DAILY 04/15/24 05/01/24 History rosuvastatin 10 mg tablet 10 mg PO ONCE PM 04/15/24 05/01/24 History losartan 100 mg tablet 100 mg PO DAILY 05/01/24 05/01/24 History pantoprazole 40 mg tablet,delayed 40 mg PO 1XD 05/01/24 05/01/24 History release (Protonix) Allergies Allergy/AdvReac Type Severity Reaction Status Date / Time Anesthetics - Colleen Type- Allergy Unknown patient Verified 04/16/24 11:21 Parabens can't [Anesthetics - Colleen Type] remember procaine Allergy Unknown patient Verified 04/16/24 11:21 can't remember epinephrine [EPINEPHRINE] AdvReac Severe shakes Verified 04/16/24 11:21 hydrocodone AdvReac Severe patient Verified 04/16/24 11:21 can't remeber codeine AdvReac Intermediate vomiting Verified 04/16/24 11:21 aspirin AdvReac Mild GI UPSET Verified 04/16/24 11:21 Review of Systems Review of Systems Narrative: Unobtainable due to encephalopathy Her daughter reported on abdominal pain. Exam Vital Signs (past 8 hours): - 05/01/24 02:32 05/01/24 04:41 05/01/24 04:42 Temperature Pulse Rate 72 69 Respiratory Rate 16 19 Blood Pressure 192/79 H 192/77 H Pulse Oximetry 97 93 Oxygen Delivery Method Room Air Oxygen Flow Rate 05/01/24 04:42 05/01/24 05:21 Temperature 96.6 F L Pulse Rate 69 74 Respiratory Rate 20 22 Blood Pressure 179/63 H Pulse Oximetry 95 98 Oxygen Delivery Method Oxygen Flow Rate 0 Oxygen Delivery Method Room Air Oxygen Flow Rate 0 Const Other: In no distress, daughter at bedside HENMT Other: normocephalic Resp Other: normal respiratory effort Cardio Other: RRR GI Other: not distended, w/o peritoneal signs Psych Other: anxious, encephalopathic Objective Labs 05/01/24 06:09 05/01/24 06:09 Labs: Laboratory Results - last 24 hr 05/01/24 05/01/24 02:23 06:09 WBC 9.2 9.2 RBC 4.16 4.01 Hgb 12.9 12.5 Hct 36.6 35.8 L MCV 88.1 89.2 MCH 30.9 31.1 MCHC 35.1 34.8 RDW 13.2 13.4 Plt Count 309 280 Neut % (Auto) 68.7 84.7 H Lymph % (Auto) 22.1 L 9.4 L Jones % (Auto) 7.5 5.0 Eos % (Auto) 1.1 L 0.4 L Baso % (Auto) 0.6 0.5 Neut # (Auto) 6300 7800 H Lymph # (Auto) 2000 900 L Jones # (Auto) 700 500 Eos # (Auto) 100 0 Baso # (Auto) 100 0 Sodium 120 L 121 L Potassium 3.4 3.3 L Chloride 87 L 90 L Carbon Dioxide 24 25 BUN 10 8 Creatinine 0.68 0.59 Estimated GFR > 60 > 60 BUN/Creatinine Ratio 14.7 13.6 Glucose 131 H 137 H Calcium 9.2 8.6 Magnesium 1.7 Total Bilirubin 0.8 AST 25 ALT 23 Alkaline Phosphatase 62 Troponin I < 0.012 Total Protein 7.2 Albumin 4.3 Globulin 2.9 Albumin/Globulin Ratio 1.5 Lipase 126 Assessment & Plan Assessment and plan (1) Acute hyponatremia: Status: Acute (2) Acute metabolic encephalopathy: Status: Acute (3) Hypertension: Qualifiers: Hypertension type: unspecified Qualified Code(s): I10 - Essential (primary) hypertension Status: Acute (4) Anxiety: Status: Acute (5) Gastroesophageal reflux disease: Status: None Assessment & Plan narrative: Hyponatremia - 120, likely hypovolemic - NS - BMP pending Acute Metabolic Encephalopathy - likely from hyponatremia Anxiety - Hydroxyzine HTN - Losartan 100 mg daily - uncontrolled PAF - amiodarone 100 mg daily GERD - PPI DVT prophylaxis - SCDs Time-Based Coding :: [TOTAL MINUTES] spent with patient and on the chart (including review of chart, obtaining history, exam, reviewing outside data, placing orders, documenting exam and treatment plan, and counseling patient) on [DATE].
--- NOTE | 2024-05-01 07:37 | PM.HP.1 ---
History of Present Illness History of Present Illness Date Patient Seen: 05/01/24 Chief complaint: severe abd pain Narrative: From night doctor: 88 y/o brought by daughter for abdominal pain. In the ED then complained on nausea. Similar presentation few weeks ago when she was hospitalized with GERD and hyponatremia. As previously, she is hyponatremic but this time appears to be confused and encephalopathic. Placed in observation for hyponatremia. S: She was in the hospital and discharged on 04/17 after being admitted for heartburn, weakness and nausea. At that point she underwent endoscopy which revealed duodenitis and gastritis. She was discharged on a PPI. Her sodium was 121 during that admission improved to 131 with IV fluids. She now turns having had progressive anorexia, ongoing dyspepsia and weakness. Her sodium was low again. She was started on saline. She denies any blood per rectum or melena. She denies any hematemesis. She has minimal abdominal pain but does have occasional dyspeptic symptoms. [facility] Medical History Anxiety Hypertension Surgical History Status post cholecystectomy Status post delivery Social History household members: none Smoking Status: Never smoker alcohol intake: never Meds Home Medications and Allergies Home Medications Medication Instructions Recorded Confirmed Type amiodarone 100 mg tablet 100 mg PO DAILY 04/15/24 05/01/24 History hydroxyzine pamoate 25 mg capsule 25 mg PO 3XD PRN Anxiety 04/15/24 05/01/24 History levothyroxine 50 mcg tablet 50 mcg PO DAILY@04/15/24 05/01/24 History rosuvastatin 10 mg tablet 10 mg PO BEDTIME 04/15/24 05/01/24 History losartan 100 mg tablet 100 mg PO DAILY 05/01/24 05/01/24 History pantoprazole 40 mg tablet,delayed 40 mg PO DAILY@05/01/24 05/01/24 History release (Protonix) Allergies Allergy/AdvReac Type Severity Reaction Status Date / Time Anesthetics - Colleen Type- Allergy Unknown patient Verified 04/16/24 11:21 Parabens can't [Anesthetics - Colleen Type] remember procaine Allergy Unknown patient Verified 04/16/24 11:21 can't remember epinephrine [EPINEPHRINE] AdvReac Severe shakes Verified 04/16/24 11:21 hydrocodone AdvReac Severe patient Verified 04/16/24 11:21 can't remeber codeine AdvReac Intermediate vomiting Verified 04/16/24 11:21 aspirin AdvReac Mild GI UPSET Verified 04/16/24 11:21 Review of Systems Review of Systems Narrative: All else reviewed and otherwise unremarkable except as noted in the history and physical. Exam Vital Signs (past 8 hours): - 05/01/24 02:32 05/01/24 04:41 05/01/24 04:42 Temperature Pulse Rate 72 69 Respiratory Rate 16 19 Blood Pressure 192/79 H 192/77 H Pulse Oximetry 97 93 Oxygen Delivery Method Room Air Oxygen Flow Rate 05/01/24 04:42 05/01/24 05:21 Temperature 96.6 F L Pulse Rate 69 74 Respiratory Rate 20 22 Blood Pressure 179/63 H Pulse Oximetry 95 98 Oxygen Delivery Method Oxygen Flow Rate 0 Oxygen Delivery Method Room Air Oxygen Flow Rate 0 Narrative Exam Narrative: NAD, alert and oriented, fluent speech, calm. Normocephalic skull, EOMI, anicteric sclera, symmetric pupils. Oropharynx unremarkable, no droop. Neck supple, midline trachea, no adenopathy. Lungs clear, normal rate and effort. Heart regular, no murmur gallop or rub. Abdomen is soft, non distended and non tender. Extremities are free of edema. Skin is free of rash or lesions. Joints are not swollen or deformed. Judgment appears to be normal. Objective Imaging CT scan - abdomen: Radiologist's impression: IMPRESSION: No acute small bowel obstruction. Mildly patulous distal esophagus, with mild wall thickening of the stomach and distal esophagus, not well evaluated due to under distension, possibly esophagitis and gastritis. Suspected chronic diverticular disease, with mild wall thickening of the distal colon, correlate with age-appropriate colonoscopy results. Moderate fecal loading. 7 mm left lower lobe lung nodule, consider follow-up in 6 months (or sooner if there is malignancy concern). [facility] 04/17:: Radiologist's impression: FINDINGS: Function: The oral preparatory phase appears normal, with proper containment. The subsequent oral propulsive phase, pharyngeal phase, and esophageal phase of swallowing also appear normal with all proffered substances. No laryngotracheal penetration or aspiration. No pathologic vallecular pooling. Morphology: No cricopharyngeal bar is identified. No cervical esophageal webs. No Zenker's diverticulum. No strictures. Mild reflux to the distal 3rd of the esophagus. IMPRESSION: Mild gastroesophageal reflux. Labs 05/01/24 06:09 05/01/24 09:05 Labs: Laboratory Results - last 24 hr 05/01/24 05/01/24 02:23 06:09 WBC 9.2 9.2 RBC 4.16 4.01 Hgb 12.9 12.5 Hct 36.6 35.8 L MCV 88.1 89.2 MCH 30.9 31.1 MCHC 35.1 34.8 RDW 13.2 13.4 Plt Count 309 280 Neut % (Auto) 68.7 84.7 H Lymph % (Auto) 22.1 L 9.4 L Hutchinson % (Auto) 7.5 5.0 Eos % (Auto) 1.1 L 0.4 L Baso % (Auto) 0.6 0.5 Neut # (Auto) 6300 7800 H Lymph # (Auto) 2000 900 L Hutchinson # (Auto) 700 500 Eos # (Auto) 100 0 Baso # (Auto) 100 0 Sodium 120 L 121 L Potassium 3.4 3.3 L Chloride 87 L 90 L Carbon Dioxide 24 25 BUN 10 8 Creatinine 0.68 0.59 Estimated GFR > 60 > 60 BUN/Creatinine Ratio 14.7 13.6 Glucose 131 H 137 H Calcium 9.2 8.6 Magnesium 1.7 Total Bilirubin 0.8 AST 25 ALT 23 Alkaline Phosphatase 62 Troponin I < 0.012 Total Protein 7.2 Albumin 4.3 Globulin 2.9 Albumin/Globulin Ratio 1.5 Lipase 126 Assessment & Plan Assessment & Plan narrative: Hyponatremia, (hypovolemic), present on admission and active. - 120, likely hypovolemic - NS infusion. - BMP pending Acute Metabolic Encephalopathy, present on admission and active. - likely from hyponatremia Hypokalemia, present on admission and active. Dyspepsis, present on admission and active. Anxiety, present on admission and active. - Hydroxyzine HTN, present on admission and active. - Losartan 100 mg daily - uncontrolled PAF, present on admission and active. - amiodarone 100 mg daily GERD, present on admission and active. - PPI PLAN: -saline and monitor Na -replace potassium -monitor mental status. -Continue PPI KARSON: 05/03 when Na corrected and PO intake adequate. DVT prophylaxis - SCDs Full code Daughter is decision maker proxy. Time-Based Coding :: 35 spent with patient and on the chart (including review of chart, obtaining history, exam, reviewing outside data, placing orders, documenting exam and treatment plan, and counseling patient) on 05/01. Quality MIPS - Admit The patient?s Advance Care plan is not present because I confirmed today that the patient does not wish or was not able to name a surrogate decision maker or provide an Advance Care Plan.: Yes MIPS - Meds 'Current medications' to include all prescriptions, [id number] products, herbals, cannabis/cannabidiol products, and vitamin/mineral/dietary (nutritional) supplements. I have utilized all available resources to obtain, update, or review the patient?s current medications. [If Yes, STOP here]: Yes
[2024-05-01] MEDS: SODIUM CHLORIDE 0.9% 1,000 ML 100 ML IV ×2 (08:56→18:39)
[2024-05-01] MEDS: PROCHLORPERAZINE 10 MG/2 ML VIAL IV (08:57)
[2024-05-01] MEDS: POTASSIUM CHLORIDE 20 MEQ TAB 40 MEQ PO ×2 (09:02→18:22)
[2024-05-01] MEDS: LOSARTAN 50 MG TABLET 100 MG PO (09:03)
[2024-05-01] MEDS: AMIODARONE 200 MG TABLET 100 MG PO (09:03)
[2024-05-01] MEDS: hydrOXYzine HCL 25 MG TABLET PO (09:03)
[2024-05-01] MEDS: LEVOTHYROXINE 50 MCG TABLET PO (09:07)
[2024-05-01] MEDS: PANTOPRAZOLE DR 40 MG TABLET PO (09:09)
[2024-05-01 09:41] LABS: BUN Creatinine Ratio 13.8 (6-22); Blood Urea Nitrogen 8 mg/dL (7-17); Calcium 8.4 mg/dL (8.4-10.2); Carbon Dioxide 23 mmol/L (22-32); Chloride 90 mmol/L (98-107); Estimated Glomerular Filt Rate > 60 mL/min (>60); Glucose 121 mg/dL (80-110); HEMOLYSIS < 15 (0-50); Potassium 3.3 mmol/L (3.4-5.1); Sodium 121 mmol/L (137-145)
[2024-05-01] MEDS: METOCLOPRAMIDE 10 MG/2 ML INJ 5 MG IV ×2 (11:22→17:07)
[2024-05-01 12:43] LABS: Appearance Urine UA CLEAR; Bilirubin Urine UA NEGATIVE (NEGATIVE); Color Urine UA YELLOW; Glucose Urine UA NEGATIVE (Negative); Ketones Urine UA 1+ (NEGATIVE); Leukocyte Esterase Urine UA TRACE (NEGATIVE); Nitrite Urine UA NEGATIVE (Negative); Occult Blood Urine UA TRACE-INTACT (Negative); Protein Urine UA NEGATIVE (Negative); Urobilinogen Urine UA 0.2 E.U./dL (0.2)
[2024-05-01 12:45] LABS: pH Urine UA 7.5 (4.5-8.0)
[2024-05-01 12:54] LABS: Bacteria Urine None Seen; Culture Indicated Urine Cult Not Indicated; RBC Urine None Seen (0-5/HPF); Squamous Epithelial Cell Urine None Seen (0-5/HPF); Urine Volume 10mL (spun); WBC Urine None Seen (0-5/HPF)
--- NOTE | 2024-05-01 13:36 | CM.DANOTE ---
Initial DCP Assessment Visit Note Reviewed EMR and team rounds for status updates. Met [facility] pt, son, and dtr at bedside to introduce self and role, pt is well known to this PELLETIZER OPERATOR from her last admission from 04/15-04/17/24 for similar issues. Pt resides modified independently and alone in her own home here in [place]. Her son, Arnulfo, is her proxy. Family is waiting to see how pt does over the next day or so to determine if she needs Home Health or home w/hired cg's. Family will also plan to transport at time of d/c. Payor: [facility] PCP: Niru Maria Pt is a 88 year-old F with a hx of esophagitis and gastritis. She presented to the ED with worsening, burning esophogeal pain, increased confusion, found to be hyponatremic and encephalopathic. She was started on IV fluids, and placed in OBS for tx of the hyponatremia. DCP will continue to follow and assist with final d/c recommendations for OP assistance and resources. Discharge Planning/Care Management CM Discharge Assessment Start: 05/01/24 13:33 Freq: Status: Active Protocol: Document 05/01/24 13:33 DPL (Rec: 05/01/24 13:36 DPL [id number]) Discharge Planning Assessment Assigned Floor Sander ANDREW Gonzales Advance Directives? Yes Advance Directives on File No History Provided By Patient,Family Member,Medical Record Has Patient been admitted in last 30 Yes days? Comment Recent admission for same issues: 04/15-04/17/24 Prior Living Arrangements House Household Members none Type of transporation used prior to Relies on Others admit Independent with ADL's No: modified independent w/ family assistance Is patient alert and oriented? Yes Needs Assistance With Managing Medications,Home Chores / Shopping Caregiver for Another No DME Already Rented / Owned Bath Bench,Elevated Toilet Seat,FWW / Walker Comment Pending PT/OT evals and recommendations. Will likely need Home Health. This PELLETIZER OPERATOR provided them cg resources for hiring in-home care after her last hospitalization. Barriers to Discharge No Discharge Plan Home Transportation Arrangement Daughter or son. Additional Comment Pending If patient plan is home with home health No : Has signed face to face form been completed? Whiteboard Updated in Patient Room with Yes name and ext. # of Floor Sander Review Status In Process Please Provide Date Initial DC 05/01/24 Assessment Was Performed
[2024-05-01 14:07] LABS: BUN Creatinine Ratio 10.5 (6-22); Blood Urea Nitrogen 6 mg/dL (7-17); Calcium 8.3 mg/dL (8.4-10.2); Carbon Dioxide 24 mmol/L (22-32); Chloride 92 mmol/L (98-107); Estimated Glomerular Filt Rate > 60 mL/min (>60); Glucose 156 mg/dL (80-110); HEMOLYSIS < 15 (0-50); Potassium 3.2 mmol/L (3.4-5.1); Sodium 122 mmol/L (137-145)
[2024-05-02] MEDS: SODIUM CHLORIDE 0.9% 1,000 ML 100 ML IV (03:34)
[2024-05-02] MEDS: PANTOPRAZOLE DR 40 MG TABLET PO (05:58)
[2024-05-02] MEDS: LEVOTHYROXINE 50 MCG TABLET PO (05:59)
[2024-05-02 06:00] VITALS: BP 161/53; PULSE 69; RESP 16; TEMP 36.5; O2SAT 98
--- NOTE | 2024-05-02 07:24 | P.PN_ITS ---
Subjective Subjective Interval history: Exam Vital Signs (past 8 hours): - 05/02/24 06:00 Temperature 97.7 F Pulse Rate 69 Respiratory Rate 16 Blood Pressure 161/53 H Pulse Oximetry 98 Oxygen Flow Rate 0 Oxygen Delivery Method Room Air Oxygen Flow Rate 0 Narrative Exam Narrative: NAD, alert and oriented. Fluent speech. Lungs are clear, normal rate and effort. Heart is regular, no murmur gallop or rub. Abdomen is soft, non distended. Extremities are free of edema. Objective Labs 05/01/24 06:09 05/01/24 13:12 Labs: Laboratory Results - last 24 hr 05/01/24 05/01/24 05/01/24 09:05 12:10 13:12 Sodium 121 L 122 L Potassium 3.3 L 3.2 L Chloride 90 L 92 L Carbon Dioxide 23 24 BUN 8 6 L Creatinine 0.58 0.57 Estimated GFR > 60 > 60 BUN/Creatinine Ratio 13.8 10.5 Glucose 121 H 156 H Calcium 8.4 8.3 L Urine Color Yellow Urine Appearance Clear Urine pH 7.5 Ur Specific [place] 1.010 Urine Protein Negative Urine Glucose (UA) Negative Urine Ketones 1+ H Urine Occult Blood Trace-intact Urine Nitrate Negative Urine Bilirubin Negative Urine Urobilinogen 0.2 Ur Leukocyte Esterase Trace H Urine RBC None seen Urine WBC None seen Ur Squamous Epith Cells None seen Urine Bacteria None seen Ur Culture Indicated? Cult not indicated Vol Urine Centrifuged 10ml (spun) [facility] Medical History Anxiety Hypertension Surgical History Status post cholecystectomy Status post delivery Social History household members: none Smoking Status: Never smoker alcohol intake: never Assessment & Plan Assessment & Plan narrative: 1. Hyponatremia, (hypovolemic), present on admission and active. - 120, likely hypovolemic 2. Acute Metabolic Encephalopathy, present on admission and active. - likely from hyponatremia 3. Hypokalemia, present on admission and active. 4. Dyspepsis, present on admission and active. 5. Anxiety, present on admission and active. - Hydroxyzine 6. HTN, present on admission and active. - Losartan 100 mg daily 7. PAF, present on admission and active. - amiodarone 100 mg daily GERD, present on admission and active. - PPI deaily outpatient PLAN: -saline and monitor Na -replace potassium -monitor mental status. -Continue PPI KARSON: 05/03 when Na corrected and PO intake adequate. DVT prophylaxis - SCDs Time-Based Coding :: [TOTAL MINUTES] spent with patient and on the chart (including review of chart, obtaining history, exam, reviewing outside data, placing orders, documenting exam and treatment plan, and counseling patient) on [DATE].
[2024-05-02 07:53] LABS: Hematocrit 33.1 % (36-46); Hemoglobin 11.3 g/dL (12.0-16.0); Mean Corpuscular Hemoglobin 30.7 PG (26-34); Mean Corpuscular Volume 90.3 fL (80-100); Platelet Count 263 X10^3/uL (150-400); Red Blood Cell Count 3.66 X10^6/uL (4.0-5.2); Red Cell Distribution Width 13.2 % (11.6-14.8)
[2024-05-02 08:00] VITALS: BP 100/55; PULSE 70; RESP 16; TEMP 36.4; O2SAT 95
[2024-05-02 08:01] LABS: BUN Creatinine Ratio 7.2 (6-22); Blood Urea Nitrogen 5 mg/dL (7-17); Calcium 8.2 mg/dL (8.4-10.2); Carbon Dioxide 22 mmol/L (22-32); Chloride 106 mmol/L (98-107); Estimated Glomerular Filt Rate > 60 mL/min (>60); Glucose 83 mg/dL (80-110); HEMOLYSIS < 15 (0-50); Sodium 131 mmol/L (137-145)
[2024-05-02] MEDS: AMIODARONE 200 MG TABLET 100 MG PO (09:18)
[2024-05-02 09:19] VITALS: BP 145/52; PULSE 70
[2024-05-02] MEDS: LOSARTAN 50 MG TABLET 100 MG PO (09:19)
--- NOTE | 2024-05-02 10:14 | DIET.CONS ---
Dietary Consultation Note Admission Date: 05/01/2024 04:04 Assessment: 88 y F admitted for worsening esophageal pain, increased confusion, and hyponatremia. Nutrition screened for low MNA. Met with pt, son, and dtr at bedside. Reports improved appetite/tolerance now, but decreased appetite/early satiety for last 2-3 wks related to abd discomfort/esophageal pain/burning and taste changes. Has only been able to tolerate a few bites of soft fruits and vegetable soup in past 2-3 wks. Has experienced heartburn for years. 3 PO intakes recorded: 50-75%, DFM reviewed for meal composition, limited protein sources chosen. NFPE: no significant findings. Assessed : temporalis, clavicle region, interosseous, buccal/orbital fat pads. Ht: 149.86 cm Wt: 54.431 kg BMI: 24.2 UBW: 63.64 kg within past yr per pt report (-14.5% weight in 1 yr, non-significant) Last BM: 04/30/24 (05/01/24 05:07) MNA: 10 Geovanni Score: 19 Diet: 05/01/24 Breakfast Heart Healthy Diet Diet Modifications: Nutrition Percent Meal Consumed 75% 05/01/24 18:00 Percent Meal Consumed 50% 05/01/24 14:00 Percent Meal Consumed 50% 05/01/24 13:00 Labs: RBC 3.66 X10^6/uL (4.0-5.2) L 05/02/24 07:38 Hgb 11.3 g/dL (12.0-16.0) L 05/02/24 07:38 Hct 33.1 % (36-46) L 05/02/24 07:38 Creatinine 0.69 mg/dL (0.52-1.04) 05/02/24 07:38 Nutrition Diagnosis: Inadequate oral intake r/t decreased ability to consume sufficient energy-protein in setting of GI discomfort aeb <50% estimated energy intake for 2-3 weeks Interventions: 1. Reviewed protein sources and encouraged adequate intake at meals as tolerated 2. ONS trial Monitoring/Evaluations: po intakes, ons prn Electronically Signed by: Luna Harrell 05/02/24 10:14 Clinical Dietitian [address] [id number]
--- NOTE | 2024-05-02 12:09 | PM.DS.1 ---
History of Present Illness History of Present Illness Chief complaint: severe abd pain Narrative: From night doctor: 88 y/o brought by daughter for abdominal pain. In the ED then complained on nausea. Similar presentation few weeks ago when she was hospitalized with GERD and hyponatremia. As previously, she is hyponatremic but this time appears to be confused and encephalopathic. Placed in observation for hyponatremia. S: She was in the hospital and discharged on 04/17 after being admitted for heartburn, weakness and nausea. At that point she underwent endoscopy which revealed duodenitis and gastritis. She was discharged on a PPI. Her sodium was 121 during that admission improved to 131 with IV fluids. She now turns having had progressive anorexia, ongoing dyspepsia and weakness. Her sodium was low again. She was started on saline. She denies any blood per rectum or melena. She denies any hematemesis. She has minimal abdominal pain but does have occasional dyspeptic symptoms. Discharge Providers Provider Date of admission: 05/01/24 04:04 Discharge Date: 05/02/24 Primary care physician: Niru Maria PA-C Consults: None. Discharge provider: Cristhian Goldstein MD Summary Hospital Course Discharge Diagnosis: This patient had recently been admitted for dyspepsia and hyponatremia. This was corrected and she was discharged on PPI b.i.d. after a endoscopy indicated evidence of acid secretion with gastritis and duodenitis. She did well for a short time and then had recurrent symptoms including dyspepsia, loose stools, and ultimately weakness and anorexia. She re-presented with hyponatremia with a sodium of 120, this corrected to 130 we will saline. A PPI was increased to b.i.d. and her symptoms completely resolved. Met with her family at the day of discharge and our plan is to let her go home but scheduled Reglan b.i.d. for the next 1-2 weeks until follow up with PCP and increase her PPI back to b.i.d.. She will require encouragement with taking oral intake and fluids and will require follow up lab tests when she sees her PCP in 1-2 weeks. Hospital Course: Hyponatremia, (hypovolemic), present on admission and improved. - 120, likely hypovolemic -Improved to 131. Acute Metabolic Encephalopathy, present on admission and resolved. - likely from hyponatremia Hypokalemia, present on admission and resolved. Dyspepsia, present on admission and active. Anxiety, present on admission and active. - Hydroxyzine HTN, present on admission and active. - Losartan 100 mg daily PAF, present on admission and active. - amiodarone 100 mg daily GERD, present on admission and active. - PPI Status at Discharge Cognitive/behavioral status at discharge: oriented Functional status at discharge: uses cane/walker Overall status at discharge: patient is back to baseline Time Spent with Patient Time spent: Greater than 30 minutes Exam Vital Signs (past 8 hours): - 05/02/24 06:00 05/02/24 08:00 05/02/24 09:19 Temperature 97.7 F 97.5 F L Pulse Rate 69 70 70 Respiratory Rate 16 16 Blood Pressure 161/53 H 100/55 L 145/52 H Pulse Oximetry 98 95 Oxygen Flow Rate 0 Oxygen Delivery Method Room Air Oxygen Flow Rate 0 Narrative Exam Narrative: NAD, alert and oriented. Fluent speech. Lungs are clear, normal rate and effort. Heart is regular, no murmur gallop or rub. Abdomen is soft, non distended. Extremities are free of edema. Objective Imaging CT scan - head: Radiologist's impression: No acute intracranial pathology. Labs 05/02/24 07:38 05/02/24 07:38 Labs: Laboratory Results - last 24 hr 05/01/24 05/01/24 05/02/24 12:10 13:12 07:38 WBC 7.0 RBC 3.66 L Hgb 11.3 L Hct 33.1 L MCV 90.3 MCH 30.7 MCHC 34.0 RDW 13.2 Plt Count 263 Sodium 122 L 131 L Potassium 3.2 L 4.0 Chloride 92 L 106 Carbon Dioxide 24 22 BUN 6 L 5 L Creatinine 0.57 0.69 Estimated GFR > 60 > 60 BUN/Creatinine Ratio 10.5 7.2 Glucose 156 H 83 Calcium 8.3 L 8.2 L Urine Color Yellow Urine Appearance Clear Urine pH 7.5 Ur Specific [place] 1.010 Urine Protein Negative Urine Glucose (UA) Negative Urine Ketones 1+ H Urine Occult Blood Trace-intact Urine Nitrate Negative Urine Bilirubin Negative Urine Urobilinogen 0.2 Ur Leukocyte Esterase Trace H Urine RBC None seen Urine WBC None seen Ur Squamous Epith Cells None seen Urine Bacteria None seen Ur Culture Indicated? Cult not indicated Vol Urine Centrifuged 10ml (spun) [facility] Medical History Anxiety Hypertension Surgical History Status post cholecystectomy Status post delivery Social History household members: none Smoking Status: Never smoker alcohol intake: never Discharge Assessment & Plan Assessment and Plan Assessment: Hyponatremia, (hypovolemic), present on admission and improved. - 120, likely hypovolemic Acute Metabolic Encephalopathy, present on admission and resolved. - likely from hyponatremia Hypokalemia, present on admission and resolved. Dyspepsia, present on admission and active. Anxiety, present on admission and active. - Hydroxyzine HTN, present on admission and active. - Losartan 100 mg daily PAF, present on admission and active. - amiodarone 100 mg daily GERD, present on admission and active. - PPI Plan of Treatment: She was discharged home with scheduled Reglan twice a day until follow up with in the next 1-2 weeks. We will also increase her pantoprazole to b.i.d. for dyspepsia and symptoms related to acid production. Discharge Plan Discharge Plan Patient Disposition: Home Provider Discharge Comment: Stable for discharge home. Discharge orders & Medications Prescriptions: New pantoprazole 40 mg tablet,delayed release (DR/EC) 40 mg PO BID Qty: 60 1RF metoclopramide HCl [Reglan] 5 mg tablet 5 mg PO BID Qty: 60 1RF Rx Instructions: administer 30 minutes before meals Continued levothyroxine 50 mcg tablet 50 mcg PO DAILY@06 hydroxyzine pamoate 25 mg capsule 25 mg PO 3XD PRN (Reason: Anxiety) rosuvastatin 10 mg tablet 10 mg PO BEDTIME amiodarone 100 mg tablet 100 mg PO DAILY losartan 100 mg tablet 100 mg PO DAILY Discontinued pantoprazole [Protonix] 40 mg tablet,delayed release (DR/EC) 40 mg PO DAILY@07 Follow up/Referrals: Niru Maria PA-C [Primary Care Provider] - Discharge Health Status Multidrug resistant organism: No MDRO Diet/Activity/Treatments Diet: Diet as Tolerated Visit Report/Discharge Packet Stand Alone Forms: Patient Portal/API Discharge Data Primary Care Provider: Niru Maria
--- NOTE | 2024-05-02 13:57 | CM.DPNOTE ---
DC Note Patient has been discharged home w/family; met w/patient's son/DPOA Arnulfo and daughter Sravanthi (lives in [place]), reviewed discharge plan. Family states concern about patient's safety at home and that she will need additional assist. Discussed in home care private payment vs insurance covered HH services. According to family, patient has refused SNF and SNF. Provided senior resource guide. Son explains he has made many calls to agencies investigating cost and availability. Family hopeful to have in-home caregivers in patient's home as soon as possible. Meanwhile, family can rotate care for patient. Family requests HH referral, no agency preference. [facility] [employer], kindly agreed to send referral to [facility] based on soonest availability. F2F and HH order completed. Plan: Discharge home w/family and [facility] services, RN/PT/OT/WEB DEVELOPMENT CONSULTANT/ROLL REPAIRER. Family coordinating private pay in home care for patient. FEDE
[2024-05-03 15:55] LABS: TSH w/ Reflex to FT4 5.69 uIU/mL (0.47-4.68)
[2024-05-03 16:47] LABS: Free T4, Direct Thyroxine 2.32 ng/dL (0.78-2.19)
== END 2024-05-02 13:30 | disposition home or self-care (01) ==
LOC: ED 03:21 → AC 04:15
PROVIDERS: Family Medicine; Hospitalist; Admitting Provider Internal Medicine; Emergency Provider Emergency Medicine; PCP Physician Assistant; Referring Provider Emergency Medicine; Visit Provider Internal Medicine
DX: G93.41 Metabolic encephalopathy (principal); E87.1 Hypo-osmolality and hyponatremia; K21.9 Gastro-esophageal reflux disease without esophagitis; I10 Essential (primary) hypertension; E03.9 Hypothyroidism, unspecified; F41.9 Anxiety disorder, unspecified
CPT/HCPCS: 36415; 70450; 80048; 80053; 81001; 83690; 83735; 84439; 84443; 84484; 85025; 85027; 93005; 93010; 96361; 96374; 96375; 96376; 99284; G0378; A9270; J0780; J1170; J2405; J2470; J2765

== ENCOUNTER 2024-05-17 07:46 | Emergency (ER) | payer MEDICARE, SELFPAY ==
[2024-05-01 05:07] VITALS: BMI 24.2
[2024-05-17] VITALS (12 sets, daily range): BP systolic 186–227; BP diastolic 83–102; PULSE 66–82; RESP 18–27; TEMP 36.5; O2SAT 95–98; BMI 24.6
--- NOTE | 2024-05-17 08:20 | DI.RAD.S_ITS ---
PROCEDURE: XR CHEST 1V INDICATIONS: chest pain TECHNIQUE: One view of the chest was acquired. COMPARISON: [facility], CR, XR CHEST 1V, 04/15/2024, 16:54. [facility], CR, XR CHEST 1V, 02/04/2022, 17:14. FINDINGS: Surgical changes and devices: None. Lungs and pleura: Lungs are clear. No pleural effusions or pneumothorax. Mediastinum: Mediastinal contours appear normal. Heart size is mildly enlarged. Bones and chest wall: No suspicious bony lesions. Overlying soft tissues appear unremarkable. IMPRESSION: No acute cardiopulmonary abnormality is seen. Dictated by: Miles Cline M.D. on 05/17/2024 at 8:59 Approved by: Miles Cline M.D. on 05/17/2024 at 9:02
--- NOTE | 2024-05-17 08:39 | EKG_ITS ---
[place] [id number] [address] [place] [id number] Test Date: 2024-05-17 Pat Name: Emma Callahan Department: [facility] Room: Gender: Female Undercover Agent: : [id number] Requested By: Order Number: [id number] Reading MD: Cristhian Goldstein Measurements Intervals [place] Rate: 78 P: 45 MD: 132 QRS: -16 QRSD: 72 T: -4 QT: 410 QTc: 467 Interpretive Statements Normal sinus rhythm Minimal voltage criteria for LVH, may be normal variant ( R in aVL ) Inferior infarct , age undetermined Cannot rule out Anterior infarct , age undetermined Electronically Signed On 05-18-2024 18:29:37 PDT by Cristhian Goldstein
[2024-05-17 08:46] LABS: Add Manual Diff / Slide Review NO; Basophils Absolute Auto 100 /uL (0-100); Basophils Percent Auto 0.6 % (0-2); Eosinophils Absolute Auto 200 /uL (0-450); Eosinophils Percent Auto 1.9 % (2-4); Hematocrit 33.9 % (36-46); Hemoglobin 11.5 g/dL (12.0-16.0); Lymphocytes Absolute Auto 1800 /uL (1100-4500); Lymphocytes Percent Auto 20.3 % (25-40); Mean Corpuscular HGB Conc 34.1 % (30-36); Mean Corpuscular Hemoglobin 31.1 PG (26-34); Mean Corpuscular Volume 91.4 fL (80-100); Monocytes Absolute Auto 700 /uL (0-900); Monocytes Percent Auto 7.6 % (3-14); Neutrophils Absolute Auto 6100 /uL (1500-7000); Neutrophils Percent Auto 69.6 % (50-75); Platelet Count 266 X10^3/uL (150-400); Red Blood Cell Count 3.71 X10^6/uL (4.0-5.2); White Blood Cell Count 8.8 X10^3/uL (4.5-11.0)
--- NOTE | 2024-05-17 08:55 | ED_ITS ---
HPI - Chest Pain General Chief Complaint: Abdominal Pain Stated Complaint: stomach acid getting worse Time Seen by Provider: 05/17/24 08:20 Source: patient Mode of arrival: Wheelchair Limitations: no limitations History of Present Illness HPI narrative: Patient is a 88-year-old female history of esophagitis gastritis admitted to the hospital for the same earlier in April discharged on the readmitted on the through the with epigastric pain. She reports increased burning in her chest over the last couple days. She reports that it is constant it wakes her from her sleep. She is taking pantoprazole she has stopped her hydrochlorothiazide due to confusion and hyponatremia. During her 2nd admission she had an endoscopy with evidence of acid secretion gastritis and duodenitis. Related Data Home Medications Medication Instructions Recorded Confirmed amiodarone 100 mg tablet 100 mg PO DAILY 04/15/24 05/17/24 hydroxyzine pamoate 25 mg capsule 25 mg PO 3XD PRN Anxiety 04/15/24 05/17/24 levothyroxine 50 mcg tablet 50 mcg PO DAILY@06 04/15/24 05/17/24 rosuvastatin 10 mg tablet 10 mg PO BEDTIME 04/15/24 05/17/24 losartan 100 mg tablet 100 mg PO DAILY 05/01/24 05/17/24 Previous Rx's Medication Instructions Recorded metoclopramide HCl 5 mg tablet 5 mg PO BID #60 tabs 05/02/24 (Reglan) pantoprazole 40 mg tablet,delayed 40 mg PO BID #60 tabs 05/02/24 release famotidine 20 mg tablet 20 mg PO BID #60 tabs 05/17/24 Allergies Allergy/AdvReac Type Severity Reaction Status Date / Time Anesthetics - Colleen Type- Allergy Unknown patient Verified 05/17/24 07:56 Parabens can't [Anesthetics - Colleen Type] remember procaine Allergy Unknown patient Verified 05/17/24 07:56 can't remember epinephrine [EPINEPHRINE] AdvReac Severe shakes Verified 05/17/24 07:56 hydrocodone AdvReac Severe patient Verified 05/17/24 07:56 can't remeber codeine AdvReac Intermediate vomiting Verified 05/17/24 07:56 aspirin AdvReac Mild GI UPSET Verified 05/17/24 07:56 Patient History Medical History (Updated 05/17/24 @ 11:24 by Dayanara Rea DO) Acute metabolic encephalopathy Acute epigastric pain Acute hyponatremia Hypertensive urgency Anxiety Hypertension Surgical History Status post cholecystectomy Status post delivery Social History household members: none Smoking Status: Never smoker alcohol intake: never Smoking Status: Never smoker alcohol intake frequency: other Substance Use Type: does not use Exam Initial Vital Signs Initial Vital Signs: Vital Signs Temperature 97.7 F 05/17/24 07:49 Pulse Rate 80 05/17/24 07:49 Respiratory Rate 18 05/17/24 07:49 Blood Pressure 190/83 H 05/17/24 07:49 Pulse Oximetry 98 05/17/24 07:49 Oxygen Delivery Method Room Air 05/17/24 07:49 GENERAL: Alert pleasant 88-year-old female HEENT: Head atraumatic,EOMI, pupils reactive, face symmetric, moist mucous membranes CARDIOVASCULAR: Regular rate and rhythm without murmurs, rubs or gallops. RESPIRATORY: Breath sounds equal bilaterally, no wheezes rales or rhonchi. ABDOMEN: Soft, nontender. Normoactive bowel sounds all 4 quadrants. No guarding or rebound. EXTREMITIES: Normal range of motion, no clubbing or edema. Neurovascularly intact NEUROLOGICAL: Alert and oriented x4.Normal gait and speech. Cranial nerves II through XII grossly intact. SKIN: Warm, dry, no laceration, no petechiae, no rashes or lesions. Course Orders Ordered: ED Orders 05/17/24 08:20 XR chest 1V Stat EKG-12 Lead Stat 05/17/24 08:35 Complete Blood Count AUTO DIFF Stat Comprehensive Metabolic Panel Stat Lipase Stat Troponin & CK Cardiac Panel Stat 05/17/24 10:40 Troponin & CK Cardiac Panel Stat Discontinued Medications Amiodarone HCl (Amiodarone 200 Mg Tablet) 100 mg PO NOW ONE Stop: 05/17/24 09:51 Last Admin: 05/17/24 10:13 Dose: 100 mg Documented By: RB Famotidine (Famotidine 20 Mg/2 Ml Vial) 20 mg IV NOW BIA Last Admin: 05/17/24 09:12 Dose: 20 mg Documented By: RB Acetaminophen (Ofirmev) 1,000 mg in 100 mls @ 400 mls/hr IV NOW ONE Stop: 05/17/24 10:54 Last Infusion: 05/17/24 11:11 Dose: Infused Documented By: Admin: 05/17/24 10:50 Dose: 400 mls/hr Documented By: RB Levothyroxine Sodium (Levothyroxine 50 Mcg Tablet) 50 mcg PO DAILY@0600 BIA Last Admin: 05/17/24 10:13 Dose: 50 mcg Documented By: RB Losartan Potassium (Losartan 50 Mg Tablet) 100 mg PO NOW ONE Stop: 05/17/24 09:51 Last Admin: 05/17/24 10:13 Dose: 100 mg Documented By: RB Pantoprazole Sodium (Pantoprazole 40 Mg Vial) 40 mg IV NOW ONE Stop: 05/17/24 08:57 Last Admin: 05/17/24 09:12 Dose: 40 mg Documented By: RB Vital Signs Vital signs: Vital Signs - 8 hr 05/17/24 07:49 05/17/24 08:01 05/17/24 08:30 Temperature 97.7 F Pulse Rate 80 82 Respiratory Rate 18 Blood Pressure 190/83 H 223/98 H Pulse Oximetry 98 96 Oxygen Delivery Method Room Air 05/17/24 08:30 05/17/24 08:42 05/17/24 08:42 Temperature Pulse Rate 75 78 Respiratory Rate 26 H Blood Pressure 200/89 H Pulse Oximetry 95 96 Oxygen Delivery Method 05/17/24 09:00 05/17/24 09:00 05/17/24 09:30 Temperature Pulse Rate 78 75 Respiratory Rate 24 27 H Blood Pressure 216/97 H Pulse Oximetry 96 97 Oxygen Delivery Method 05/17/24 09:42 05/17/24 09:42 05/17/24 10:00 Temperature Pulse Rate 76 Respiratory Rate 19 Blood Pressure 227/102 H 224/98 H Pulse Oximetry 97 Oxygen Delivery Method 05/17/24 10:00 05/17/24 10:13 05/17/24 10:30 Temperature Pulse Rate 77 73 Respiratory Rate 22 Blood Pressure 224/98 H 198/86 H Pulse Oximetry 96 Oxygen Delivery Method 05/17/24 10:30 05/17/24 11:00 05/17/24 11:00 Temperature Pulse Rate 66 69 Respiratory Rate 22 22 Blood Pressure 193/86 H Pulse Oximetry 97 96 Oxygen Delivery Method 05/17/24 11:30 05/17/24 11:30 Temperature Pulse Rate 67 Respiratory Rate 27 H Blood Pressure 186/84 H Pulse Oximetry 96 Oxygen Delivery Method MDM - Chest Pain Lab Data 05/17/24 08:35 05/17/24 08:35 Labs: Lab Results 05/17/24 05/17/24 Range/Units 08:35 10:40 WBC 8.8 (4.5-11.0) X10^3/uL RBC 3.71 L (4.0-5.2) X10^6/uL Hgb 11.5 L (12.0-16.0) g/dL Hct 33.9 L (36-46) % MCV 91.4 (80-100) fL MCH 31.1 (26-34) PG MCHC 34.1 (30-36) % RDW 14.0 (11.6-14.8) % Plt Count 266 (150-400) X10^3/uL Neut % (Auto) 69.6 (50-75) % Lymph % (Auto) 20.3 L (25-40) % App[place] % (Auto) 7.6 (3-14) % Eos % (Auto) 1.9 L (2-4) % Baso % (Auto) 0.6 (0-2) % Neut # (Auto) 6100 (2854-3398) /uL Lymph # (Auto) 1800 (9759-9837) /uL [place] # (Auto) 700 (0-900) /uL Eos # (Auto) 200 (0-450) /uL Baso # (Auto) 100 (0-100) /uL Sodium 133 L (137-145) mmol/L Potassium 3.4 (3.4-5.1) mmol/L Chloride 101 (98-107) mmol/L Carbon Dioxide 26 (22-32) mmol/L BUN 17 (7-17) mg/dL Creatinine 0.69 (0.52-1.04) mg/dL Estimated GFR > 60 (>60) mL/min BUN/Creatinine Ratio 24.6 H (6-22) Glucose 111 H (80-110) mg/dL Calcium 9.3 (8.4-10.2) mg/dL Total Bilirubin 0.8 (0.2-1.3) mg/dL AST 24 (14-36) IU/L ALT 20 (<35) IU/L Alkaline Phosphatase 49 (38-126) U/L Total Creatine Kinase 37 36 (30-135) U/L Troponin I < 0.012 < 0.012 (0.01-0.034) ng/mL Total Protein 6.8 (6.3-8.2) g/dL Albumin 3.9 (3.5-5.0) g/dL Globulin 2.9 (1.7-4.1) g/dL Albumin/Globulin Ratio 1.3 (1.0-2.8) Lipase 114 (23-300) U/L Imaging Data Chest x-ray: Radiologist's Impression: PROCEDURE: XR CHEST 1V INDICATIONS: chest pain TECHNIQUE: One view of the chest was acquired. COMPARISON: [facility], CR, XR CHEST 1V, 04/15/2024, 16:54. [facility], CR, XR CHEST 1V, 02/04/2022, 17:14. FINDINGS: Surgical changes and devices: None. Lungs and pleura: Lungs are clear. No pleural effusions or pneumothorax. Mediastinum: Mediastinal contours appear normal. Heart size is mildly enlarged. Bones and chest wall: No suspicious bony lesions. Overlying soft tissues appear unremarkable. IMPRESSION: No acute cardiopulmonary abnormality is seen. Dictated by: Miles Cline M.D. on 05/17/2024 at 8:59 Approved by: Miles Cline M.D. on 05/17/2024 at 9:02 ECG Data Attestation: I personally reviewed and interpreted this ECG as follows: Prior ECG tracings: available for review Interpretation: Normal sinus rhythm rate 78 IA interval 132 QRS [address] changes similar to previous EKGs MDM Narrative Medical decision making narrative: Patient 80-year-old female history of GERD gastritis duodenitis presenting today with burning chest. She has had a couple of admissions last month on April 16 showing the same. She has been taking baking soda which is not helping. Blood work has been reviewed CBC WBC 8.8 hemoglobin stable 11.5 hematocrit 33.9 platelets 266 CMP, sodium 133 potassium 3.4 chloride 101 carbon dioxide 26 BUN 17 creatinine 0.69 glucose 111, troponin x2 negative lipase 144 Chest x-ray reviewed no acute cardiopulmonary process EKG reviewed no changes no ischemia At this time patient's symptoms are similar to her previous GERD she is given Protonix and Pepcid here in the ED which does help. Her blood pressure actually was rising but she had not taken her blood pressure medications she is given her home meds here in the ED in her blood pressure is coming down. When she was discharged from the hospital she was put on pantoprazole twice a day but she continues to have symptoms reasonable to add an H2 christiana Discharge Plan Departure Patient Disposition: Home Clinical Impression: Gastritis and duodenitis Instructions: GERD Diet, DI for Duodenitis Activity Restrictions/Additional Instructions: *You have been diagnosed with GERD *What to do: At this time blood work is overall reassuring you were given Protonix and Pepcid in the ED *Continue to take medications as directed Add famotidine 20 mg twice a day *Follow up with your primary care provider in 2-3 days or call [phone] *Return to ER if you should have any new, worsening or concerning symptoms Prescriptions: New famotidine 20 mg tablet 20 mg PO BID Qty: 60 0RF No Action levothyroxine 50 mcg tablet 50 mcg PO DAILY@06 hydroxyzine pamoate 25 mg capsule 25 mg PO 3XD PRN (Reason: Anxiety) rosuvastatin 10 mg tablet 10 mg PO BEDTIME amiodarone 100 mg tablet 100 mg PO DAILY losartan 100 mg tablet 100 mg PO DAILY pantoprazole 40 mg tablet,delayed release (DR/EC) 40 mg PO BID Qty: 60 1RF metoclopramide HCl [Reglan] 5 mg tablet 5 mg PO BID Qty: 60 1RF Rx Instructions: administer 30 minutes before meals Referrals: Jacinta Moon DO [Primary Care Provider] - Stand Alone Forms: Patient Portal/API
[2024-05-17 08:57] LABS: Alanine Aminotransferase 20 IU/L (<35); Albumin 3.9 g/dL (3.5-5.0); Albumin Globulin Ratio 1.3 (1.0-2.8); Alkaline Phosphatase 49 U/L (38-126); Aspartate Aminotransferase 24 IU/L (14-36); BUN Creatinine Ratio 24.6 (6-22); Bilirubin Total 0.8 mg/dL (0.2-1.3); Blood Urea Nitrogen 17 mg/dL (7-17); Calcium 9.3 mg/dL (8.4-10.2); Carbon Dioxide 26 mmol/L (22-32); Chloride 101 mmol/L (98-107); Creatine Kinase 37 U/L (30-135); Estimated Glomerular Filt Rate > 60 mL/min (>60); Globulin 2.9 g/dL (1.7-4.1); Glucose 111 mg/dL (80-110); HEMOLYSIS < 15 (0-50); Lipase 114 U/L (23-300); Potassium 3.4 mmol/L (3.4-5.1); Sodium 133 mmol/L (137-145); Total Protein 6.8 g/dL (6.3-8.2)
[2024-05-17 09:08] LABS: Troponin I < 0.012 ng/mL (0.01-0.034)
[2024-05-17] MEDS: PANTOPRAZOLE 40 MG VIAL IV (09:12)
[2024-05-17] MEDS: FAMOTIDINE 20 MG/2 ML VIAL IV (09:12)
[2024-05-17] MEDS: LOSARTAN 50 MG TABLET 100 MG PO (10:13)
[2024-05-17] MEDS: LEVOTHYROXINE 50 MCG TABLET PO (10:13)
[2024-05-17] MEDS: AMIODARONE 200 MG TABLET 100 MG PO (10:13)
--- NOTE | 2024-05-17 10:15 | PC.NURSE ---
This RN verified patient home medications. Informed provider of patient home medications and elevated blood pressure. Provider gave verbal orders for several medications. Medications entered. Pharmacy tubed medications to unit and this RN administered them.
[2024-05-17] MEDS: ACETAMINOPHEN IV 1,000 MG/100 ML VIAL 400 MG IV (10:50)
[2024-05-17 11:02] LABS: Creatine Kinase 36 U/L (30-135)
[2024-05-17 11:15] LABS: Troponin I < 0.012 ng/mL (0.01-0.034)
== END 2024-05-17 11:51 | disposition home or self-care (01) ==
PROVIDERS: Emergency Provider Emergency Medicine; PCP Family Medicine
DX: K29.90 Gastroduodenitis, unspecified, without bleeding (principal); R07.9 Chest pain, unspecified
CPT/HCPCS: 36415; 71045; 80053; 82550; 83690; 84484; 85025; 93005; 96365; 96375; 99284; J0136; J2470

== ENCOUNTER 2024-06-26 14:50 | Observation (INO) | payer MEDICARE, SELFPAY ==
[2024-05-01 05:07] VITALS: BMI 24.2
[2024-06-26] VITALS (55 sets, daily range): BP systolic 122–194; BP diastolic 59–84; PULSE 31–97; RESP 13–47; TEMP 36.2; O2SAT 87–97; BMI 24.2; BMI 23.6
--- NOTE | 2024-06-26 14:59 | EKG_ITS ---
[address] [address] Test Date: 2024-06-26 Pat Name: Emma Callahan Department: Room: Gender: Female Nuclear Operator: ELIEZER : [id number] Requested By: Order Number: [id number] Reading MD: Cristhian Goldstein Measurements Intervals [place] Rate: 61 P: 11 RI: 140 QRS: -2 QRSD: 72 T: -1 QT: 466 QTc: 469 Interpretive Statements Normal sinus rhythm Electronically Signed On 06-26-2024 15:23:45 PDT by Cristhian Goldstein
--- NOTE | 2024-06-26 15:06 | DI.CT.S_ITS ---
PROCEDURE: CT ABDOMEN PELVIS W CON INDICATIONS: IV contrast only, epigastric pain TECHNIQUE: After the administration of intravenous contrast, axial sections acquired from the lung bases to the pubic symphysis. Coronal and sagittal reformats were performed. For radiation dose reduction, the following was used: automated exposure control, adjustment of mA and/or kV according to patient size. COMPARISON: [facility], CT, CT ABDOMEN PELVIS W CON, 06/22/2024, 17:23. FINDINGS: Image quality: Diagnostic. Lower Chest: Mild bibasilar subsegmental atelectasis and mild ground-glass opacities some of which commonly related expiratory result without focal consolidation, no pleural effusion. Mild cardiomegaly with four-chamber enlargement unchanged. Mild calcifications of the coronary arteries unchanged. [id number] wall thickening of the stomach diffusely into the proximal duodenum some of which commonly related to partial nondistention although gastritis, duodenitis or other process could be considered. Moderate amount of stool throughout the colon in a pattern of constipation less than on the prior exam. New mild nonspecific wall thickening of the distal transverse, descending and proximal sigmoid colon some of which commonly artifact from partial nondistention although mild colitis could have a similar appearance. Moderate calcifications of the aorta and iliac vessels unchanged. Moderate diverticulosis of the descending and sigmoid colon unchanged. Partially calcified leiomyomatous uterus unchanged. Moderate degenerate changes lower thoracic, lumbar spine with reverse S-shaped scoliosis unchanged. Suspected severe central stenosis at L4-5 unchanged. Moderate degenerative changes bilateral hips unchanged. ABDOMEN: Liver: No solid mass. Gallbladder: Surgical clips status post cholecystectomy Biliary ducts: No biliary dilation. Pancreas: No ductal dilation. Spleen: Size is within normal limits. Adrenal Glands: No adrenal nodules. Kidneys and Ureters: No hydronephrosis. No solid mass. No complex renal cystic lesion which requires follow up. Peritoneum: No abnormal intraperitoneal fluid. No free air. Abdominal Nodes: No retroperitoneal or mesenteric adenopathy by size criteria. Vessels: Aorta and inferior vena cava are normal in size. PELVIS: Bladder: No bladder wall thickening, accounting for underdistention. Pelvic Nodes: No enlarged lymph nodes. IMPRESSION: Mild bibasilar subsegmental atelectasis and mild ground-glass opacities. Mild cardiomegaly unchanged. Gakr-st-oqlmdlym wall thickening of the stomach into the proximal duodenum discussed above. Moderate pattern of constipation less than on the prior exam. New mild nonspecific wall thickening of the distal transverse, descending and proximal sigmoid colon some of which commonly artifact from partial nondistention although mild colitis could have a similar appearance. Suspected severe central stenosis at L4-5 unchanged. Other chronic findings as discussed above unchanged. Dictated by: Kane Travis M.D. on 06/26/2024 at 16:04 Approved by: Kane Travis M.D. on 06/26/2024 at 16:27
[2024-06-26] MEDS: SODIUM CHLORIDE 0.9% 500 ML 1000 ML IV (15:18)
[2024-06-26] MEDS: PANTOPRAZOLE 40 MG VIAL IV (15:18)
[2024-06-26] MEDS: ONDANSETRON 4 MG/2 ML INJ IV (15:18)
[2024-06-26 15:19] LABS: Add Manual Diff / Slide Review NO; Basophils Absolute Auto 100 /uL (0-100); Basophils Percent Auto 0.6 % (0-2); Eosinophils Absolute Auto 200 /uL (0-450); Eosinophils Percent Auto 2.2 % (2-4); Hematocrit 32.3 % (36-46); Hemoglobin 11.1 g/dL (12.0-16.0); Lymphocytes Absolute Auto 1000 /uL (1100-4500); Lymphocytes Percent Auto 10.7 % (25-40); Mean Corpuscular HGB Conc 34.4 % (30-36); Mean Corpuscular Hemoglobin 30.4 PG (26-34); Mean Corpuscular Volume 88.2 fL (80-100); Monocytes Absolute Auto 900 /uL (0-900); Monocytes Percent Auto 9.2 % (3-14); Neutrophils Absolute Auto 7400 /uL (1500-7000); Neutrophils Percent Auto 77.3 % (50-75); Platelet Count 447 X10^3/uL (150-400); Red Blood Cell Count 3.67 X10^6/uL (4.0-5.2); Red Cell Distribution Width 13.4 % (11.6-14.8); White Blood Cell Count 9.5 X10^3/uL (4.5-11.0)
[2024-06-26 15:34] LABS: Alanine Aminotransferase 18 IU/L (<35); Albumin 3.6 g/dL (3.5-5.0); Albumin Globulin Ratio 1.1 (1.0-2.8); Alkaline Phosphatase 73 U/L (38-126); BUN Creatinine Ratio 16.1 (6-22); Bilirubin Total 0.7 mg/dL (0.2-1.3); Blood Urea Nitrogen 9 mg/dL (7-17); Carbon Dioxide 23 mmol/L (22-32); Chloride 98 mmol/L (98-107); Creatine Kinase 34 U/L (30-135); Estimated Glomerular Filt Rate > 60 mL/min (>60); Globulin 3.3 g/dL (1.7-4.1); Glucose 151 mg/dL (80-110); Lipase 39 U/L (23-300); Sodium 129 mmol/L (137-145); Total Protein 6.9 g/dL (6.3-8.2)
[2024-06-26 15:36] LABS: HEMOLYSIS 69 (0-50); Potassium 4.1 mmol/L (3.4-5.1)
[2024-06-26 15:37] LABS: Aspartate Aminotransferase 41 IU/L (14-36)
[2024-06-26 15:47] LABS: Troponin I < 0.012 ng/mL (0.01-0.034)
--- NOTE | 2024-06-26 17:31 | ED.SYNCOPE ---
HPI - Syncope <Grayson Gomez MD - Last Filed: 07/19/24 12:25> General Chief Complaint: Syncope Stated Complaint: Syncope Time Seen by Provider: 06/26/24 14:54 Source: patient and EMS Mode of arrival: EMS Limitations: no limitations History of Present Illness HPI narrative: Patient brought in by ambulance for syncopal episode. Witnessed by provider at home. Blood sugar is reassuring. No hypoglycemia. Patient is at baseline now. Patient states she got up and felt dizzy at dinner table. Her provider states she was just standing there no seizure activity patient does not recall this. No fall or injury. Denies any headache or chest pain. Although she is nauseous now. No unilateral numbness tingling or weakness slurred speech or facial droop. Fast exam is negative. However, patient now complains mostly of epigastric discomfort. With nausea. History of gastritis. Denies any chest pain. Related Data Home Medications Medication Instructions Recorded Confirmed hydroxyzine pamoate 25 mg capsule 25 mg PO 3XD PRN Anxiety 04/15/24 06/27/24 esomeprazole magnesium 40 mg 40 mg PO BEDTIME 06/22/24 06/27/24 capsule,delayed release Previous Rx's Medication Instructions Recorded metoclopramide HCl 5 mg tablet 5 mg PO BID #60 tabs 05/02/24 (Reglan) amiodarone 100 mg tablet 100 mg PO DAILY #90 tabs 06/06/24 carvedilol 3.125 mg tablet 3.125 mg PO BID #180 tabs 06/06/24 levothyroxine 50 mcg tablet 50 mcg PO DAILY@06 #90 tabs 06/06/24 losartan 100 mg tablet 100 mg PO DAILY #90 tabs 06/06/24 pantoprazole 40 mg tablet,delayed 40 mg PO BID #180 tabs 06/06/24 release rosuvastatin 10 mg tablet 10 mg PO BEDTIME #90 tabs 06/06/24 lactulose 20 gram/30 mL oral 20 g (30 mL) PO BID #300 mL 06/22/24 solution aluminum-mag hydroxide-simethicone 30 ml PO Q4HR PRN Dyspepsia #3,000 06/29/24 200 mg-200 mg-20 mg/5 mL oral susp mL (Mag-Al Plus) morphine 10 mg/5 mL oral solution 5 mg (2.5 mL) PO Q6H PRN pain #50 06/29/24 mL sucralfate 1 gram tablet 1 g PO BID #30 tabs 07/01/24 Allergies Allergy/AdvReac Type Severity Reaction Status Date / Time Anesthetics - Colleen Type- Allergy Unknown patient Verified 06/26/24 15:02 Parabens can't [Anesthetics - Colleen Type] remember procaine Allergy Unknown patient Verified 06/26/24 15:02 can't remember epinephrine [EPINEPHRINE] AdvReac Severe shakes Verified 06/26/24 15:02 hydrocodone AdvReac Severe patient Verified 06/26/24 15:02 can't remeber codeine AdvReac Intermediate vomiting Verified 06/26/24 15:02 aspirin AdvReac Mild GI UPSET Verified 06/26/24 15:02 Review of Systems <Grayson Gomez MD - Last Filed: 07/19/24 12:25> Review of Systems Narrative: GENERAL: negative chills, fatigue, malaise, fever, sweats. HEENT: negative sinus pain, ear pain, sore throat RESPIRATORY: negative dyspnea, cough CARDIOVASCULAR: negative chest pain, palpitations GASTROINTESTINAL: Positive nausea, vomiting, abdominal pain : negative dysuria, frequency, hematuria MUSCULOSKELETAL: negative muscle or bony pain SKIN: negative rash, skin lesions NEUROLOGIC: negative weakness, numbness, positive dizzy positive syncope ROS Unobtainable: All systems reviewed & are unremarkable except as noted in HPI and below Patient History <Grayson Gomez MD - Last Filed: 07/19/24 12:25> Medical History Acute metabolic encephalopathy Acute epigastric pain Acute hyponatremia Hypertensive urgency Anxiety Hypertension Surgical History Status post cholecystectomy Status post delivery Social History household members: none Smoking Status: Never smoker alcohol intake: never Smoking Status: Never smoker alcohol intake frequency: other Substance Use Type: does not use Exam <Grayson Gomez MD - Last Filed: 07/19/24 12:25> Narrative Exam Narrative: GENERAL: in no distress, not toxic not dyspneic HEAD: Normocephalic. EYES: Pupils equal round ENT: Mucous membranes moist. NECK: Trachea midline. CARDIOVASCULAR: Regular rate and rhythm RESPIRATORY: Clear to auscultation. Breath sounds equal bilaterally. No wheezes, rales, or rhonchi. GASTROINTESTINAL: Abdomen soft, non-tender EXTREMITIES: No gross deformities. BACK: No flank tenderness. NEURO: AOx4. Clear speech fast exam is negative no facial droop light touch intact to bilateral face hands strong equal shorer negative pronator drift SKIN: Warm and dry PSYCH: Not anxious, is cooperative Initial Vital Signs Initial Vital Signs: Vital Signs Pulse Rate 62 06/26/24 14:54 Blood Pressure 190/84 H 06/26/24 14:54 Pulse Oximetry 92 06/26/24 14:54 <Yudelka Jackson DO - Last Filed: 06/27/24 04:49> Initial Vital Signs Initial Vital Signs: Vital Signs Pulse Rate 62 06/26/24 14:54 Blood Pressure 190/84 H 06/26/24 14:54 Pulse Oximetry 92 06/26/24 14:54 Scores <Grayson Gomez MD - Last Filed: 07/19/24 12:25> NIH Stroke Scale Level of Conciousness: Alert, keenly responsive Ask month/age: Answers both questions correctly. Open/close eyes, close hand: Performs both tasks correctly Best gaze horizontal: Normal Visual cai: No visual loss Facial palsy: Normal symetrical movement Left arm drift: No drift for full 10 sec Right arm drift: No drift for full 10 sec Left leg drift: No drift for full 5 sec Right leg drift: No drift for full 5 sec Limb ataxia: Absent Sensory on face/arms/legs: Normal, no sensory loss Best language: No aphasia, normal Dysarthria: Normal Extinction or inattention: No abnormality Total NIH Stroke scale score: 0 <Yudelka Jackson DO - Last Filed: 06/27/24 04:49> NIH Stroke Scale Total NIH Stroke scale score: 0 Course <Grayson Gomez MD - Last Filed: 07/19/24 12:25> Orders Ordered: Discontinued Medications Acetaminophen (Acetaminophen 325 Mg Tablet) 650 mg PO Q6H PRN PRN Reason: Fever/Mild Pain (1-3) Last Admin: 06/29/24 08:20 Dose: 650 mg Documented By: Admin: 06/28/24 18:56 Dose: 650 mg Documented By: LATRELL Al Hydrox/Mg Hydrox/Simethicone (Mag Hydrox/Alum/Simeth 30 Ml Udc) 30 ml PO Q4HR PRN PRN Reason: Dyspepsia Last Admin: 06/28/24 08:56 Dose: 30 ml Documented By: LATRELL Amiodarone HCl (Amiodarone 200 Mg Tablet) 100 mg PO DAILY [facility] Last Admin: 06/29/24 08:21 Dose: 100 mg Documented By: Admin: 06/28/24 10:42 Dose: 100 mg Documented By: LATRELL Bisacodyl (Bisacodyl 10 Mg Supp) 10 mg MI NOW ONE Stop: 06/28/24 14:51 Last Admin: 06/28/24 16:22 Dose: 10 mg Documented By: LATRELL Carvedilol (Carvedilol 3.125 Mg Tablet) 3.125 mg PO NOW ONE Stop: 06/26/24 18:57 Last Admin: 06/26/24 20:17 Dose: 3.125 mg Documented By: SHERRI Carvedilol (Carvedilol 3.125 Mg Tablet) 3.125 mg PO BID [facility] Last Admin: 06/29/24 08:21 Dose: 3.125 mg Documented By: Admin: 06/28/24 21:05 Dose: Not Given Documented By: Admin: 06/28/24 10:42 Dose: 3.125 mg Documented By: Admin: 06/27/24 21:04 Dose: 3.125 mg Documented By: Admin: 06/27/24 09:36 Dose: 3.125 mg Documented By: VALERIY Famotidine (Famotidine 20 Mg Tablet) 20 mg PO BID ONE Stop: 06/28/24 05:40 Last Admin: 06/28/24 06:00 Dose: 20 mg Documented By: Hydralazine HCl (Hydralazine 20 Mg/Ml Vial) 10 mg IV Q6HR PRN PRN Reason: Hypertension Last Admin: 06/29/24 06:03 Dose: 10 mg Documented By: (2) Hydrocortisone (Hydrocortisone 2.5% Cream 30 Gm) 1 applic TOP BID PRN PRN Reason: Itching Hydromorphone HCl (Hydromorphone 0.5 Mg Inj) 0.5 mg IV NOW ONE Stop: 06/26/24 21:11 Last Admin: 06/26/24 21:17 Dose: 0.5 mg Documented By: Hydroxyzine HCl (Hydroxyzine Hcl 25 Mg Tablet) 25 mg PO Q6H PRN PRN Reason: anxiety Last Admin: 06/28/24 12:39 Dose: 25 mg Documented By: LATRELL Sodium Chloride (Normal Saline 0.9%) 500 mls @ 1,000 mls/hr IV BOLUS ONE Stop: 06/26/24 15:28 Last Infusion: 06/26/24 16:58 Dose: Infused Documented By: Admin: 06/26/24 15:18 Dose: 1,000 mls/hr Documented By: EDWIGE Nicardipine HCl 25 mg/ Sodium (Chloride) 250 mls @ 50 mls/hr IV TITRATE [facility]; Protocol Last Titration: 06/26/24 22:58 Dose: 0 mg/hr, 0 mls/hr Documented By: Titration: 06/26/24 20:10 Dose: 2.5 mg/hr, 25 mls/hr Documented By: Admin: 06/26/24 18:45 Dose: 5 mg/hr, 50 mls/hr Documented By: SHERRI Sodium Chloride (Normal Saline 0.9%) 1,000 mls @ 75 mls/hr IV CONT BIA Stop: 07/27/24 23:00 Last Admin: 06/27/24 02:21 Dose: 75 mls/hr Documented By: EMI Levothyroxine Sodium (Levothyroxine 50 Mcg Tablet) 50 mcg PO DAILY@06 [facility] Last Admin: 06/29/24 06:04 Dose: 50 mcg Documented By: (2) Admin: 06/28/24 06:00 Dose: 50 mcg Documented By: SR Losartan Potassium (Losartan 50 Mg Tablet) 100 mg PO DAILY [facility] Last Admin: 06/29/24 08:20 Dose: 100 mg Documented By: Admin: 06/28/24 10:42 Dose: 100 mg Documented By: Admin: 06/27/24 09:36 Dose: 100 mg Documented By: VALERIY Morphine Sulfate (Morphine 2 Mg/Ml Inj) 2 mg IV NOW ONE Stop: 06/26/24 20:47 Last Admin: 06/26/24 20:52 Dose: 2 mg Documented By: Morphine Sulfate (Morphine 4 Mg/Ml Inj) 4 mg IV Q6HR PRN PRN Reason: Pain, Severe (7-10) Last Admin: 06/28/24 02:31 Dose: 4 mg Documented By: Admin: 06/27/24 09:27 Dose: 4 mg Documented By: Admin: 06/27/24 01:48 Dose: 4 mg Documented By: EMI Morphine Sulfate (Morphine Ir 15 Mg Tablet) 15 mg PO Q6HR PRN PRN Reason: Pain, Severe (7-10) Last Admin: 06/29/24 08:20 Dose: 15 mg Documented By: Morphine Sulfate (Morphine 10 Mg/0.5 Ml Oral Syringe) 5 mg PO Q6H PRN PRN Reason: pain Naloxone HCl (Naloxone 0.4 Mg/Ml Vial) 0.2 mg IV Q2MIN PRN PRN Reason: Opiate Reversal Ondansetron HCl (Ondansetron 4 Mg/2 Ml Inj) 4 mg IV NOW ONE Stop: 06/26/24 14:55 Last Admin: 06/26/24 15:18 Dose: 4 mg Documented By: EDWIGE Ondansetron HCl (Ondansetron 4 Mg/2 Ml Inj) 4 mg IV Q8HR PRN PRN Reason: Nausea And Vomiting Last Admin: 06/28/24 02:37 Dose: 4 mg Documented By: Admin: 06/27/24 09:27 Dose: 4 mg Documented By: Admin: 06/27/24 01:56 Dose: 4 mg Documented By: EMI Pantoprazole Sodium (Pantoprazole 40 Mg Vial) 40 mg IV NOW ONE Stop: 06/26/24 14:55 Last Admin: 06/26/24 15:18 Dose: 40 mg Documented By: EDWIGE Pantoprazole Sodium (Pantoprazole Dr 40 Mg Tablet) 40 mg PO 0700,2100 BIA Last Admin: 06/29/24 06:04 Dose: 40 mg Documented By: (2) Admin: 06/28/24 21:08 Dose: 40 mg Documented By: Admin: 06/28/24 13:50 Dose: 40 mg Documented By: LATRELL Polyethylene Glycol (Polyethylene Glycol 3350 17 Gm Powd.Pack) 17 gm PO NOW ONE Stop: 06/27/24 20:47 Last Admin: 06/27/24 21:04 Dose: 17 gm Documented By: Sucralfate (Sucralfate 1 Gm Tablet) 1 gm PO NOW ONE Stop: 06/26/24 18:58 Last Admin: 06/26/24 20:17 Dose: 1 gm Documented By: SHERRI Vital Signs Vital signs: Vital Signs - 8 hr 06/26/24 20:50 06/26/24 20:51 06/26/24 20:51 Pulse Rate 90 72 Respiratory Rate 47 H 29 H Blood Pressure 146/65 H Pulse Oximetry 06/26/24 21:00 06/26/24 21:00 06/26/24 21:10 Pulse Rate 65 63 Respiratory Rate 25 H 20 Blood Pressure 126/59 L Pulse Oximetry 94 94 06/26/24 21:10 06/26/24 21:20 06/26/24 21:20 Pulse Rate 63 Respiratory Rate 21 Blood Pressure 131/63 128/63 Pulse Oximetry 94 06/26/24 21:30 06/26/24 21:30 06/26/24 21:45 Pulse Rate 62 31 L Respiratory Rate 25 H Blood Pressure 137/60 Pulse Oximetry 92 94 06/26/24 21:50 06/26/24 22:00 06/26/24 22:10 Pulse Rate 60 74 60 Respiratory Rate 19 23 20 Blood Pressure Pulse Oximetry 93 93 91 06/26/24 22:20 06/26/24 22:30 06/26/24 22:40 Pulse Rate 64 59 L 59 L Respiratory Rate 26 H 21 20 Blood Pressure Pulse Oximetry 90 L 89 L 90 L 06/26/24 22:50 Pulse Rate 60 Respiratory Rate 17 Blood Pressure Pulse Oximetry 90 L <Yudelka Jackson, - Last Filed: 06/27/24 04:49> Orders Ordered: Discontinued Medications Acetaminophen (Acetaminophen 325 Mg Tablet) 650 mg PO Q6H PRN PRN Reason: Fever/Mild Pain (1-3) Last Admin: 06/29/24 08:20 Dose: 650 mg Documented By: Admin: 06/28/24 18:56 Dose: 650 mg Documented By: LATRELL Al Hydrox/Mg Hydrox/Simethicone (Mag Hydrox/Alum/Simeth 30 Ml Udc) 30 ml PO Q4HR PRN PRN Reason: Dyspepsia Last Admin: 06/28/24 08:56 Dose: 30 ml Documented By: LATRELL Amiodarone HCl (Amiodarone 200 Mg Tablet) 100 mg PO DAILY [facility] Last Admin: 06/29/24 08:21 Dose: 100 mg Documented By: Admin: 06/28/24 10:42 Dose: 100 mg Documented By: LATRELL Bisacodyl (Bisacodyl 10 Mg Supp) 10 mg MI NOW ONE Stop: 06/28/24 14:51 Last Admin: 06/28/24 16:22 Dose: 10 mg Documented By: LATRELL Carvedilol (Carvedilol 3.125 Mg Tablet) 3.125 mg PO NOW ONE Stop: 06/26/24 18:57 Last Admin: 06/26/24 20:17 Dose: 3.125 mg Documented By: SHERRI Carvedilol (Carvedilol 3.125 Mg Tablet) 3.125 mg PO BID [facility] Last Admin: 06/29/24 08:21 Dose: 3.125 mg Documented By: Admin: 06/28/24 21:05 Dose: Not Given Documented By: Admin: 06/28/24 10:42 Dose: 3.125 mg Documented By: Admin: 06/27/24 21:04 Dose: 3.125 mg Documented By: Admin: 06/27/24 09:36 Dose: 3.125 mg Documented By: VALERIY Famotidine (Famotidine 20 Mg Tablet) 20 mg PO BID ONE Stop: 06/28/24 05:40 Last Admin: 06/28/24 06:00 Dose: 20 mg Documented By: Hydralazine HCl (Hydralazine 20 Mg/Ml Vial) 10 mg IV Q6HR PRN PRN Reason: Hypertension Last Admin: 06/29/24 06:03 Dose: 10 mg Documented By: (2) Hydrocortisone (Hydrocortisone 2.5% Cream 30 Gm) 1 applic TOP BID PRN PRN Reason: Itching Hydromorphone HCl (Hydromorphone 0.5 Mg Inj) 0.5 mg IV NOW ONE Stop: 06/26/24 21:11 Last Admin: 06/26/24 21:17 Dose: 0.5 mg Documented By: Hydroxyzine HCl (Hydroxyzine Hcl 25 Mg Tablet) 25 mg PO Q6H PRN PRN Reason: anxiety Last Admin: 06/28/24 12:39 Dose: 25 mg Documented By: LATRELL Sodium Chloride (Normal Saline 0.9%) 500 mls @ 1,000 mls/hr IV BOLUS ONE Stop: 06/26/24 15:28 Last Infusion: 06/26/24 16:58 Dose: Infused Documented By: Admin: 06/26/24 15:18 Dose: 1,000 mls/hr Documented By: EDWIGE Nicardipine HCl 25 mg/ Sodium (Chloride) 250 mls @ 50 mls/hr IV TITRATE [facility]; Protocol Last Titration: 06/26/24 22:58 Dose: 0 mg/hr, 0 mls/hr Documented By: Titration: 06/26/24 20:10 Dose: 2.5 mg/hr, 25 mls/hr Documented By: Admin: 06/26/24 18:45 Dose: 5 mg/hr, 50 mls/hr Documented By: SHERRI Sodium Chloride (Normal Saline 0.9%) 1,000 mls @ 75 mls/hr IV CONT BIA Stop: 07/27/24 23:00 Last Admin: 06/27/24 02:21 Dose: 75 mls/hr Documented By: EMI Levothyroxine Sodium (Levothyroxine 50 Mcg Tablet) 50 mcg PO DAILY@06 [facility] Last Admin: 06/29/24 06:04 Dose: 50 mcg Documented By: (2) Admin: 06/28/24 06:00 Dose: 50 mcg Documented By: Losartan Potassium (Losartan 50 Mg Tablet) 100 mg PO DAILY [facility] Last Admin: 06/29/24 08:20 Dose: 100 mg Documented By: Admin: 06/28/24 10:42 Dose: 100 mg Documented By: Admin: 06/27/24 09:36 Dose: 100 mg Documented By: VALERIY Morphine Sulfate (Morphine 2 Mg/Ml Inj) 2 mg IV NOW ONE Stop: 06/26/24 20:47 Last Admin: 06/26/24 20:52 Dose: 2 mg Documented By: Morphine Sulfate (Morphine 4 Mg/Ml Inj) 4 mg IV Q6HR PRN PRN Reason: Pain, Severe (7-10) Last Admin: 06/28/24 02:31 Dose: 4 mg Documented By: Admin: 06/27/24 09:27 Dose: 4 mg Documented By: Admin: 06/27/24 01:48 Dose: 4 mg Documented By: EMI Morphine Sulfate (Morphine Ir 15 Mg Tablet) 15 mg PO Q6HR PRN PRN Reason: Pain, Severe (7-10) Last Admin: 06/29/24 08:20 Dose: 15 mg Documented By: Morphine Sulfate (Morphine 10 Mg/0.5 Ml Oral Syringe) 5 mg PO Q6H PRN PRN Reason: pain Naloxone HCl (Naloxone 0.4 Mg/Ml Vial) 0.2 mg IV Q2MIN PRN PRN Reason: Opiate Reversal Ondansetron HCl (Ondansetron 4 Mg/2 Ml Inj) 4 mg IV NOW ONE Stop: 06/26/24 14:55 Last Admin: 06/26/24 15:18 Dose: 4 mg Documented By: EDWIGE Ondansetron HCl (Ondansetron 4 Mg/2 Ml Inj) 4 mg IV Q8HR PRN PRN Reason: Nausea And Vomiting Last Admin: 06/28/24 02:37 Dose: 4 mg Documented By: Admin: 06/27/24 09:27 Dose: 4 mg Documented By: Admin: 06/27/24 01:56 Dose: 4 mg Documented By: EMI Pantoprazole Sodium (Pantoprazole 40 Mg Vial) 40 mg IV NOW ONE Stop: 06/26/24 14:55 Last Admin: 06/26/24 15:18 Dose: 40 mg Documented By: EDWIGE Pantoprazole Sodium (Pantoprazole Dr 40 Mg Tablet) 40 mg PO 0700,2100 BIA Last Admin: 06/29/24 06:04 Dose: 40 mg Documented By: (2) Admin: 06/28/24 21:08 Dose: 40 mg Documented By: Admin: 06/28/24 13:50 Dose: 40 mg Documented By: LATRELL Polyethylene Glycol (Polyethylene Glycol 3350 17 Gm Powd.Pack) 17 gm PO NOW ONE Stop: 06/27/24 20:47 Last Admin: 06/27/24 21:04 Dose: 17 gm Documented By: Sucralfate (Sucralfate 1 Gm Tablet) 1 gm PO NOW ONE Stop: 06/26/24 18:58 Last Admin: 06/26/24 20:17 Dose: 1 gm Documented By: SHERRI Vital Signs Vital signs: Vital Signs - 8 hr 06/26/24 20:50 06/26/24 20:51 06/26/24 20:51 Pulse Rate 90 72 Respiratory Rate 47 H 29 H Blood Pressure 146/65 H Pulse Oximetry 06/26/24 21:00 06/26/24 21:00 06/26/24 21:10 Pulse Rate 65 63 Respiratory Rate 25 H 20 Blood Pressure 126/59 L Pulse Oximetry 94 94 09/11/24 21:10 06/26/24 21:20 06/26/24 21:20 Pulse Rate 63 Respiratory Rate 21 Blood Pressure 131/63 128/63 Pulse Oximetry 94 06/26/24 21:30 06/26/24 21:30 06/26/24 21:45 Pulse Rate 62 31 L Respiratory Rate 25 H Blood Pressure 137/60 Pulse Oximetry 92 94 06/26/24 21:50 06/26/24 22:00 06/26/24 22:10 Pulse Rate 60 74 60 Respiratory Rate 19 23 20 Blood Pressure Pulse Oximetry 93 93 91 06/26/24 22:20 06/26/24 22:30 06/26/24 22:40 Pulse Rate 64 59 L 59 L Respiratory Rate 26 H 21 20 Blood Pressure Pulse Oximetry 90 L 89 L 90 L 06/26/24 22:50 Pulse Rate 60 Respiratory Rate 17 Blood Pressure Pulse Oximetry 90 L MDM - Syncope <Grayson Gomez MD - Last Filed: 07/19/24 12:25> Lab Data 06/26/24 15:05 06/28/24 05:10 Labs: Lab Results 06/26/24 06/26/24 Range/Units 06:13 15:05 WBC 7.3 9.5 (4.5-11.0) X10^3/uL RBC 3.43 L 3.67 L (4.0-5.2) X10^6/uL Hgb 10.4 L 11.1 L (12.0-16.0) g/dL Hct 30.4 L 32.3 L (36-46) % MCV 88.7 88.2 (80-100) fL MCH 30.4 30.4 (26-34) PG MCHC 34.3 34.4 (30-36) % RDW 13.7 13.4 (11.6-14.8) % Plt Count 411 H 447 H (150-400) X10^3/uL Neut % (Auto) 71.4 77.3 H (50-75) % Lymph % (Auto) 14.6 L 10.7 L (25-40) % Morrill % (Auto) 10.7 9.2 (3-14) % Eos % (Auto) 2.5 2.2 (2-4) % Baso % (Auto) 0.8 0.6 (0-2) % Neut # (Auto) 5200 7400 H (1837-3211) /uL Lymph # (Auto) 1100 1000 L (0391-9974) /uL Morrill # (Auto) 800 900 (0-900) /uL Eos # (Auto) 200 200 (0-450) /uL Baso # (Auto) 100 100 (0-100) /uL Sodium 130 L 129 L (137-145) mmol/L Potassium 3.9 4.1 (3.4-5.1) mmol/L Chloride 100 98 (98-107) mmol/L Carbon Dioxide 27 23 (22-32) mmol/L BUN 8 9 (7-17) mg/dL Creatinine 0.62 0.56 (0.52-1.04) mg/dL Estimated GFR > 60 > 60 (>60) mL/min BUN/Creatinine Ratio 12.9 16.1 (6-22) Glucose 90 151 H (80-110) mg/dL Calcium 8.8 9.0 (8.4-10.2) mg/dL Total Bilirubin 0.5 0.7 (0.2-1.3) mg/dL AST 19 41 H (14-36) IU/L ALT 14 18 (<35) IU/L Alkaline Phosphatase 76 73 (38-126) U/L Total Creatine Kinase 34 (30-135) U/L Troponin I < 0.012 (0.01-0.034) ng/mL Total Protein 6.1 L 6.9 (6.3-8.2) g/dL Albumin 3.0 L 3.6 (3.5-5.0) g/dL Globulin 3.1 3.3 (1.7-4.1) g/dL Albumin/Globulin Ratio 1.0 1.1 (1.0-2.8) Lipase 39 (23-300) U/L Imaging Data CT scan - abdomen/pelvis: Radiologist's Impression: [address] [address] [address] Scan Report Signed Patient: Emma Callahan MR#: [id number] : 1935 Acct:[id number] Age/Sex: 89 / F Date of Service: 06/26/24 Loc: ED Accession Number: [id number] Procedure: CT abdomen pelvis w con Ordering Provider: Grayson Gomez MD PROCEDURE: CT ABDOMEN PELVIS W CON INDICATIONS: IV contrast only, epigastric pain TECHNIQUE: After the administration of intravenous contrast, axial sections acquired from the lung bases to the pubic symphysis. Coronal and sagittal reformats were performed. For radiation dose reduction, the following was used: automated exposure control, adjustment of mA and/or kV according to patient size. COMPARISON: [facility], CT, CT ABDOMEN PELVIS W CON, 06/22/2024, 17:23. FINDINGS: Image quality: Diagnostic. Lower Chest: Mild bibasilar subsegmental atelectasis and mild ground-glass opacities some of which commonly related expiratory result without focal consolidation, no pleural effusion. Mild cardiomegaly with four-chamber enlargement unchanged. Mild calcifications of the coronary arteries unchanged. Bslp-by-khjuihqr wall thickening of the stomach diffusely into the proximal duodenum some of which commonly related to partial nondistention although gastritis, duodenitis or other process could be considered. Moderate amount of stool throughout the colon in a pattern of constipation less than on the prior exam. New mild nonspecific wall thickening of the distal transverse, descending and proximal sigmoid colon some of which commonly artifact from partial nondistention although mild colitis could have a similar appearance. Moderate calcifications of the aorta and iliac vessels unchanged. Moderate diverticulosis of the descending and sigmoid colon unchanged. Partially calcified leiomyomatous uterus unchanged. Moderate degenerate changes lower thoracic, lumbar spine with reverse S-shaped scoliosis unchanged. Suspected severe central stenosis at L4-5 unchanged. Moderate degenerative changes bilateral hips unchanged. ABDOMEN: Liver: No solid mass. Gallbladder: Surgical clips status post cholecystectomy Biliary ducts: No biliary dilation. Pancreas: No ductal dilation. Spleen: Size is within normal limits. Adrenal Glands: No adrenal nodules. Kidneys and Ureters: No hydronephrosis. No solid mass. No complex renal cystic lesion which requires follow up. Peritoneum: No abnormal intraperitoneal fluid. No free air. Abdominal Nodes: No retroperitoneal or mesenteric adenopathy by size criteria. Vessels: Aorta and inferior vena cava are normal in size. PELVIS: Bladder: No bladder wall thickening, accounting for underdistention. Pelvic Nodes: No enlarged lymph nodes. IMPRESSION: Mild bibasilar subsegmental atelectasis and mild ground-glass opacities. Mild cardiomegaly unchanged. Cypi-vp-bcedgupr wall thickening of the stomach into the proximal duodenum discussed above. Moderate pattern of constipation less than on the prior exam. New mild nonspecific wall thickening of the distal transverse, descending and proximal sigmoid colon some of which commonly artifact from partial nondistention although mild colitis could have a similar appearance. Suspected severe central stenosis at L4-5 unchanged. Other chronic findings as discussed above unchanged. Dictated by: Kane Travis M.D. on 06/26/2024 at 16:04 Approved by: Kane Travis M.D. on 06/26/2024 at 16:27 CT scan - head: Radiologist's Impression: [address] [address] [address] Scan Report Signed Patient: Emma Callahan MR#: [id number] : 1935 Acct:[id number] Age/Sex: 89 / F Date of Service: 06/26/24 Loc: ED Accession Number: [id number] Procedure: CT head/brain wo con Ordering Provider: Grayson Gomez MD PROCEDURE: CT HEAD/BRAIN WO CON INDICATIONS: Syncope altered mental status TECHNIQUE: Noncontrast 4.5 mm thick angled axial sections acquired from the foramen magnum to the vertex, with coronal and sagittal reformats. For radiation dose reduction, the following was used: automated exposure control, adjustment of mA and/or kV according to patient size. COMPARISON: [facility], CT, CT STROKE, 08/10/2021, 10:35. [facility], CT, CT ANGIO HEAD AND NECK, 06/26/2024, 17:37. [facility], CT, CT HEAD/BRAIN WO CON, 05/01/2024, 3:34. FINDINGS: Image quality: Diagnostic. CSF spaces: Basal cisterns are patent. No extra-axial fluid collections. The ventricles are symmetric in size and shape. Brain: There is increased hyperdensity within the posterior falx extending to the tentorium when compared to prior exam. There is cerebral volume loss for age, with resultant ventricular and sulcal prominence. There are periventricular and deep white matter chronic small vessel ischemic changes. There is intracranial internal carotid artery atherosclerosis. Skull and face: Calvarium and visualized facial bones appear intact, without suspicious lesions. Sinuses: Visualized sinuses and mastoids are clear. IMPRESSION: Increased density within the posterior falx and tentorium most suspicious for hemorrhage. The above findings were discussed with Dr. Grayson Gomez on 06/26/2024 at 6:14 p.m.. Dictated by: Inés Velazco M.D. on 06/26/2024 at 18:11 Approved by: Inés Velazco M.D. on 06/26/2024 at 18:15 CTA - brain/neck: Radiologist's Impression: [address] [address] [address] Scan Report Signed Patient: Emma Callahan MR#: [id number] : 1935 Acct:[id number] Age/Sex: 89 / F Date of Service: 06/26/24 Loc: ED Accession Number: [id number] Procedure: CT angio head and neck Ordering Provider: Grayson Gomez MD PROCEDURE: CT ANGIO HEAD AND NECK INDICATIONS: Syncope altered mental status TECHNIQUE: After the administration of intravenous contrast, 1 mm thick sections acquired from the aortic arch through the [place]. 3-dimensional rsqzmzp-yskkwvskl-suskjowuua (MIP) and/or volume rendering reformats were acquired of the central intracranial vasculature and neck separately. For radiation dose reduction, the following was used: automated exposure control, adjustment of mA and/or kV according to patient size. COMPARISON: [facility], CT, CT ABDOMEN PELVIS W CON, 06/26/2024, 15:34. [facility], CT, CT HEAD/BRAIN WO CON, 06/26/2024, 17:37. [facility], CT, CT ANGIO HEAD AND NECK, 08/10/2021, 10:35. FINDINGS: Image quality: Diagnostic. BRAIN: See separately dictated CT head report of 06/26/2024. HEAD CT ANGIOGRAPHY: Anterior circulation: Calcification is present within the internal carotid arteries consistent with atherosclerotic disease. It is approximately 50% bilaterally, relatively unchanged. Focal narrowing is present in the left A2 segment of the anterior cerebral artery, approximately 78 80%. No aneurysms. Posterior circulation: Basilar artery is unremarkable. Significant calcifications with high-grade stenosis are present in the V4 segment of the left vertebral artery.. Flow within the posterior cerebral arteries is normal and symmetric. No aneurysms are seen. 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 The origins of the common carotid arteries appear patent. The common carotid arteries demonstrate normal caliber and courses. The bifurcation regions are both widely patent. Approximate 70-80% stenosis is present at the origin of the right internal carotid artery secondary to calcifications, unchanged. There is approximate 60% narrowing on the left, unchanged. Posterior circulation: The origins of the vertebral arteries both appear widely patent. The more superior extracranial portions of both vertebral arteries also demonstrate normal courses and calibers. They join to form a normal appearing basilar artery. Soft tissues: Visualized neck soft tissues demonstrate no suspicious abnormalities. Lungs demonstrate mild upper lobe ground-glass opacities. Bones: No suspicious bony lesions. Visualized cervical spine appears normally aligned. IMPRESSION: Multiple areas of high-grade stenosis within the neck and intracranial circulation as described above relatively stable. Pulmonary ground-glass opacities which can be seen with infection/ inflammation. Any quantitative measurements of stenosis were performed using NASCET criteria. Dictated by: Inés Velazco M.D. on 06/26/2024 at 18:05 Approved by: Inés Velazco M.D. on 06/26/2024 at 18:10 [facility] Narrative Medical decision making narrative: Patient brought in by ambulance for syncopal episode. Witnessed by provider at home. Blood sugar is reassuring. No hypoglycemia. Patient is at baseline now. Patient states she got up and felt dizzy at dinner table. Her provider states she was just standing there no seizure activity patient does not recall this. No fall or injury. Denies any headache or chest pain. Although she is nauseous now. No unilateral numbness tingling or weakness slurred speech or facial droop. Fast exam is negative. However, patient now complains mostly of epigastric discomfort. With nausea. History of gastritis. Denies any chest pain. After history and exam CT abdomen pelvis EKG troponin CBC CMP normal saline Protonix Zofran [facility] Medical records reviewed: No recent visit for this complaint Differential considered: Includes but not limited to STEMI non-STEMI pancreatitis gastritis bowel obstruction vasovagal syncope Lab Test results independently reviewed as above. Pertinent findings: WBC 9.5 hemoglobin 11.1 hematocrit 32.3 sodium 129 GFR greater than 60 AST 41 ALT 18 troponin less than 0.012 Independently reviewed EKG [time] EKG is normal sinus rhythm rate [ ] and free of any signs of ischemia or ectopy. No ST segmental elevation or depression. No T wave inversions Normal sinus rhythm rate 61 Imaging studies independently reviewed: CT abdomen pelvis no acute finding there is nonspecific thickening distal transverse descending proximal sigmoid colon [id number] thickening of the stomach wall and proximal duodenum CT angio head and neck no acute finding CT head suspicious for hemorrhage posterior falx and tentorium Consultations: 6:27 p.m.. Spoke with [facility] neurology Dr. WEINSTEIN, recommends nicardipine for systolic blood pressure less than 160, she will call her attending for further instructions. No neurosurgery indicated at this time. Treatments: Re-evaluations: 5:36 p.m.. Patient feeling better with nausea and epigastric discomfort however after review of her symptoms she felt dizzy and concerning for TIA/stroke. Her symptoms have resolved. CT head and angiogram are ordered. 6:15 p.m. updated patient and son of intracranial bleed. Likely causing her symptoms today. Awaiting to hear back from [facility] neurology. Patient remains asymptomatic. Discussion: Diagnosis: Intracranial bleed 6:[address] Gomez: Sign out to Dr. Jackson, I have spoken with [facility] tele stroke. However awaiting call back for further instructions. Patient hemodynamically stable. Will need nicardipine drip. Systolic to be less 160 <Yudelka Jackson, DO - Last Filed: 06/27/24 04:49> Lab Data Labs: Lab Results 06/26/24 06/26/24 Range/Units 06:13 15:05 WBC 7.3 9.5 (4.5-11.0) X10^3/uL RBC 3.43 L 3.67 L (4.0-5.2) X10^6/uL Hgb 10.4 L 11.1 L (12.0-16.0) g/dL Hct 30.4 L 32.3 L (36-46) % MCV 88.7 88.2 (80-100) fL MCH 30.4 30.4 (26-34) PG MCHC 34.3 34.4 (30-36) % RDW 13.7 13.4 (11.6-14.8) % Plt Count 411 H 447 H (150-400) X10^3/uL Neut % (Auto) 71.4 77.3 H (50-75) % Lymph % (Auto) 14.6 L 10.7 L (25-40) % Morrill % (Auto) 10.7 9.2 (3-14) % Eos % (Auto) 2.5 2.2 (2-4) % Baso % (Auto) 0.8 0.6 (0-2) % Neut # (Auto) 5200 7400 H (2986-5169) /uL Lymph # (Auto) 1100 1000 L (3859-3376) /uL Morrill # (Auto) 800 900 (0-900) /uL Eos # (Auto) 200 200 (0-450) /uL Baso # (Auto) 100 100 (0-100) /uL Sodium 130 L 129 L (137-145) mmol/L Potassium 3.9 4.1 (3.4-5.1) mmol/L Chloride 100 98 (98-107) mmol/L Carbon Dioxide 27 23 (22-32) mmol/L BUN 8 9 (7-17) mg/dL Creatinine 0.62 0.56 (0.52-1.04) mg/dL Estimated GFR > 60 > 60 (>60) mL/min BUN/Creatinine Ratio 12.9 16.1 (6-22) Glucose 90 151 H (80-110) mg/dL Calcium 8.8 9.0 (8.4-10.2) mg/dL Total Bilirubin 0.5 0.7 (0.2-1.3) mg/dL AST 19 41 H (14-36) IU/L ALT 14 18 (<35) IU/L Alkaline Phosphatase 76 73 (38-126) U/L Total Creatine Kinase 34 (30-135) U/L Troponin I < 0.012 (0.01-0.034) ng/mL Total Protein 6.1 L 6.9 (6.3-8.2) g/dL Albumin 3.0 L 3.6 (3.5-5.0) g/dL Globulin 3.1 3.3 (1.7-4.1) g/dL Albumin/Globulin Ratio 1.0 1.1 (1.0-2.8) Lipase 39 (23-300) U/L Imaging Data Head Ct #2: Radiologist's Impression: Emma Callahan??89??F??1935 ? Allergy/Adv: Anesthetics - Colleen Type- Parabens, procaine, epinephrine, hydrocodone, codeine, aspirin (More??) Close Head CT (Signed) Haja Burnettwn - 06/26/24 Head/Neck CTA (Signed) Inés Velazco - 06/26/[address] (Signed) Inés Velazco - 06/26/24 Abdomen/Pelvis CT (Signed) Kane Travis - 06/26/24 Abdomen/Pelvis CT (Signed) Elida Antonio - 06/22/24 Chest X-Ray (Signed) Miles Cline - 05/17/[address] (Signed) Rolf Elizalde - 05/01/24 Modified Barium Swallow (Signed) Inés Velazco - 04/17/24 Abdomen/Pelvis CT (Signed) Stephen Hendricks - 04/15/24 Chest X-Ray (Signed) Tiffany Bartlett - 04/15/24 Bone Densitometry 04/27/22 DEXA Result 04/27/22 Thoracic Spine X-Ray (Signed) Edgardo Holley - 02/21/22 Lumbar Spine X-Ray (Signed) Edgardo Holley - 02/21/22 Cervical Spine X-Ray (Signed) Edgardo Holley - 02/21/22 Chest X-Ray (Signed) Lorenzo Akhtar - 02/04/22 Echocardiogram Ultrasound (Signed) David Bruno - 08/10/21 Brain MRI (Signed) Jesus Bell - 08/10/21 Telemetry Strips 08/10/21 Head/Neck CTA (Signed) Lorenzo Akhtar - 08/10/[address] (Signed) Alison Wong - 08/10/[address] (Signed) Bill Loya - 02/06/19 Chest X-Ray (Signed) Bill Loya - 10/17/[address] (Signed) Bill Loya - 10/17/18 Hip X-Ray (Signed) Efrain Ibarra - 03/02/18 Launch?[address] [address] [address] Scan Report Signed Patient: Emma Callahan MR#: [id number] : 1935 Acct:[id number] Age/Sex: 89 / F Date of Service: 06/26/24 Loc: ED Accession Number: [id number] Procedure: CT head/brain wo con Ordering Provider: Yudelka Jackson D.O. PROCEDURE: CT HEAD/BRAIN WO CON INDICATIONS: repeat CT BASED ON EARLIER READ. TECHNIQUE: Noncontrast 4.5 mm thick angled axial sections acquired from the foramen magnum to the vertex, with coronal and sagittal reformats. For radiation dose reduction, the following was used: automated exposure control, adjustment of mA and/or kV according to patient size. COMPARISON: [facility], CT, CT HEAD/BRAIN WO CON, 05/01/2024, 3:34. [facility], CT, CT HEAD/BRAIN WO CON, 06/26/2024, 17:37. FINDINGS: Image quality: Diagnostic. CSF spaces: Basal cisterns are patent. No extra-axial fluid collections. Ventricles are normal in size and shape. Brain: No midline shift. No intracranial masses. Density along the posterior falx and tentorium is unchanged. Basal ganglia calcifications. No area of hypodensity in a large vascular distribution to suggest acute infarction. Periventricular hypodensity consistent with chronic microvascular ischemic change. Age-related parenchymal loss. Skull and face: Calvarium and visualized facial bones are intact, without suspicious lesions. Sinuses: Visualized sinuses and mastoids are clear. IMPRESSION: No interval change. The subtle increased density along the posterior falx and tentorium is unchanged. Lobe suspicion for hemorrhage. Dictated by: Valentín Burnett M.D. on 06/26/2024 at 22:19 Approved by: Valentín Burnett M.D. on 06/26/2024 at 22:25 [facility] Narrative Medical decision making narrative: Patient brought in by ambulance for syncopal episode. Witnessed by provider at home. Blood sugar is reassuring. No hypoglycemia. Patient is at baseline now. Patient states she got up and felt dizzy at dinner table. Her provider states she was just standing there no seizure activity patient does not recall this. No fall or injury. Denies any headache or chest pain. Although she is nauseous now. No unilateral numbness tingling or weakness slurred speech or facial droop. Fast exam is negative. However, patient now complains mostly of epigastric discomfort. With nausea. History of gastritis. Denies any chest pain. After history and exam CT abdomen pelvis EKG troponin CBC CMP normal saline Protonix Zofran [facility] Medical records reviewed: No recent visit for this complaint Differential considered: Includes but not limited to STEMI non-STEMI pancreatitis gastritis bowel obstruction vasovagal syncope Lab Test results independently reviewed as above. Pertinent findings: WBC 9.5 hemoglobin 11.1 hematocrit 32.3 sodium 129 GFR greater than 60 AST 41 ALT 18 troponin less than 0.012 Independently reviewed EKG [time] EKG is normal sinus rhythm rate [ ] and free of any signs of ischemia or ectopy. No ST segmental elevation or depression. No T wave inversions Normal sinus rhythm rate 61 Imaging studies independently reviewed: CT abdomen pelvis no acute finding there is nonspecific thickening distal transverse descending proximal sigmoid colon [id number] thickening of the stomach wall and proximal duodenum CT angio head and neck no acute finding CT head suspicious for hemorrhage posterior falx and tentorium Consultations: 6:27 p.m.. Spoke with [facility] neurology Dr. WEINSTEIN, recommends nicardipine for systolic blood pressure less than 160, she will call her attending for further instructions. No neurosurgery indicated at this time. Treatments: Re-evaluations: 5:36 p.m.. Patient feeling better with nausea and epigastric discomfort however after review of her symptoms she felt dizzy and concerning for TIA/stroke. Her symptoms have resolved. CT head and angiogram are ordered. 6:15 p.m. updated patient and son of intracranial bleed. Likely causing her symptoms today. Awaiting to hear back from [facility] neurology. Patient remains asymptomatic. Discussion: Diagnosis: Intracranial bleed 6:[address] Gomez: Sign out to Dr. Jackson, I have spoken with [facility] tele stroke. However awaiting call back for further instructions. Patient hemodynamically stable. Will need nicardipine drip. Systolic to be less 160. [facility] evaluated imaging they spoke with Dr. Gomez and told him they after review with Radiology they thought was probably not a bleed and asked for repeat at 4:00 a.m.. Patient is quite hypertensive though has a vertigo type symptoms. 06/26/2024 Dr. Jackson: [id number]: Patient signed out to myself. Patient seen and evaluated by myself. Has not sounds like a syncopal episode earlier today does have complaint of headache. She has had sounds like vertigo symptoms or spinning for 2 days according to her and her son. Son notes she does have some dementia, has history of atrial fibrillation states she was not anticoagulated. She has also had some issues with GERD or reflux in his following regularly with GI, she is potentially supposed to have endoscopy in the future. Labs and imaging were reviewed. Initial head CT here was read as possible bleed but Dr. Gomez consulted with [facility] and Neurosurgery with their own Radiology over-read felt that there was not a bleed recommended repeat [address] and if no acute change could rule out intracranial hemorrhage. They did recommend nicardipine drip while awaiting repeat head CT to maintain blood pressure less than 160 systolic. Patient's son notes that she is DNR/DNI patient was agreeable with that as well. Repeat head CT shows no acute change in felt to be low suspicion for hemorrhage. Patient was given a dose of her home medications including her Coreg which she had missed this evening. She was started on nicardipine drip as she was 190 systolic. She responded quite nicely to this. Spoke with Dr. Tucker, tele hospitalist. Discussed patient has also had vertigo for the past 2 days. Has had some nausea and vomiting. Has had headache. Reviewed findings as well as thoughts from [facility] and repeat head CT which shows no acute changes and felt not to be hemorrhagic bleed. Has responded with a nicardipine drip in his down to 120, we will turn off the drip as patient is felt not to have a bleed and blood pressure has not improved she was started on her oral home evening carvedilol medications. He accepts for observation overnight with plan for possible MR in the morning. Images pushed to [facility]. Spoke with Dr. Yesy Chris Neurosurgery. She reviewed images from repeat head CT this evening at as well as compared to earlier. She states no acute change, does not think bleed is present. She would states if persistent symptoms into tomorrow agrees with plan for MRI/A in the a.m. Updated Dr. Tucker of recommendations from neurosurgery. He accepts for observation. Critical Care Time <Yudelka Jackson, DO - Last Filed: 06/27/24 04:49> Critical Care Time Critical Care Time: Yes Total Critical Care Time: 45 Attestation: The high probability of a clinically significant, sudden or life threatening deterioration of the [systems] system(s) required my full and direct attention, intervention and personal management. The aggregate critical care time was [--] minutes. This time is in addition to time spent performing reported procedures but includes the following: [x] Data Review and interpretation [x] Patient assessment and monitoring of vital signs [x] Documentation [x] Medication orders and management Discharge Plan Departure Patient Disposition: Admitted as Observation Clinical Impression: Vertigo, Hypertension Admit Date/Time: 06/26/24 22:52 Admit Provider: Cole Tucker
[2024-06-26] MEDS: NICARDIPINE 25 MG in SODIUM CHLORIDE 0.9% 240 ML 50 MG IV (18:45)
[2024-06-26] MEDS: carvediloL 3.125 MG TABLET PO (20:17)
[2024-06-26] MEDS: SUCRALFATE 1 GM TABLET PO (20:17)
[2024-06-26] MEDS: MORPHINE 2 MG/ML INJ IV (20:52)
--- NOTE | 2024-06-26 21:11 | PC.NURSE ---
Pt contginues to remain painful. Dr Jackson notified. Verbal orders received.
[2024-06-26] MEDS: HYDROMORPHONE 0.5 MG INJ IV (21:17)
--- NOTE | 2024-06-26 21:30 | DI.CT.S_ITS ---
PROCEDURE: CT HEAD/BRAIN WO CON INDICATIONS: repeat CT BASED ON EARLIER READ. TECHNIQUE: Noncontrast 4.5 mm thick angled axial sections acquired from the foramen magnum to the vertex, with coronal and sagittal reformats. For radiation dose reduction, the following was used: automated exposure control, adjustment of mA and/or kV according to patient size. COMPARISON: [facility], CT, CT HEAD/BRAIN WO CON, 05/01/2024, 3:34. [facility], CT, CT HEAD/BRAIN WO CON, 06/26/2024, 17:37. FINDINGS: Image quality: Diagnostic. CSF spaces: Basal cisterns are patent. No extra-axial fluid collections. Ventricles are normal in size and shape. Brain: No midline shift. No intracranial masses. Density along the posterior falx and tentorium is unchanged. Basal ganglia calcifications. No area of hypodensity in a large vascular distribution to suggest acute infarction. Periventricular hypodensity consistent with chronic microvascular ischemic change. Age-related parenchymal loss. Skull and face: Calvarium and visualized facial bones are intact, without suspicious lesions. Sinuses: Visualized sinuses and mastoids are clear. IMPRESSION: No interval change. The subtle increased density along the posterior falx and tentorium is unchanged. Lobe suspicion for hemorrhage. Dictated by: Valentín Burnett M.D. on 06/26/2024 at 22:19 Approved by: Valentín Burnett M.D. on 06/26/2024 at 22:25
[2024-06-27] VITALS (12 sets, daily range): BP systolic 131–186; BP diastolic 62–95; PULSE 59–73; RESP 12–22; TEMP 36.6–36.9; O2SAT 93–97
--- NOTE | 2024-06-27 | DI.MRI.S_ITS ---
PROCEDURE: MR HEAD/BRAIN WO CON INDICATIONS: vertigo TECHNIQUE: Non-contrast axial T1 spin echo, axial T2 fast spin echo, sagittal and axial FLAIR, coronal T2 fast spin echo, axial gradient echo, axial diffusion and ADC through the brain. COMPARISON: [facility], MR, MR HEAD/BRAIN WO CON, 08/10/2021, 14:42. [facility], CT, CT HEAD/BRAIN WO CON, 06/26/2024, 21:38. [facility], CT, CT HEAD/BRAIN WO CON, 06/26/2024, 17:37. FINDINGS: Image quality: Excellent. CSF spaces: Ventricles appear symmetric in size and shape. Basal cisterns are patent. No extra-axial fluid collections. Brain: No intracranial bleeds or mass effects. There is cerebral volume loss for age. There are periventricular and deep white matter chronic small vessel ischemic changes. Brainstem appears normal. Diffusion-weighted images show no acute infarct. No chronic ischemic insults. Normal intravascular flow voids are present. Skull and face: Calvarial bone marrow is normal in signal. Orbits are normal. Sinuses: Sinuses and mastoids are clear. IMPRESSION: No acute intracranial disease process. No acute or chronic infarcts. No intracranial hemorrhage Mild, diffuse cerebral volume loss with mild periventricular and subcortical white matter chronic microvascular ischemic change. Dictated by: Alison Wong MD, PhD on 06/27/2024 at 11:16 Approved by: Alison Wong MD, PhD on 06/27/2024 at 11:20
--- NOTE | 2024-06-27 00:31 | P.HP_ITS ---
History of Present Illness History of Present Illness Chief complaint: Syncope Narrative: 89 year old female with past medical history of Gastritis/GERD, HTN, HLD, hypothyroidism and afib presents with syncope. Per report, the patient was at home and had a near syncope episode. The patient does not really recall but the provider that was close to her report that the patient complain of dizziness and fell down to a seated position. The patient does not recall if she has LOC but denies hitthing her head. There was also no report of any seizure like activity. The patient denies any changes in her speech, focal weakness/numbness or facial drooping. The patient did report of some nausea and vomiting with some epigastric discomfort but denies any GIB. Patient also denies any fever, chills, chest pain, palpitations or coughing. The patient did have some headache. In our ER, the patient SBP was in 190s. CT and CTA of brain iniitially suggested possible small hemorrhage. Neurosurgery was consulted by our ER physician and recommended to bring down blood pressure and repeat CT/CTA of brain. Nicardipine drip was starte and SBP improves to 120s which was stopped. EKG and trops negative. Repeat of CT/CTA of brain shows no interval changes. Our ER physician Dr. Jackson called Dr. Mcdonald, neurosurgery instructional technology facilitator for who review the films and did not think that the findings on CT is a hemorrhage. Dr. Mcdonald adviced to admit the patient here for observation to monitor neuro symptoms as well as to obtain MRI of brain in AM. [facility] Medical History Acute metabolic encephalopathy Acute epigastric pain Acute hyponatremia Hypertensive urgency Anxiety Hypertension Surgical History Status post cholecystectomy Status post delivery Social History household members: none Smoking Status: Never smoker alcohol intake: never Meds Home Medications and Allergies Home Medications Medication Instructions Recorded Confirmed Type hydroxyzine pamoate 25 mg capsule 25 mg PO 3XD PRN Anxiety 04/15/24 06/20/24 History metoclopramide HCl 5 mg tablet 5 mg PO BID #60 tabs 05/02/24 06/20/24 Rx (Reglan) famotidine 20 mg tablet 20 mg PO BID #60 tabs 05/17/24 06/20/24 Rx amiodarone 100 mg tablet 100 mg PO DAILY #90 tabs 06/06/24 06/20/24 Rx carvedilol 3.125 mg tablet 3.125 mg PO BID #180 tabs 06/06/24 06/20/24 Rx levothyroxine 50 mcg tablet 50 mcg PO DAILY@06 #90 tabs 06/06/24 06/20/24 Rx losartan 100 mg tablet 100 mg PO DAILY #90 tabs 06/06/24 06/20/24 Rx pantoprazole 40 mg tablet,delayed 40 mg PO BID #180 tabs 06/06/24 06/20/24 Rx release rosuvastatin 10 mg tablet 10 mg PO BEDTIME #90 tabs 06/06/24 06/20/24 Rx sucralfate 1 gram tablet 1 g PO BID #30 tabs 06/20/24 06/22/24 Rx esomeprazole magnesium 40 mg 40 mg PO BEDTIME 06/22/24 06/22/24 History capsule,delayed release lactulose 20 gram/30 mL oral 20 g (30 mL) PO BID #300 mL 06/22/24 Rx solution morphine 10 mg/5 mL oral solution 5 mg (2.5 mL) PO Q6H PRN pain #50 06/22/24 Rx mL Allergies Allergy/AdvReac Type Severity Reaction Status Date / Time Anesthetics - Colleen Type- Allergy Unknown patient Verified 06/26/24 15:02 Parabens can't [Anesthetics - Colleen Type] remember procaine Allergy Unknown patient Verified 06/26/24 15:02 can't remember epinephrine [EPINEPHRINE] AdvReac Severe shakes Verified 06/26/24 15:02 hydrocodone AdvReac Severe patient Verified 06/26/24 15:02 can't remeber codeine AdvReac Intermediate vomiting Verified 06/26/24 15:02 aspirin AdvReac Mild GI UPSET Verified 06/26/24 15:02 Review of Systems Review of Systems Narrative: 12 points of ROS are negative except for what was mentioned per HPI. Exam Vital Signs (past 8 hours): - 06/26/24 16:45 06/26/24 17:00 06/26/24 17:00 Pulse Rate 58 L 60 Respiratory Rate 16 16 Blood Pressure 160/71 H Pulse Oximetry 94 93 Oxygen Delivery Method 06/26/24 17:15 06/26/24 17:30 06/26/24 17:30 Pulse Rate 58 L 60 Respiratory Rate 16 19 Blood Pressure 174/74 H Pulse Oximetry 91 96 Oxygen Delivery Method 06/26/24 17:50 06/26/24 18:00 06/26/24 18:15 Pulse Rate 68 61 61 Respiratory Rate 15 15 Blood Pressure Pulse Oximetry 92 94 93 Oxygen Delivery Method 06/26/24 18:30 06/26/24 18:39 06/26/24 18:39 Pulse Rate 97 H 69 Respiratory Rate 26 H 21 Blood Pressure 191/79 H Pulse Oximetry 95 Oxygen Delivery Method 06/26/24 18:40 06/26/24 18:50 06/26/24 18:51 Pulse Rate 67 67 Respiratory Rate 23 27 H Blood Pressure 194/78 H Pulse Oximetry 97 95 Oxygen Delivery Method 06/26/24 18:51 06/26/24 19:00 06/26/24 19:00 Pulse Rate 66 66 Respiratory Rate 24 20 Blood Pressure 160/67 H Pulse Oximetry 95 94 Oxygen Delivery Method Room Air 06/26/24 19:10 06/26/24 19:10 06/26/24 19:20 Pulse Rate 66 Respiratory Rate 22 Blood Pressure 159/65 H 132/62 Pulse Oximetry 94 Oxygen Delivery Method 06/26/24 19:20 06/26/24 19:30 06/26/24 19:30 Pulse Rate 65 66 Respiratory Rate 20 19 Blood Pressure 130/60 Pulse Oximetry 91 93 Oxygen Delivery Method 06/26/24 19:40 06/26/24 19:40 06/26/24 19:50 Pulse Rate 65 66 Respiratory Rate 18 17 Blood Pressure 126/59 L Pulse Oximetry 89 L 92 Oxygen Delivery Method 06/26/24 19:50 06/26/24 20:00 06/26/24 20:00 Pulse Rate 65 Respiratory Rate 15 Blood Pressure 125/60 122/59 L Pulse Oximetry 91 Oxygen Delivery Method Room Air 06/26/24 20:10 06/26/24 20:10 06/26/24 20:10 Pulse Rate 66 Respiratory Rate 17 Blood Pressure 140/61 140/61 Pulse Oximetry 92 Oxygen Delivery Method Room Air 06/26/24 20:17 06/26/24 20:17 06/26/24 20:17 Pulse Rate 67 Respiratory Rate 15 Blood Pressure 122/69 134/61 Pulse Oximetry 92 Oxygen Delivery Method Room Air 06/26/24 20:20 06/26/24 20:20 06/26/24 20:30 Pulse Rate 66 Respiratory Rate 24 Blood Pressure 126/62 134/60 Pulse Oximetry 93 Oxygen Delivery Method 06/26/24 20:30 06/26/24 20:40 06/26/24 20:40 Pulse Rate 66 70 Respiratory Rate 22 21 Blood Pressure 154/70 H Pulse Oximetry 92 93 Oxygen Delivery Method 06/26/24 20:50 06/26/24 20:51 06/26/24 20:51 Pulse Rate 90 72 Respiratory Rate 47 H 29 H Blood Pressure 146/65 H Pulse Oximetry Oxygen Delivery Method 06/26/24 21:00 06/26/24 21:00 06/26/24 21:10 Pulse Rate 65 63 Respiratory Rate 25 H 20 Blood Pressure 126/59 L Pulse Oximetry 94 94 Oxygen Delivery Method 06/26/24 21:10 06/26/24 21:20 06/26/24 21:20 Pulse Rate 63 Respiratory Rate 21 Blood Pressure 131/63 128/63 Pulse Oximetry 94 Oxygen Delivery Method 06/26/24 21:30 06/26/24 21:30 06/26/24 21:45 Pulse Rate 62 31 L Respiratory Rate 25 H Blood Pressure 137/60 Pulse Oximetry 92 94 Oxygen Delivery Method 06/26/24 21:50 06/26/24 22:00 06/26/24 22:10 Pulse Rate 60 74 60 Respiratory Rate 19 23 20 Blood Pressure Pulse Oximetry 93 93 91 Oxygen Delivery Method 06/26/24 22:20 06/26/24 22:30 06/26/24 22:40 Pulse Rate 64 59 L 59 L Respiratory Rate 26 H 21 20 Blood Pressure Pulse Oximetry 90 L 89 L 90 L Oxygen Delivery Method 06/26/24 22:50 06/26/24 23:00 06/26/24 23:10 Pulse Rate 60 59 L 59 L Respiratory Rate 17 17 17 Blood Pressure Pulse Oximetry 90 L 90 L 89 L Oxygen Delivery Method 06/26/24 23:20 06/26/24 23:26 06/26/24 23:26 Pulse Rate 60 62 Respiratory Rate 16 16 Blood Pressure 157/66 H Pulse Oximetry 87 L 94 Oxygen Delivery Method 06/26/24 23:30 06/26/24 23:30 06/26/24 23:40 Pulse Rate 60 Respiratory Rate 15 Blood Pressure 134/63 132/61 Pulse Oximetry 94 Oxygen Delivery Method 06/26/24 23:40 06/26/24 23:50 06/26/24 23:50 Pulse Rate 59 L 59 L Respiratory Rate 13 14 Blood Pressure 126/60 Pulse Oximetry 95 95 Oxygen Delivery Method 06/27/24 00:00 06/27/24 00:00 06/27/24 00:10 Pulse Rate 60 Respiratory Rate 13 Blood Pressure 138/64 131/62 Pulse Oximetry 96 Oxygen Delivery Method 06/27/24 00:10 06/27/24 00:20 06/27/24 00:20 Pulse Rate 61 59 L Respiratory Rate 14 15 Blood Pressure 140/63 Pulse Oximetry 96 96 Oxygen Delivery Method Oxygen Delivery Method Room Air Narrative Exam Narrative: GENERAL: The patient is not in any acute distressed. Awake and alert. HEENT: Nonicteric sclerae, PERRLA, EOMI. Oropharynx clear. Moist mucous membranes. Conjunctivae appear well perfused. HEART: Regular rate and rhythm without murmurs. No lower extremities edema. LUNGS: Clear to auscultation bilaterally. No wheezing, crackles or rhonchi ABDOMEN: Right CVA tenderness. Soft, positive bowel sounds, nontender. SKIN: No rash, no excessive bruising, petechiae, or purpura. NEUROLOGIC: AxO x 3. Cranial nerves II-XII intact without motor/sensory deficit. Objective Labs 06/26/24 15:05 06/26/24 15:05 Labs: Laboratory Results - last 24 hr 06/26/24 15:05 WBC 9.5 RBC 3.67 L Hgb 11.1 L Hct 32.3 L MCV 88.2 MCH 30.4 MCHC 34.4 RDW 13.4 Plt Count 447 H Neut % (Auto) 77.3 H Lymph % (Auto) 10.7 L [place] % (Auto) 9.2 Eos % (Auto) 2.2 Baso % (Auto) 0.6 Neut # (Auto) 7400 H Lymph # (Auto) 1000 L [place] # (Auto) 900 Eos # (Auto) 200 Baso # (Auto) 100 Sodium 129 L Potassium 4.1 Chloride 98 Carbon Dioxide 23 BUN 9 Creatinine 0.56 Estimated GFR > 60 BUN/Creatinine Ratio 16.1 Glucose 151 H Calcium 9.0 Total Bilirubin 0.7 AST 41 H ALT 18 Alkaline Phosphatase 73 Total Creatine Kinase 34 Troponin I < 0.012 Total Protein 6.9 Albumin 3.6 Globulin 3.3 Albumin/Globulin Ratio 1.1 Lipase 39 Assessment & Plan Assessment & Plan narrative: Syncope. Admit the patient to medical telemetry under observation. Note trop,EKG are negative for any sign of acute ischemia or arrhythmia. CT/CTA of brain initially had finding that suggested small hemorrhage but repeat CT/CTA was done and reveiwed by ankush Mcdonald, neurosurgery instructional technology facilitator for . Dr. Mcdonald did not think that the findings on CT is a hemorrhage. Dr. Mcdonald adviced to admit the patient here for observation to monitor neuro symptoms as well as to obtain MRI of brain in AM. IVF and monitor for any neuro changes. Note patient is non focal on exam. PT/OT Hypertensive urgency. Note SBP on arrival to ER was in 190s. s/p nicardipne drip in ER. SBP now 120s. Resume home Coreg with prn IV hydralazine. Vertigo symptoms. Again plan as above. Patient symptomts now resolved. Afib. Resume home amiodarone in AM once medication dose is confirm as patient states she doesn't know what dose or medications she takes at home HLD. Resume home statin once medication dose is confirmed in AM Hypothyoirism. Resume home Synthroid is confirmed in AM DVT PPx SCDs no hep due to initial concern for brain hemorrhage. Code status DNR/DNI Disposition home in 1-2 days Time-Based Coding :: [TOTAL MINUTES] spent with patient and on the chart (including review of chart, obtaining history, exam, reviewing outside data, placing orders, documenting exam and treatment plan, and counseling patient) on [DATE].
[2024-06-27] MEDS: MORPHINE 4 MG/ML INJ IV ×2 (01:48→09:27)
[2024-06-27] MEDS: ONDANSETRON 4 MG/2 ML INJ IV ×2 (01:56→09:27)
[2024-06-27] MEDS: SODIUM CHLORIDE 0.9% 1,000 ML 75 ML IV (02:21)
[2024-06-27 06:24] LABS: Add Manual Diff / Slide Review NO; Basophils Absolute Auto 100 /uL (0-100); Basophils Percent Auto 0.8 % (0-2); Eosinophils Absolute Auto 200 /uL (0-450); Eosinophils Percent Auto 2.5 % (2-4); Hematocrit 30.4 % (36-46); Hemoglobin 10.4 g/dL (12.0-16.0); Lymphocytes Absolute Auto 1100 /uL (1100-4500); Lymphocytes Percent Auto 14.6 % (25-40); Mean Corpuscular HGB Conc 34.3 % (30-36); Mean Corpuscular Hemoglobin 30.4 PG (26-34); Mean Corpuscular Volume 88.7 fL (80-100); Monocytes Absolute Auto 800 /uL (0-900); Monocytes Percent Auto 10.7 % (3-14); Neutrophils Absolute Auto 5200 /uL (1500-7000); Neutrophils Percent Auto 71.4 % (50-75); Platelet Count 411 X10^3/uL (150-400); Red Blood Cell Count 3.43 X10^6/uL (4.0-5.2); Red Cell Distribution Width 13.7 % (11.6-14.8); White Blood Cell Count 7.3 X10^3/uL (4.5-11.0)
[2024-06-27 06:41] LABS: Alanine Aminotransferase 14 IU/L (<35); Alkaline Phosphatase 76 U/L (38-126); Aspartate Aminotransferase 19 IU/L (14-36); BUN Creatinine Ratio 12.9 (6-22); Bilirubin Total 0.5 mg/dL (0.2-1.3); Blood Urea Nitrogen 8 mg/dL (7-17); Calcium 8.8 mg/dL (8.4-10.2); Carbon Dioxide 27 mmol/L (22-32); Chloride 100 mmol/L (98-107); Estimated Glomerular Filt Rate > 60 mL/min (>60); Globulin 3.1 g/dL (1.7-4.1); Glucose 90 mg/dL (80-110); HEMOLYSIS < 15 (0-50); Potassium 3.9 mmol/L (3.4-5.1); Sodium 130 mmol/L (137-145); Total Protein 6.1 g/dL (6.3-8.2)
[2024-06-27] MEDS: carvediloL 3.125 MG TABLET PO ×2 (09:36→21:04)
[2024-06-27] MEDS: LOSARTAN 50 MG TABLET 100 MG PO (09:36)
--- NOTE | 2024-06-27 10:43 | P.HP_ITS ---
History of Present Illness History of Present Illness Date Patient Seen: 06/27/24 Chief complaint: Syncope Narrative: From night doctor: 89 year old female with past medical history of Gastritis/GERD, HTN, HLD, hypothyroidism and afib presents with syncope. Per report, the patient was at home and had a near syncope episode. The patient does not really recall but the provider that was close to her report that the patient complain of dizziness and fell down to a seated position. The patient does not recall if she has LOC but denies hitthing her head. There was also no report of any seizure like activity. The patient denies any changes in her speech, focal weakness/numbness or facial drooping. The patient did report of some nausea and vomiting with some epigastric discomfort but denies any GIB. Patient also denies any fever, chills, chest pain, palpitations or coughing. The patient did have some headache. In our ER, the patient SBP was in 190s. CT and CTA of brain iniitially suggested possible small hemorrhage. Neurosurgery was consulted by our ER physician and recommended to bring down blood pressure and repeat CT/CTA of brain. Nicardipine drip was starte and SBP improves to 120s which was stopped. EKG and trops negative. Repeat of CT/CTA of brain shows no interval changes. Our ER physician Dr. Jackson called Dr. Mcdonald, neurosurgery movie projectionist for who review the films and did not think that the findings on CT is a hemorrhage. Dr. Mcdonald adviced to admit the patient here for observation to monitor neuro symptoms as well as to obtain MRI of brain in AM. [facility] Medical History Acute metabolic encephalopathy Acute epigastric pain Acute hyponatremia Hypertensive urgency Anxiety Hypertension Surgical History Status post cholecystectomy Status post delivery Social History household members: none Smoking Status: Never smoker alcohol intake: never Meds Home Medications and Allergies Home Medications Medication Instructions Recorded Confirmed Type hydroxyzine pamoate 25 mg capsule 25 mg PO 3XD PRN Anxiety 04/15/24 06/27/24 History metoclopramide HCl 5 mg tablet 5 mg PO BID #60 tabs 05/02/24 06/27/24 Rx (Reglan) famotidine 20 mg tablet 20 mg PO BID #60 tabs 05/17/24 06/27/24 Rx amiodarone 100 mg tablet 100 mg PO DAILY #90 tabs 06/06/24 06/27/24 Rx carvedilol 3.125 mg tablet 3.125 mg PO BID #180 tabs 06/06/24 06/27/24 Rx levothyroxine 50 mcg tablet 50 mcg PO DAILY@06 #90 tabs 06/06/24 06/27/24 Rx losartan 100 mg tablet 100 mg PO DAILY #90 tabs 06/06/24 06/27/24 Rx pantoprazole 40 mg tablet,delayed 40 mg PO BID #180 tabs 06/06/24 06/27/24 Rx release rosuvastatin 10 mg tablet 10 mg PO BEDTIME #90 tabs 06/06/24 06/27/24 Rx sucralfate 1 gram tablet 1 g PO BID #30 tabs 06/20/24 06/27/24 Rx esomeprazole magnesium 40 mg 40 mg PO BEDTIME 06/22/24 06/27/24 History capsule,delayed release lactulose 20 gram/30 mL oral 20 g (30 mL) PO BID #300 mL 06/22/24 06/27/24 Rx solution morphine 10 mg/5 mL oral solution 5 mg (2.5 mL) PO Q6H PRN pain #50 06/22/24 06/27/24 Rx mL Allergies Allergy/AdvReac Type Severity Reaction Status Date / Time Anesthetics - Colleen Type- Allergy Unknown patient Verified 06/26/24 15:02 Parabens can't [Anesthetics - Colleen Type] remember procaine Allergy Unknown patient Verified 06/26/24 15:02 can't remember epinephrine [EPINEPHRINE] AdvReac Severe shakes Verified 06/26/24 15:02 hydrocodone AdvReac Severe patient Verified 06/26/24 15:02 can't remeber codeine AdvReac Intermediate vomiting Verified 06/26/24 15:02 aspirin AdvReac Mild GI UPSET Verified 06/26/24 15:02 Review of Systems Review of Systems Narrative: All else reviewed and otherwise unremarkable except as noted in the history and physical. Exam Vital Signs (past 8 hours): - 06/27/24 04:00 06/27/24 09:36 06/27/24 09:36 Pulse Rate 64 Respiratory Rate 19 Blood Pressure 131/69 166/95 H 166/95 H Oxygen Delivery Method Room Air Narrative Exam Narrative: NAD, alert and oriented, fluent speech, calm. Normocephalic skull, EOMI, anicteric sclera, symmetric pupils. Oropharynx unremarkable, no droop. Neck supple, midline trachea, no adenopathy. Lungs clear, normal rate and effort. Heart regular, no murmur gallop or rub. Abdomen is soft, non distended and non tender. Extremities are free of edema. Skin is free of rash or lesions. Joints are not swollen or deformed. Judgment appears to be normal. Cranial nerves are intact, motor strength is 5/5 all extremities. Speech and judgment are normal. Objective ECG Impression: Normal sinus rhythm Imaging Multiple studies: : Radiologist's impression: Head CT 1: No interval change. The subtle increased density along the posterior falx and tentorium is unchanged. Lobe suspicion for hemorrhage. Head and neck CTA: Multiple areas of high-grade stenosis within the neck and intracranial circulation as described above relatively stable. Pulmonary ground-glass opacities which can be seen with infection/ inflammation. Head CT 2: Increased density within the posterior falx and tentorium most suspicious for hemorrhage. The above findings were discussed with Dr. Grayson Gomez on 06/26/2024 at 6:14 p.m.. Studies abdomen and pelvis CT: Mild bibasilar subsegmental atelectasis and mild ground-glass opacities. Mild cardiomegaly unchanged. [id number] wall thickening of the stomach into the proximal duodenum discussed above. Moderate pattern of constipation less than on the prior exam. New mild nonspecific wall thickening of the distal transverse, descending and proximal sigmoid colon some of which commonly artifact from partial nondistention although mild colitis could have a similar appearance. Labs 06/26/24 15:05 06/26/24 15:05 Labs: Laboratory Results - last 24 hr 06/26/24 06/26/24 06:13 15:05 WBC 7.3 9.5 RBC 3.43 L 3.67 L Hgb 10.4 L 11.1 L Hct 30.4 L 32.3 L MCV 88.7 88.2 MCH 30.4 30.4 MCHC 34.3 34.4 RDW 13.7 13.4 Plt Count 411 H 447 H Neut % (Auto) 71.4 77.3 H Lymph % (Auto) 14.6 L 10.7 L [place] % (Auto) 10.7 9.2 Eos % (Auto) 2.5 2.2 Baso % (Auto) 0.8 0.6 Neut # (Auto) 5200 7400 H Lymph # (Auto) 1100 1000 L [place] # (Auto) 800 900 Eos # (Auto) 200 200 Baso # (Auto) 100 100 Sodium 130 L 129 L Potassium 3.9 4.1 Chloride 100 98 Carbon Dioxide 27 23 BUN 8 9 Creatinine 0.62 0.56 Estimated GFR > 60 > 60 BUN/Creatinine Ratio 12.9 16.1 Glucose 90 151 H Calcium 8.8 9.0 Total Bilirubin 0.5 0.7 AST 19 41 H ALT 14 18 Alkaline Phosphatase 76 73 Total Creatine Kinase 34 Troponin I < 0.012 Total Protein 6.1 L 6.9 Albumin 3.0 L 3.6 Globulin 3.1 3.3 Albumin/Globulin Ratio 1.0 1.1 Lipase 39 Assessment & Plan Assessment & Plan narrative: 1. Syncope. Present on admission and active. 2. Hypertensive urgency. Present on admission and improved. -Note SBP on arrival to ER was in 190s. s/p nicardipne drip in ER. SBP now 120s. Resume home Coreg with prn IV hydralazine. 3. Vertigo symptoms. Present on admission and active. -Patient symptomts now resolved. 4. Afib. Present on admission and active. 5. HLD. Present on admission and active. -Resume home statin once medication dose is confirmed in AM 6. Hypothyoirism. Resume home Synthroid is confirmed in AM PLAN: -MRI brain this morning to rule out bleed. There is some concern of traumatic subarachnoid on initial imaging. This case was discussed with Neurosurgery while the patient was in the ED. -PT and OT evals to assess gait stability and assist with discharge planning. -new start of duloxetine and Reglan were given by Gastroenterology yesterday, but not taken when this episode happened. -continue telemetry. DVT PPx SCDs no hep due to initial concern for brain hemorrhage. Code status DNR/DNI Time-Based Coding :: [TOTAL MINUTES] spent with patient and on the chart (including review of chart, obtaining history, exam, reviewing outside data, placing orders, documenting exam and treatment plan, and counseling patient) on [DATE].
--- NOTE | 2024-06-27 12:04 | OT.IP.EVAL ---
Past Medical History (Last Reviewed 06/27/24 @ 10:45 by Cristhian Goldstein MD) Acute epigastric pain Acute hyponatremia Acute metabolic encephalopathy Anxiety Hypertension Hypertensive urgency Surgical History (Last Reviewed 06/27/24 @ 10:45 by Cristhian Goldstein MD) Status post delivery Status post cholecystectomy Occupational Therapy Inpatient Evaluation/Re-Eval M1 PT/OT-IP Prior Functional Status Start: 06/27/24 08:48 Freq: Status: Complete Protocol: Document 06/27/24 11:31 MB (Rec: 06/27/24 12:28 MB [id number]) Medical Review Prior Functional Status Medical History Reviewed Yes Communication Unsure baseline diet and communication Mobility and Gait Questionable: pt has assistance at times during the day and no assistance at night when she fell. She has RW recommended by PT previously and refuses to use per son and pt prefers her cane. Family and caregiver assist to perform platform steps to enter home. Social History Household Members none Living Arrangements House Number of Floors (Floors) One Floor Number of Stairs To Enter/Railing? 4 platform-type steps to enter home, pt has caregiver assistance 9 hours a day, everyday, though there has been staffing issues on the weekend lately Home Environment Standard Height Toilet,Walk in Shower Home Equipment Front Wheel Walker,Straight Cane,Raised Toilet Seat w/ Armrests,Shower Seat with Backrest,Hand Held Shower,Grab Bars In Shower Employment Status Retired Additional Social History Comment 2 steps with rail to get into the bed and pt states she falls into the bed from standing on the step M1 PT/OT-IP Prior Functional Status Start: 06/27/24 12:12 Freq: NEEDED Status: Active Protocol: Document 06/27/24 12:13 [facility] (Rec: 06/27/24 12:38 [facility] [id number]) Medical Review Prior Functional Status Mobility and Gait Pt states use a cane to walk with as pt refusing to use a fww at home. Activities of Daily Living and IADL's Pt has caregivers during the week 9AM-6PM but at this time, having staffing issues for the weekend. Social History Household Members none Living Arrangements House Number of Floors (Floors) One Floor Number of Stairs To Enter/Railing? Pt has 4 platform step to get into her house. Pt also has 2 steps with handle to get into the high bed. Home Environment Standard Height Toilet,Walk in Shower Home Equipment Front Wheel Walker,Straight Cane,Raised Toilet Seat w/ Armrests,Shower Seat with Backrest,Hand Held Shower,Grab Bars In Shower Additional Social History Comment Pt's son open to skilled rehab , increased care at home versus memory care. M2 OT-IP Current Condition Start: 06/27/24 12:12 Freq: Status: Active Protocol: Document 06/27/24 12:13 [facility] (Rec: 06/27/24 12:38 [facility] [id number]) Occupational Therapy Current Condition Current Condition Evaluation Date 06/27/24 Treatment Diagnosis Syncope Diagnosis Onset Date 06/26/24 M3 OT- IP Subjective and Pain Start: 06/27/24 12:12 Freq: Status: Active Protocol: Document 06/27/24 12:13 [facility] (Rec: 06/27/24 12:38 [facility] [id number]) OT- Subjective Occupational Therapy Visit Type Type Initial Evaluation Visit Start Time 11:31 Visit Stop Time 12:04 Occupational Therapy Visit Comments Patient Comments Pt needing encouragement but agreed to try to get up. Patient/Caregiver Goals TO go home. OT Pain Assessment Pain When Pain Assessed At Rest Pain Present Pain Present Pain Reported Location Left Hip Pain Behaviors Facial Grimacing,Holding Area M4 OT- IP ADL's Start: 06/27/24 12:12 Freq: Status: Active Protocol: Document 06/27/24 12:13 [facility] (Rec: 06/27/24 12:38 [facility] [id number]) OT [id number] Comments OT Self-Feeding Comments Not at meal time. OT ADL-Grooming Comments OT Grooming Comments Not performed. OT ADL-Oral Care Comments Oral Care Comments Not performed. OT ADL-Dressing General Eval Lower Body Dressing Ability Maximum Assistance Areas Needing Assistance Socks Comments OT Dressing Comments Pt states has assist at home when needed. At night pt states able to use the bathroom on her own. OT ADL-Toileting Comments OT Toileting Comments Not performed. OT ADL-Bathing Comments OT Bathing Comments NOt performed. M5 OT- IP IADL's Start: 06/27/24 12:12 Freq: Status: Active Protocol: Document 06/27/24 12:13 [facility] (Rec: 06/27/24 12:38 [facility] [id number]) OT-Instrumental Activities of Daily Living Deficits IADL Deficits Identified Deficits Home Safety Awareness Awareness of Need for Assistance at Home Decreased Awareness Home Safety Comments Pt will need assist for all needs at home. Medication Management Medication Management Caregiver Administers Money Management Money Management Caregiver Provides Assistance Meal Preparation Meal Preparation Caregiver Provides Assist Electronic Warfare Operator Electronic Warfare Operator Caregiver Provides Assist M6 OT- IP Functional Cognition Start: 06/27/24 12:12 Freq: Status: Active Protocol: Document 06/27/24 12:13 [facility] (Rec: 06/27/24 12:38 [facility] [id number]) Cognitive Factors Limiting Selfcare Function Cognitive Ability Level of Alertness Alert,Confusional State Patient Orientation Name,Birthday,Year,Place, Situation Attention Span Ability Capable of Focused Attention, Capable of Sustained Attention Ability to Follow Commands Able to Follow One Step Commands with Increased Time, Able to Follow One Step Commands with Repetition Memory Description Short Term Impaired,Mcfp Impaired,Working Impaired Safety Awareness Underestimates Need for Assistance Cognitive Comments Cognitive Assessment Comments Pt hard of hearing and per pt' s son states refuses to get hearing aids. Pt needing concrete cues to follow. Pt is very insistent on her care. Pt was here in 08/11/21 for TIA refused SLUMS and did poorly on the [place] [employer] Part B and this time still appears to have cognitive impairments. Pt 's son states she has dementia and progressively has gotten worse cognitively. OT- Vision and Hearing OT- Hearing Assessment OT- Hearing Assessment Hearing Impaired OT- Vision Assessment Visual Acuity Glasses For Reading Vision Assessment Comments Pt able to scan the room well for the therapists and son. M7 OT- IP Mobility and Balance Start: 06/27/24 12:12 Freq: Status: Active Protocol: Document 06/27/24 12:13 [facility] (Rec: 06/27/24 12:38 [facility] [id number]) OT- Bed Mobility Assessment Supine to Sit Supine to Sit Assist Contact Guard Assistance Sit to Supine Sit to Supine Assist Contact Guard Assistance OT-Transfer Assessment Sit to and From Stand Sit to and from Stand Contact Guard Assistance Technique Transfer Destination Bed Transfer Technique Stand Step Pivot Devices Transfer Assistive Devices Front Wheeled Walker Comments Mobility Comments CGA for bed mobility and to stand with the FWW. BP 170/91 supine and standing 159/70 and 153/71. Pt not wanting to do anymore at this time. OT- Balance Assessment Sitting Balance and Reactions Static Sitting Balance Ability Good Dynamic Sitting Balance Ability Fair Standing Balance and Reactions Static Standing Balance Ability Fair Dynamic Standing Balance Ability Fair M8 OT- IP Objective Assessments Start: 06/27/24 12:12 Freq: Status: Active Protocol: Document 06/27/24 12:13 [facility] (Rec: 06/27/24 12:38 [facility] [id number]) OT Gross Range of Motion Upper Extremity Range of Motion ROM Impairments Not able to formally assess. OT Strength Comments Strength Comments At least 3-/5 throughout. M9 OT- IP Assessment and Plan Start: 06/27/24 12:12 Freq: Status: Active Protocol: Document 06/27/24 12:13 [facility] (Rec: 06/27/24 12:38 [facility] [id number]) OT Summary Assessment and Plan Potential Rehabilitation Potential Poor Analytic Complexity at Evaluation Moderate Summary OT Impairments Pain,Strength,Balance, Functional Cognition, Functional Mobility,Dressing, Toileting,Bathing,Toilet Transfers,Shower Transfers, Activity Tolerance Progress Towards Goals Slow Progress due to Pain,Slow Progress due to Medical Issues,Slow Progress due to Activity Tolerance,Slow Progress due to Cognition Assessment Summary Pt MOD complexity and main barriers are steps, pain, decreased safety awareness, and will benefit from SNF versus [facility]FIE-memory care versus home with 24/ assist at this time. Pt is not safe to be able to independently use the bathroom at night as she was prior. Goals Self-Feeding Goal Independent Grooming Goal Independent Dressing Goal Standby Assistance Toileting Goal Standby Assistance Bathing Goal Minimal Assistance Toilet Transfer Goal Standby Assistance Shower Transfer Goal Standby Assistance Days to Meet Goals 10 Frequency of Treatment Other frequency 5x/week Treatment Plan OT Treatment Plan ADL Training,Functional Cognition Training,Functional Mobility,Patient/Family Education,Discharge Planning Other Treatment Recommendations and Next Standing ADL's with FWW Treatment Focus Discharge Recommendations OT Discharge Recommendations Home,Home with 24/7 Assist Available,SNF Rehab,LTAC Other Discharge Recommendations Pt would greatly benefit from memory care at this time. Home Equipment Needs FWW, [facility] Transportation Needs at Discharge Private Vehicle,Wheelchair/ Cabulance
--- NOTE | 2024-06-27 12:28 | PT.IIE ---
Surgical History (Last Reviewed 06/27/24 @ 10:45 by Cristhian Goldstein MD) Status post delivery Status post cholecystectomy Medical History (Last Reviewed 06/27/24 @ 10:45 by Cristhian Goldstein MD) Acute epigastric pain Acute hyponatremia Acute metabolic encephalopathy Anxiety Hypertension Hypertensive urgency Physical Therapy Inpatient Evaluation/Re-Eval M1 PT/OT-IP Prior Functional Status Start: 06/27/24 08:48 Freq: Status: Complete Protocol: Document 06/27/24 11:31 MB (Rec: 06/27/24 12:28 [id number]) Medical Review Prior Functional Status Medical History Reviewed Yes Communication Unsure baseline diet and communication Mobility and Gait Questionable: pt has assistance at times during the day and no assistance at night when she fell. She has RW recommended by PT previously and refuses to use per son and pt prefers her cane. Family and caregiver assist to perform platform steps to enter home. Social History Household Members none Living Arrangements House Number of Floors (Floors) One Floor Number of Stairs To Enter/Railing? 4 platform-type steps to enter home, pt has caregiver assistance 9 hours a day, everyday, though there has been staffing issues on the weekend lately Home Environment Standard Height Toilet,Walk in Shower Home Equipment Front Wheel Walker,Straight Cane,Raised Toilet Seat w/ Armrests,Shower Seat with Backrest,Hand Held Shower,Grab Bars In Shower Employment Status Retired Additional Social History Comment 2 steps with rail to get into the bed and pt states she falls into the bed from standing on the step M2 PT-IP Current Condition Start: 06/27/24 08:48 Freq: Status: Active Protocol: Document 06/27/24 11:31 MB (Rec: 06/27/24 12:28 [id number]) Physical Therapy Current Condition Current Condition Evaluation Date 06/27/24 Treatment Diagnosis Syncope and fall M3 PT-IP Subjective Start: 06/27/24 08:48 Freq: Status: Active Protocol: Document 06/27/24 11:31 MB (Rec: 06/27/24 12:28 [id number]) Subjective Physical Therapy Visit Type Type Initial Evaluation Visit Start Time 11:31 Visit Stop Time 12:05 Number of [place] [facility] ATTENDANT Visits 0 Physical Therapy Visit Comments Patient Comments I'm irritated. I'm tired of doing all this stuff. Therapy Pain Assessment Pain When Pain Assessed At Rest Pain Present Pain Present Pain Reported M4 PT-IP Mobility and Gait Start: 06/27/24 08:48 Freq: Status: Active Protocol: Document 06/27/24 11:31 MB (Rec: 06/27/24 12:28 MB [id number]) PT-Bed Mobility Assessment Rolling Type of Rolling Roll to Right,Roll to Left Level of Assist Contact Guard Assistance Supine to Sit Supine to Sit Contact Guard Assistance Sit to Supine Sit to Supine Contact Guard Assistance Scooting Scooting to Edge of Bed Contact Guard Assistance Scooting Up and Down in Bed Contact Guard Assistance PT-Transfer Assessment Sit to and From Stand Sit to and from Stand Contact Guard Assistance,1 Person Assistance,Use of Upper Extremities Equipment Transfer Assistive Device Gait Belt,Front Wheeled Walker Orthotic/Prosthetic Devices or Brace: No Transfers Transfer Destination Bed Transfer Technique Left side stepping Transfer Ability Level of Assist Contact Guard Assistance Comments Mobility Comments Pt does not rate pain and has various complaints of pain in head, hip and back with mobility and at rest, pt is resistant to PT lowering the bed to check orthostatics as she states she cannot breathe. No SOB or BERNARDO noted during treatment. BP and HR in RUE: 170/91, 65; standing 153/71, 70; standing 1' 159/70, 68. Pt states she will get up without assist and asks therapist not to help her. Gait Assessment Gait Gait Assistance Required: Minimum Assistance Distance (Feet) 2 Able to Maintain Weight Bearing Status Yes During Gait Assistive Devices Assistive Device Gait Belt,Front Wheeled Walker Orthotic/Prosthetic Devices or Brace: No Gait Deviations General Gait Pattern Decreased Stride Length, Decreased Feet Clearance, Flexed Trunk,Step-to Gait,Wide Based Gait Factors Limiting Gait Function Factors Limiting Gait Function Decreased Activity Tolerance, Decreased Strength,Difficulty Following Directions, Incoordination,Limited Range of Motion,Poor Balance,Poor Safety Awareness Comments Gait Comments Flexed posture and decreased step-length and foot clearance and use of RW PT-Balance Assessment Sitting Balance and Reactions Static Sitting Balance Ability Good Dynamic Sitting Balance Ability Fair Standing Balance and Reactions Static Standing Balance Ability Fair Dynamic Standing Balance Ability Fair Device Used RW M5 PT-IP Objective Assessments Start: 06/27/24 08:48 Freq: Status: Active Protocol: Document 06/27/24 11:31 MB (Rec: 06/27/24 12:28 [id number]) Orientation Orientation/Cognition Level of Alertness Confusional State Orientation Name,Birthday,Year,Place Language Function Ability Hard of Hearing Safety Awareness Decreased Safety Awareness Memory Description Short Term Impaired,Senior Care Impaired Comments Pt is very agitated with all questioning, states she is irritated, is tired of doing all this and when asked a question that she might not know the answer to, states she is irritated and sorry she is grumpy Gross Range of Motion Lower Extremity ROM Assessment Within Functional Limits Strength Lower Extremity Strength Assessment Within Functional Limits Coordination Assessment Assessment Coordination Comments No tolerance to coordination testing today d/t agitation Sensation Assessment Comments Sensation Comments No tolerance to sensation testing today d/t agitation Muscle Tone Muscle Tone WNL Yes M6 PT-IP Treatment Start: 06/27/24 08:48 Freq: Status: Active Protocol: Document 06/27/24 11:31 MB (Rec: 06/27/24 12:28 [id number]) Physical Therapy Treatment Education Education Provided Safety Other Treatments Other Treatment Performed Discussed d/c options and recommendations with pt and son after evaluation M7 PT-IP Assessment and Plan Start: 06/27/24 08:48 Freq: Status: Active Protocol: Document 06/27/24 11:31 MB (Rec: 06/27/24 12:28 [id number]) PT Summary Assessment and Plan Potential Rehabilitation Potential Poor Status of Condition at Evaluation Evolving Summary Impairments Pain,Balance,Coordination, Sensation,Cognition,Bed Mobility,Transfers,Gait, Activity Tolerance Progress Towards Goals Slow Progress due to Pain,Slow Progress - Other Assessment Summary Pt is an 89 y/o female presenting with agitation with therapy and this limits all mobility with PT today. PT is able to get orthostatic assessment and her BP does drop though it starts quick high and numbers are above. Pt requires CGA for bed mobility and transfers and min A to take a few side steps to the left with RW today. Pt refuses sitting up in chair. Son arrives at end of treatment and it sounds like staffing for caregivers has been somewhat challenging. Pt fell at night and has to manage to steps to get into her bed and she describes falling into it . Recommend 24 hour superv and PT at d/c. 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 Goals Bed Mobility Goal Standby Assistance Transfer Goal Standby Assistance,Front Wheeled Walker Gait Goal Standby Assistance,Front Wheel Walker Gait Distance 50 Other Goals Pt will ascend and descend 4 platform steps with use of RW and CGA to allow safe home entrance if that is her d/c location. Days to Meet Goals 5 Frequency of Treatment Frequency Of Treatment Once a Day Treatment Plan Physical Therapy Treatment Plan Bed Mobility Training,Transfer Training,Gait Training, Therapeutic Exercise,Balance Retraining,Discharge Planning, Hot or Cold Pack,Neuromuscular Re-ed,Coordination Retraining ,Manual Therapy Precautions Other Precautions Fall risk, easily agitated, check orthostatics again Weight Bearing Status Allowed Weight Bearing Amount (enter % No WB precautions or #) (%) Recommendations To Nursing Amount of Assist Needed 1 Person Assist Discharge Recommendations Other Discharge Recommendations [facility]/Memory care vs SNF, recommend 24 hour assistance and PT consult at d/c. Home situation is not safe if she is home alone at night and she has a bed with steps. Transportation Needs at Discharge Private Vehicle,Wheelchair/ Cabulance
--- NOTE | 2024-06-27 16:25 | CM.DANOTE ---
Patient is an 89 yo female who was admitted on 06/26/24 for Syncope. Pt has [facility] MCR for insurance and her PCP is Dr. Jacinta Moon. EMR was reviewed. Per MD, pt with hx of AFIB and admitted for syncope and bp issues and to work with PT/OT. Per PT/OT, SNF vs JAIL. SW met [facility] pt, son, and dtr at bedside to introduce self and role, pt last admission from 04/15-04/17/24 for similar issues. Pt resides modified independently and alone in her own home here in [place]. Her son, Arnulfo, is /DPOA [place] and daughter Sravanthi (lives in [place]). Family states concern about patient's safety at home and that she will need additional assist. Discussed in home care private payment vs insurance covered HH services. According to family, patient has refused SNF and [facility]FIE but now they feel since April her health has declined and SNF needed before return home. Pt now has two PP CGs in the home from [facility] and [facility] SW provided SNF Choice list and showed contracted [facility] contracted SNFs and family preference is [facility] to remain in town where multiple family members live. SW made new referral to [facility] to review and PASRR completed. Plan: SW to follow closely for [facility] review to confirm they can accept and initiate SNF auth and family plans to continue PP CGs at home and likely HH again after SNF. ANDREW Guillen Discharge Planning/Care Management CM Discharge Assessment Start: 06/27/24 14:51 Freq: Status: Active Protocol: Document 06/27/24 14:51 BF (Rec: 06/27/24 14:52 [id number]) Discharge Planning Assessment Assigned Process Control Programmer ANDREW Hernadez DPOA/Assigned Designee Name son Arnulfo Advance Directives? Yes Advance Directives on File No History Provided By Patient,Family Member,Medical Record Has Patient been admitted in last 30 No days? Prior Living Arrangements House Household Members none Type of transporation used prior to Relies on Others admit DME Already Rented / Owned FWW / Walker Discharge Plan Home Transportation Arrangement Daughter or son. Referrals Initiated None needed Additional Comment Pending If patient plan is home with home health No : Has signed face to face form been completed? Whiteboard Updated in Patient Room with Yes name and ext. # of Process Control Programmer Review Status In Process Please Provide Date Initial DC 06/27/24 Assessment Was Performed Next Review Type Continued Stay Review
[2024-06-27] MEDS: polyethylene glycoL 3350 17 GM POWD.PACK PO (21:04)
[2024-06-28] VITALS (8 sets, daily range): BP systolic 152–172; BP diastolic 69–87; PULSE 62–71; RESP 18–20; TEMP 36.7–36.8
[2024-06-28] MEDS: MORPHINE 4 MG/ML INJ IV (02:31)
[2024-06-28] MEDS: ONDANSETRON 4 MG/2 ML INJ IV (02:37)
[2024-06-28] MEDS: FAMOTIDINE 20 MG TABLET PO (06:00)
[2024-06-28] MEDS: LEVOTHYROXINE 50 MCG TABLET PO (06:00)
[2024-06-28 06:05] LABS: BUN Creatinine Ratio 13.8 (6-22); Blood Urea Nitrogen 9 mg/dL (7-17); Calcium 8.8 mg/dL (8.4-10.2); Carbon Dioxide 26 mmol/L (22-32); Chloride 100 mmol/L (98-107); Estimated Glomerular Filt Rate > 60 mL/min (>60); Glucose 85 mg/dL (80-110); HEMOLYSIS < 15 (0-50); Potassium 4.1 mmol/L (3.4-5.1); Sodium 130 mmol/L (137-145)
[2024-06-28] MEDS: MAG HYDROX/ALUM/SIMETH 30 ML UDC PO (08:56)
[2024-06-28] MEDS: carvediloL 3.125 MG TABLET PO (10:42)
[2024-06-28] MEDS: AMIODARONE 200 MG TABLET 100 MG PO (10:42)
[2024-06-28] MEDS: LOSARTAN 50 MG TABLET 100 MG PO (10:42)
--- NOTE | 2024-06-28 11:30 | PT.IPTN ---
Physical Therapy Treatment Note M2 PT-IP Current Condition Start: 06/27/24 08:48 Freq: Status: Active Protocol: Document 06/27/24 11:31 MB (Rec: 06/27/24 12:28 MB [id number]) Physical Therapy Current Condition Current Condition Evaluation Date 06/27/24 Treatment Diagnosis Syncope and fall M3 PT-IP Subjective Start: 06/27/24 08:48 Freq: Status: Active Protocol: Document 06/28/24 11:30 AB (Rec: 06/28/24 12:33 AB [id number]) Subjective Physical Therapy Visit Type Type Treatment Note Visit Start Time 11:30 Visit Stop Time 12:10 Number of [employer]PERATOR Visits 0 M4 PT-IP Mobility and Gait Start: 06/27/24 08:48 Freq: Status: Active Protocol: Document 06/28/24 11:30 AB (Rec: 06/28/24 12:33 AB [id number]) PT-Bed Mobility Assessment Supine to Sit Supine to Sit Standby Assistance,Head of Bed Elevated,Bedrails Sit to Supine Sit to Supine Standby Assistance PT-Transfer Assessment Sit to and From Stand Sit to and from Stand Standby Assistance,Contact Guard Assistance,1 Person Assistance,Use of Upper Extremities Equipment Transfer Assistive Device Gait Belt,Front Wheeled Walker Orthotic/Prosthetic Devices or Brace: No Transfers Transfer Destination Toilet Transfer Technique ambulated Transfer Ability Level of Assist Standby Assistance,Contact Guard Assistance,1 Person Assistance,Use of Upper Extremities Comments Mobility Comments checked on pt several time and was refusing. checked back on pt and son in room. continue to refuse. Son explained to pt regarding PT but pt continues to refuse PT but agreed to be seen in pm but wants a female therapist. Son stepped out of the room. talked to pt regarding PT and d/c goals. pt agreed to do PT but wants son in room . PT went to look for son and son agreed to get back in pt's room. pt tends to direct her own care: c/o gown, IV, portable tele, sleepery floors etc but agreed to get out of bed. pt also stated that she will continue using her SPC when see gets home. BP checked in supine: 187/87. pt completed supine to sit SBA with HOB elevated. pt completed sit to stand SBA to CGA. pt ambulated in room using FWW ~ 40 ft SBA to occasional CGA. cued to slow down. presents with forward flexed posture. pt requested to use the toilet and ambulated to the toilet using FWW SBA. pt assisted with brief management. c/o brief padding being too much and that is why she needs assistance per pt. pt completed sit to stand from the toilet SBA to CGA. refused to do handwashing but ambulated more in room using FWW ~ 40 ft SBA to CGA. educated pt on safety and to slow down. asked pt if willing to ambulate with SPC with PT to assess steadiness and safety with SPC use but pt refused. stated that she will use FWW here in the hospital and she will not use SPC here in the hospital since the nataliia is different (she has carpet nataliia). pt sat on EOB. informed pt to continue using a FWW at home for safety . Son stated that the reason pt uses a SPC at home is that pt has so many things at home that pt feels she does not have enough space to use a FWW . son stated that they will be clear and make space for pt to be able to use FWW at home. pt completed sit to supine SBA . positioned pt in bed. call light and table placed within reach. informed nurse regarding BP Gait Assessment Gait Gait Assistance Required: Standby Assistance,Contact Guard Assist Distance (Feet) 40 Able to Maintain Weight Bearing Status Yes During Gait Assistive Devices Assistive Device Gait Belt,Front Wheeled Walker Orthotic/Prosthetic Devices or Brace: No Gait Deviations General Gait Pattern Decreased Stride Length, Decreased Feet Clearance Factors Limiting Gait Function Factors Limiting Gait Function Decreased Activity Tolerance, Decreased Strength,Difficulty Following Directions,Limited Range of Motion,Poor Balance, Poor Safety Awareness M5 PT-IP Objective Assessments Start: 06/27/24 08:48 Freq: Status: Active Protocol: Document 06/27/24 11:31 MB (Rec: 06/27/24 12:28 MB [id number]) Orientation Orientation/Cognition Level of Alertness Confusional State Orientation Name,Birthday,Year,Place Language Function Ability Hard of Hearing Safety Awareness Decreased Safety Awareness Memory Description Short Term Impaired,Shelter Impaired Comments Pt is very agitated with all questioning, states she is irritated, is tired of doing all this and when asked a question that she might not know the answer to, states she is irritated and sorry she is grumpy Gross Range of Motion Lower Extremity ROM Assessment Within Functional Limits Strength Lower Extremity Strength Assessment Within Functional Limits Coordination Assessment Assessment Coordination Comments No tolerance to coordination testing today d/t agitation Sensation Assessment Comments Sensation Comments No tolerance to sensation testing today d/t agitation Muscle Tone Muscle Tone WNL Yes M6 PT-IP Treatment Start: 06/27/24 08:48 Freq: Status: Active Protocol: Document 06/28/24 11:30 AB (Rec: 06/28/24 12:33 AB [id number]) Physical Therapy Treatment Education Education Provided Safety M7 PT-IP Assessment and Plan Start: 06/27/24 08:48 Freq: Status: Active Protocol: Document 06/28/24 11:30 AB (Rec: 06/28/24 12:33 AB [id number]) PT Summary Assessment and Plan Potential Rehabilitation Potential Fair Summary Impairments Pain,ROM,Strength,Balance, Coordination,Sensation,Tone, Cognition,Bed Mobility, Transfers,Gait,Activity Tolerance Progress Towards Goals Slow Progress - Other Assessment Summary pt requiring SBA to CGA with mobility using FWW. recommending continued use of FWW at home for safety. pt with decrease safety awareness and tends to direct her own care. Son confirmed that pt has a caregiver that comes in 9am to 6pm to assist her. Pt may go home when medically stable. will benefit from HHPT. Goals Bed Mobility Goal Standby Assistance Transfer Goal Standby Assistance,Front Wheeled Walker Gait Goal Standby Assistance,Front Wheel Walker Gait Distance 50 Other Goals Pt will ascend and descend 4 platform steps with use of RW and CGA to allow safe home entrance if that is her d/c location. Days to Meet Goals 5 Frequency of Treatment Frequency Of Treatment Once a Day Treatment Plan Physical Therapy Treatment Plan Bed Mobility Training,Transfer Training,Gait Training, Therapeutic Exercise,Balance Retraining,Discharge Planning, Hot or Cold Pack,Neuromuscular Re-ed,Coordination Retraining ,Manual Therapy Recommendations To Nursing Amount of Assist Needed 1 Person Assist Discharge Recommendations PT Discharge Recommendations Home with Assistance,Home Health Transportation Needs at Discharge Private Vehicle,Wheelchair/ Cabulance
--- NOTE | 2024-06-28 12:38 | PM.PN.1 ---
Subjective Subjective Interval history: S: she has a lot of reflux today. No abdomen pain. No nausea. Exam Vital Signs (past 8 hours): - 06/28/24 08:00 06/28/24 10:42 06/28/24 10:42 Temperature 98.3 F Pulse Rate 70 70 Respiratory Rate 18 Blood Pressure 171/69 H 171/69 H 171/69 H Oxygen Delivery Method Room Air Oxygen Flow Rate 0 Narrative Exam Narrative: NAD, alert and oriented. Fluent speech. Lungs are clear, normal rate and effort. Heart is regular, no murmur gallop or rub. Abdomen is soft, non distended. Extremities are free of edema. Objective Labs 06/26/24 15:05 06/28/24 05:10 Labs: Laboratory Results - last 24 hr 06/28/24 05:10 Sodium 130 L Potassium 4.1 Chloride 100 Carbon Dioxide 26 BUN 9 Creatinine 0.65 Estimated GFR > 60 BUN/Creatinine Ratio 13.8 Glucose 85 Calcium 8.8 PFSH Medical History Acute metabolic encephalopathy Acute epigastric pain Acute hyponatremia Hypertensive urgency Anxiety Hypertension Surgical History Status post cholecystectomy Status post delivery Social History household members: none Smoking Status: Never smoker alcohol intake: never Assessment & Plan Assessment & Plan narrative: 1. Syncope. Present on admission and resolved. 2. Hypertensive urgency. Present on admission and active. -Note SBP on arrival to ER was in 190s. s/p nicardipne drip in ER. SBP now 120s. Resume home Coreg with prn IV hydralazine. 3. Vertigo symptoms. Present on admission and improved. -Patient symptomts now resolved. 4. Afib. Present on admission and active, and stable. 5. HLD. Present on admission and active, and stable. -Resume home statin once medication dose is confirmed in AM 6. Hypothyoirism. Resume home Synthroid is confirmed in AM PLAN: -PT eval -Discharge planning. -Add Protonix BID Time-Based Coding :: [TOTAL MINUTES] spent with patient and on the chart (including review of chart, obtaining history, exam, reviewing outside data, placing orders, documenting exam and treatment plan, and counseling patient) on [DATE].
[2024-06-28] MEDS: hydrOXYzine HCL 25 MG TABLET PO (12:39)
--- NOTE | 2024-06-28 13:20 | CM.DPC ---
DCP Continued: Reviewed EMR and team rounds for pt?s medical status. Per hospitalist, pt no longer having pain in abdomen or nausea, trialling new medication. Per [facility] Admissions, a request for SNF rehab authorization with patient's insurance has been placed but highly unlikely due to pt's medical necessity. It is reported that a denial would need to happen before private pay can be entertained. DCP entered room, introduced self and role. Present in the room is pt's son/DPOA, Arnulfo. Pt was found in bed, able to communicate preferences. Pt son discussed family preference for pt to go to SNF Rehab, even for a few days or weeks until they are able to find a private caregiver who can provide some medical care for patient (med management) daily. DCP discussed possible memory care or assisted living placement, pt family trying to exhaust all options for pt to return home first. DCP discussed private pay is highly likely for SNF due to pt not meeting medical necessity for SNF Rehab at this time. DPOA/Son explained that the month upfront cost of ~$13,000 at [facility] is accessible for pt. Plan: Awaiting acceptance/possible insurance authorization for SNF Rehab at [facility]. CM Team will continue to follow for coordination of discharge plans. DAVE Springer
--- NOTE | 2024-06-28 13:39 | OT.IPNOTE ---
Pt refusing OT treatment today.
[2024-06-28] MEDS: PANTOPRAZOLE DR 40 MG TABLET PO ×2 (13:50→21:08)
[2024-06-28] MEDS: BISACODYL 10 MG SUPP PR (16:22)
[2024-06-28] MEDS: ACETAMINOPHEN 325 MG TABLET 650 MG PO (18:56)
[2024-06-29] VITALS (8 sets, daily range): BP systolic 156–192; BP diastolic 61–87; PULSE 67–88; RESP 16–17; TEMP 36.6; O2SAT 93–95
--- NOTE | 2024-06-29 02:25 | PC.NURSE ---
Up to the toilet ,SBA with the walker and gait belt. Call light in reach. RN took over.
[2024-06-29] MEDS: HYDRALAZINE 20 MG/ML VIAL 10 MG IV (06:03)
[2024-06-29] MEDS: PANTOPRAZOLE DR 40 MG TABLET PO (06:04)
[2024-06-29] MEDS: LEVOTHYROXINE 50 MCG TABLET PO (06:04)
--- NOTE | 2024-06-29 07:59 | P.PN_ITS ---
Subjective Subjective Interval history: S: Exam Vital Signs (past 8 hours): - 06/29/24 00:06 06/29/24 04:52 06/29/24 06:03 Temperature 97.9 F 97.9 F Pulse Rate 88 70 70 Respiratory Rate 16 17 Blood Pressure 158/76 H 192/73 H 192/73 H Pulse Oximetry 93 95 Oxygen Flow Rate 0 0 06/29/24 06:44 Temperature Pulse Rate 71 Respiratory Rate Blood Pressure 160/69 H Pulse Oximetry Oxygen Flow Rate Oxygen Delivery Method Room Air Oxygen Flow Rate 0 Narrative Exam Narrative: NAD, alert and oriented. Fluent speech. Lungs are clear, normal rate and effort. Heart is regular, no murmur gallop or rub. Abdomen is soft, non distended. Extremities are free of edema. Objective Labs 06/26/24 15:05 06/28/24 05:10 [facility] Medical History Acute metabolic encephalopathy Acute epigastric pain Acute hyponatremia Hypertensive urgency Anxiety Hypertension Surgical History Status post cholecystectomy Status post delivery Social History household members: none Smoking Status: Never smoker alcohol intake: never Assessment & Plan Assessment & Plan narrative: 1. Syncope. Present on admission and resolved. 2. Hypertensive urgency. Present on admission and active. -Note SBP on arrival to ER was in 190s. s/p nicardipne drip in ER. SBP now 120s. Resume home Coreg with prn IV hydralazine. 3. Vertigo symptoms. Present on admission and improved. -Patient symptomts now resolved. 4. Afib. Present on admission and active, and stable. 5. HLD. Present on admission and active, and stable. -Resume home statin once medication dose is confirmed in AM 6. Hypothyoirism. Resume home Synthroid is confirmed in AM PLAN: -PT eval -Discharge planning. -Add Protonix BID Time-Based Coding :: [TOTAL MINUTES] spent with patient and on the chart (including review of chart, obtaining history, exam, reviewing outside data, placing orders, documenting exam and treatment plan, and counseling patient) on [DATE].
[2024-06-29] MEDS: LOSARTAN 50 MG TABLET 100 MG PO (08:20)
[2024-06-29] MEDS: ACETAMINOPHEN 325 MG TABLET 650 MG PO (08:20)
[2024-06-29] MEDS: MORPHINE IR 15 MG TABLET PO (08:20)
[2024-06-29] MEDS: AMIODARONE 200 MG TABLET 100 MG PO (08:21)
[2024-06-29] MEDS: carvediloL 3.125 MG TABLET PO (08:21)
--- NOTE | 2024-06-29 09:13 | CM.DPC ---
DCP Continued: Reviewed EMR and team rounds for pt?s medical status. Per [facility] admissions, pt was authorized by insurance for SNF Rehab. [facility] reported pt to be transported by their facility van at 1130. RN Report number relayed to pt RN. DCP notified patient, POA (via voice message), pt RN, hospitalist and [employer] [place] [employer]. PASRR signed, pending signed med list and prescription medications - to be sent to [facility]. Plan: Pt to discharge to [facility] at 1130 via wheelchair transport. CM Team will continue to follow for coordination of discharge plans. DAVE Springer
--- NOTE | 2024-06-29 09:41 | P.DS_ITS ---
History of Present Illness History of Present Illness Chief complaint: Syncope Narrative: From night doctor: 89 year old female with past medical history of Gastritis/GERD, HTN, HLD, hypothyroidism and afib presents with syncope. Per report, the patient was at home and had a near syncope episode. The patient does not really recall but the provider that was close to her report that the patient complain of dizziness and fell down to a seated position. The patient does not recall if she has LOC but denies hitthing her head. There was also no report of any seizure like activity. The patient denies any changes in her speech, focal weakness/numbness or facial drooping. The patient did report of some nausea and vomiting with some epigastric discomfort but denies any GIB. Patient also denies any fever, chills, chest pain, palpitations or coughing. The patient did have some headache. In our ER, the patient SBP was in 190s. CT and CTA of brain iniitially suggested possible small hemorrhage. Neurosurgery was consulted by our ER physician and recommended to bring down blood pressure and repeat CT/CTA of brain. Nicardipine drip was starte and SBP improves to 120s which was stopped. EKG and trops negative. Repeat of CT/CTA of brain shows no interval changes. Our ER physician Dr. Jackson called Dr. Mcdonald, neurosurgery kapok and cotton machine operator for who review the films and did not think that the findings on CT is a hemorrhage. Dr. Mcdonald adviced to admit the patient here for observation to monitor neuro symptoms as well as to obtain MRI of brain in AM. Discharge Providers Provider Date of admission: 06/26/24 22:52 Discharge Date: 06/29/24 Primary care physician: Jacinta Moon DO Consults: 06/26/24 23:39 Consult to Occupational Therapy Evaluate & Treat Comment: Physician Instructions: Evaluate and treat 06/26/24 23:40 Consult to Physical Therapy Evaluate & Treat Comment: Physician Instructions: Evaluate and Treat Discharge provider: Cristhian Goldstein MD Summary Hospital Course Discharge Diagnosis: 1. Syncope. Present on admission and resolved. 2. Hypertensive urgency. Present on admission and active. -Note SBP on arrival to ER was in 190s. s/p nicardipne drip in ER. SBP now 120s. Resume home Coreg with prn IV hydralazine. 3. Vertigo symptoms. Present on admission and improved. -Patient symptomts now resolved. 4. Afib. Present on admission and active, and stable. 5. HLD. Present on admission and active, and stable. -Resume home statin once medication dose is confirmed in AM 6. Hypothyoirism. Resume home Synthroid is confirmed in AM Hospital Course: She was admitted for a syncopal episode. She was observed on telemetry. She was found to be debilitated. She did work with physical therapy and occupational therapy. She has a does have significant reflux which was treated. No evidence of acute coronary syndrome or other event was found. Status at Discharge Cognitive/behavioral status at discharge: at baseline, confused Functional status at discharge: uses cane/walker Overall status at discharge: patient is progressing back to baseline Time Spent with Patient Time spent: Greater than 30 minutes Exam Vital Signs (past 8 hours): - 06/29/24 04:52 06/29/24 06:03 06/29/24 06:44 Temperature 97.9 F Pulse Rate 70 70 71 Respiratory Rate 17 Blood Pressure 192/73 H 192/73 H 160/69 H Pulse Oximetry 95 Oxygen Flow Rate 0 06/29/24 08:00 06/29/24 08:16 06/29/24 08:20 Temperature Pulse Rate 67 68 68 Respiratory Rate Blood Pressure 156/87 H 158/61 H 158/61 H Pulse Oximetry Oxygen Flow Rate 06/29/24 08:21 Temperature Pulse Rate 68 Respiratory Rate Blood Pressure 158/61 H Pulse Oximetry Oxygen Flow Rate Oxygen Delivery Method Room Air Oxygen Flow Rate 0 Narrative Exam Narrative: NAD, alert and oriented. Fluent speech. Lungs are clear, normal rate and effort. Heart is regular, no murmur gallop or rub. Abdomen is soft, non distended. Extremities are free of edema. Objective ECG Impression: Intervals Dodge Rate: 61 P: 11 MS: 140 QRS: -2 QRSD: 72 T: -1 QT: 466 QTc: 469 Interpretive Statements Normal sinus rhythm Imaging Multiple studies:: Radiologist's impression: Head CT 1: No interval change. The subtle increased density along the posterior falx and tentorium is unchanged. Lobe suspicion for hemorrhage. Head and neck CTA: Multiple areas of high-grade stenosis within the neck and intracranial circulation as described above relatively stable. Pulmonary ground-glass opacities which can be seen with infection/ inflammation. Head CT 2: Increased density within the posterior falx and tentorium most suspicious for hemorrhage. The above findings were discussed with Dr. Grayson Gomez on 06/26/2024 at 6:14 p.m.. Studies abdomen and pelvis CT: Mild bibasilar subsegmental atelectasis and mild ground-glass opacities. Mild cardiomegaly unchanged. [id number] wall thickening of the stomach into the proximal duodenum discussed above. Moderate pattern of constipation less than on the prior exam. New mild nonspecific wall thickening of the distal transverse, descending and proximal sigmoid colon some of which commonly artifact from partial nondistention although mild colitis could have a similar appearance. Labs 06/26/24 15:05 06/28/24 05:10 [facility] Medical History Acute metabolic encephalopathy Acute epigastric pain Acute hyponatremia Hypertensive urgency Anxiety Hypertension Surgical History Status post cholecystectomy Status post delivery Social History household members: none Smoking Status: Never smoker alcohol intake: never Discharge Assessment & Plan Assessment and Plan Assessment: 1. Syncope. Present on admission and resolved. * 2. Hypertensive urgency. Present on admission and improved. Plan of Treatment: Stable for transfer to group home facility for PT and OT therapies. In addition blood pressure will be monitored to assure good control. Discharge Plan Discharge Plan Patient Disposition: SNF Transfer to: [facility] Under care of provider: Dr Grissom Transportation: Wheelchair Provider Discharge Comment: Stable for discharge to [facility]. I certify the postop hospital group home care is medically necessary on a continuing basis for any conditions for which he/ she received care during this hospitalization.: Yes The receiving facility has agreed to accept transfer and provide medical treatment.: Yes Discharge orders & Medications Prescriptions: New alum-mag hydroxide-simeth [Mag-Al Plus] 200-200-20 mg/5 mL Suspension 30 ml PO Q4HR PRN (Reason: Dyspepsia) Qty: 3000 0RF Continued amiodarone 100 mg tablet 100 mg PO DAILY Qty: 90 1RF carvedilol 3.125 mg tablet 3.125 mg PO BID Qty: 180 1RF Rx Instructions: must administer with a meal/food levothyroxine 50 mcg tablet 50 mcg PO DAILY@06 Qty: 90 1RF losartan 100 mg tablet 100 mg PO DAILY Qty: 90 1RF pantoprazole 40 mg tablet,delayed release (DR/EC) 40 mg PO BID Qty: 180 1RF Hold Instructions: Home Medication placed on hold at Doctor's office rosuvastatin 10 mg tablet 10 mg PO BEDTIME Qty: 90 1RF sucralfate 1 gram tablet 1 g PO BID Qty: 30 0RF hydroxyzine pamoate 25 mg capsule 25 mg PO 3XD PRN (Reason: Anxiety) metoclopramide HCl [Reglan] 5 mg tablet 5 mg PO BID Qty: 60 1RF Rx Instructions: administer 30 minutes before meals esomeprazole magnesium 40 mg capsule,delayed release(DR/EC) 40 mg PO BEDTIME lactulose 20 gram/30 mL solution 20 g PO BID Qty: 300 0RF morphine 10 mg/5 mL solution 5 mg PO Q6H PRN (Reason: pain) Qty: 50 0RF Discontinued famotidine 20 mg tablet 20 mg PO BID Qty: 60 0RF Follow up/Referrals: Jacinta Moon DO [Primary Care Provider] - Discharge Health Status Multidrug resistant organism: No MDRO Diet/Activity/Treatments Diet: Regular Special Rehabilitation Services Reason for rehabilitation: Recovery r/t decondition Rehab type: Physical therapy and Occupational therapy Visit Report/Discharge Packet Instructions: DI for Syncope in Adults (Fainting) Stand Alone Forms: Patient Portal/API Discharge Data Primary Care Provider: Jacinta Moon Attending Provider: Cole Tucker Admit Date/Time: 06/26/24 22:52
--- NOTE | 2024-06-29 09:41 | PC.NURSE ---
Nurse to Nurse report given to nurse Bobby at [facility] at 0933 to 0941. All questions answered.
--- NOTE | 2024-06-29 10:50 | PT.IPTN ---
Physical Therapy Treatment Note M2 PT-IP Current Condition Start: 06/27/24 08:48 Freq: Status: Active Protocol: Document 06/27/24 11:31 MB (Rec: 06/27/24 12:28 MB [id number]) Physical Therapy Current Condition Current Condition Evaluation Date 06/27/24 Treatment Diagnosis Syncope and fall M3 PT-IP Subjective Start: 06/27/24 08:48 Freq: Status: Active Protocol: Document 06/29/24 10:50 AB (Rec: 06/29/24 11:36 AB [id number]) Subjective Physical Therapy Visit Type Type Treatment Note Visit Start Time 10:50 Visit Stop Time 11:25 Number of [employer] OPERATOR Visits 0 Physical Therapy Visit Comments Patient Comments agreeable to do PT M4 PT-IP Mobility and Gait Start: 06/27/24 08:48 Freq: Status: Active Protocol: Document 06/29/24 10:50 AB (Rec: 06/29/24 11:36 AB [id number]) PT-Bed Mobility Assessment Supine to Sit Supine to Sit Standby Assistance,Head of Bed Elevated Sit to Supine Sit to Supine Standby Assistance,Head of Bed Elevated PT-Transfer Assessment Sit to and From Stand Sit to and from Stand Standby Assistance,Contact Guard Assistance,1 Person Assistance,Use of Upper Extremities Equipment Transfer Assistive Device Gait Belt,Front Wheeled Walker Orthotic/Prosthetic Devices or Brace: No Transfers Transfer Destination Toilet Transfer Technique ambulated Transfer Ability Level of Assist Standby Assistance,Contact Guard Assistance,1 Person Assistance,Use of Upper Extremities Comments Mobility Comments checked on pt this morning and was refusing PT. checked back on pt and son in room. pt agreed to get up with PT. completed supine to sit HOB elevated SBA. sit to stand SBA to CGA. pt ambulated in room using FWW ~ 50 ft SBA to occasional CGA. presents with forward head posture and with decrease LE elevation and step length. pt requested to use the toilet and ambulated to the toilet using fWW SBA. pt needs assistance with brief management. completed sit to stand from the toilet using grab bar SBA. pt ambulated from the toile towards the sink using FWW SBA. able to maintain standing SBA while completing handwashing. pt ambulated more in room using FWW ~ 40 ft and sat back on EOB. requested to go back to bed. sit to supine SBA. positioned pt in bed. call ight and table set up next to pt. Left pt with son in room. Gait Assessment Gait Gait Assistance Required: Standby Assistance,Contact Guard Assist Distance (Feet) 50 Able to Maintain Weight Bearing Status Yes During Gait Assistive Devices Assistive Device Gait Belt,Front Wheeled Walker Orthotic/Prosthetic Devices or Brace: No Gait Deviations General Gait Pattern Decreased Stride Length, Decreased Feet Clearance,Step- to Gait Factors Limiting Gait Function Factors Limiting Gait Function Decreased Activity Tolerance, Decreased Strength,Limited Range of Motion,Pain,Poor Balance,Poor Safety Awareness M5 PT-IP Objective Assessments Start: 06/27/24 08:48 Freq: Status: Active Protocol: Document 06/27/24 11:31 MB (Rec: 06/27/24 12:28 MB [id number]) Orientation Orientation/Cognition Level of Alertness Confusional State Orientation Name,Birthday,Year,Place Language Function Ability Hard of Hearing Safety Awareness Decreased Safety Awareness Memory Description Short Term Impaired,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 Comments Pt is very agitated with all questioning, states she is irritated, is tired of doing all this and when asked a question that she might not know the answer to, states she is irritated and sorry she is grumpy Gross Range of Motion Lower Extremity ROM Assessment Within Functional Limits Strength Lower Extremity Strength Assessment Within Functional Limits Coordination Assessment Assessment Coordination Comments No tolerance to coordination testing today d/t agitation Sensation Assessment Comments Sensation Comments No tolerance to sensation testing today d/t agitation Muscle Tone Muscle Tone WNL Yes M6 PT-IP Treatment Start: 06/27/24 08:48 Freq: Status: Active Protocol: Document 06/29/24 10:50 AB (Rec: 06/29/24 11:36 AB [id number]) Physical Therapy Treatment Education Education Provided Safety M7 PT-IP Assessment and Plan Start: 06/27/24 08:48 Freq: Status: Active Protocol: Document 06/29/24 10:50 AB (Rec: 06/29/24 11:36 AB [id number]) PT Summary Assessment and Plan Potential Rehabilitation Potential Good Summary Impairments Pain,ROM,Strength,Balance, Coordination,Sensation,Tone, Cognition,Bed Mobility, Transfers,Gait,Activity Tolerance Progress Towards Goals Slow Progress due to Activity Tolerance,Slow Progress - Other Assessment Summary pt requiring SBA to CGA with mobility and cues for safety. pt with memory issues and decrease safety awareness affecting functional independence. pt will need assistance at home. plan is for SNF or [facility] d/c a this time and pt eventually will need LTC due to decrease safety awareness. Goals Bed Mobility Goal Standby Assistance Transfer Goal Standby Assistance,Front Wheeled Walker Gait Goal Standby Assistance,Front Wheel Walker Gait Distance 50 Other Goals Pt will ascend and descend 4 platform steps with use of RW and CGA to allow safe home entrance if that is her d/c location. Days to Meet Goals 5 Frequency of Treatment Frequency Of Treatment Once a Day Treatment Plan Physical Therapy Treatment Plan Bed Mobility Training,Transfer Training,Gait Training, Therapeutic Exercise,Balance Retraining,Discharge Planning, Hot or Cold Pack,Neuromuscular Re-ed,Coordination Retraining ,Manual Therapy Recommendations To Nursing Amount of Assist Needed 1 Person Assist Discharge Recommendations PT Discharge Recommendations Home with 08/05 Assist Available,Home Health,SNF Rehab Transportation Needs at Discharge Private Vehicle,Wheelchair/ Cabulance
== END 2024-06-29 11:45 ==
LOC: ED 22:50 → AC 22:52
PROVIDERS: Emergency Medicine; Admitting Provider Internal Medicine; Emergency Provider Emergency Medicine; PCP Family Medicine; Referring Provider Emergency Medicine; Visit Provider Internal Medicine
DX: R55 Syncope and collapse (principal); I16.0 Hypertensive urgency; R29.700 NIHSS score 0; I48.91 Unspecified atrial fibrillation; I10 Essential (primary) hypertension; E78.5 Hyperlipidemia, unspecified; E03.9 Hypothyroidism, unspecified
CPT/HCPCS: 36415; 70450; 70496; 70498; 70551; 74177; 80048; 80053; 82550; 82962; 83690; 84484; 85025; 93005; 96361; 96365; 96366; 96375; 96376; 97116; 97161; 97166; 97530; 97535; 99284; 99291; G0378; A9270; J0360; J1170; J2270; J2405; J2470; Q9967

== ENCOUNTER → 2024-09-04 06:17 | Outpatient (ROUT) | payer MEDICARE, SELFPAY ==
[2024-06-26 23:02] VITALS: BMI 23.6
[2024-09-04 08:17] LABS: Hematocrit 37.1 % (36-46); Hemoglobin 12.2 g/dL (12.0-16.0); Mean Corpuscular Hemoglobin 29.5 PG (26-34); Mean Corpuscular Volume 89.3 fL (80-100); Platelet Count 261 X10^3/uL (150-400); Red Blood Cell Count 4.15 X10^6/uL (4.0-5.2); Red Cell Distribution Width 15.7 % (11.6-14.8); White Blood Cell Count 7.4 X10^3/uL (4.5-11.0)
[2024-09-04 08:41] LABS: Blood Urea Nitrogen 14 mg/dL (7-17); Calcium 9.4 mg/dL (8.4-10.2); Carbon Dioxide 28 mmol/L (22-32); Chloride 102 mmol/L (98-107); Estimated Glomerular Filt Rate > 60 mL/min (>60); Glucose 93 mg/dL (80-110); HEMOLYSIS < 15 (0-50); Potassium 3.4 mmol/L (3.4-5.1); Sodium 135 mmol/L (137-145)
[2024-09-04 09:09] LABS: Thyroid Stimulating Hormone 5.44 uIU/mL (0.47-4.68)
[2024-09-04 09:45] LABS: Folate 5.3 ng/mL (2.76-20.0); Vitamin B12 429 pg/mL (239-931)
== END ==
PROVIDERS: PCP Family Medicine; Visit Provider Registered Nurse
DX: R44.3 Hallucinations, unspecified (principal)
CPT/HCPCS: 36415; 80048; 82607; 82746; 84443; 85027